=== PATIENT | female | born 2000 | race Caucasian/White ===

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

== ENCOUNTER 2020-08-22 07:42 | Emergency (ER) | payer SELFPAY ==
--- OUTSIDE RECORDS SUMMARY | 2020-08-22 07:44 | XMS REPORT | Continuity of Care Document ---
:2000 Author Organization [facility] t Address [address] [place] [place] [address] Care Team Providers Name Role Phone Gamez Urbano OWEN Attending Clinician Doctor Unassigned, Name Attending Clinician Unavailable Problems This patient has no known problems. Allergies, Adverse Reactions, Alerts This patient has no known allergies or adverse reactions. Medications This patient has no known medications. Procedures This patient has no known procedures. Encounters Start End Encounter Admission Attending Care Care Encounter Source Date/Time Date/Time Type Type Clinicians Facility Department ID 2019-12-22 2019-12-22 Telephone GamezCELSO [id number] 00:00:00 00:00:00 Vickie Clement [facility] [id number] [facility] [id number] MATERNAL [id number] & CHILD 107 [facility] 2019-11-30 2019-11-30 Telephone Franco [facility] [id number] 00:00:00 00:00:00 Vickie Clement [facility] [id number] [facility] [id number] MATERNAL [id number] & CHILD 107 [facility] 2019-11-05 2019-11-05 Orders Doctor RODRIGUES [id number] 00:00:00 00:00:00 Only Unassigned, RUY [id number] [place] [id number] [id number] 2019-10-21 2019-10-21 Office Franco JOHNHEMAL [id number] 14:50:09 15:05:09 Visit Vickie Clement [facility] [id number] [facility] [id number] MATERNAL [id number] & CHILD [address] [place] [address] 2019-10-21 2019-10-21 Orders Doctor LILIA [id number] 00:00:00 00:00:00 Only Unassigned, RUY [id number] [place] [facility] [id number] Results This patient has no known results.
[2020-08-22 08:26] LABS: Absolute Lymphocytes (CBC) 1.8 K/uL (0.7-4.9); Basophils % 0.4 % (0-1.3); Hematocrit 36.1 % (36.0-45.0); Lymphocytes % 34.4 % (15.3-44.8); MPV 9.7 fL (7.6-11.3); RBC Red Blood Cell Count 4.17 M/uL (3.86-4.86)
[2020-08-22 08:54] LABS: BUN Blood Urea Nitrogen 12 mg/dL (7-18); Bicarbonate 27 mmol/L (21-32); Glucose Level 112 mg/dL (74-106); Potassium 3.9 mmol/L (3.5-5.1); Sodium Level 142 mmol/L (136-145); Troponin (Emerg Dept Use Only) < 0.02 ng/mL (0.0-0.045)
--- NOTE | 2020-08-22 09:25 | ER ---
Nurse's Notes [facility] Name: Akanksha Barragan Age: 20 yrs Sex: Female : 2000 Arrival Date: 08/22/2020 Time: 07:44 Bed 20 Private MD: Diagnosis: Chest pain, unspecified;Bradycardia, unspecified Presentation: 08/22 07:53 Chief complaint: Patient states: midsternal chest pain started yesterday, worse this iw morning , also feels like its fluttering , has had previous episode when she was 17 and was supposed to follow up with reference librarian. Coronavirus screen: At this time, the client does not indicate any symptoms associated with coronavirus-19. Ebola Screen: Patient negative for fever greater than or equal to 101.5 degrees Fahrenheit, and additional compatible Ebola Virus Disease symptoms Patient denies exposure to infectious person. Patient denies travel to an Ebola-affected area in the 21 days before illness onset. No symptoms or risks identified at this time. Initial Sepsis Screen: Does the patient meet any 2 criteria? No. Patient's initial sepsis screen is negative. Does the patient have a suspected source of infection? No. Patient's initial sepsis screen is negative. Risk Assessment: Do you want to hurt yourself or someone else? Patient reports no desire to harm self or others. Onset of symptoms was August 21, 2020. 07:53 Method Of Arrival: Ambulatory iw 07:53 Acuity: NATHAN 3 iw Triage Assessment: 09:36 General: Appears in no apparent distress. uncomfortable, Behavior is calm, cooperative, bw appropriate for age. Historical: - Allergies: 08:02 Iodine; iw 08:02 Latex, Natural Rubber; iw 08:02 SHELL FISH; iw 09:37 Bactrim; bw - PMHx: 07:56 Hypothyroidism; inverted T waves; Migraines; seasonal allergies; iw - Immunization history:: Adult Immunizations. - Family history:: not pertinent. - Social history:: Smoking status: Patient denies any tobacco usage or history of. - Hospitalizations: : No recent hospitalization is reported. Screenin:27 Abuse screen: Denies threats or abuse. Nutritional screening: No deficits noted. bw Tuberculosis screening: No symptoms or risk factors identified. Fall Risk None identified. Assessment: 08:27 General: Appears in no apparent distress. uncomfortable. Pain: Complains of pain in bw anterior aspect of left upper chest and mid-sternal area Pain does not radiate. Pain began 1 day ago. Neuro: No deficits noted. Cardiovascular: Rhythm is sinus bradycardia with arrythmia Chest pain is described as Pain is 5 out of 10 on a pain scale. Respiratory: Reports shortness of breath at rest. GI: No signs and/or symptoms were reported involving the gastrointestinal system. : No signs and/or symptoms were reported regarding the genitourinary system. EENT: No signs and/or symptoms were reported regarding the EENT system. Derm: No deficits noted. Musculoskeletal: No deficits noted. 08:53 Reassessment: Patient appears in no apparent distress at this time. Patient and/or bw family updated on plan of care and expected duration. Pain level reassessed. Patient is alert, oriented x 3, equal unlabored respirations, skin warm/dry/pink. 09:35 Reassessment: Patient appears in no apparent distress at this time. Patient and/or bw family updated on plan of care and expected duration. Pain level reassessed. Patient is alert, oriented x 3, equal unlabored respirations, skin warm/dry/pink. Vital Signs: 07:53 BP 132 / 82; Pulse 82; Resp 16; Temp 97.3; Pulse Ox 95% on R/A; Weight 77.11 kg; Height iw 5 ft. 3 in. (160.02 cm); 08:27 BP 115 / 72; Pulse 51; Resp 18; Pulse Ox 100% on R/A; Pain 5/10; bw 09:35 BP 115 / 72; Pulse 50; Resp 18; Pulse Ox 99% on R/A; bw 07:53 Body Mass Index 30.11 (77.11 kg, 160.02 cm) iw ED Course: 07:44 Patient arrived in ED. ds1 07:50 Per Hernandez MD is Attending Physician. rn 07:56 Triage completed. iw 07:56 Esau Ragland, LUIS ALBERTO is Primary Nurse. fu 08:02 Arm band placed on. iw 08:27 Patient has correct armband on for positive identification. Call light in reach. Side bw rails up X 1. neuroscience director na on. Pulse ox on. NIBP on. Warm blanket given. 08:27 No provider procedures requiring assistance completed. Inserted saline lock: 20 gauge bw in right antecubital area, using aseptic technique. Patient maintains SpO2 saturation greater than 95% on room air. 09:03 XRAY Chest (1 view) In Process Unspecified. EDMS 09:24 Jose Rob MD is Referral Physician. rn 09:35 IV discontinued. bw Administered Medications: No medications were administered Outcome: :25 Discharge ordered by . rn 09:35 Discharged to home ambulatory. bw 09:35 Condition: stable 09:35 Discharge instructions given to patient. 09:50 Patient left the ED. bw Signatures: Dispatcher [employer] EDSD Heaven Nino ds1 Leonila Reyes RN RN Per Rhodes MD MD rn Umadhay, Felix, RN RN fu Webb, Bethany, RN RN bw Corrections: (The following items were deleted from the chart) 09:37 08:02 Allergies: Bactrim; iw bw
--- NOTE | 2020-08-22 09:26 | EDPHYS ---
Physician Documentation [facility] Name: Akanksha Barragan Age: 20 yrs Sex: Female : 2000 Arrival Date: 08/22/2020 Time: 07:44 Bed 20 Private MD: ED Physician Per Hernandez HPI: 08/22 08:11 This 20 yrs old Female presents to ER via Ambulatory with complaints of Chest rn Pain. 08:11 The patient or guardian reports chest pain that is located primarily in the substernal rn area. The pain does not radiate. Associated signs and symptoms: Pertinent positives: palpitations, Pertinent negatives: abdominal pain, cough, diaphoresis, near syncope, shortness of breath, syncope, vomiting. The chest pain is described as sharp. Duration: The patient or guardian reports multiple episodes, that are intermittent. Modifying factors: The symptoms are alleviated by nothing. the symptoms are aggravated by nothing. Severity of pain: At its worst the pain was mild in the emergency department the pain is unchanged. The patient has experienced a previous episode. The patient has not recently seen a physician. Reports chest pain since last night, no fever/cough/trauma. Reports similar episode 3 years ago, told to f/u with cardiology but never did. + vapes. No sob. Reports years of dyspnea when climbing stairs and lightheadedness. No syncope. No famhx of cardiac disease at her age. Reports pain comes for seconds, goes away, then returns, not better after anti-inflammatories so came in.. Historical: - Allergies: 08:02 Iodine; iw 08:02 Latex, Natural Rubber; iw 08:02 SHELL FISH; iw 09:37 Bactrim; bw - PMHx: 07:56 Hypothyroidism; inverted T waves; Migraines; seasonal allergies; iw - Immunization history:: Adult Immunizations. - Family history:: not pertinent. - Social history:: Smoking status: Patient denies any tobacco usage or history of. - Hospitalizations: : No recent hospitalization is reported. ROS: 08:11 Constitutional: Negative for fever, chills, and weight loss, Eyes: Negative for injury, rn pain, redness, and discharge, Neck: Negative for injury, pain, and swelling, Cardiovascular: Negative for edema Respiratory: Negative for shortness of breath, cough, wheezing, and pleuritic chest pain, Abdomen/GI: Negative for abdominal pain, nausea, vomiting, diarrhea, and constipation, Back: Negative for injury and pain, MS/Extremity: Negative for injury and deformity, Skin: Negative for injury, rash, and discoloration, Neuro: Negative for headache, weakness, numbness, tingling, and seizure. Exam: 08:11 Constitutional: This is a well developed, well nourished patient who is awake, alert, rn and in no acute distress. Head/Face: Normocephalic, atraumatic. Eyes: Periorbital areas with no swelling, redness, or edema. ENT: MMM, no stridor Cardiovascular: Regular rate and rhythm. No gallops, murmurs, or rubs. No pulse deficits. Respiratory: No increased work of breathing, no retractions or nasal flaring. Abdomen/GI: Soft, non-tender Skin: Warm, dry MS/ Extremity: Pulses equal, no cyanosis. Neuro: Awake and alert, GCS 15 Vital Signs: 07:53 BP 132 / 82; Pulse 82; Resp 16; Temp 97.3; Pulse Ox 95% on R/A; Weight 77.11 kg; Height iw 5 ft. 3 in. (160.02 cm); 08:27 BP 115 / 72; Pulse 51; Resp 18; Pulse Ox 100% on R/A; Pain 5/10; bw 09:35 BP 115 / 72; Pulse 50; Resp 18; Pulse Ox 99% on R/A; bw 07:53 Body Mass Index 30.11 (77.11 kg, 160.02 cm) iw MDM: 07:50 Patient medically screened. rn 09:23 Differential diagnosis: acute pericarditis, anxiety, chest wall pain, costochondritis, rn pleurisy, pneumothorax, pulmonary embolus, palpitations, arrhythmia, smoking related pain, pleurisy. Data reviewed: vital signs, nurses notes, lab test result(s), EKG, radiologic studies, plain films, and as a result, I will discharge patient. Counseling: I had a detailed discussion with the patient and/or guardian regarding: the historical points, exam findings, and any diagnostic results supporting the discharge/admit diagnosis, lab results, radiology results, the need for outpatient follow up, to return to the emergency department if symptoms worsen or persist or if there are any questions or concerns that arise at home. Special discussion: Based on the patient's history, exam, and Dx evaluation, there is no indication for emergent intervention or inpatient Tx. It is understood by the patient/guardian that if the Sx's persist or worsen they need to return immediately for re-evaluation. I discussed with the patient/guardian in detail that at this point there is no indication for admission to the hospital. It is understood, however, that if the symptoms persist or worsen the patient needs to return immediately for re-evaluation. Based on the history and exam findings, there is no indication for further emergent testing or inpatient evaluation. I discussed with the patient/guardian the need to see the lcsw for further evaluation of the symptoms. ED course: NO acute findings here, will dc home with cardiology f/u for ECHo and holter given sinus bradycardia and no other etiology fo chest pain found, recommend cessation of smoking as well. . 08/22 08:01 Order name: CBC with Diff; Complete Time: 09:03 rn 08/22 08:01 Order name: Basic Metabolic Panel; Complete Time: 09:03 rn 08/22 08:01 Order name: D-Dimer; Complete Time: 09:03 rn 08/22 08:01 Order name: XRAY Chest (1 view); Complete Time: 09:36 rn 08/22 08:01 Order name: EKG; Complete Time: 08:02 rn 08/22 08:01 Order name: Troponin (emerg Dept Use Only); Complete Time: 09:03 rn 08/22 08:01 Order name: IV Start; Complete Time: 08:27 rn 08/22 08:01 Order name: EKG - Nurse/Tech; Complete Time: 08:27 rn Administered Medications: No medications were administered Disposition: 08/22/20 09:25 Discharged to Home. Impression: Chest pain, unspecified, Bradycardia, unspecified. - Condition is Stable. - Discharge Instructions: Bradycardia, Adult, Nonspecific Chest Pain, Steps to Quit Smoking. - Medication Reconciliation Form, Thank You Letter, Antibiotic Education, Prescription Opioid Use form. - Follow up: Jose Rob MD; When: As needed; Reason: Recheck today's complaints, Re-evaluation by your physician. - Problem is new. - Symptoms have improved. Signatures: Dispatcher [employer] EDMS Leonila Reyes RN Per Ariza MD MD rn Webb, LUIS ALBERTO Mckeon RN bw Corrections: (The following items were deleted from the chart) 09:37 08:02 Allergies: Bactrim; bw 09:50 09:25 08/22/2020 09:25 Discharged to Home. Impression: Chest pain, unspecified; bw Bradycardia, unspecified. Condition is Stable. Forms are Medication Reconciliation Form, Thank You Letter, Antibiotic Education, Prescription Opioid Use. Follow up: Jose Rob; When: As needed; Reason: Recheck today's complaints, Re-evaluation by your physician. Problem is new. Symptoms have improved. rn
--- NOTE | 2020-08-22 09:28 | RAD REPORT ---
EXAM DESCRIPTION: RAD - Chest Single View - 08/22/2020 9:03 am CLINICAL HISTORY: CHEST PAIN COMPARISON: None TECHNIQUE: AP portable chest image was obtained 08/22/2020 9:03 am . FINDINGS: Lungs are clear. Heart and vasculature are normal. No measurable pleural effusion and no p neumothorax. No acute bony abnormality seen. No acute aortic findings suspected. IMPRESSION: No acute cardiopulmonary process.
== END 2020-08-22 09:50 | disposition home or self-care (01) ==
LOC: ER 07:42
DX: R07.9 Chest pain, unspecified (principal); R00.1 Bradycardia, unspecified; E03.9 Hypothyroidism, unspecified
CPT/HCPCS: 36415; 71045; 80048; 84484; 85025; 85379; 93005; 99284

== ENCOUNTER 2020-08-23 13:30 | Emergency (ER) | payer SELFPAY ==
--- OUTSIDE RECORDS SUMMARY | 2020-08-23 13:32 | XMS REPORT | Continuity of Care Document ---
:2000 Author Organization [facility] t Address [address] [place] [address] Care Team Providers Name Role Phone Urbano [...] Facility Department ID 2019-12-22 2019-12-22 Telephone [facility] [id number] 00:00:00 00:00:00 Vickie Clement SYSTEM DESIGNER [id number] [facility] [id number] MATERNAL [phone] & CHILD 107 [facility] 2019-11-30 2019-11-30 Telephone Gamez [facility] [id number] 00:00:00 00:00:00 Vickie Clement SYSTEM DESIGNER [id number] [facility] [id number] MATERNAL [phone] & CHILD 107 [facility] 2019-11-05 2019-11-05 Orders Doctor RODRIGUES [id number] 00:00:00 00:00:00 Only Unassigned, RUY [id number] [place] [id number] [id number] 2019-10-21 2019-10-21 Office CELSO [facility] [id number] 14:50:09 15:05:09 Visit Vickie Clement SYSTEM DESIGNER [id number] [facility] [id number] MATERNAL [phone] & CHILD [address] [place] [address] 2019-10-21 2019-10-21 Orders Doctor LILIA [id number] 00:00:00 00:00:00 Only Unassigned, RUY [id number] [place] [facility] [id number] [id number] Results This patient has no known results.
--- NOTE | 2020-08-23 17:46 | ER ---
Nurse's Notes [facility] Name: Akanksha Barragan Age: 20 yrs Sex: Female : 2000 Arrival Date: 08/23/2020 Time: 13:31 Bed Waiting Private MD: Diagnosis: Presentation: 08/23 13:45 Chief complaint: Patient states: CP continues since her visit here yesterday. 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 Pain is more severe today, so she came back. CP started Saturday night with SOB. Coronavirus screen: Client denies travel out of the [place] in the last 14 days. Ebola Screen: Patient denies travel to an Ebola-affected area in the 21 days before illness onset. Initial Sepsis Screen: Does the patient meet any 2 criteria? No. Patient's initial sepsis screen is negative. Does the patient have a suspected source of infection? No. Patient's initial sepsis screen is negative. Risk Assessment: Do you want to hurt yourself or someone else? Patient reports no desire to harm self or others. Onset of symptoms was August 20, 2020. 13:45 Method Of Arrival: Ambulatory ll1 13:45 Acuity: NATHAN 3 ll1 Historical: - Allergies: 13:47 SHELL FISH; ll1 13:47 Latex, Natural Rubber; ll1 13:47 Iodine; ll1 13:47 Bactrim; ll1 - PMHx: 13:47 seasonal allergies; Migraines; inverted T waves; Hypothyroidism; ll1 - PSHx: 13:47 None; ll1 - Immunization history:: Flu vaccine is up to date. - Social history:: Smoking status: Patient denies any tobacco usage or history of. Assessment: 13:55 Reassessment: Received VO from Dr Hernandez for EKG. sv Vital Signs: 13:45 BP 137 / 66; Pulse 61; Resp 18; Temp 97.5; Pulse Ox 100% ; Weight 77.11 kg; Height 5 ll1 ft. 3 in. (160.02 cm); Pain 10/10; 13:45 Body Mass Index 30.11 (77.11 kg, 160.02 cm) ll1 ED Course: 13:31 Patient arrived in ED. as 13:47 Triage completed. ll1 13:48 Arm band placed on Patient notified of wait time. ll1 Administered Medications: No medications were administered Outcome: 17:46 Patient left the ED. ll1 Signatures: Quin Mario, RN Tierra Hein Lynsay, RN RN ll1
--- NOTE | 2020-08-24 12:50 | EKG ---
Test Date: 2020-08-23 Test Time: 13:51:56 Auto Dismantler: LML MEASUREMENT RESULTS: Intervals: Rate: 57 TN: 178 QRSD: 88 QT: 402 QTc: 391 [place]: P: 37 TN: 178 QRS: 88 T: 21 INTERPRETIVE STATEMENTS: Sinus bradycardia with marked sinus arrhythmia Otherwise normal ECG Compared to ECG 08/22/2020 08:23:19 No significant changes Electronically Signed On 08-24-20 12:45:43 CDT by Jose Rob
== END 2020-08-23 17:46 | disposition left against medical advice (07) ==
LOC: ER 13:30
DX: Z02.9 Encounter for administrative examinations, unspecified (principal)
CPT/HCPCS: 93005; 99281

== ENCOUNTER 2022-04-06 21:54 | Emergency (ER) | payer SELFPAY ==
--- OUTSIDE RECORDS SUMMARY | 2022-04-06 21:59 | XMS REPORT | Continuity of Care Document ---
:2000 Author Organization [facility] t Address [address] [place] [address] Care Team Providers Name Role Phone ARIELLA MCCLOUD Primary Care Physician Unavailable EMILY HURST Attending Clinician Unavailable UMM WELLER Attending Clinician Unavailable UMM WELLER Attending Clinician Unavailable Umm Weller DO Attending Clinician DANE URENA Attending Clinician Unavailable Dane Urena NP Attending Clinician Emily Hurst MD Attending Clinician KAL JOY Attending Clinician Unavailable Kal Joy MD Attending Clinician Doctor Unassigned, [place] Attending Clinician Unavailable MICHELLE ARMSTRONG Attending Clinician Unavailable Michelle Armstrong DO Attending Clinician BENITA BERNAL Attending Clinician Unavailable Benita Bernal DO Attending Clinician Kristian Simeon MD Attending Clinician Marquez Yeager MD Attending Clinician Vickie Palumbo Attending Clinician VICKIE HARRELL Attending Clinician Unavailable DANE URENA Admitting Clinician Unavailable EMILY HURST Admitting Clinician Unavailable KAL JOY Admitting Clinician Unavailable Payers Payer Name Policy Type Policy Number Effective Date Expiration Date Mark daigle [employer] [place] [id number] 2022 00:00:00 WOMEN Problems Condition Condition Condition Status Onset Resolution Last Treating Co mments Source Name Details Category Date Date Treatment Clinician Date Nexplanon Nexplanon Disease Active Uni vers in place in place 2- ity of 00:00: [place] [facility] Encounter Encounter Disease Active Uni vers for for 1-30 [place] of [place] is[place] isabella 00 Medical management management Br anch , , unspecifie unspecifie d type d type Nexplanon Nexplanon Disease Active Uni vers removal removal 1-30 ity of 00:00: [place] [id number] Medical Branch Obesity, Obesity, Disease Active Unive rs unspecifie unspecifie 1-30 it y of d d 00:00: [place] classifica classifica 00 Wy dical tion, tion, Branch unspecifie unspecifie d obesity d obesity type, type, unspecifie unspecifie d whether d whether serious serious comorbidit comorbidit y present y present BMI BMI Disease Active Univers 30.0-30.9, 30.0-30.9, 1-30 it y of adult adult 00:00: [place] [address] Medical Branch 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, dism, 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, acquired, [place]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 00 [place] dical Branch Family Family Disease Active Univers history of history of 7-19 it y of thyroid thyroid 00:00: [place] disease in disease in 00 Wy dical father father Branch Allergies, Adverse Reactions, Alerts Allergy Allergy Status Severity Reaction(s) Onset Inactive Treating Comm ents Source Name Type Date Date Clinician IODINE DRUG Active High Anaphylaxis Unive rs INGREDI 9-10 ity of 00:00: [place] 00 Medical Branch LATEX DRUG Active Rash Univers INGREDI 9-10 ity of 00:00: [place] [facility] Iodine Propensi Active Anaphylaxis Uni vers ty to 9-10 ity of adverse 00:00: [place] reaction 00 Medical s Branch Latex Propensi Active Rash 2018-0 Univers ty to 9-10 ity of adverse 00:00: [place] reaction 00 Medical s Branch PROMETHA DRUG Active Hives 2018-0 Univers ZINE HCL INGREDI 5-17 ity of 00:00: [place] 00 Medical Branch SULFA Drug Active Hives 2018-0 Univers (SULFONA Class 5-17 ity of MIDE 00:00: [place] ANTIBIOT 00 Medical ICS) Branch Sulfa Propensi Active Hives 2018-0 Univers (Sulfona ty to 5-17 ity of mide adverse 00:00: [place] Antibiot reaction 00 Medica l ics) s Branch Prometha Propensi Active Hives 2018-0 Univer s zine Hcl ty to 5-17 ity of adverse 00:00: [place] reaction 00 Medical s Branch Sulfa Propensi Active Hives 2018-0 Univers (Sulfona ty to 5-17 ity of mide adverse 00:00: [place] Antibiot reaction 00 Medica l ics) s Branch SHELLFIS DRUG Active Hives 2018-0 Univers H INGREDI 4-03 ity of DERIVED 00:00: [place] 00 Medical Branch SHRIMP DRUG Active Hives 2018-0 Univers INGREDI 4-03 ity of 00:00: [place] 00 Medical Branch Shellfis Propensi Active Hives 2018-0 Univer s h ty to 4-03 ity of Derived adverse 00:00: [place] reaction 00 Medical s Branch Shrimp Propensi Active Hives 2018-0 Univers ty to 4-03 ity of adverse 00:00: [place] reaction 00 Medical s Branch Social History Social Habit Start Date Stop Date Quantity Comments Source Exposure to 2022-03-23 2022-04-02 Not sure [facility] SARS-CoV-2 00:00:00 14:46:00 [place] [facility] (event) Branch Alcohol intake 2022-03-15 2022-03-15 Current University of 00:00:00 00:00:00 non-drinker of [facility] [facility] alcohol (finding) Branch Tobacco use and 2022-02-22 2022-02-22 Smokeless tobacco Un iversity of exposure 00:00:00 00:00:00 non-user [facility] [place] Sex Assigned At 2000 2000 Universit y of 00:00:00 00:00:00 [facility] [place] Smoking Status Start Date Stop Date Source Never smoked tobacco [facility] Medications Ordered Filled Start Stop Current Ordering Indication Dosage Frequency Signature Comments Components Source Medication Medication Date Date Medication? Clinician (SIG) Name Name dexamethaso 2021-05- No 10mg 10 mg, Uni vers ne 03-15 Slow IV ity of (DECADRON 20:15: 19:42 Push, [place] PHOSPHATE) 00 :00 ONCE, 1 Medica l injection dose, On [place] 10 mg [facility] 03/15/22 at 1515, Routine ketorolac 2021-05 No 30mg 30 mg, Unive rs (TORADOL) 03-15 Slow IV ity of injection 20:15: 19:40 Push, [place] 30 mg 00 :00 ONCE, 1 Medical dose, On [facility] 03/15/22 at 1515, Routine NaCl 0.9% 2021-05 No 1000mL at 1,000 U nivers (NS) IV 03-15 mL/hr, ity of infusion 19:30: 21:46 [place] 1,000 mL 00 :00 s, ONCE, 1 Medic al dose, On [facility] 03/15/22 at 1430, ARNALDO acetaminoph 2021-05- No 650mg 650 mg, U nivers en 03-15 Oral, ity of (TYLENOL) 19:15: 19:41 ONCE, 1 [place] tablet 650 00 :00 dose, On Medic al mg [facility] 03/15/22 at 1415, ARNALDO metoprolol 2021-05 Yes [id number] 25mg Take 1 U nivers tartrate 25 0-08 tablet by ity of mg tablet 00:00: [place] 00 the Medical morning Branch and 1 tablet in the evening. metoprolol 2021-05 Yes [id number] 25mg Take 1 U nivers tartrate 25 0-08 tablet by ity of mg tablet 00:00: [place] 00 the Medical morning Branch and 1 tablet in the evening. metoprolol 2021-05 Yes [id number] 25mg Take 1 U nivers tartrate 25 0-08 tablet by ity of mg tablet 00:00: [place] 00 the Medical morning Branch and 1 tablet in the evening. metoprolol 2021-05 Yes [id number] 25mg Take 1 U nivers tartrate 25 0-08 tablet by ity of mg tablet 00:00: [place] 00 the Medical morning Branch and 1 tablet in the evening. Nitrofurant 2021- No [id number] 100mg Take 1 Univers oin&Nit. 5-14 05-25 capsule by ity of Macrocryst 00:00: 04:59 mouth 2 [place] as 100 mg 00 :00 (two) Medical capsule times Branch daily for 10 days. traMADoL Yes [id number] 50mg Take 1 Univers (ULTRAM) 50 8-22 tablet by ity of mg tablet 00:00: mouth [place] 00 every 6 Medical (six) Branch hours as needed for Pain (scale 7-10). Indication s: acute pain traMADoL Yes [id number] 50mg Take 1 Univers (ULTRAM) 50 8-22 tablet by ity of mg tablet 00:00: mouth [place] 00 every 6 Medical (six) Branch hours as needed for Pain (scale 7-10). Indication s: acute pain traMADoL Yes 4647 50mg Take 1 Univers (ULTRAM) 50 8-22 tablet by ity of mg tablet 00:00: mouth [place] 00 every 6 Medical (six) Branch hours as needed for Pain (scale 7-10). Indication s: acute pain traMADoL Yes 4647 50mg Take 1 Univers (ULTRAM) 50 8-22 tablet by ity of mg tablet 00:00: mouth [place] 00 every 6 Medical (six) Branch hours as needed for Pain (scale 7-10). Indication s: acute pain traMADoL Yes 4647 50mg Take 1 Univers (ULTRAM) 50 8-22 tablet by ity of mg tablet 00:00: mouth [place] 00 every 6 Medical (six) Branch hours as needed for Pain (scale 7-10). Indication s: acute pain traMADoL Yes 4647 50mg Take 1 Univers (ULTRAM) 50 8-22 tablet by ity of mg tablet 00:00: mouth [place] 00 every 6 Medical (six) Branch hours as needed for Pain (scale 7-10). Indication s: acute pain traMADoL Yes 4647 50mg Take 1 Univers (ULTRAM) 50 8-22 tablet by ity of mg tablet 00:00: mouth [place] 00 every 6 Medical (six) Branch hours as needed for Pain (scale 7-10). Indication s: acute pain traMADoL 0 Yes 4647 50mg Take 1 Univers (ULTRAM) 50 8-22 tablet by ity of mg tablet 00:00: mouth [place] 00 every 6 Medical (six) Branch hours as needed for Pain (scale 7-10). Indication s: acute pain traMADoL 0 Yes 4647 50mg Take 1 Univers (ULTRAM) 50 8-22 tablet by ity of mg tablet 00:00: mouth [place] 00 every 6 Medical (six) Branch hours as needed for Pain (scale 7-10). Indication s: acute pain traMADoL Yes 4647 50mg Take 1 Univers (ULTRAM) 50 8-22 tablet by ity of mg tablet 00:00: mouth [place] 00 every 6 Medical (six) Branch hours as needed for Pain (scale 7-10). Indication s: acute pain traMADoL Yes 4647 50mg Take 1 Univers (ULTRAM) 50 8-22 tablet by ity of mg tablet 00:00: mouth [place] 00 every 6 Medical (six) Branch hours as needed for Pain (scale 7-10). Indication s: acute pain maalox:diph 2020- No 15mL 15 mL, Uni vers enhydrAMINE 08-24- Oral, ity of :lidocaine 21:30: 20:47 ONCE, 1 [place] 2 % viscous 00 :00 dose, Wed Med ical 1:1:1 08/24/20 at [place] (FIRST-MOUT 1630, ARNALDOMCLAREN [place] REG[facility]) oral suspension 15 mL levothyroxi 2017-0 Yes 100ug Take 1 Uni vers ne 100 mcg 7-20 tablet by ity of tablet 00:00: mouth [place] 00 every Medical morning. Branch Fasting, with water if needed. Wait 15 min before eating or drinking. levothyroxi 2017-0 Yes 100ug Take 1 Uni vers ne 100 mcg 7-20 tablet by ity of tablet 00:00: mouth [place] 00 every Medical morning. Branch Fasting, with water if needed. Wait 15 min before eating or drinking. levothyroxi 2017-0 Yes 100ug Take 1 Uni vers ne 100 mcg 7-20 tablet by ity of tablet 00:00: mouth [place] 00 every Medical morning. Branch Fasting, with water if needed. Wait 15 min before eating or drinking. levothyroxi 2018-0 Yes 100ug Take 1 Uni vers ne 100 mcg 7-20 tablet by ity of tablet 00:00: mouth [place] 00 every Medical morning. Branch Fasting, with water if needed. Wait 15 min before eating or drinking. levothyroxi 2018-0 Yes 100ug Take 1 Uni vers ne 100 mcg 7-20 tablet by ity of tablet 00:00: mouth [place] 00 every Medical morning. Branch Fasting, with water if needed. Wait 15 min before eating or drinking. levothyroxi 2018-0 Yes 100ug Take 1 Uni vers ne 100 mcg 7-20 tablet by ity of tablet 00:00: mouth [place] 00 every Medical morning. Branch Fasting, with water if needed. Wait 15 min before eating or drinking. levothyroxi 2018-0 Yes 100ug Take 1 Uni vers ne 100 mcg 7-20 tablet by ity of tablet 00:00: mouth [place] 00 every Medical morning. Branch Fasting, with water if needed. Wait 15 min before eating or drinking. levothyroxi 2018-0 Yes 100ug Take 1 Uni vers ne 100 mcg 7-20 tablet by ity of tablet 00:00: mouth [place] 00 every Medical morning. Branch Fasting, with water if needed. Wait 15 min before eating or drinking. levothyroxi 2018-0 Yes 100ug Take 1 Uni vers ne 100 mcg 7-20 tablet by ity of tablet 00:00: mouth [place] 00 every Medical morning. Branch Fasting, with water if needed. Wait 15 min before eating or drinking. levothyroxi 2018-0 Yes 100ug Take 1 Uni vers ne 100 mcg 7-20 tablet by ity of tablet 00:00: mouth [place] 00 every Medical morning. Branch Fasting, with water if needed. Wait 15 min before eating or drinking. levothyroxi 2018-0 Yes 100ug Take 1 Uni vers ne 100 mcg 7-20 tablet by ity of tablet 00:00: mouth [place] 00 every Medical morning. Branch Fasting, with water if needed. Wait 15 min before eating or drinking. levothyroxi 2018-0 Yes 100ug Take 1 Uni vers ne 100 mcg 7-20 tablet by ity of tablet 00:00: mouth [place] 00 every Medical morning. Branch Fasting, with water if needed. Wait 15 min before eating or drinking. levothyroxi 2018-0 Yes 100ug Take 1 Uni vers ne 100 mcg 7-20 tablet by ity of tablet 00:00: mouth [place] 00 every Medical morning. Branch Fasting, with water if needed. Wait 15 min before eating or drinking. levothyroxi 2018-0 Yes 100ug Take 1 Uni vers ne 100 mcg 7-20 tablet by ity of tablet 00:00: mouth [place] 00 every Medical morning. Branch Fasting, with water if needed. Wait 15 min before eating or drinking. levothyroxi 2018-0 Yes 100ug Take 1 Uni vers ne 100 mcg 7-20 tablet by ity of tablet 00:00: mouth [place] 00 every Medical morning. Branch Fasting, with water if needed. Wait 15 min before eating or drinking. levothyroxi 2018-0 Yes 100ug Take 1 Uni vers ne 100 mcg 7-20 tablet by ity of tablet 00:00: mouth [place] 00 every Medical morning. Branch Fasting, with water if needed. Wait 15 min before eating or drinking. levothyroxi 2018-0 Yes 100ug Take 1 Uni vers ne 100 mcg 7-20 tablet by ity of tablet 00:00: mouth [place] 00 every Medical morning. Branch Fasting, with water if needed. Wait 15 min before eating or drinking. levothyroxi 2018-0 Yes 100ug Take 1 Uni vers ne 100 mcg 7-20 tablet by ity of tablet 00:00: mouth [place] 00 every Medical morning. Branch Fasting, with water if needed. Wait 15 min before eating or drinking. levothyroxi 2018-0 Yes 100ug Take 1 Uni vers ne 100 mcg 7-20 tablet by ity of tablet 00:00: mouth [place] 00 every Medical morning. Branch Fasting, with water if needed. Wait 15 min before eating or drinking. Vital Signs Vital Name Observation Time Observation Value Comments Source Systolic blood 2022-04-02 23:00:00 116 [facility]Hg[facility] [place] [facility] Diastolic blood 2022-04-02 23:00:00 77 mm[Hg] [facility] Heart rate 2022-04-02 23:00:00 89 /min [facility] Respiratory rate 2022-04-02 23:00:00 16 /min [facility] Oxygen saturation in 2022-04-02 23:00:00 98 /min [facility] blood by [facility] Pulse oximetry Branch Body temperature 2022-04-02 21:10:00 37.56 Madelin Univ ersity [facility] [place] [facility] Body weight 2022-04-02 20:43:00 72.576 kg Universi ty of [place] [facility] BMI 2022-04-02 20:43:00 30.23 kg/m2 Universi ty of [place] [facility] Systolic blood 2022-03-15 21:01:00 122 mm[Hg] Univer sity of pressure [place] [facility] Diastolic blood 2022-03-15 21:01:00 64 mm[Hg] Unive rsity of pressure [place] [facility] Heart rate 2022-03-15 21:01:00 96 /min Universi ty of [place] [facility] Body temperature 2022-03-15 21:01:00 38.06 Madelin Univ ers[facility] [place] [facility] Respiratory rate 2022-03-15 21:01:00 17 /min Univ ersity of [place] [facility] Oxygen saturation in 2022-03-15 21:01:00 98 /min University of Arterial blood by [facility] [facility] Pulse oximetry Branch Body height 2022-03-15 16:36:00 154.9 cm Universi ty of [place] [facility] Body weight 2022-03-15 16:36:00 73.483 kg Universi ty of [place] [facility] BMI 2022-03-15 16:36:00 30.61 kg/m2 Universi ty [facility] [place] [facility] Systolic blood 2022-02-24 22:05:46 140 mm[Hg] Univer sity of pressure [place] [facility] Diastolic blood 2022-02-24 22:05:46 78 mm[Hg] Unive rsity of pressure [place] [facility] Heart rate 2022-02-24 22:05:46 72 /min Universi ty of [place] [facility] Body temperature 2022-02-24 22:05:46 37.06 Madelin Univ ers[facility] [place] [facility] Respiratory rate 2022-02-24 22:05:46 18 /min Univ ersity of [place] [facility] Oxygen saturation in 2022-02-24 22:05:46 99 /min University of Arterial blood by [facility] [facility] Pulse oximetry Branch Body weight 2022-02-24 19:41:00 73.483 kg Universi ty of [place] [facility] BMI 2022-02-24 19:41:00 29.63 kg/m2 Universi ty of [place] [facility] Systolic blood 2022-02-22 19:40:00 137 mm[Hg] Univer sity of pressure [place] [facility] Diastolic blood 2022-02-22 19:40:00 88 mm[Hg] Unive rsity of pressure [place] [facility] Heart rate 2022-02-22 19:40:00 92 /min Universi ty of [place] [facility] Oxygen saturation in 2022-02-22 19:40:00 97 /min University of Arterial blood by [place] [facility] Pulse oximetry Branch Respiratory rate 2022-02-22 19:36:00 20 /min Univ ersity of [place] [facility] Body height 2022-02-22 19:36:00 157.5 cm Universi ty [facility] [place] [facility] Body weight 2022-02-22 19:36:00 74.934 kg Universi ty [facility] [place] [facility] BMI 2022-02-22 19:36:00 30.22 kg/m2 Universi ty [facility] [place] [facility] Systolic blood 2022-02-05 20:32:58 112 mm[Hg] Univer sity of pressure [place] [facility] Diastolic blood 2022-02-05 20:32:58 66 mm[Hg] Unive rsity of pressure [place] [facility] Heart rate 2022-02-05 20:32:58 54 /min Universi ty of [place] [facility] Respiratory rate 2022-02-05 20:32:58 18 /min Univ ersity of [place] [facility] Oxygen saturation in 2022-02-05 20:32:58 99 /min University of Arterial blood by [place] [facility] Pulse oximetry Branch Body temperature 2022-02-05 18:50:00 36.94 Madelin Univ [facility] [place] [facility] Body height 2022-02-05 18:50:00 157.5 cm [facility]i [facility] [place] [facility] Body weight 2022-02-05 18:50:00 78.019 kg [facility] [place] [facility] BMI 2022-02-05 18:50:00 31.46 kg/m2 [facility] [place] [facility] Systolic blood 2021-09-30 17:59:00 135 mm[Hg] Univer sity of pressure [place] [facility] Diastolic blood 2021-09-30 17:59:00 83 mm[Hg] Unive rsity of pressure [place] [facility] Heart rate 2021-09-30 17:59:00 89 /min Universi ty [facility] [place] [facility] Body temperature 2021-09-30 17:59:00 36.78 Madelin Univ [facility] [place] [facility] Respiratory rate 2021-09-30 17:59:00 18 /min Univ [facility] [place] [facility] Body height 2021-09-30 17:59:00 160 cm [facility] [place] [facility] Body weight 2021-09-30 17:59:00 78.019 kg [facility] [place] [facility] BMI 2021-09-30 17:59:00 30.47 kg/m2 [facility] [place] [facility] Oxygen saturation in 2021-09-30 17:59:00 99 /min University of Arterial blood by [facility] [facility] Pulse oximetry Branch Systolic blood 2021-01-08 08:08:00 116 mm[Hg] Univer sity of pressure [place] [facility] Diastolic blood 2021-01-08 08:08:00 79 mm[Hg] Unive rsity of pressure [place] [facility] Heart rate 2021-01-08 08:08:00 67 /min [facility] [place] [facility] Respiratory rate 2021-01-08 08:08:00 18 /min Univ [facility] [place] [facility] Oxygen saturation in 2021-01-08 08:08:00 100 /min University of Arterial blood by [facility] [facility] Pulse oximetry Branch Body temperature 2021-01-08 03:45:00 37.28 Madelin [facility] [place] [facility] Body height 2021-01-08 03:45:00 157.5 cm [facility] [place] [facility] Body weight 2021-01-08 03:45:00 79.379 kg [facility] [place] [facility] BMI 2021-01-08 03:45:00 32.01 kg/m2 [facility] [place] [facility] Systolic blood 2020-08-24 21:00:00 129 mm[Hg] Univer sity of pressure [place] [facility] Diastolic blood 2020-08-24 21:00:00 86 mm[Hg] Unive rsity of pressure [place] [facility] Heart rate 2020-08-24 21:00:00 64 /min [facility] [place] [facility] Body temperature 2020-08-24 21:00:00 36.56 Madelin Univ [facility] [place] [facility] Respiratory rate 2020-08-24 21:00:00 17 /min Univ ersity of [facility] [place] Oxygen saturation in 2020-08-24 21:00:00 99 /min University Arterial blood by [facility] [facility] Pulse oximetry Branch Body weight 2020-08-24 16:56:00 77.111 kg Universi ty of [facility] [place] Systolic blood 2019-10-21 19:52:00 139 mm[Hg] Univer sity of pressure [facility] [place] Diastolic blood 2019-10-21 19:52:00 86 mm[Hg] Unive rsity of pressure [facility] [place] Heart rate 2019-10-21 19:52:00 89 /min Universi ty of [facility] [place] Body temperature 2019-10-21 19:52:00 36.17 Madelin Univ ersity of [facility] [place] Respiratory rate 2019-10-21 19:52:00 16 /min Univ ersity of [facility] [place] Body height 2019-10-21 19:52:00 157.5 cm Universi ty of [facility] [place] Body weight 2019-10-21 19:52:00 80.4 kg Universi ty of [facility] [place] BMI 2019-10-21 19:52:00 32.42 kg/m2 Universi ty of [facility] [place] Systolic blood 2019-10-21 19:52:00 139 mm[Hg] Univer sity of pressure [facility] [place] Diastolic blood 2019-10-21 19:52:00 86 mm[Hg] Unive rsity of pressure [facility] [place] Heart rate 2019-10-21 19:52:00 89 /min Universi ty of [facility] [place] Body temperature 2019-10-21 19:52:00 36.17 Madelin Univ ersity of [facility] [place] Respiratory rate 2019-10-21 19:52:00 16 /min Univ ersity of [facility] [place] Body height 2019-10-21 19:52:00 157.5 cm Universi ty of [facility] [place] Body weight 2019-10-21 19:52:00 80.4 kg Universi ty of [facility] [place] BMI 2019-10-21 19:52:00 32.42 kg/m2 Universi ty of [facility] [place] Procedures Procedure Date / Time Performing Clinician Source Performed XR CHEST 2 VW 2022-04-02 23:43:46 GueroUmm hinson [place] [facility] [place] POCT TEST 2022-04-02 23:08:00 Umm Weller [facility] URINALYSIS 2022-04-02 21:54:00 Guero [facility] EXTRA TUBE URINE CULTURE 2022-04-02 21:54:00 [facility] 2022-04-02 21:50:00 Guero [facility] TROPONIN I 2022-04-02 21:50:00 Guero [facility] THYROID STIMULATING 2022-04-02 21:50:00 Guero [facility] HEPATIC FUNCTION PANEL 2022-04-02 21:50:00 Guero [facility] ([id number]) (ALB,T.PRO,BILI [facility] T,BU/BC,ALT,AST,ALK PHOS) BASIC METABOLIC PANEL 2022-04-02 21:50:00 Guero [facility] (NA, K, CL, CO2, Medical Branch GLUCOSE, BUN, CREATININE, CA) CBC WITH DIFF 2022-04-02 21:50:00 Guero [facility] GALV ONLY - INFLUENZA A 2022-04-02 21:50:00 Guero [facility] B RSV PCR [facility] N-TERMINAL PRO-BNP 2022-04-02 21:50:00 Guero [facility] FREE T3 2022-04-02 21:50:00 Guero [facility] CONSENT/REFUSAL FOR 2022-04-02 20:43:46 Doctor Unassigned, No Un [facility] DIAGNOSIS AND TREATMENT Name Medical Branch XR SPINE THORACIC 2 VW 2022-03-15 19:21:00 Dane Urena [facility] XR CHEST 1 VW 2022-03-15 19:20:00 Dane Urena [facility] THYROID STIMULATING 2022-03-15 18:54:00 Dane Urena [facility] COMP. METABOLIC PANEL 2022-03-15 18:54:00 Dane Urena [facility] ([id number]) Medical Branch CBC WITH DIFF 2022-03-15 18:54:00 Dane Urena [facility] D-DIMER 2022-03-15 18:54:00 Dane Urena [facility] RAPID INFLUENZA A/B 2022-03-15 18:54:00 Dane Urena [facility] COVID-19 (ID NOW RAPID 2022-03-15 18:54:00 Dane Urena [facility] TESTING) Medical [place] POCT TEST 2022-03-15 17:51:00 Dane Urena [facility] CONSENT/REFUSAL FOR 2022-03-15 16:30:58 [facility] Name [facility] EKG-12 LEAD 2022-02-24 22:07:44 Kal Joy [facility] TROPONIN I 2022-02-24 20:09:00 Kal Joy [facility] BASIC METABOLIC PANEL 2022-02-24 20:09:00 Kal Joy [facility] (NA, K, CL, CO2, Medical Branch GLUCOSE, BUN, CREATININE, CA) CBC WITH DIFF 2022-02-24 20:09:00 Kal Joy [facility] XR CHEST 1 VW 2022-02-24 19:46:46 Kal Joy [facility] CONSENT/REFUSAL FOR 2022-02-24 19:19:46 Doctor Unassigned, No Un [facility] [place] DIAGNOSIS AND TREATMENT Name Medical Branch CONSENT/REFUSAL FOR 2022-02-22 19:23:18 [facility]igned, [facility] Name Medical Branch THYROID STIMULATING 2022-02-05 19:30:00 [facility] H[facility] Medical Branch COMP. METABOLIC PANEL 2022-02-05 19:30:00 Michelle Armstrong [facility] ([id number]) Medical Branch SEDIMENTATION RATE 2022-02-05 19:30:00 [facility]FF 2022-02-05 19:30:00 Singer [facility] CONSENT/REFUSAL FOR 2022-02-05 18:47:08 Doctor Unassigned, No [facility] [place] [facility] Name Medical Branch POCT TEST 2021-09-30 18:06:00 Benita Bernal [facility] URINALYSIS 2021-09-30 18:05:00 Benita Bernal [facility] NOTICE OF PRIVACY 2021-09-30 17:52:40 Doctor Unassigned, No [facility] PRACTICES Name Medical Branch CONSENT/REFUSAL FOR 2021-09-30 17:52:26 [facility], No [facility] Medical Branch COVID-19 (ID NOW RAPID 2021-01-08 06:36:00 [facility] TESTING) Medical Branch RAPID STREP SCREEN FOR 2021-01-08 03:48:00 [facility] GROUP A Medical Branch CONSENT/REFUSAL FOR 2021-01-08 03:32:01 Doctor Unassigned, No [facility] [place] [facility] Name Medical Branch TROPONIN I 2020-08-24 21:36:00 Marquez Yeager [facility] XR CHEST 1 VW 2020-08-24 18:52:03 Marquez Yeager [facility] COVID-19 (ID NOW RAPID 2020-08-24 18:36:00 Marquez Yeager [facility] TESTING) Medical Branch THYROID STIMULATING 2020-08-24 18:34:00 Marquez Yeager [facility] HORMONE Medical Branch CBC WITH DIFF 2020-08-24 18:34:00 Toy Marquez [facility] ADC / LCC - DRUG SCREEN 2020-08-24 18:34:00 Marquez Yeager [facility] TRIAGE Medical Branch LIPASE 2020-08-24 18:33:00 Marquez Yeager [facility] TROPONIN I 2020-08-24 18:33:00 Toy Marquez [facility] HEPATIC FUNCTION PANEL 2020-08-24 18:33:00 Marquez Yeager [facility] ([id number]) (ALB,T.PRO,BILI [facility] Branch T,BU/BC,ALT,AST,ALK PHOS) BASIC METABOLIC PANEL 2020-08-24 18:33:00 Marquez Yeager [facility] (NA, K, CL, CO2, Medical Branch GLUCOSE, BUN, CREATININE, CA) PROTHROMBIN TIME / INR 2020-08-24 18:33:00 Marquez Yeager [facility] ACTIVATED PARTIAL 2020-08-24 18:33:00 Marquez Yeager [facility] THRMPLAS [facility] POCT TEST 2020-08-24 18:26:00 Marquez Yeager [facility] NOTICE OF PRIVACY 2020-08-24 16:41:43 Doctor Unassigned, No [facility] PRACTICES [facility] CONSENT/REFUSAL FOR 2020-08-24 16:41:28 Doctor Unassigned, No [facility] EXTERNAL PROVIDER 2019-11-05 05:01:00 Doctor Unassigned, No [facility] RECORDS [facility] POCT TEST 2019-10-21 20:20:00 Vickie Harrell [facility] DISCLOSURE AND CONSENT, 2019-10-21 05:01:00 [facility] Un[facility] SURGICAL Name [facility] PROCEDURES Encounters Start End Encounter Admission Attending Care Care Encounter Source Date/Time Date/Time Type Type Clinicians Facility Department ID 2021-03-20 Emergency [facility] [id number] Univers [facility] 2021-03-19 Emergency [facility] [id number] Univers 11:18:26 [facility] 2022-04-04 2022-04-04 Outpatient R ARIS, [facility] [id number] Univers 15:37:29 23:59:00 EMILY garcia o f [facility] 2022-04-02 2022-04-02 Emergency X [email or web address] ERT 1 [id number] Univers 14:52:00 18:13:00 [facility] 2022-04-02 2022-04-02 Emergency Guero, TRAUMA [id number] Univers 14:52:00 18:13:00 [facility] [id number] [place] [id number] [facility] 014 Branch 2022-03-19 2022-03-19 Outpatient R ARIS, [facility] [id number] Univers 16:00:00 16:00:00 EMILY garcia o f [facility] 2022-03-15 2022-03-15 Emergency X [facility] ERT [id number] Univers 11:37:00 16:49:00 DANE ity of [facility] 2022-03-15 2022-03-15 Emergency [facility] [id number] Univers 11:37:00 16:49:00 Dane RAY 350.1.13.10 ity of [facility] [place] [id number] [place] [address] [place] 2022-03-05 2022-03-05 Telephone [facility] [id number] Univers 00:00:00 00:00:00 Emily RAY 350.1.13.10 ity of [facility] [place] [id number] [place] [id number] [facility] 2022-03-01 2022-03-01 Outpatient R ARIS, [facility] [id number] Univers 16:00:00 23:59:00 EMILY garcia o f [facility] 2022-02-24 2022-02-24 Emergency [facility] [id number] Univers 14:29:00 17:24:00 KAL garcia of [facility] 2022-02-24 2022-02-24 [facility] [id number] Univers 14:29:00 17:24:00 Kal RAY 350.1.13.10 i ty of [facility] [place] [id number] [place] [address] [place] 2022-02-22 2022-02-22 Outpatient R ARIS [facility] [id number] Univers 14:40:00 15:04:54 EMILY gerdaroscoe o f [facility] 2022-02-22 2022-02-22 [facility] [id number] Univers 14:40:00 15:04:54 Visit Emily RAY 350.1.13.10 ity [facility] 4.2.7.2.686 [facility] [id number] Wy dical [facility]9 [facility] 2022-02-22 2022-02-22 Orders Doctor LILIA 1.2.840.114 [id number] Univers 00:00:00 00:00:00 Only Unassigned, RUY 350.1.13.10 [facility] 4.2.7.2.686 [place] [id number] [address] 2022-02-05 2022-02-05 Emergency X [facility] ERT [id number] Univers 13:52:00 16:06:00 MICHELLE jose [facility] 2022-02-05 2022-02-05 Emergency [facility] [id number] Univers 13:52:00 16:06:00 Michelle RAY 350.1.13.10 i ty [facility] 4.2.7.2.686 [facility] [id number] [address] 2021-09-30 2021-09-30 Emergency [facility] [id number] Univers 13:09:00 14:18:00 BENITA garcia [facility] 2021-09-30 2021-09-30 Emergency [facility] 1.2.840.114 [id number] Univers 13:09:00 14:18:00 Benita RAY 350.1.13.10 ity of [place] 4.2.7.2.686 [id number] [address] 2021-09-30 2021-09-30 Orders Doctor RODRIGUES 1.2.840.114 [id number] Univers 00:00:00 00:00:00 Only Unassigned, RUY 350.1.13.10 ity of [place] [facility] 4.2.7.2.686 [place] as [id number] [facility] 009 [place] 2021-01-07 2021-01-08 Emergency [facility] [id number] [facility] 22:50:00 03:10:00 Kristian Ray 350.1.13.10 ity of [place] 4.2.7.2.686 [facility] [id number] [address] 2020-08-24 2020-08-24 Emergency [facility] [id number] [facility] 12:18:00 17:41:00 Marquez Ray 350.1.13.10 i ty of [place] 4.2.7.2.686 [facility] [id number] [address] 2020-08-24 2020-08-24 Orders Doctor LILIA 1.2.840.114 [id number] Univers 00:00:00 00:00:00 Only Unassigned, RUY 350.1.13.10 ity of [place] [facility] 4.2.7.2.686 [place] as [id number] [address] 2019-12-22 2019-12-22 Telephone [facility] [id number] [facility] 00:00:00 00:00:00 Roshunda R MANAGER HOTEL 350.1.13.10 ity of [facility] 4.2.7.2.686 [place] as MATERNAL [id number] Med ical & CHILD [address] [place] [address] 2019-12-22 2019-12-22 Telephone [facility] [id number] 00:00:00 00:00:00 Roshunda R MANAGER HOTEL 350.1.13.10 REGIONAL 4.2.7.2.686 MATERNAL [id number] & CHILD [address] [place] [address] 2019-11-30 2019-11-30 Telephone [facility] [id number] Univers 00:00:00 00:00:00 Roshunda R MANAGER HOTEL 350.1.13.10 ity of REGIONAL 4.2.7.2.686 [place] as MATERNAL [id number] Med ical & CHILD 107 [facility] 2019-11-30 2019-11-30 Telephone Julio Cesar IAHEMAL [id number] 00:00:00 00:00:00 Roswyattnda R MANAGER HOTEL 350.1.13.10 REGIONAL 4.2.7.2.686 MATERNAL [id number] & CHILD 107 [facility] 2019-11-05 2019-11-05 Orders Doctor LILIA 1.2.840.114 [id number] Univers 00:00:00 00:00:00 Only Unassigned, RUY 350.1.13.10 ity of [place] [facility] 4.2.7.2.686 [place] as [id number] [address] 2019-11-05 2019-11-05 Orders Doctor LILIA 1.2.840.114 [id number] 00:00:00 00:00:00 Only Unassigned, RUY 350.1.13.10 [place] [facility] 4.2.7.2.686 [id number] [facility] 2019-10-21 2019-10-21 Office [facility] 1.2.840.114 [id number] Univers 14:50:09 15:05:09 Visit Sheritaharsh R MANAGER HOTEL 350.1.13.10 ity of REGIONAL 4.2.7.2.686 [place] as MATERNAL [phone] Med ical & CHILD [address] [place] [address] 2019-10-21 2019-10-21 Office Julio Cesar [facility] [[email or web address]] 1.2.840.114 [id number] 14:50:09 15:05:09 Visit Sheritawyattnda R MANAGER HOTEL 350.1.13.10 REGIONAL 4.2.7.2.686 MATERNAL [id number] & CHILD [address] [place] [address] 2019-10-21 2019-10-21 Outpatient R JULIO CESAR IAHEMAL [facility] [[email or web address]] [id number] Univers 14:00:00 14:00:00 MIMANDA ity o f [facility] 2019-10-21 2019-10-21 Orders Doctor LILIA 1.2.840.114 [id number] Univers 00:00:00 00:00:00 Only Unassigned, RUY 350.1.13.10 ity of [place] [facility] 4.2.7.2.686 [place] as [id number] [facility] 009 Branch 2019-10-21 2019-10-21 Orders Doctor LILIA 1.2.840.114 [id number] 00:00:00 00:00:00 Only Unassigned, RUY 350.1.13.10 [place] [facility] 4.2.7.2.686 [id number] 009 Results Test Description Test Time Test Comments Results Result Comments Source POCT TEST 2022-04-02 23:08:00 Test Item Value Reference Range Interpretation Comme nts POCT PREG (test code = 1605) negative On board controls acceptable with C Line (test code = 3574) present POCT PREG LOT # (test code = 3575) [id number] POCT PREG TEST DATE (test code = 3576) 2023-08-18 Lab Interpretation (test code = 97597-0) Normal [facility] [id number] 19:59:48 Test Item Value Reference Range Interpretation Comments TSH (test code = See_Comment [Automated message] [id number]) The system [employer] generated this result transmitted ref erence range: 0.45 - 4 .70 mIU/L. The refe rence range was not u sed to interpret this result as normal/abnor mal. Lab Interpretation (test Normal code = 42531-9) [facility] METABOLIC PANEL ([id number])2022-03-15 19:29:21 Test Item Value Reference Range Interpretation Comments NA (test code = 137 mmol/L 135-145 4946064071) K (test code = 3.5 mmol/L 3.5-5.0 9323099637) CL (test code = 102 mmol/L 98-108 0007503200) CO2 TOTAL (test code = 21 mmol/L 23-31 L 7267871677) AGAP (test code = 2-16 5035899928) BUN (test code = 8 mg/dL 7-23 0168902095) GLUCOSE (test code = 95 mg/dL 70-110 9614336120) CREATININE (test code = 0.73 mg/dL 0.50-1.04 0873601631) TOTAL BILI (test code = 0.4 mg/dL 0.1-1.8 2908221663) CALCIUM (test code = 8.9 mg/dL 8.6-10.6 6913098575) T PROTEIN (test code = 7.4 g/dL 6.3-8.2 9338764239) ALBUMIN (test code = 4.6 g/dL 3.5-5.0 6699546148) ALK PHOS (test code = 62 U/L 34-122 9515415525) ALTv (test code = 13 U/L 5-35 1742-6) AST(SGOT) (test code = 22 U/L 13-40 3852715436) eGFR (test code = mL/min/1.73m2 0770804102) DOUGIE (test code = DOUGIE) Association of Glomerular Filtration Rate (GFR) and Staging of Kidney Disease* + --+ --+ ------+| GFR (mL/min/1.73 m2) ?| With Kidney Damage ?| ?Without Kidney Damage+ --------+ --------+ +| ?>90 ?| ?Stage one ?| ? Normal ?+ ---+ ---+ -------+| ?60-89 ?| ?Stage two ?| ? Decreased GFR ? + --+ --+ ------+| ?30-59 ?| ?Stage three ?| ? Stage three ? + --+ --+ ------+| ?15-29 ?| ?Stage four ? | ? Stage four ?+ ---+ ---+ -------+| ?<15 (or dialysis) ? ?| ?Stage five ? | ? Stage five ?+ ---+ ---+ -------+ *Each stage assumes the associated GFR level has been in effect for at least three months. ?Stages 1 to 5, with or without kidney disease, indicate chronic kidney disease. Notes: Determination of stages one and two (with eGFR >59mL/min/1.73 m2) requires estimation of kidney damage for at least three months as defined by structural or functional abnormalities of the kidney, manifested by either:Pathological abnormalities or Markers of kidney damage (including abnormalities in the composition of the blood or urine or abnormalities in imaging tests). Lab Interpretation Abnormal (test code = 62785-3) [facility]-[id number] 19:24:21 Test Item Value Reference Interpretation Comments Range D-DIMER (test code = See_Comment H [Autom ated 1004380590) message] The system which generated this result transmitted reference range : <0.41 ?g/mL (FEU). The reference range was not used to interpret this result as normal/abnormal . DOUGIE (test code = This test may be DOUGIE) used in conjunction with a clinical pretest probability (PTP) assessment model to exclude venous thromboembolism (VTE) in patients suspected of deep venous thrombosis (DVT) and pulmonary embolism (PE) A D-Dimer value less than 0.50 ?g/ml (FEU) has a negative predicative value of 96 to 100% (95% CI)and 97 to 100% (95% CI) as an aid in the diagnosis of deep vein thrombosis (DVT) and pulmonary embolism when there is low or moderate pretest probability of PE or DVT. D-Dimer values are expressed in initial fibrinogen equivalent units (FEU)" The assay results should be used with other information, including the clinical context, in forming a diagnosis. Lab Interpretation Abnormal (test code = 56770-6) [facility] WITH [id number] 19:10:18 Test Item Value Reference Range Interpretation Comments WBC (test code = See_Comment L [Automated 7990-2) message] The sy stem which generated this result transmitted reference range : 4.30 - 11.10 10*3/?L. The reference range was not used to interpret this result as normal/abnormal . RBC (test code = See_Comment [Automated 269-8) message] The sy stem which generated this result transmitted reference range : 3.93 - 5.25 10*6/?L. The reference range was not used to interpret this result as normal/abnormal . HGB (test code = 13.1 g/dL 11.6-15.0 718-7) HCT (test code = 38.1 % 35.7-45.2 4544-3) MCV (test code = 84.7 fL 80.6-95.5 787-2) MCH (test code = 29.1 pg 25.9-32.8 785-6) MCHC (test code = 34.4 g/dL 31.6-35.1 786-4) RDW-SD (test code = 44.6 fL 39.0-49.9 55102-7) RDW-CV (test code = 14.4 % 12.0-15.5 788-0) PLT (test code = See_Comment [Automated 777-3) message] The sy stem which generated this result transmitted reference range : 166 - 358 10*3/ ?L. The reference r madisyn was not used to interpret this result as normal/abnormal . MPV (test code = 11.3 fL 9.5-12.9 07705-8) NRBC/100 WBC (test See_Comment [Automat ed code = 7106900289) message] The system which generated this result transmitted reference range : 0.0 - 10.0 /100 WBCs. The refer ence range was not u sed to interpret th is result as normal/abnormal . NRBC x10^3 (test code See_Comment [Auto mated = 4755947709) message] The s ystem which generated this result transmitted reference range : 10*3/?L. The reference range was not used to interpret this result as normal/abnormal . GRAN MAT (NEUT) % 61.5 % (test code = 770-8) IMM GRAN % (test code 0.50 % = 0680009299) LYMPH % (test code = 18.4 % 736-9) MONO % (test code = 19.4 % 5905-5) EOS % (test code = 0.0 % 713-8) BASO % (test code = 0.2 % 706-2) GRAN MAT x10^3(ANC) 2.48 10*3/uL 1.88-7.09 (test code = 1006768189) IMM GRAN x10^3 (test 0.00-0.06 code = 5121406740) LYMPH x10^3 (test code 0.74 10*3/uL 1.32-3.29 L = 731-0) MONO x10^3 (test code 0.78 10*3/uL 0.33-0.92 = 742-7) EOS x10^3 (test code = 0.03-0.39 L 711-2) BASO x10^3 (test code 0.01-0.07 = 704-7) Lab Interpretation Abnormal (test code = 62471-8) [facility] [id number] 17:51:00 Test Item Value Reference Range Interpretation Comments POCT PREG (test code = 1605) negative On board controls acceptable with present C Line (test code = 3574) POCT PREG LOT # (test code = 3575) [id number] POCT PREG TEST DATE (test code = 3576) Lab Interpretation (test code = Normal 74171-1) [facility] [id number] 21:24:03 Test Item Value Reference Interpretation Comments Range TROPONIN I (test 0.002 ng/mL See_Comment [Automated code = 9883016780) message] The system which generated this result transmitted reference range : <=0.034. The reference range was not used to interpret this result as normal/abnormal . DOUGIE (test code = Reference (Normal) DOUGIE) Range (defined by the 99th percentile reference limit): <= 0.034 ng/mL Note: Cardiac troponin begins to rise 3-4 hours after the onset of ischemia. Repeat in 4-6 hours if the sample was drawn within 3-4 hours of the onset of the symptom and found normal. Diagnosis of myocardial injury is made with acute changes in cTn concentrations with at least one serial sample above the 99th percentile upper reference limit (URL), taken together with the patient's clinical presentation. Biotin has been reported to cause a negative bias, interpret results relative to patient's use of biotin. Lab Interpretation Normal (test code = 27223-1) [facility] METABOLIC PANEL (NA, K, CL, CO2, GLUCOSE, BUN, CREATININE, CA)2022-02-24 21:14:05 Test Item Value Reference Range Interpretation Comments NA (test code = 142 mmol/L 135-145 5951678186) K (test code = 4.0 mmol/L 3.5-5 1132702339) CL (test code = 102 mmol/L 98-108 7830195692) CO2 TOTAL (test code = 24 mmol/L 23-31 8103377370) AGAP (test code = 2-16 9297240052) BUN (test code = 5 mg/dL 7-23 L 3222039809) GLUCOSE (test code = 89 mg/dL 70-110 9303711136) CREATININE (test code = 0.64 mg/dL 0.5-1.04 3269589304) CALCIUM (test code = 10.0 mg/dL 8.6-10.6 4581239487) eGFR (test code = mL/min/1.73m2 5554309993) DOUGIE (test code = DOUGIE) Association of Glomerular Filtration Rate (GFR) and Staging of Kidney Disease* + --+ --+ ------+| GFR (mL/min/1.73 m2) ?| With Kidney Damage ?| ?Without Kidney Damage+ --------+ --------+ +| ?>90 ?| ?Stage one ?| ? Normal ?+ ---+ ---+ -------+| ?60-89 ?| ?Stage two ?| ? Decreased GFR ? + --+ --+ ------+| ?30-59 ?| ?Stage three ?| ? Stage three ? + --+ --+ ------+| ?15-29 ?| ?Stage four ? | ? Stage four ?+ ---+ ---+ -------+| ?<15 (or dialysis) ? ?| ?Stage five ? | ? Stage five ?+ ---+ ---+ -------+ *Each stage assumes the associated GFR level has been in effect for at least three months. ?Stages 1 to 5, with or without kidney disease, indicate chronic kidney disease. Notes: Determination of stages one and two (with eGFR >59mL/min/1.73 m2) requires estimation of kidney damage for at least three months as defined by structural or functional abnormalities of the kidney, manifested by either:Pathological abnormalities or Markers of kidney damage (including abnormalities in the composition of the blood or urine or abnormalities in imaging tests). Lab Interpretation Abnormal (test code = 03253-5) [facility] WITH [id number] 20:55:45 Test Item Value Reference Range Interpretation Comments WBC (test code = See_Comment [Automated 0523-2) message] The sy stem which generated this result transmitted reference range : 4.30 - 11.10 10*3/?L. The reference range was not used to interpret this result as normal/abnormal . RBC (test code = See_Comment [Automated 261-3) message] The sy stem which generated this result transmitted reference range : 3.93 - 5.25 10*6/?L. The reference range was not used to interpret this result as normal/abnormal . HGB (test code = 12.1 g/dL 11.6-15 718-7) HCT (test code = 36.6 % 35.7-45.2 4544-3) MCV (test code = 86.5 fL 80.6-95.5 787-2) MCH (test code = 28.6 pg 25.9-32.8 785-6) MCHC (test code = 33.1 g/dL 31.6-35.1 786-4) RDW-SD (test code = 44.6 fL 39-49.9 38058-7) RDW-CV (test code = 14.1 % 12-15.5 788-0) PLT (test code = See_Comment [Automated 777-3) message] The sy stem which generated this result transmitted reference range : 166 - 358 10*3/ ?L. The reference r madisyn was not used to interpret this result as normal/abnormal . MPV (test code = 11.2 fL 9.5-12.9 68817-1) NRBC/100 WBC (test See_Comment [Automat ed code = 9279043259) message] The system which generated this result transmitted reference range : 0.0 - 10.0 /100 WBCs. The refer ence range was not u sed to interpret th is result as normal/abnormal . NRBC x10^3 (test code See_Comment [Auto mated = 7068512701) message] The s ystem which generated this result transmitted reference range : 10*3/?L. The reference range was not used to interpret this result as normal/abnormal . GRAN MAT (NEUT) % 66.6 % (test code = 770-8) IMM GRAN % (test code 0.50 % = 8022145400) LYMPH % (test code = 20.8 % 736-9) MONO % (test code = 9.7 % 5905-5) EOS % (test code = 1.9 % 713-8) BASO % (test code = 0.5 % 706-2) GRAN MAT x10^3(ANC) 7.00 10*3/uL 1.88-7.09 (test code = 7164960756) IMM GRAN x10^3 (test 0.05 10*3/uL 0-0.06 code = 7813100032) LYMPH x10^3 (test code 2.18 10*3/uL 1.32-3.29 = 731-0) MONO x10^3 (test code 1.02 10*3/uL 0.33-0.92 H = 742-7) EOS x10^3 (test code = 0.20 10*3/uL 0.03-0.39 711-2) BASO x10^3 (test code 0.05 10*3/uL 0.01-0.07 = 704-7) Lab Interpretation Abnormal (test code = 17428-7) [facility]enton[facility]EDIMENT[facility] [id number] 20:34:21 Test Item Value Reference Range Interpretation Comments ESR (test code = 70489-9) See_Comment [ Automated message] The system [employer] generated this result transmitted ref erence range: 0 - 20 m m/HR. The reference r madisyn was not used to interpret this result as normal/abnor mal. Lab Interpretation (test Normal code = 27860-4) [facility] [id number] 20:26:23 Test Item Value Reference Range Interpretation Comments TSH (test code = See_Comment [Automated message] 0357945888) The system [employer] generated this result transmitted ref erence range: 0.45 - 4 .70 mIU/L. The refe rence range was not u sed to interpret this result as normal/abnor mal. Lab Interpretation (test Normal code = 99411-1) [facility] METABOLIC PANEL ([id number])2022-02-05 19:56:22 Test Item Value Reference Range Interpretation Comments NA (test code = 140 mmol/L 135-145 9696831849) K (test code = 4.4 mmol/L 3.5-5 9371932474) CL (test code = 107 mmol/L 98-108 7291215361) CO2 TOTAL (test code 25 mmol/L 23-31 = 8501470958) AGAP (test code = 2-16 3735902178) BUN (test code = 13 mg/dL 7-23 2528838142) GLUCOSE (test code = 80 mg/dL 70-110 0572912648) CREATININE (test code 0.74 mg/dL 0.5-1.04 = 3079239216) TOTAL BILI (test code 0.2 mg/dL 0.1-1.1 = 5665017559) CALCIUM (test code = 9.9 mg/dL 8.6-10.6 0509406040) T PROTEIN (test code 7.1 g/dL 6.3-8.2 = 4565567858) ALBUMIN (test code = 4.6 g/dL 3.5-5 1857348377) ALK PHOS (test code = 58 U/L 34-122 4864481541) ALTv (test code = 14 U/L 5-35 2-6) AST(SGOT) (test code 17 U/L 13-40 = 9757268981) eGFR (test code = mL/min/1.73m2 3874666464) DOUGIE (test code = DOUGIE) Association of Glomerular Filtration Rate (GFR) and Staging of Kidney Disease* + + +- +| GFR (mL/min/1.73 m2) ?| With Kidney Damage ?| ?Without Kidney Damage+ ------+ ----+ ------+| ?>90 ?| ?Stage one ?| ? Normal ?+ -+ + -+| ?60-89 ?| ?Stage two ?| ? Decreased GFR ? + + +- +| ?30-59 ?| ?Stage three ?| ? Stage three ? + + +- +| ?15-29 ?| ?Stage four ? | ? Stage four ?+ -+ + -+| ?<15 (or dialysis) ? ?| ?Stage five ? | ? Stage five ?+ -+ + -+ *Each stage assumes the associated GFR level has been in effect for at least three months. ?Stages 1 to 5, with or without kidney disease, indicate chronic kidney disease. Notes: Determination of stages one and two (with eGFR >59mL/min/1.73 m2) requires estimation of kidney damage for at least three months as defined by structural or functional abnormalities of the kidney, manifested by either:Pathological abnormalities or Markers of kidney damage (including abnormalities in the composition of the blood or urine or abnormalities in imaging tests). [facility] WITH [id number] 19:48:21 Test Item Value Reference Range Interpretation Comments WBC (test code = See_Comment [Automated 6690-2) message] The sy stem which generated this result transmitted reference range : 4.30 - 11.10 10*3/?L. The reference range was not used to interpret this result as normal/abnormal . RBC (test code = See_Comment [Automated 789-8) message] The sy stem which generated this result transmitted reference range : 3.93 - 5.25 10*6/?L. The reference range was not used to interpret this result as normal/abnormal . HGB (test code = 12.6 g/dL 11.6-15 718-7) HCT (test code = 37.3 % 35.7-45.2 4544-3) MCV (test code = 85.7 fL 80.6-95.5 787-2) MCH (test code = 29.0 pg 25.9-32.8 785-6) MCHC (test code = 33.8 g/dL 31.6-35.1 786-4) RDW-SD (test code = 44.7 fL 39-49.9 99514-4) RDW-CV (test code = 14.3 % 12-15.5 788-0) PLT (test code = See_Comment [Automated 777-3) message] The sy stem which generated this result transmitted reference range : 166 - 358 10*3/ ?L. The reference r madisyn was not used to interpret this result as normal/abnormal . MPV (test code = 10.8 fL 9.5-12.9 30626-8) NRBC/100 WBC (test See_Comment [Automat ed code = 5295894316) message] The system which generated this result transmitted reference range : 0.0 - 10.0 /100 WBCs. The refer ence range was not u sed to interpret th is result as normal/abnormal . NRBC x10^3 (test code See_Comment [Auto mated = 3764198880) message] The s ystem which generated this result transmitted reference range : 10*3/?L. The reference range was not used to interpret this result as normal/abnormal . GRAN MAT (NEUT) % 60.6 % (test code = 770-8) IMM GRAN % (test code 0.60 % = 7614456191) LYMPH % (test code = 27.7 % 736-9) MONO % (test code = 9.3 % 5905-5) EOS % (test code = 1.4 % 713-8) BASO % (test code = 0.4 % 706-2) GRAN MAT x10^3(ANC) 6.71 10*3/uL 1.88-7.09 (test code = 2354870823) IMM GRAN x10^3 (test 0.07 10*3/uL 0-0.06 H code = 5004627935) LYMPH x10^3 (test code 3.07 10*3/uL 1.32-3.29 = 731-0) MONO x10^3 (test code 1.03 10*3/uL 0.33-0.92 H = 742-7) EOS x10^3 (test code = 0.15 10*3/uL 0.03-0.39 711-2) BASO x10^3 (test code 0.04 10*3/uL 0.01-0.07 = 704-7) Lab Interpretation Abnormal (test code = 24129-4) [facility] [id number] 18:06:00 Test Item Value Reference Range Interpretation Comments POCT PREG (test code = 1605) Negative On board controls acceptable with Present C Line (test code = 3574) POCT PREG LOT # (test code = 3575) [id number] POCT PREG TEST DATE (test 02/16/2023 code = 3576) Lab Interpretation (test code = Normal 35726-9) [facility]OVID[facility] (ID NOW RAPID TESTING)2021-01-08 07:00:17 Test Item Value Reference Range Interpretation Comments SARS-CoV-2 Rapid ID NOW Not Detected Not Detected (test code = 52082-6) DOUGIE (test code = DOUGIE) ID NOW COVID-19 Assay is an isothermal nucleic acid amplification test intended for the qualitative detection of nucleic acid from SARS-CoV-2 viral RNA in nasopharyngeal (RESIDENT ASSOCIATE) specimens. It is used under Emergency Use Authorization (EUA) by FDA. The limit of detection (LOD) of the assay is 125 Genome Equivalents/mL. A positive result is indicative of the presence of SARS-CoV-2 RNA. ?Clinical correlation with patient history and other diagnostic information is necessary to determine patient infection status. A negative (Not Detected) result does not preclude SARS-CoV-2 infection. In patients with clinical symptoms and other tests that are consistent with SARS-CoV-2 infection, negative results should be treated as presumptive negative and a new specimen should be tested with alternative PCR molecular test. Invalid: Please collect a new specimen for repeat patient testing if clinically indicated. Lab Interpretation Normal (test code = 43184-5) [facility]enton[facility]API STREP SCREEN FOR GROUP [id number] 04:21:38 Test Item Value Reference Range Interpretation Comments Streptococcus pyogenes (group A) Negative Negative antigen (test code = 81804-9) Lab Interpretation (test code = Normal 17172-3) [facility]entonTROPONIN [id number] 22:15:09 Test Item Value Reference Range Interpretation Comments TROPONIN I (test 0.008 ng/mL See_Comment [Automated code = 8626186065) message] The system which generated this result transmitted reference range : <=0.034. The reference range was not used to interpret this result as normal/abnormal . DUOGIE (test code = Equal or Less than DOUGIE) 0.034 ng/ml---Normal ?Note: Cardiac troponin begins to rise 3-4 hours after the onset of ischemia. Repeat in 4-6 hours if the sample was drawn within 3-4 hours of the onset of the symptom and found normal. Between 0.035 and 0.120 ng/mL--- Borderline. Questionable myocardial injury or necrosis ? ?Note: Serial measurement may be necessary to confirm or exclude the diagnosis of myocardial injury or necrosis; Clinical correlation (symptoms, EKGs, imaging studies, and others) required; Repeat in 4-6 hours if clinically indicated. ? Equal or Higher than 0.121 ng/mL---Abnormal. Myocardial Injury or Necrosis Likely ? Biotin has been reported to cause a negative bias, interpret results relative to patient's use of biotin. ? Lab Interpretation Normal (test code = 84954-8) [facility]enton[facility]YROID STIMULATING [id number] 20:00:11 Test Item Value Reference Range Interpretation Comments TSH (test code = See_Comment H Biotin has been 7141852189) reported to cau se a negative bias, interpret resul ts relative to pat ient's use of biotin. [Automated mess age] The system [employer] generated this result transmitted ref erence range: 0.45 - 4 .70 mIU/L. The refe rence range was not u sed to interpret this result as normal/abnor mal. Lab Interpretation (test Abnormal code = 40982-1) [facility] DentonTroponin [id number] 19:42:06 Test Item Value Reference Range Interpretation Comments TROPONIN I (test 0.001 ng/mL See_Comment [Automated code = 6394413105) message] The system which generated this result transmitted reference range : <=0.034. The reference range was not used to interpret this result as normal/abnormal . DOUGIE (test code = Equal or Less than DOUGIE) 0.034 ng/ml---Normal ?Note: Cardiac troponin begins to rise 3-4 hours after the onset of ischemia. Repeat in 4-6 hours if the sample was drawn within 3-4 hours of the onset of the symptom and found normal. Between 0.035 and 0.120 ng/mL--- Borderline. Questionable myocardial injury or necrosis ? ?Note: Serial measurement may be necessary to confirm or exclude the diagnosis of myocardial injury or necrosis; Clinical correlation (symptoms, EKGs, imaging studies, and others) required; Repeat in 4-6 hours if clinically indicated. ? Equal or Higher than 0.121 ng/mL---Abnormal. Myocardial Injury or Necrosis Likely ? Biotin has been reported to cause a negative bias, interpret results relative to patient's use of biotin. ? Lab Interpretation Normal (test code = 64578-2) [facility]entonBasi Metabolic Panel (NA, K, CL, CO2, GLUCOSE, BUN, CREATININE, CA)2020-08-24 19:31:00 Test Item Value Reference Range Interpretation Comments NA (test code = 140 mmol/L 135-145 6970772541) K (test code = 3.9 mmol/L 3.5-5.0 9807811165) CL (test code = 104 mmol/L 98-108 4727925557) CO2 TOTAL (test code 27 mmol/L 23-31 = 1675419467) AGAP (test code = 2-16 5033433157) BUN (test code = 10 mg/dL 7-23 6239629754) GLUCOSE (test code = 88 mg/dL 70-110 0120827687) CREATININE (test code 0.70 mg/dL 0.50-1.04 = 8793265444) CALCIUM (test code = 9.6 mg/dL 8.6-10.6 9538082278) eGFR (test code = mL/min/1.73m2 3606228736) DOUGIE (test code = DOUGIE) Association of Glomerular Filtration Rate (GFR) and Staging of Kidney Disease* + + +- +| GFR (mL/min/1.73 m2) ?| With Kidney Damage ?| ?Without Kidney Damage+ ------+ ----+ ------+| ?>90 ?| ?Stage one ?| ? Normal ?+ -+ + -+| ?60-89 ?| ?Stage two ?| ? Decreased GFR ? + + +- +| ?30-59 ?| ?Stage three ?| ? Stage three ? + + +- +| ?15-29 ?| ?Stage four ? | ? Stage four ?+ -+ + -+| ?<15 (or dialysis) ? ?| ?Stage five ? | ? Stage five ?+ -+ + -+ *Each stage assumes the associated GFR level has been in effect for at least three months. ?Stages 1 to 5, with or without kidney disease, indicate chronic kidney disease. Notes: Determination of stages one and two (with eGFR >59mL/min/1.73 m2) requires estimation of kidney damage for at least three months as defined by structural or functional abnormalities of the kidney, manifested by either:Pathological abnormalities or Markers of kidney damage (including abnormalities in the composition of the blood or urine or abnormalities in imaging tests). [facility] DentonHepatic Function Panel (ALB, T.PRO, BILI T, BU/BC, ALT, AST, ALK PHOS)2020-08-24 19:30:43 Test Item Value Reference Range Interpretation Comments TOTAL BILI (test code = 2870743599) 0.5 mg/dL 0.1-1.1 BILI UNCON (test code = 6211482104) 0.5 mg/dL 0.1-1.1 BILI CONJ (test code = 1068464187) 0.0 mg/dL 0.0-0.3 T PROTEIN (test code = 6000322882) 7.5 g/dL 6.3-8.2 ALBUMIN (test code = 8093874055) 4.6 g/dL 3.5-5.0 ALK PHOS (test code = 4587919759) 63 U/L 34-122 ALTv (test code = 1742-6) 14 U/L 5-35 AST(SGOT) (test code = 3544458793) 24 U/L 13-40 Lab Interpretation (test code = Normal 12518-2) [facility] DentonLipase [id number] 19:30:38 Test Item Value Reference Range Interpretation Comments LIPASE (test code = 9413914604) 87 U/L 0-220 Lab Interpretation (test code = Normal 89133-4) [facility] DentonADC / [facility] - DRUG SCREEN [id number] 19:26:51 Test Item Value Reference Range Interpretation Comments BENZO U (test code = Negative Negative 0030875864) TIFFANI U (test code = Negative Negative 3045242434) AMPHET (test code = Negative Negative 9411437426) THC (test code = Presumptive Negative A Confirmatio n of 8940622659) Positive Presumptive Positive THC result requires physician order . METHADONE (test code Negative Negative = 2361304631) Meth U (test code = Negative Negative 7308650346) OPIATES (test code = Negative Negative 7409825333) Cocaine Metabolite Negative Negative (test code = 3673237120) PROPOXY (test code = Negative Negative 2817781665) Tric U (test code = Negative Negative 1660613767) PCP (test code = Negative Negative 5177937669) OXYCOD (test code = Negative Negative 9449710528) DOUGIE (test code = Urine Drug Cutoff DOUGIE) Ranges Benzodiazepines: ? ? 150 ng/mLBarbiturates : ?200 ng/mLAmphetamine: ? 500 ng/mLCannabinoids : ?50 ?ng/mLMethadone: ? 200 ng/mLMethamphetam ine: ? ? 500 ng/mL Opiates: ? 100 ng/mL or 2000 ng/mLCocaine: ? 150 ng/mLPropoxyphene : ?300 ng/mLTricyclics: ?300 ng/mLOxycodone: ? 100 ng/mLPCP: ? 25 ?ng/mL The results are to be used only for medical (i.e., treatment) purposes. Unconfirmed screening results must not be used for non-medical purposes (e.g., employment testing, legal testing). Lab Interpretation Abnormal (test code = 82553-8) [facility]entonCOVID-19 (ID NOW RAPID TESTING)2020-08-24 19:16:35 Test Item Value Reference Range Interpretation Comments SARS-CoV-2 Rapid ID NOW Not Detected Not Detected (test code = 85969-6) DOUGIE (test code = DOUGIE) ID NOW COVID-19 Assay is an isothermal nucleic acid amplification test intended for the qualitative detection of nucleic acid from SARS-CoV-2 viral RNA in nasopharyngeal (RESIDENT ASSOCIATE) specimens. It is used under Emergency Use Authorization (EUA) by FDA. The limit of detection (LOD) of the assay is 125 Genome Equivalents/mL. A positive result is indicative of the presence of SARS-CoV-2 RNA. ?Clinical correlation with patient history and other diagnostic information is necessary to determine patient infection status. A negative (Not Detected) result does not preclude SARS-CoV-2 infection. In patients with clinical symptoms and other tests that are consistent with SARS-CoV-2 infection, negative results should be treated as presumptive negative and a new specimen should be tested with alternative PCR molecular test. Invalid: Please collect a new specimen for repeat patient testing if clinically indicated. Lab Interpretation Normal (test code = 30014-4) [facility] DentonaPTT2021-04-07 19:09:56 Test Item Value Reference Range Interpretation Comments APTT Patient (test See_Comment [Automat ed code = 3173-2) message] The system which generated this result transmitted reference range : 23 - 38 Seconds . The reference range was not used to interpr et this result as normal/abnormal . DOUGIE (test code = DOUGIE) The [email or web address]] patient population mean normal value for aPTT is 30 seconds. Lab Interpretation Normal (test code = 94716-7) [facility] DentonProthrombin Time (PT) / [id number] 19:07:55 Test Item Value Reference Range Interpretation Comments PROTIME PATIENT (test See_Comment [Auto mated message] code = 5964-2) The system [employer] generated this result transmitted ref erence range: 12.0 - 1 4.7 Seconds. The re ference range was not u sed to interpret this result as normal/abnor mal. INR (test code = 6301-6) Nor mal INR <1.1; Warfarin Therap eutic range 2.0 to 3. 0 or 2.5 to 3.5, dep ending upon the indica tions. Lab Interpretation (test Normal code = 86523-8) [facility] DentonCB with [id number] 18:58:52 Test Item Value Reference Range Interpretation Comments WBC (test code = See_Comment [Automated message] 6690-2) The system [employer] generated this result transmitted ref erence range: 4.30 - 1 1.10 10*3/?L. The re ference range was not u sed to interpret this result as normal/abnor mal. RBC (test code = See_Comment [Automated message] 789-8) The system [employer] generated this result transmitted ref erence range: 3.93 - 5 .25 10*6/?L. The re ference range was not u sed to interpret this result as normal/abnor mal. HGB (test code = 12.3 g/dL 11.6-15.0 718-7) HCT (test code = 37.4 % 35.7-45.2 4544-3) MCV (test code = 86.8 fL 80.6-95.5 787-2) MCH (test code = 28.5 pg 25.9-32.8 785-6) MCHC (test code = 32.9 g/dL 31.6-35.1 786-4) RDW-SD (test code 44.4 fL 39.0-49.9 = 27027-1) RDW-CV (test code 13.8 % 12.0-15.5 = 788-0) PLT (test code = See_Comment [Automated message] 777-3) The system whic h generated this result transmitted ref erence range: 166 - 35 8 10*3/?L. The re ference range was not u sed to interpret this result as normal/abnor mal. MPV (test code = 11.2 fL 9.5-12.9 17731-3) NRBC/100 WBC (test See_Comment [Automat ed message] code = 4051707176) The syste m which generated this result transmitted ref erence range: 0.0 - 10 .0 /100 WBCs. The refer ence range was not u sed to interpret this result as normal/abnor mal. NRBC x10^3 (test <0.01 See_Comment [Automated message] code = 0529081426) The syste m which generated this result transmitted ref erence range: 10*3/?L. The reference range was not used to interpr et this result as normal/abnormal . GRAN MAT (NEUT) % 59.9 % (test code = 770-8) IMM GRAN % (test 0.40 % code = 4313877857) LYMPH % (test code 28.2 % = 736-9) MONO % (test code 10.0 % = 5905-5) EOS % (test code = 1.1 % 713-8) BASO % (test code 0.4 % = 706-2) GRAN MAT 4.26 10*3/uL 1.88-7.09 x10^3(ANC) (test code = 7940681641) IMM GRAN x10^3 0.03 10*3/uL 0.00-0.06 (test code = 0453406066) LYMPH x10^3 (test 2.01 10*3/uL 1.32-3.29 code = 731-0) MONO x10^3 (test 0.71 10*3/uL 0.33-0.92 code = 742-7) EOS x10^3 (test 0.08 10*3/uL 0.03-0.39 code = 711-2) BASO x10^3 (test 0.03 10*3/uL 0.01-0.07 code = 704-7) [facility] 1 [id number] 18:54:33HISTORY: Chest pain. TECHNIQUE: 2 Portable AP view of the chest are obtained. Comparison madewith 12/04/2017 study. FINDINGS: No acute pneumonia. No pneumothorax or pleural effusion orpulmonary congestion detected. Cardiac size is within normal limits. CONCLUSIONS: No signs of acute cardiopulmonary disease.[facility], Radiant Results Inft User - 08/24/2020 1:55 PM CDTHISTORY: Chest pain.TECHNIQUE: 2 Portable AP view of the chest are obtained. Comparison madewith 12/04/2017 study.FINDINGS: No acute pneumonia. No pneumothorax or pleural effusion orpulmonary congestion detected. Cardiac size is within normal limits. CONCLUSIONS: No signs of acute cardiopulmonary disease.[facility] [id number] 18:26:00 Test Item Value Reference Range Interpretation Comments POCT PREG (test code = 1605) Neg On board controls acceptable with Present C Line (test code = 3574) POCT PREG LOT # (test code = 3575) [id number] POCT PREG TEST DATE (test 2022-01-17 code = 3576) Lab Interpretation (test code = Normal 84330-1) [facility] [id number] 20:20:00 Test Item Value Reference Range Interpretation Comments POCT PREG (test code = 1605) Negative On board controls acceptable with C Yes Line (test code = 3574) POCT PREG LOT # (test code = 3575) POCT PREG TEST DATE (test code = 3576) [facility] [id number] 20:20:00 Test Item Value Reference Range Interpretation Comments POCT PREG (test code = 1605) Negative On board controls acceptable with C Yes Line (test code = 3574) POCT PREG LOT # (test code = 3575) POCT PREG TEST DATE (test code = 3576) [facility]
--- NOTE | 2022-04-06 22:33 | RAD REPORT ---
EXAM DESCRIPTION: RAD - Chest Single View - 04/06/2022 10:24 pm CLINICAL HISTORY: CHEST PAIN COMPARISON: Chest Single View dated 08/22/2020 FINDINGS: Lines: None. Lungs: No evidence of edema or pneumonia. Pleural: No significant pleural effusions or pneumothorax. Cardiac: The heart size is within normal limits. Mediastinum: Within normal limits. Bones: No acute fractures. Other: None IMPRESSION: No acute cardiopulmonary disease.
[2022-04-06 22:36] LABS: Absolute Lymphocytes (CBC) 2.6 K/uL (0.7-4.9); Hematocrit 37.2 % (36.0-45.0); Lymphocytes % 26.4 % (15.3-44.8); MCV 86.2 fL (80-100); MPV 9.1 fL (7.6-11.3); RBC Red Blood Cell Count 4.31 M/uL (3.86-4.86)
[2022-04-06 22:40] LABS: Urine Blood Trace-intact (Negative); Urine Glucose Negative (Negative); Urine Protein Negative (Negative); Urine Specific Gravity >=1.030 (1.005-1.030); Urine pH 5.5 (5.0-7.0)
[2022-04-06 22:57] LABS: Barbiturates NEGATIVE (NEGATIVE); Benzodiazepines NEGATIVE (NEGATIVE); Cocaine NEGATIVE (NEGATIVE); METHAMPHETAM NEGATIVE (NEGATIVE); Methadone NEGATIVE (NEGATIVE); Opiates NEGATIVE (NEGATIVE); Phencyclidine NEGATIVE (NEGATIVE); THC Cannibis POSITIVE (NEGATIVE)
[2022-04-06 23:00] LABS: Troponin High Sensitivity 5.4 pg/mL (<58.9)
--- NOTE | 2022-04-06 23:15 | ER ---
Nurse's Notes [facility] Name: Akanksha Barragan Age: 21 yrs Sex: Female : 2000 Arrival Date: 04/06/2022 Time: 21:57 Bed 8 Private MD: Diagnosis: Chest pain, unspecified Presentation: 04/06 22:00 Chief complaint:. ld1 22:01 Chief complaint: Patient states: Chest pain began 1 hour ago - radiates to the right ld1 arm. Pt reports having previous chest pains before, this time it feels worse. Pt reports it pounding like she just got done running. Coronavirus screen: At this time, the client does not indicate any symptoms associated with coronavirus-19. Ebola Screen: No symptoms or risks identified at this time. Initial Sepsis Screen: Does the patient meet any 2 criteria? No. Patient's initial sepsis screen is negative. Does the patient have a suspected source of infection? No. Patient's initial sepsis screen is negative. Risk Assessment: Do you want to hurt yourself or someone else? Patient reports no desire to harm self or others. Onset of symptoms was April 06, 2022. 22:01 Method Of Arrival: Ambulatory ld1 22:01 Acuity: NATHAN 3 ld1 Triage Assessment: 22:01 General: Appears in no apparent distress. comfortable, Behavior is calm, cooperative, ld1 appropriate for age. Pain: Complains of pain in chest Pain radiates to right arm Pain currently is 10 out of 10 on a pain scale. Quality of pain is described as heavy, pressure, throbbing, Pain began 1 hour ago. Is continuous. EENT: No signs and/or symptoms were reported regarding the EENT system. Neuro: Level of Consciousness is awake, alert, obeys commands, Oriented to person, place, time, situation. Cardiovascular: Reports chest pain, Capillary refill < 3 seconds Patient's skin is warm and dry. Rhythm is sinus rhythm. Respiratory: Airway is patent Respiratory effort is even, unlabored. GI: Abdomen is round non-distended. : No signs and/or symptoms were reported regarding the genitourinary system. Derm: No signs and/or symptoms reported regarding the dermatologic system. Musculoskeletal: No signs and/or symptoms reported regarding the musculoskeletal system. Historical: - Allergies: 22:01 Bactrim; ld1 22:01 Iodine; ld1 22:01 Latex, Natural Rubber; ld1 22:01 SHELL FISH; ld1 22:01 Phenergan; ld1 - PMHx: 22:01 Hypothyroidism; inverted T waves; Migraines; seasonal allergies; ld1 - PSHx: 22:01 None; ld1 - Immunization history:: Adult Immunizations up to date, Client reports receiving the 2nd dose of the Covid vaccine. - Social history:: Smoking status: Patient denies any tobacco usage or history of. Patient/guardian denies using alcohol, street drugs. Screenin:32 Abuse screen: Denies threats or abuse. Denies injuries from another. Nutritional aa9 screening: No deficits noted. Tuberculosis screening: No symptoms or risk factors identified. Fall Risk None identified. Assessment: 22:32 General: Appears comfortable, Behavior is calm, cooperative, appropriate for age. Pain: aa9 Complains of pain in chest and right arm Noted to be grimacing. Neuro: Level of Consciousness is awake, alert, obeys commands, Oriented to person, place, time, situation. Cardiovascular: Patient's skin is warm and dry. Respiratory: Airway is patent Respiratory effort is even, unlabored. GI: No signs and/or symptoms were reported involving the gastrointestinal system. : No signs and/or symptoms were reported regarding the genitourinary system. Derm: Skin is intact, is healthy with good turgor. Vital Signs: 22:01 BP 139 / 100; Pulse 94; Resp 18; Temp 98.5(O); Pulse Ox 99% on R/A; Weight 71.67 kg; ld1 Height 5 ft. 1 in. (154.94 cm); Pain 10/10; 22:01 Body Mass Index 29.85 (71.67 kg, 154.94 cm) ld1 ED Course: 21:57 Patient arrived in ED. ja2 22:01 Arm band placed on right wrist. ld1 22:03 Triage completed. ld1 22:09 Dwayne Sepulveda is PHCP. jl9 22:09 Quin Peace MD is Attending Physician. jl9 22:26 XRAY Chest (1 view) In Process Unspecified. EDMS 22:26 Inserted saline lock: 20 gauge in right antecubital area, using aseptic technique. aa9 Blood collected. 22:32 Patient has correct armband on for positive identification. Placed in gown. Bed in low aa9 position. Call light in reach. Side rails up X2. Adult w/ patient. Client placed on continuous cardiac and pulse oximetry monitoring. NIBP monitoring applied. 22:32 Basic Metabolic Panel Sent. aa 22:32 CBC with Diff Sent. aa 22:32 Troponin HS Sent. aa9 23:14 Aakash Mayen MD is Referral Physician. jl9 23:28 No provider procedures requiring assistance completed. IV discontinued, intact, tw5 bleeding controlled, No redness/swelling at site. Pressure dressing applied. Patient maintains SpO2 saturation greater than 95% on room air. Administered Medications: No medications were administered Medication: 23:28 VIS not applicable for this client. Outcome: 23:14 Discharge ordered by . jl 23:28 Discharged to home ambulatory. 23:28 Condition: stable 23:28 Discharge instructions given to patient, Instructed on discharge instructions, follow up and referral plans. Demonstrated understanding of instructions, follow-up care. 23:31 Patient left the ED. 5 Signatures: Dispatcher [employer] EDSveta Medina, RN RN ld1 Tete Biggs Tiffany tw5 Dwayne Sepulveda jl9 Juana Howard, RN RN aa9
--- NOTE | 2022-04-06 23:15 | EDPHYS ---
Physician Documentation [facility] Name: Akanksha Barragan Age: 21 yrs Sex: Female : 2000 Arrival Date: 04/06/2022 Time: 21:57 Bed 8 Private MD: ED Physician Quin Peace HPI: 04/06 23:11 This 21 yrs old Female presents to ER via Ambulatory with complaints of jl9 having an episode of chest pain today. Patient reports she has seen cardiology numerous times in the past for same issue. . 23:11 Onset: The symptoms/episode began/occurred this morning. Associated signs and symptoms: jl9 Pertinent positives: chest pain. Modifying factors: The patient symptoms are alleviated by nothing, the patient symptoms are aggravated by nothing. The patient has experienced similar episodes in the past. Historical: - Allergies: 22:01 Bactrim; ld1 22:01 Iodine; ld1 22:01 Latex, Natural Rubber; ld1 22:01 SHELL FISH; ld1 22:01 Phenergan; ld1 - PMHx: 22:01 Hypothyroidism; inverted T waves; Migraines; seasonal allergies; ld1 - PSHx: 22:01 None; ld1 - Immunization history:: Adult Immunizations up to date, Client reports receiving the 2nd dose of the Covid vaccine. - Social history:: Smoking status: Patient denies any tobacco usage or history of. Patient/guardian denies using alcohol, street drugs. ROS: 23:13 Constitutional: Negative for fever, chills, and weight loss, Eyes: Negative for injury, jl9 pain, redness, and discharge, ENT: Negative for injury, pain, and discharge, Neck: Negative for injury, pain, and swelling, Respiratory: Negative for shortness of breath, cough, wheezing, and pleuritic chest pain. 23:13 Abdomen/GI: Negative for abdominal pain, nausea, vomiting, diarrhea, and constipation, Back: Negative for injury and pain, : Negative for injury, bleeding, discharge, and swelling, MS/Extremity: Negative for injury and deformity, Skin: Negative for injury, rash, and discoloration, Neuro: Negative for headache, weakness, numbness, tingling, and seizure, Psych: Negative for depression, anxiety, suicide ideation, homicidal ideation, and hallucinations, Allergy/Immunology: Negative for hives, rash, and allergies, Endocrine: Negative for neck swelling, polydipsia, polyuria, polyphagia, and marked weight changes, Hematologic/Lymphatic: Negative for swollen nodes, abnormal bleeding, and unusual bruising. 23:13 Cardiovascular: Positive for chest pain. Exam: 23:13 Constitutional: This is a well developed, well nourished patient who is awake, alert, jl9 and in no acute distress. Head/Face: Normocephalic, atraumatic. Eyes: Pupils equal round and reactive to light, extra-ocular motions intact. Lids and lashes normal. Conjunctiva and sclera are non-icteric and not injected. Cornea within normal limits. Periorbital areas with no swelling, redness, or edema. ENT: Mucous membranes moist. Neck: Trachea midline, no thyromegaly or masses palpated, and no cervical lymphadenopathy. Supple, full range of motion without nuchal rigidity, or vertebral point tenderness. No Meningismus. 23:13 Cardiovascular: Regular rate and rhythm with a normal S1 and S2. No gallops, murmurs, or rubs. Normal PMI, no JVD. No pulse deficits. Respiratory: Lungs have equal breath sounds bilaterally, clear to auscultation and percussion. No rales, rhonchi or wheezes noted. No increased work of breathing, no retractions or nasal flaring. Abdomen/GI: Soft, non-tender, with normal bowel sounds. No distension or tympany. No guarding or rebound. No evidence of tenderness throughout. Back: No spinal tenderness. No costovertebral tenderness. Full range of motion. Pelvic Exam: Normal external genitalia. Speculum exam with closed cervical os, no discharge or bleeding noted. Bimanual exam with normal adnexa, no adnexal or cervical motion tenderness. Normal uterus. Skin: Warm, dry with normal turgor. Normal color with no rashes, no lesions, and no evidence of cellulitis. MS/ Extremity: Pulses equal, no cyanosis. Neurovascular intact. Full, normal range of motion. Neuro: Awake and alert, GCS 15, oriented to person, place, time, and situation. Cranial nerves II-XII grossly intact. Motor strength 5/5 in all extremities. Sensory grossly intact. Cerebellar exam normal. Normal gait. Psych: Awake, alert, with orientation to person, place and time. Behavior, mood, and affect are within normal limits. 23:13 Chest/axilla: Inspection: normal, Palpation: is normal, Axilla: Vital Signs: 22:01 BP 139 / 100; Pulse 94; Resp 18; Temp 98.5(O); Pulse Ox 99% on R/A; Weight 71.67 kg; ld1 Height 5 ft. 1 in. (154.94 cm); Pain 10/10; 22:01 Body Mass Index 29.85 (71.67 kg, 154.94 cm) ld1 MDM: 22:09 Patient medically screened. jl9 23:13 Differential diagnosis: chest pain. Data reviewed: vital signs, nurses notes. Test jl9 interpretation: by ED physician or midlevel provider: ECG. Counseling: I had a detailed discussion with the patient and/or guardian regarding: the historical points, exam findings, and any diagnostic results supporting the discharge/admit diagnosis, lab results, radiology results, the need for outpatient follow up, a collection specialist, to return to the emergency department if symptoms worsen or persist or if there are any questions or concerns that arise at home. 04/06 22:10 Order name: Basic Metabolic Panel; Complete [facility]: [facility]:07 [facility] 04/[facility] 22:10 Order name: CBC with Diff; Complete [facility]: 23:07 [facility] 04/06 22:10 Order name: Troponin HS; Complete Time: 23:07 [facility] 04/06 22:10 Order name: UDS; Complete Time: 23:07 [facility] 04/06 22:40 Order name: Urine Dipstick-Ancillary; Complete Time: 23:07 [facility] 04/06 23:31 Order name: Urine --Ancillary (enter results); Complete Time: 06:12 04/06 22:10 Order name: XRAY Chest (1 view); Complete Time: 22:36 [facility] 04/06 22:10 Order name: EKG; Complete Time: 22:10 [facility] 04/06 22:10 Order name: Cardiac monitoring; Complete Time: 22:11 [facility] 04/06 22:10 Order name: EKG - Nurse/Tech; Complete Time: 22:11 [facility] 04/06 22:10 Order name: IV Saline Lock; Complete Time: 22:32 [facility] 04/06 22:10 Order name: Labs collected and sent; Complete Time: 22:32 jl9 Administered Medications: No medications were administered Disposition: 04/07 06:12 STAFF ATTESTATION STATEMENT: I was immediately available onsite in the emergency sd2 department for consultation in the care of this patient. I did not see or examine this patient. Quin Peace MD. Disposition Summary: 04/06/22 23:14 Discharge Ordered Location: Home jl9 Condition: Stable jl9 Diagnosis - Chest pain, unspecified jl9 Followup: jl9 - With: Aakash Mayen MD - When: 1 - 2 days - Reason: Further diagnostic work-up, Recheck today's complaints, Continuance of care, Re-evaluation by your physician Discharge Instructions: - Discharge Summary Sheet jl9 - Nonspecific Chest Pain, Adult, [id number] jl9 Forms: - Medication Reconciliation Form jl9 - Thank You Letter jl9 - Antibiotic Education jl9 - Prescription Opioid Use jl9 Signatures: Dispatcher [employer] Sveta Gramajo RN RN ld1 Dwayne Sepulveda jl9 Quin Peace MD MD sd2
[2022-04-06 23:44] LABS: Urine Specific Gravity/Preg >1.030 (1.005-1.030)
[2022-04-06 23:49] VITALS: BP 139/100; TEMP 98.5; O2SAT 99
--- NOTE | 2022-04-07 19:11 | EKG ---
Test Date: 2022-04-06 Test Time: 22:07:29 Aba Therapist: NANCY MEASUREMENT RESULTS: Intervals: Rate: 84 DC: 178 QRSD: 82 QT: 358 QTc: 423 [place]: P: 32 DC: 178 QRS: 63 T: 37 INTERPRETIVE STATEMENTS: Normal sinus rhythm Normal ECG Compared to ECG 08/23/2020 13:51:56 Sinus bradycardia no longer present Sinus arrhythmia no longer present Electronically Signed On 04-07-22 19:10:15 [employer] PAINTER by Jose Rob
== END 2022-04-06 23:31 | disposition home or self-care (01) ==
LOC: ER 21:54
DX: R07.9 Chest pain, unspecified (principal)
CPT/HCPCS: 36415; 71045; 80048; 80307; 81003; 81025; 84484; 85025; 93005; 99284

== ENCOUNTER 2022-10-10 19:25 | Emergency (ER) | payer OTHER, SELFPAY ==
--- OUTSIDE RECORDS SUMMARY | 2022-10-10 19:37 | XMS REPORT | Continuity of Care Document ---
:[address] [facility] t Address [address] [facility] [address] [place] [address] Care Team Providers Name Role Phone Quin West Primary Care Physician ADAM WALTERS Attending Clinician Unavailable ELIO CASTILLO Attending Clinician Unavailable Lora Anthony Attending Clinician Unavailable MYRNA MACIEL Attending Clinician Unavailable Risk, Ilt-Cysup-Bz/High Attending Clinician Unavailable Myrna Estrada Attending Clinician Doctor Unassigned, [place] Attending Clinician Unavailable DAVID DO Attending Clinician Unavailable David Do MD Attending Clinician Elio Farnsworth Attending Clinician [phone] Ultrasound, Ang-Mfm Attending Clinician Unavailable Jayshree Conner MD, Mariela Attending Clinician [phone] MARIELA AYON Attending Clinician Unavailable Lab, SamanthaRmchkorey Attending Clinician Unavailable Sabino Cobos Attending Clinician Vickie Dent RN Attending Clinician Unavailable RONAL GOODMAN Attending Clinician Unavailable Ronal Terrell Attending Clinician EMILY HURST Attending Clinician Unavailable MIKAEL WELLER Attending Clinician Unavailable MIKAEL WELLER Attending Clinician Unavailable Mikael Weller DO Attending Clinician DEANN URENA Attending Clinician Unavailable Deann Urena NP Attending Clinician Georges ARGUETA, Emily Attending Clinician KARL JOY Attending Clinician Unavailable Karl Joy MD Attending Clinician KRZYSZTOF ARMSTRONG Attending Clinician Unavailable Krzysztof Armstrong DO Attending Clinician BENITA BERNAL Attending Clinician Unavailable Benita Bernal DO Attending Clinician Kristian Simeon MD Attending Clinician Marquez Yeager MD Attending Clinician Vickie Palumbo Attending Clinician VICKIE HARRELL Attending Clinician Unavailable RONAL GOODMAN Admitting Clinician Unavailable EMILY HURST Admitting Clinician Unavailable MIKAEL WELLER Admitting Clinician Unavailable DEANN URENA Admitting Clinician Unavailable KARL JOY Admitting Clinician Unavailable Payers Payer Name Policy Type Policy Number Effective Date Expiration Date Makr ROSE [id number] 2022 00:00:00 [place] [id number] 2022 00:00:00 Problems Condition Condition Condition Status Onset Resolution Last Treating Co mments Source Name Details Category Date Date Treatment Clinician Date History of History of Disease Active U nivers miscarriag miscarriag 08-08 it y of e e 00:00: [address] Supervisio Supervisio Disease Active U nivers n of n of 3- [place] of high[place]risk [place] [facility] Nexplanon Nexplanon Disease Active Uni vers in place in place 2- ity of 00:00: [address] Encounter Encounter Disease Active Uni vers for for 1-30 [place] isabella 00 Medical management management Br anch , , unspecifie unspecifie d type d type Nexplanon Nexplanon Disease Active Uni vers removal removal 1-30 ity of 00:00: [place] [facility] Obesity in Obesity in Disease Active U nivers 1-30 ity of 00:00: [place] [facility] BMI BMI Disease Active Univers 30.0-30.9, 30.0-30.9, 1-30 it y of adult adult 00:00: [place] [facility] 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 in dism in 7-20 ity of 00:00: [place] [facility] 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, dism, 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, acquired, 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 00 Me dical Branch Family Family Disease Active Univers history of history of 7-19 it y of thyroid thyroid 00:00: [place] disease in disease in 00 Oh dical father father Branch Allergies, Adverse Reactions, Alerts Allergy Allergy Status Severity Reaction(s) Onset Inactive Treating Comm ents Source Name Type Date Date Clinician IODINE DRUG Active High Anaphylaxis Unive rs INGREDI 9-10 ity of 00:00: [place] [facility] LATEX DRUG Active Rash 2017-0 Univers INGREDI 9-10 ity of 00:00: [place] [facility] Iodine Propensi Active Anaphylaxis Uni vers ty to 9-10 ity of adverse 00:00: [place] reaction 00 Medical s Branch Latex Propensi Active Rash 2018-0 Univers ty to 9-10 ity of adverse 00:00: [place] reaction 00 Medical s Branch PROMETHA DRUG Active Hives Univers ZINE HCL INGREDI 5-17 ity of 00:00: [place] 00 Medical Branch SULFA Drug Active Hives Univers (SULFONA Class 5-17 ity of MIDE 00:00: [place] ANTIBIOT 00 Medical ICS) Branch Sulfa Propensi Active Hives 2017-0 Univers (Sulfona ty to 5-17 ity of mide adverse 00:00: [place] Antibiot reaction 00 Medica l ics) s Branch Prometha Propensi Active Hives Univer s zine Hcl ty to 5-17 ity of adverse 00:00: [place] reaction 00 Medical s Branch Sulfa Propensi Active Hives 2017- Univers (Sulfona ty to 517 ity of mide adverse 00:00: [place] Antibiot reaction 00 Medica l ics) s Branch SHELLFIS DRUG Active Hives 2017- Univers H INGREDI 4-03 ity of DERIVED 00:00: [place] 00 Medical Branch SHRIMP DRUG Active Hives 2017- Univers INGREDI 4-03 ity of 00:00: [place] 00 Medical Branch Shellfis Propensi Active Hives 2017- Univer s h ty to 4-03 ity of Derived adverse 00:00: [place] reaction 00 Medical s Branch Shrimp Propensi Active Hives 2017- Univers ty to 4-03 ity of adverse 00:00: [place] reaction 00 Medical s Branch Social History Social Habit Start Date Stop Date Quantity Comments Source ASSERTION 2022-07-07 [facility] 00:00:00 [facility] Alcohol intake 2022-10-05 2022-10-05 Current [facility] 00:00:00 00:00:00 non-drinker of [facility] alcohol (finding) Branch Exposure to 2022-09-24 2022-10-04 Not sure [facility] SARS-CoV-2 00:00:00 08:30:00 [facility] (event) [place] Tobacco use and 2022-02-22 2022-02-22 Smokeless tobacco Un iversity of exposure 00:00:00 00:00:00 non-user [facility] Sex Assigned At 2000 2000 Universit y of 00:00:00 00:00:00 [facility] Smoking Status Start Date Stop Date Source Never smoked tobacco [facility] Medications Ordered Filled Start Stop Current Ordering Indication Dosage Frequency Signature Comments Components Source Medication Medication Date Date Medication? Clinician (SIG) Name Name loratadine 2022- Yes [id number] 10mg Take 1 Univers (CLARITIN) 10-04- tablet by ity of 10 mg 00:00: 04:59 mouth in [place] tablet 00 :00 the Medical morning Branch for 90 days. loratadine 2022- Yes [id number] 10mg Take 1 Univers (CLARITIN) -18 - tablet by ity of 10 mg 00:00: 04:59 mouth in [place] tablet 00 :00 the Medical morning Branch for 90 days. loratadine 0 2022- Yes [id number] 10mg Take 1 Univers (CLARITIN) 5-18 08-17 tablet by ity of 10 mg 00:00: 04:59 mouth in [place] tablet 00 :00 the Medical morning Branch for 90 days. ondansetron 2022-0 Yes [id number] 4mg Take 1 Univers (ZOFRAN) 4 4-27 tablet by ity of mg tablet 00:00: mouth [place] 00 every 8 Medical (eight) Branch hours as needed for Nausea and Vomiting (N/V) for up to 20 doses. ondansetron 2022-0 Yes [id number] 4mg Take 1 Univers (ZOFRAN) 4 4-27 tablet by ity of mg tablet 00:00: mouth [place] 00 every 8 Medical (eight) Branch hours as needed for Nausea and Vomiting (N/V) for up to 20 doses. ondansetron 2022-0 Yes [id number] 4mg Take 1 Univers (ZOFRAN) 4 4-27 tablet by ity of mg tablet 00:00: mouth [place] 00 every 8 Medical (eight) Branch hours as needed for Nausea and Vomiting (N/V) for up to 20 doses. ondansetron 2022-0 Yes [id number] 4mg Take 1 Univers (ZOFRAN) 4 4-27 tablet by ity of mg tablet 00:00: mouth [place] 00 every 8 Medical (eight) Branch hours as needed for Nausea and Vomiting (N/V) for up to 20 doses. ondansetron 2022-0 Yes [id number] 4mg Take 1 Univers (ZOFRAN) 4 4-27 tablet by ity of mg tablet 00:00: mouth [place] 00 every 8 Medical (eight) Branch hours as needed for Nausea and Vomiting (N/V) for up to 20 doses. ondansetron 2022-0 Yes [id number] 4mg Take 1 Univers (ZOFRAN) 4 4-27 tablet by ity of mg tablet 00:00: mouth [place] 00 every 8 Medical (eight) Branch hours as needed for Nausea and Vomiting (N/V) for up to 20 doses. levothyroxi 2022-0 2022- Yes [id number] 125ug Take 1 Univers ne 4-27 06-27 tablet by ity of (SYNTHROID) 00:00: 04:59 [place] 125 [place] 00 :00 every Medical tablet morning Branch for 60 days. levothyroxi 2022- Yes [id number] 125ug Take 1 [facility] 09-13 tablet by ity of (SYNTHROID) 00:00: 04:59 [place] 125 [place] 00 :00 every Medical tablet morning Branch for 60 days. levothyroxi 2022- Yes [id number] 125ug Take 1 [facility] 09-13 tablet by ity of (SYNTHROID) 00:00: 04:59 [place] 125 mcg 00 :00 every Medical tablet morning Branch for 60 days. levothyroxi 2022- Yes [id number] 125ug Take 1 [facility] 09-13 tablet by ity of (SYNTHROID) 00:00: 04:59 [place] 125 mcg 00 :00 every Medical tablet morning Branch for 60 days. levothyroxi 2022- Yes [id number] 125ug Take 1 [facility] 09-13 tablet by ity of (SYNTHROID) 00:00: 04:59 [place] 125 mcg 00 :00 every Medical tablet morning Branch for 60 days. levothyroxi 2022- Yes [id number] 125ug Take 1 [facility] 09-13 tablet by ity of (SYNTHROID) 00:00: 04:59 [place] 125 [place]cg 00 :00 every Medical tablet morning Branch for 60 days. levothyroxi 2022- No 100ug 100 mcg, [facility] ne 07-27 03-10 Intravenou ity of (SYNTHROID) 09:47: 10:07 s, ONCE, 1 [place] injection 00 :00 dose, On Medica l 100 mcg Fri Branch 07/27/22 at 0400, ARNALDO NaCl 0.9% 2022- No 1000mL at 999 Uni vers (NS) bolus 310 03-10 mL/hr, ity of infusion 09:15: 09:48 1,000 mL, [place] 1,000 mL 00 :00 IV Medical Infusion, Branch ONCE, 1 dose, On 07/27/22 at 0315, ARNALDO ondansetron 2023-0 Yes [id number] 4mg Take 1 Univers 4 mg 3-10 tablet by ity of disintegrat 00:00: mouth [place] ing tablet 00 every 8 Medica l (eight) Branch hours as needed for Nausea and Vomiting (N/V) for up to 10 doses. ondansetron 2023-0 Yes [id number] 4mg Take 1 Univers 4 mg 3-10 tablet by ity of disintegrat 00:00: mouth [place] ing tablet 00 every 8 Medica l (eight) Branch hours as needed for Nausea and Vomiting (N/V) for up to 10 doses. ondansetron 2023-0 Yes [id number] 4mg Take 1 Univers 4 mg 3-10 tablet by ity of disintegrat 00:00: mouth [place] ing tablet 00 every 8 Medica l (eight) Branch hours as needed for Nausea and Vomiting (N/V) for up to 10 doses. ondansetron 2023-0 Yes [id number] 4mg Take 1 Univers 4 mg 3-10 tablet by ity of disintegrat 00:00: mouth [place] ing tablet 00 every 8 Medica l (eight) Branch hours as needed for Nausea and Vomiting (N/V) for up to 10 doses. ondansetron 3-0 Yes [id number] 4mg Take 1 Univers 4 mg 3-10 tablet by ity of disintegrat 00:00: mouth [place] ing tablet 00 every 8 Medica l (eight) Branch hours as needed for Nausea and Vomiting (N/V) for up to 10 doses. ondansetron 3-0 Yes [id number] 4mg Take 1 Univers 4 mg 3-10 tablet by ity of disintegrat 00:00: mouth [place] ing tablet 00 every 8 Medica l (eight) Branch hours as needed for Nausea and Vomiting (N/V) for up to 10 doses. ondansetron 2023-0 Yes [id number] 4mg Take 1 Univers 4 mg 3-10 tablet by ity of disintegrat 00:00: mouth [place] ing tablet 00 every 8 Medica l (eight) Branch hours as needed for Nausea and Vomiting (N/V) for up to 10 doses. ondansetron 3-0 Yes [id number] 4mg Take 1 Univers 4 mg 3-10 tablet by ity of disintegrat 00:00: mouth [place] ing tablet 00 every 8 Medica l (eight) Branch hours as needed for Nausea and Vomiting (N/V) for up to 10 doses. ondansetron 2023-0 Yes [id number] 4mg Take 1 Univers 4 mg 3-10 tablet by ity of disintegrat 00:00: mouth [place] ing tablet 00 every 8 Medica l (eight) Branch hours as needed for Nausea and Vomiting (N/V) for up to 10 doses. ondansetron 2023-0 Yes [id number] 4mg Take 1 Univers 4 mg 3-10 tablet by ity of disintegrat 00:00: mouth [place] ing tablet 00 every 8 Medica l (eight) Branch hours as needed for Nausea and Vomiting (N/V) for up to 10 doses. ondansetron 2023-0 Yes [id number] 4mg Take 1 Univers 4 mg 3-10 tablet by ity of disintegrat 00:00: mouth [place] ing tablet 00 every 8 Medica l (eight) Branch hours as needed for Nausea and Vomiting (N/V) for up to 10 doses. ondansetron 2023-0 Yes [id number] 4mg Take 1 Univers 4 mg 3-10 tablet by ity of disintegrat 00:00: mouth [place] ing tablet 00 every 8 Medica l (eight) Branch hours as needed for Nausea and Vomiting (N/V) for up to 10 doses. ondansetron 2023-0 Yes [id number] 4mg Take 1 Univers 4 mg 3-10 tablet by ity of disintegrat 00:00: mouth [place] ing tablet 00 every 8 Medica l (eight) Branch hours as needed for Nausea and Vomiting (N/V) for up to 10 doses. ondansetron 2023-0 Yes [id number] 4mg Take 1 Univers 4 mg 3-10 tablet by ity of disintegrat 00:00: mouth [place] ing tablet 00 every 8 Medica l (eight) Branch hours as needed for Nausea and Vomiting (N/V) for up to 10 doses. ondansetron 2023-0 Yes [id number] 4mg Take 1 Univers 4 mg 3-10 tablet by ity of disintegrat 00:00: mouth [place] ing tablet 00 every 8 Medica l (eight) Branch hours as needed for Nausea and Vomiting (N/V) for up to 10 doses. ondansetron 2023-0 Yes [id number] 4mg Take 1 Univers 4 mg 3-10 tablet by ity of disintegrat 00:00: mouth [place] ing tablet 00 every 8 Medica l (eight) Branch hours as needed for Nausea and Vomiting (N/V) for up to 10 doses. ondansetron 2023-0 Yes [id number] 4mg Take 1 Univers 4 mg 3-10 tablet by ity of disintegrat 00:00: mouth [place] ing tablet 00 every 8 Medica l (eight) Branch hours as needed for Nausea and Vomiting (N/V) for up to 10 doses. ondansetron 2023-0 Yes [id number] 4mg Take 1 Univers 4 mg 3-10 tablet by ity of disintegrat 00:00: mouth [place] ing tablet 00 every 8 Medica l (eight) Branch hours as needed for Nausea and Vomiting (N/V) for up to 10 doses. ondansetron 2023-0 Yes [id number] 4mg Take 1 Univers 4 mg 3-10 tablet by ity of disintegrat 00:00: mouth [place] ing tablet 00 every 8 Medica l (eight) Branch hours as needed for Nausea and Vomiting (N/V) for up to 10 doses. ondansetron 2023-0 Yes [id number] 4mg Take 1 Univers 4 mg 3-10 tablet by ity of disintegrat 00:00: mouth [place] ing tablet 00 every 8 Medica l (eight) Branch hours as needed for Nausea and Vomiting (N/V) for up to 10 doses. ondansetron 2023-0 Yes [id number] 4mg Take 1 Univers 4 mg 3-10 tablet by ity of disintegrat 00:00: mouth [place] ing tablet 00 every 8 Medica l (eight) Branch hours as needed for Nausea and Vomiting (N/V) for up to 10 doses. ondansetron 2023-0 Yes [id number] 4mg Take 1 Univers 4 mg 3-10 tablet by ity of disintegrat 00:00: mouth [place] ing tablet 00 every 8 Medica l (eight) Branch hours as needed for Nausea and Vomiting (N/V) for up to 10 doses. ondansetron 2023-0 Yes [id number] 4mg Take 1 Univers 4 mg 3-10 tablet by ity of disintegrat 00:00: mouth [place] ing tablet 00 every 8 Medica l (eight) Branch hours as needed for Nausea and Vomiting (N/V) for up to 10 doses. levothyroxi 2022- Yes [id number] 100ug Take 1 Univers ne 100 mcg 3-10 04-10 tablet by ity of tablet 00:00: 04:59 mouth [place] 00 :00 every Medical morning Branch for 30 days. levothyroxi 2022- Yes [id number] 100ug Take 1 Univers ne 100 mcg 3-10 04-10 tablet by ity of tablet 00:00: 04:59 mouth [place] 00 :00 every Medical morning Branch for 30 days. levothyroxi 2022- Yes [id number] 100ug Take 1 Univers ne 100 mcg 3-10 04-10 tablet by ity of tablet 00:00: 04:59 mouth [place] 00 :00 every Medical morning Branch for 30 days. levothyroxi 2022- Yes [id number] 100ug Take 1 Univers ne 100 mcg 3-10 04-10 tablet by ity of tablet 00:00: 04:59 mouth [place] 00 :00 every Medical morning Branch for 30 days. levothyroxi 2022- Yes [id number] 100ug Take 1 Univers ne 100 mcg 3-10 04-10 tablet by ity of tablet 00:00: 04:59 mouth [place] 00 :00 every Medical morning Branch for 30 days. levothyroxi 2022- Yes [id number] 100ug Take 1 Univers ne 100 mcg 3-10 04-10 tablet by ity of tablet 00:00: 04:59 mouth [place] 00 :00 every Medical morning Branch for 30 days. dexamethaso 2021-05 No 10mg 10 mg, Uni vers ne 03-15 Slow IV ity of (DECADRON 20:15: 19:42 Push, [place] PHOSPHATE) 00 :00 ONCE, 1 Medica l injection dose, On Branch 10 mg [facility] 03/15/22 at 1515, Routine ketorolac 2021-05 No 30mg 30 mg, Unive rs (TORADOL) 003-15 Slow IV ity of injection 20:15: 19:40 [place], [place] 30 mg 00 :00 ONCE, 1 Medical dose, On Branch Fern[place] 03/15/22 at 1515, Routine NaCl 0.9% 2021-05 No 1000mL at 1,000 U nivers (NS) IV 0-27 10-27 mL/hr, ity of infusion 19:30: 21:46 Intravenou [place] 1,000 mL 00 :00 s, ONCE, 1 Medic al dose, On Branch [place] 03/15/22 at 1430, ARNALDO acetaminoph 2021-05- No 650mg 650 mg, U nivers en 0-27 10-27 Oral, ity of (TYLENOL) 19:15: 19:41 ONCE, 1 [place] tablet 650 00 :00 dose, On Medic al mg [place] Branch 03/15/22 at 1415, ARNALDO metoprolol 2021-05 Yes [id number] 25mg Take 1 U nivers tartrate 25 0-08 tablet by ity of mg tablet 00:00: mouth [place] 00 the Medical morning Branch and 1 tablet in the evening. metoprolol 2021-05 Yes [id number] 25mg Take 1 U nivers tartrate 25 0-08 tablet by ity of mg tablet 00:00: mouth [place] 00 the Medical morning Branch and 1 tablet in the evening. metoprolol 2021-05 Yes [id number] 25mg Take 1 U nivers tartrate 25 0-08 tablet by ity of mg tablet 00:00: mouth [place] 00 the Medical morning Branch and 1 tablet in the evening. metoprolol 2021-05 Yes [id number] 25mg Take 1 U nivers tartrate 25 0-08 tablet by ity of mg tablet 00:00: mouth [place] 00 the Medical morning Branch and 1 tablet in the evening. metoprolol 2021-05 Yes [id number] 25mg Take 1 U nivers tartrate 25 0-08 tablet by ity of mg tablet 00:00: mouth [place] 00 the Medical morning Branch and 1 tablet in the evening. metoprolol 2021-05 Yes [id number] 25mg Take 1 U nivers tartrate 25 0-08 tablet by ity of mg tablet 00:00: mouth [place] 00 the Medical morning Branch and 1 tablet in the evening. metoprolol 2021-05 Yes [id number] 25mg Take 1 U nivers tartrate 25 0-08 tablet by ity of mg tablet 00:00: mouth [place] 00 the Medical morning Branch and 1 tablet in the evening. metoprolol 2021-05 Yes [id number] 25mg Take 1 U nivers tartrate 25 0-08 tablet by ity of mg tablet 00:00: mouth [place] 00 the Medical morning Branch and 1 tablet in the evening. metoprolol 2021-05 Yes [id number] 25mg Take 1 U nivers tartrate 25 0-08 tablet by ity of mg tablet 00:00: mouth [place] 00 the Medical morning Branch and 1 tablet in the evening. metoprolol 2021-05 Yes [id number] 25mg Take 1 U nivers tartrate 25 0-08 tablet by ity of mg tablet 00:00: mouth [place] 00 the Medical morning Branch and 1 tablet in the evening. metoprolol 2021-05 Yes [id number] 25mg Take 1 U nivers tartrate 25 0-08 tablet by ity of mg tablet 00:00: mouth [place] 00 the Medical morning Branch and 1 tablet in the evening. metoprolol 2021-05 Yes [id number] 25mg Take 1 U nivers tartrate 25 0-08 tablet by ity of mg tablet 00:00: mouth [place] 00 the Medical morning Branch and 1 tablet in the evening. metoprolol 2021-05 Yes [id number] 25mg Take 1 U nivers tartrate 25 0-08 tablet by ity of mg tablet 00:00: mouth [place] 00 the Medical morning Branch and 1 tablet in the evening. metoprolol 2021-05 Yes [id number] 25mg Take 1 U nivers tartrate 25 0-08 tablet by ity of mg tablet 00:00: mouth [place] 00 the Medical morning Branch and 1 tablet in the evening. metoprolol 2021-05 Yes [id number] 25mg Take 1 U nivers tartrate 25 0-08 tablet by ity of mg tablet 00:00: mouth [place] 00 the [place] morning Branch and 1 tablet in the evening. metoprolol 2021-05 Yes [id number] 25mg Take 1 U nivers tartrate 25 0-08 tablet by ity of mg tablet 00:00: mouth [place] 00 the [place] morning Branch and 1 tablet in the evening. metoprolol 2021-05 Yes [id number] 25mg Take 1 U nivers tartrate 25 0-08 tablet by ity of mg tablet 00:00: mouth [place] 00 the [place] morning Branch and 1 tablet in the evening. metoprolol 2021-05 Yes [id number] 25mg Take 1 U nivers tartrate 25 0-08 tablet by ity of mg tablet 00:00: mouth [place] 00 the [place] morning Branch and 1 tablet in the evening. metoprolol 2021-05 Yes [id number] 25mg Take 1 U nivers tartrate 25 0-08 tablet by ity of mg tablet 00:00: mouth [place] 00 the [place] morning Branch and 1 tablet in the evening. metoprolol 2021-05 Yes [id number] 25mg Take 1 U nivers tartrate 25 0-08 tablet by ity of mg tablet 00:00: mouth [place] 00 the [place] morning Branch and 1 tablet in the evening. metoprolol 2021-05 Yes [id number] 25mg Take 1 U nivers tartrate 25 0-08 tablet by ity of mg tablet 00:00: mouth [place] 00 the Medical morning Branch and 1 tablet in the evening. metoprolol 2021-05 Yes [id number] 25mg Take 1 U nivers tartrate 25 0-08 tablet by ity of mg tablet 00:00: mouth [place] 00 the Medical morning Branch and 1 tablet in the evening. metoprolol 2021-05 Yes [id number] 25mg Take 1 U nivers tartrate 25 0-08 tablet by ity of mg tablet 00:00: mouth [place] 00 the Medical morning Branch and 1 tablet in the evening. metoprolol 2021-05 Yes [id number] 25mg Take 1 U nivers tartrate 25 0-08 tablet by ity of mg tablet 00:00: mouth [place] 00 the Medical morning Branch and 1 tablet in the evening. metoprolol 2021-05 Yes [id number] 25mg Take 1 U nivers tartrate 25 0-08 tablet by ity of mg tablet 00:00: mouth [place] 00 the Medical morning Branch and 1 tablet in the evening. metoprolol 2021-05 Yes [id number] 25mg Take 1 U nivers tartrate 25 0-08 tablet by ity of mg tablet 00:00: mouth [place] 00 the Medical morning Branch and 1 tablet in the evening. metoprolol 2021-05 Yes [id number] 25mg Take 1 U nivers tartrate 25 0-08 tablet by ity of mg tablet 00:00: mouth [place] 00 the Medical morning Branch and 1 tablet in the evening. metoprolol 2021-05 Yes [id number] 25mg Take 1 U nivers tartrate 25 0-08 tablet by ity of mg tablet 00:00: mouth [place] 00 the Medical morning Branch and 1 tablet in the evening. metoprolol 2021-05 Yes [id number] 25mg Take 1 U nivers tartrate 25 0-08 tablet by ity of mg tablet 00:00: mouth [place] 00 the Medical morning Branch and 1 tablet in the evening. metoprolol 2021-05 Yes [id number] 25mg Take 1 U nivers tartrate 25 0-08 tablet by ity of mg tablet 00:00: mouth [place] 00 the Medical morning Branch and 1 tablet in the evening. metoprolol 2021-05 Yes [id number] 25mg Take 1 U nivers tartrate 25 0-08 tablet by ity of mg tablet 00:00: mouth [place] 00 the Medical morning Branch and 1 tablet in the evening. Nitrofurant 2021- No [id number] 100mg Take 1 Univers oin&Nit. 5-14 05-25 [...] (scale 7-10). Indication s: acute pain traMADoL 2020-0 Yes [id number] 50mg Take 1 Univers (ULTRAM) [...] (scale 7-10). Indication s: acute pain traMADoL 2020-0 Yes [id number] 50mg Take 1 Univers (ULTRAM) 50 8-22 tablet by ity of mg tablet 00:00: mouth [place] 00 every 6 Medical (six) Branch hours as needed for Pain (scale 7-10). Indication s: acute pain traMADoL 2020-0 Yes [id number] 50mg Take 1 Univers (ULTRAM) 50 8-22 tablet by ity of mg tablet 00:00: mouth [place] 00 every 6 Medical (six) Branch hours as needed for Pain (scale 7-10). Indication s: acute pain traMADoL 2020-0 Yes [id number] 50mg Take 1 Univers (ULTRAM) 50 8-22 tablet by ity of mg tablet 00:00: mouth [place] 00 every 6 Medical (six) Branch hours as needed for Pain (scale 7-10). Indication s: acute pain traMADoL 2020-0 Yes [id number] 50mg Take 1 Univers (ULTRAM) 50 8-22 tablet by ity of mg tablet 00:00: mouth [place] 00 every 6 Medical (six) Branch hours as needed for Pain (scale 7-10). Indication s: acute pain traMADoL 2020-0 Yes [id number] 50mg Take 1 Univers (ULTRAM) 50 8-22 tablet by ity of mg tablet 00:00: mouth [place] 00 every 6 Medical (six) Branch hours as needed for Pain (scale 7-10). Indication s: acute pain traMADoL 2020-0 Yes [id number] 50mg Take 1 Univers (ULTRAM) [...] (scale 7-10). Indication s: acute pain traMADoL 2020-0 Yes [id number] 50mg Take 1 Univers (ULTRAM) 50 8-22 tablet by ity of mg tablet 00:00: mouth [place] 00 every 6 Medical (six) Branch hours as needed for Pain (scale 7-10). Indication s: acute pain traMADoL 2020-0 Yes [id number] 50mg Take 1 Univers (ULTRAM) 50 8-22 tablet by ity of mg tablet 00:00: mouth [place] 00 every 6 Medical (six) Branch hours as needed for Pain (scale 7-10). Indication s: acute pain traMADoL 2020-0 Yes [id number] 50mg Take 1 Univers (ULTRAM) [...] (scale 7-10). Indication s: acute pain traMADoL 2022- No 4647 50mg Take 1 Univer s (ULTRAM) 50 8-22 04-13 tablet by it y of mg tablet 00:00: 00:00 mouth [place] 00 :00 every 6 Medical (six) Branch hours as needed for Pain (scale 7-10). Indication s: acute pain traMADoL 2022- No 4647 50mg Take 1 Univer s (ULTRAM) 50 8-22 04-13 tablet by it y of mg tablet 00:00: 00:00 mouth [place] 00 :00 every 6 Medical (six) Branch hours as needed for Pain (scale 7-10). Indication s: acute pain traMADoL 2022- No 4647 50mg Take 1 Univer s (ULTRAM) 50 8-22 04-13 tablet by it y of mg tablet 00:00: 00:00 mouth [place] 00 :00 every 6 Medical (six) Branch hours as needed for Pain (scale 7-10). Indication s: acute pain maalox:diph 2020- No 15mL 15 mL, Uni vers enhydrAMINE 08-24 Oral, ity of :lidocaine 21:30: 20:47 ONCE, 1 [place] as 2 % viscous 00 :00 dose, Wed Med ical 1:1:1 08/24/20 at [place] ([facility] 1630, [facility]) oral suspension 15 mL levothyroxi Yes 100ug Take 1 Uni vers ne 100 mcg 7-20 tablet by ity of tablet 00:00: mouth [place] 00 every Medical morning. [place] Fasting, with water if needed. Wait 15 min before eating or drinking. levothyroxi Yes 100ug Take 1 Uni vers ne [...] 15 min before eating or drinking. levothyroxi 2017-2022- No 100ug Take 1 Un floyd ne 100 mcg 7-20 04-27 tablet by ity of tablet 00:00: 00:00 mouth [place] 00 :00 every Medical morning. Branch Fasting, with water if needed. Wait 15 min before eating or drinking. levothyroxi 2022- No 100ug Take 1 Un floyd ne 100 mcg 7-20 04-27 tablet by ity of tablet 00:00: 00:00 mouth [place] 00 :00 every Medical morning. Branch Fasting, with water if needed. Wait 15 min before eating or drinking. Immunizations Ordered Filled Immunization Date Status Comments [facility] e Immunization Name Name HEPATITIS A 2018-08-11 Completed University of 00:00:00 [facility] HEPATITIS A 2018-08-11 Completed University of 00:00:00 [facility] HEPATITIS A 2018-08-11 Completed University of 00:00:00 [facility] HEPATITIS A 2018-08-11 Completed University of 00:00:00 [facility] HEPATITIS A 2018-08-11 Completed University of 00:00:00 [facility] HEPATITIS A 2018-08-11 Completed University of 00:00:00 [facility] HEPATITIS A 2018-08-11 Completed University of 00:00:00 [facility] HEPATITIS A 2018-08-11 Completed University of 00:00:00 [facility] HEPATITIS A 2018-08-11 Completed University of 00:00:00 [facility] HEPATITIS A 2018-08-11 Completed University of 00:00:00 [facility] HEPATITIS A 2018-08-11 Completed University of 00:00:00 [facility] HEPATITIS A 2018-08-11 Completed University of 00:00:00 [facility] HEPATITIS A 2018-08-11 Completed University of 00:00:00 [facility] HEPATITIS A 2018-08-11 Completed University of 00:00:00 [facility] HEPATITIS A 2018-08-11 Completed University of 00:00:00 [facility] HEPATITIS A 2018-08-11 Completed University of 00:00:00 [facility] HEPATITIS A 2018-08-11 Completed University of 00:00:00 [facility] HEPATITIS A 2018-08-11 Completed University of 00:00:00 [facility] HEPATITIS A 2018-08-11 Completed University of 00:00:00 [facility] HEPATITIS A 2018-08-11 Completed University of 00:00:00 [facility] HEPATITIS A 2018-08-11 Completed University of 00:00:00 [facility] HEPATITIS A 2018-08-11 Completed University of 00:00:00 [facility] 2016-06-01 Completed University of 00:00:00 [facility] Polio (IPV/OPV) 2016-06-01 Completed Universit y of 00:00:00 [facility] 2016-06-01 Completed University of 00:00:00 [facility] Polio (IPV/OPV) 2016-06-01 Completed Universit y of 00:00:00 [facility] 2016-06-01 Completed University of 00:00:00 [facility] Polio (IPV/OPV) 2016-06-01 Completed Universit y of 00:00:00 [facility] 2016-06-01 Completed University of 00:00:00 [facility] Polio (IPV/OPV) 2016-06-01 Completed Universit y of 00:00:00 [facility] 2016-06-01 Completed University of 00:00:00 [facility] Polio (IPV/OPV) 2016-06-01 Completed Universit y of 00:00:00 [facility] 2016-06-01 Completed University of 00:00:00 [facility] Polio (IPV/OPV) 2016-06-01 Completed Universit y of 00:00:00 [facility] 2016-06-01 Completed University of 00:00:00 [facility] Polio (IPV/OPV) 2016-06-01 Completed Universit y of 00:00:00 [facility] 2016-06-01 Completed University of 00:00:00 [facility] Polio (IPV/OPV) 2016-06-01 Completed Universit y of 00:00:00 [facility] 2016-06-01 Completed University of 00:00:00 [facility] Polio (IPV/OPV) 2016-06-01 Completed Universit y of 00:00:00 [facility] 2016-06-01 Completed University of 00:00:00 [place] [facility] Polio (IPV/OPV) 2016-06-01 Completed Universit y of 00:00:00 [facility] 2016-06-01 Completed University of 00:00:00 [facility] Polio (IPV/OPV) 2016-06-01 Completed Universit y of 00:00:00 [facility] 2016-06-01 Completed University of 00:00:00 [facility] Polio (IPV/OPV) 2016-06-01 Completed Universit y of 00:00:00 [facility] 2016-06-01 Completed University of 00:00:00 [facility] Polio (IPV/OPV) 2016-06-01 Completed Universit y of 00:00:00 [facility] 2016-06-01 Completed University of 00:00:00 [facility] Polio (IPV/OPV) 2016-06-01 Completed Universit y of 00:00:00 [facility] 2016-06-01 Completed University of 00:00:00 [facility] Polio (IPV/OPV) 2016-06-01 Completed Universit y of 00:00:00 [facility] 2016-06-01 Completed University of 00:00:00 [facility] Polio (IPV/OPV) 2016-06-01 Completed Universit y of 00:00:00 [facility] 2016-06-01 Completed University of 00:00:00 [facility] Polio (IPV/OPV) 2016-06-01 Completed Universit y of 00:00:00 [facility] 2016-06-01 Completed University of 00:00:00 [facility] Polio (IPV/OPV) 2016-06-01 Completed Universit y of 00:00:00 [facility] 2016-06-01 Completed University of 00:00:00 [facility] Polio (IPV/OPV) 2016-06-01 Completed Universit y of 00:00:00 [facility] 2016-06-01 Completed University of 00:00:00 [facility] Polio (IPV/OPV) 2016-06-01 Completed Universit y of 00:00:00 [facility] 2016-06-01 Completed University of 00:00:00 [facility] Polio (IPV/OPV) 2016-06-01 Completed Universit y of 00:00:00 [facility] 2016-06-01 Completed University of 00:00:00 [facility] Polio (IPV/OPV) 2016-06-01 Completed Universit y of 00:00:00 [place] [facility] MCV4,NOS 2015-04-21 Completed University of 00:00:00 [place] [facility] MCV4,NOS 2015-04-21 Completed University of 00:00:00 [place] [facility] MCV4,NOS 2015-04-21 Completed University of 00:00:00 [place] [facility] MCV4,NOS 2015-04-21 Completed University of 00:00:00 [place] [facility] MCV4,NOS 2015-04-21 Completed University of 00:00:00 [place] [facility] MCV4,NOS 2015-04-21 Completed University of 00:00:00 [place] [facility] MCV4,NOS 2015-04-21 Completed University of 00:00:00 [place] [facility] MCV4,NOS 2015-04-21 Completed University of 00:00:00 [place] [facility] MCV4,NOS 2015-04-21 Completed University of 00:00:00 [place] [facility] MCV4,NOS 2015-04-21 Completed University of 00:00:00 [facility] MCV4,NOS 2015-04-21 Completed University of 00:00:00 [facility] MCV4,NOS 2015-04-21 Completed University of 00:00:00 [facility] MCV4,NOS 2015-04-21 Completed University of 00:00:00 [facility] MCV4,NOS 2015-04-21 Completed University of 00:00:00 [facility] MCV4,NOS 2015-04-21 Completed University of 00:00:00 [place] [facility] MCV4,NOS 2015-04-21 Completed University of 00:00:00 [place] [facility] MCV4,NOS 2015-04-21 Completed University of 00:00:00 [place] [facility] MCV4,NOS 2015-04-21 Completed University of 00:00:00 [facility] MCV4,NOS 2015-04-21 Completed University of 00:00:00 [place] [facility] MCV4,NOS 2015-04-21 Completed University of 00:00:00 [place] [facility] MCV4,NOS 2015-04-21 Completed University of 00:00:00 [facility] MCV4,NOS 2015-04-21 Completed University of 00:00:00 [facility] TD, NOS 2013-01-30 Completed University of 00:00:00 [facility] TD, NOS 2013-01-30 Completed University of 00:00:00 [place] [facility] TD, NOS 2013-01-30 Completed University of 00:00:00 [place] [facility] TD, NOS 2013-01-30 Completed University of 00:00:00 [place] [facility] TD, NOS 2013-01-30 Completed University of 00:00:00 [place] [facility] TD, NOS 2013-01-30 Completed University of 00:00:00 [place] [facility] TD, NOS 2013-01-30 Completed University of 00:00:00 [place] [facility] TD, NOS 2013-01-30 Completed University of 00:00:00 [place] [facility] TD, NOS 2013-01-30 Completed University of 00:00:00 [place] [facility] TD, NOS 2013-01-30 Completed University of 00:00:00 [place] [facility] TD, NOS 2013-01-30 Completed University of 00:00:00 [place] [facility] TD, NOS 2013-01-30 Completed University of 00:00:00 [facility] TD, NOS 2013-01-30 Completed University of 00:00:00 [facility] TD, NOS 2013-01-30 Completed University of 00:00:00 [facility] TD, NOS 2013-01-30 Completed University of 00:00:00 [facility] TD, NOS 2013-01-30 Completed University of 00:00:00 [facility] TD, NOS 2013-01-30 Completed University of 00:00:00 [facility] TD, NOS 2013-01-30 Completed University of 00:00:00 [facility] TD, NOS 2013-01-30 Completed University of 00:00:00 [facility] TD, NOS 2013-01-30 Completed University of 00:00:00 [facility] TD, NOS 2013-01-30 Completed University of 00:00:00 [facility] TD, NOS 2013-01-30 Completed University of 00:00:00 [facility] Varicella 2008-11-25 Completed University of (varivax)(chicken 00:00:00 [place] [facility] pox) Branch HEPA,NOS 2008-11-25 Completed University of 00:00:00 [facility] Varicella 2008-11-25 Completed University of (varivax)(chicken 00:00:00 [place] [facility] pox) Branch HEPA,NOS 2008-11-25 Completed University of 00:00:00 [facility] Varicella 2008-11-25 Completed University of (varivax)(chicken 00:00:00 [place] [facility] pox) Branch HEPA,NOS 2008-11-25 Completed University of 00:00:00 [facility] Varicella 2008-11-25 Completed University of (varivax)(chicken 00:00:00 [place] [facility] pox) Branch HEPA,NOS 2008-11-25 Completed University of 00:00:00 [facility] Varicella 2008-11-25 Completed University of (varivax)(chicken 00:00:00 [place] [facility] pox) Branch HEPA,NOS 2008-11-25 Completed University of 00:00:00 [facility] Varicella 2008-11-25 Completed University of (varivax)(chicken 00:00:00 [place] [facility] pox) Branch HEPA,NOS 2008-11-25 Completed University of 00:00:00 [facility] Varicella 2008-11-25 Completed University of (varivax)(chicken 00:00:00 [place] [facility] pox) Branch HEPA,NOS 2008-11-25 Completed University of 00:00:00 [facility] Varicella 2008-11-25 Completed University of (varivax)(chicken 00:00:00 [place] [facility] pox) Branch HEPA,NOS 2008-11-25 Completed University of 00:00:00 [facility] Varicella 2008-11-25 Completed University of (varivax)(chicken 00:00:00 [place] [facility] pox) Branch HEPA,NOS 2008-11-25 Completed University of 00:00:00 [facility] Varicella 2008-11-25 Completed University of (varivax)(chicken 00:00:00 [place] [facility] pox) Branch HEPA,NOS 2008-11-25 Completed University of 00:00:00 [facility] Varicella 2008-11-25 Completed University of (varivax)(chicken 00:00:00 [place] [facility] pox) Branch HEPA,NOS 2008-11-25 Completed University of 00:00:00 [facility] Varicella 2008-11-25 Completed University of (varivax)(chicken 00:00:00 [place] [facility] pox) Branch HEPA,NOS 2008-11-25 Completed University of 00:00:00 [facility] Varicella 2008-11-25 Completed University of (varivax)(chicken 00:00:00 [place] [facility] pox) Branch HEPA,NOS 2008-11-25 Completed University of 00:00:00 [facility] Varicella 2008-11-25 Completed University of (varivax)(chicken 00:00:00 [place] [facility] pox) Branch HEPA,NOS 2008-11-25 Completed University of 00:00:00 [facility] Varicella 2008-11-25 Completed University of (varivax)(chicken 00:00:00 [place] [facility] pox) Branch HEPA,NOS 2008-11-25 Completed University of 00:00:00 [facility] Varicella 2008-11-25 Completed University of (varivax)(chicken 00:00:00 [place] [facility] pox) Branch HEPA,NOS 2008-11-25 Completed University of 00:00:00 [facility] Varicella 2008-11-25 Completed University of (varivax)(chicken 00:00:00 [place] [facility] pox) Branch HEPA,NOS 2008-11-25 Completed University of 00:00:00 [facility] Varicella 2008-11-25 Completed University of (varivax)(chicken 00:00:00 [place] [facility] pox) Branch HEPA,NOS 2008-11-25 Completed University of 00:00:00 [facility] Varicella 2008-11-25 Completed University of (varivax)(chicken 00:00:00 [place] [facility] pox) Branch HEPA,NOS 2008-11-25 Completed University of 00:00:00 [facility] Varicella 2008-11-25 Completed University of (varivax)(chicken 00:00:00 [place] [facility] pox) Branch HEPA,NOS 2008-11-25 Completed University of 00:00:00 [facility] Varicella 2008-11-25 Completed University of (varivax)(chicken 00:00:00 [place] [facility] ed[facility] pox) Branch HEPA,NOS 2008-11-25 Completed University of 00:00:00 [facility] Varicella 2008-11-25 Completed University of (varivax)(chicken 00:00:00 [place] [facility] pox) Branch HEPA,NOS 2008-11-25 Completed University of 00:00:00 [facility] DTaP, Unspecified 2004-08-29 Completed Univers ity of Formulation 00:00:00 [facility] MMR 2004-08-29 Completed University of 00:00:00 [facility] Polio (IPV/OPV) 2004-08-29 Completed Universit y of 00:00:00 [facility] DTaP, Unspecified 2004-08-29 Completed Univers ity of Formulation 00:00:00 [facility] MMR 2004-08-29 Completed University of 00:00:00 [facility] Polio (IPV/OPV) 2004-08-29 Completed Universit y of 00:00:00 [facility] DTaP, Unspecified 2004-08-29 Completed Univers ity of Formulation 00:00:00 [facility] MMR 2004-08-29 Completed University of 00:00:00 [facility] Polio (IPV/OPV) 2004-08-29 Completed Universit y of 00:00:00 [facility] DTaP, Unspecified 2004-08-29 Completed Univers ity of Formulation 00:00:00 [facility] MMR 2004-08-29 Completed University of 00:00:00 [facility] Polio (IPV/OPV) 2004-08-29 Completed Universit y of 00:00:00 [facility] DTaP, Unspecified 2004-08-29 Completed Univers ity of Formulation 00:00:00 [facility] 2004-08-29 Completed University of 00:00:00 [facility] Polio (IPV/OPV) 2004-08-29 Completed Universit y of 00:00:00 [facility] DTaP, Unspecified 2004-08-29 Completed Univers ity of Formulation 00:00:00 [facility] 2004-08-29 Completed University of 00:00:00 [facility] Polio (IPV/OPV) 2004-08-29 Completed Universit y of 00:00:00 [facility] DTaP, Unspecified 2004-08-29 Completed Univers ity of Formulation 00:00:00 [facility] MMR 2004-08-29 Completed University of 00:00:00 [facility] Polio (IPV/OPV) 2004-08-29 Completed Universit y of 00:00:00 [facility] DTaP, Unspecified 2004-08-29 Completed Univers ity of Formulation 00:00:00 [facility] 2004-08-29 Completed University of 00:00:00 [facility] Polio (IPV/OPV) 2004-08-29 Completed Universit y of 00:00:00 [facility] DTaP, Unspecified 2004-08-29 Completed Univers ity of Formulation 00:00:00 [facility] MMR 2004-08-29 Completed University of 00:00:00 [facility] Polio (IPV/OPV) 2004-08-29 Completed Universit y of 00:00:00 [facility] DTaP, Unspecified 2004-08-29 Completed Univers ity of Formulation 00:00:00 [facility] MMR 2004-08-29 Completed University of 00:00:00 [facility] Polio (IPV/OPV) 2004-08-29 Completed Universit y of 00:00:00 [facility] DTaP, Unspecified 2004-08-29 Completed Univers ity of Formulation 00:00:00 [facility] MMR 2004-08-29 Completed University of 00:00:00 [facility] Polio (IPV/OPV) 2004-08-29 Completed Universit y of 00:00:00 [facility] DTaP, Unspecified 2004-08-29 Completed Univers ity of Formulation 00:00:00 [facility] MMR 2004-08-29 Completed University of 00:00:00 [facility] Polio (IPV/OPV) 2004-08-29 Completed Universit y of 00:00:00 [facility] DTaP, Unspecified 2004-08-29 Completed Univers ity of Formulation 00:00:00 [facility] MMR 2004-08-29 Completed University of 00:00:00 [facility] Polio (IPV/OPV) 2004-08-29 Completed Universit y of 00:00:00 [facility] DTaP, Unspecified 2004-08-29 Completed Univers ity of Formulation 00:00:00 [facility] MMR 2004-08-29 Completed University of 00:00:00 [facility] Polio (IPV/OPV) 2004-08-29 Completed Universit y of 00:00:00 [facility] DTaP, Unspecified 2004-08-29 Completed Univers ity of Formulation 00:00:00 [facility] MMR 2004-08-29 Completed University of 00:00:00 [facility] Polio (IPV/OPV) 2004-08-29 Completed Universit y of 00:00:00 [facility] DTaP, Unspecified 2004-08-29 Completed Univers ity of Formulation 00:00:00 [facility] MMR 2004-08-29 Completed University of 00:00:00 [facility] Polio (IPV/OPV) 2004-08-29 Completed Universit y of 00:00:00 [facility] DTaP, Unspecified 2004-08-29 Completed Univers ity of Formulation 00:00:00 [facility] MMR 2004-08-29 Completed University of 00:00:00 [facility] Polio (IPV/OPV) 2004-08-29 Completed Universit y of 00:00:00 [facility] DTaP, Unspecified 2004-08-29 Completed Univers ity of Formulation 00:00:00 [facility] MMR 2004-08-29 Completed University of 00:00:00 [facility] Polio (IPV/OPV) 2004-08-29 Completed Universit y of 00:00:00 [facility] DTaP, Unspecified 2004-08-29 Completed Univers ity of Formulation 00:00:00 [facility] MMR 2004-08-29 Completed University of 00:00:00 [facility] Polio (IPV/OPV) 2004-08-29 Completed Universit y of 00:00:00 [facility] DTaP, Unspecified 2004-08-29 Completed Univers ity of Formulation 00:00:00 [facility] MMR 2004-08-29 Completed University of 00:00:00 [facility] Polio (IPV/OPV) 2004-08-29 Completed Universit y of 00:00:00 [facility] DTaP, Unspecified 2004-08-29 Completed Univers ity of Formulation 00:00:00 [facility] MMR 2004-08-29 Completed University of 00:00:00 [facility] Polio (IPV/OPV) 2004-08-29 Completed Universit y of 00:00:00 [facility] DTaP, Unspecified 2004-08-29 Completed Univers ity of Formulation 00:00:00 [facility] MMR 2004-08-29 Completed University of 00:00:00 [facility] Polio (IPV/OPV) 2004-08-29 Completed Universit y of 00:00:00 [facility] DTaP, Unspecified 2003-11-30 Completed Univers ity of Formulation 00:00:00 [facility] Haemophilus 2003-11-30 Completed University of influenzae type b 00:00:00 [facility] edical vaccine, conjugate Branch unspecified formulation DTaP, Unspecified 2003-11-30 Completed Univers ity of Formulation 00:00:00 [facility] Haemophilus 2003-11-30 Completed University of influenzae type b 00:00:00 [place] [facility] vaccine, conjugate Branch unspecified formulation DTaP, Unspecified 2003-11-30 Completed Univers ity of Formulation 00:00:00 [facility] Haemophilus 2003-11-30 Completed University of influenzae type b 00:00:00 [facility] edical vaccine, conjugate Branch unspecified formulation DTaP, Unspecified 2003-11-30 Completed Univers ity of Formulation 00:00:00 [facility] Haemophilus 2003-11-30 Completed University of influenzae type b 00:00:00 [facility] edical vaccine, conjugate Branch unspecified formulation DTaP, Unspecified 2003-11-30 Completed Univers ity of Formulation 00:00:00 [facility] Haemophilus 2003-11-30 Completed University of influenzae type b 00:00:00 [facility] edical vaccine, conjugate Branch unspecified formulation DTaP, Unspecified 2003-11-30 Completed Univers ity of Formulation 00:00:00 [facility] Haemophilus 2003-11-30 Completed University of influenzae type b 00:00:00 [facility] edical vaccine, conjugate Branch unspecified formulation DTaP, Unspecified 2003-11-30 Completed Univers ity of Formulation 00:00:00 [facility] Haemophilus 2003-11-30 Completed University of influenzae type b 00:00:00 [facility] edical vaccine, conjugate Branch unspecified formulation DTaP, Unspecified 2003-11-30 Completed Univers ity of Formulation 00:00:00 [facility] Haemophilus 2003-11-30 Completed University of influenzae type b 00:00:00 [facility] edical vaccine, conjugate Branch unspecified formulation DTaP, Unspecified 2003-11-30 Completed Univers ity of Formulation 00:00:00 [facility] Haemophilus 2003-11-30 Completed University of influenzae type b 00:00:00 [facility] edical vaccine, conjugate Branch unspecified formulation DTaP, Unspecified 2003-11-30 Completed Univers ity of Formulation 00:00:00 [facility] Haemophilus 2003-11-30 Completed University of influenzae type b 00:00:00 [facility] edical vaccine, conjugate Branch unspecified formulation DTaP, Unspecified 2003-11-30 Completed Univers ity of Formulation 00:00:00 [facility] Haemophilus 2003-11-30 Completed University of influenzae type b 00:00:00 [place] [facility] vaccine, conjugate Branch unspecified formulation DTaP, Unspecified 2003-11-30 Completed Univers ity of Formulation 00:00:00 [facility] Haemophilus 2003-11-30 Completed University of influenzae type b 00:00:00 [place] [facility] vaccine, conjugate Branch unspecified formulation DTaP, Unspecified 2003-11-30 Completed Univers ity of Formulation 00:00:00 [facility] Haemophilus 2003-11-30 Completed University of influenzae type b 00:00:00 [place] [facility] vaccine, conjugate Branch unspecified formulation DTaP, Unspecified 2003-11-30 Completed Univers ity of Formulation 00:00:00 [facility] Haemophilus 2003-11-30 Completed University of influenzae type b 00:00:00 [facility] edical vaccine, conjugate Branch unspecified formulation DTaP, Unspecified 2003-11-30 Completed Univers ity of Formulation 00:00:00 [facility] Haemophilus 2003-11-30 Completed University of influenzae type b 00:00:00 [facility] edical vaccine, conjugate Branch unspecified formulation DTaP, Unspecified 2003-11-30 Completed Univers ity of Formulation 00:00:00 [facility] Haemophilus 2003-11-30 Completed University of influenzae type b 00:00:00 [facility] edical vaccine, conjugate Branch unspecified formulation DTaP, Unspecified 2003-11-30 Completed Univers ity of Formulation 00:00:00 [facility] Haemophilus 2003-11-30 Completed University of influenzae type b 00:00:00 [facility] edical vaccine, conjugate Branch unspecified formulation DTaP, Unspecified 2003-11-30 Completed Univers ity of Formulation 00:00:00 [facility] Haemophilus 2003-11-30 Completed University of influenzae type b 00:00:00 [place] [facility] vaccine, conjugate Branch unspecified formulation DTaP, Unspecified 2003-11-30 Completed [facility] Formulation 00:00:00 [facility] Haemophilus 2003-11-30 Completed [facility] of influenzae type b 00:00:00 [place] [facility] vaccine, conjugate Branch unspecified formulation DTaP, Unspecified 2003-11-30 Completed [facility] Formulation 00:00:00 [facility] Haemophilus 2003-11-30 Completed [facility] influenzae type b 00:00:00 [place] [facility] vaccine, conjugate Branch unspecified formulation DTaP, Unspecified 2003-11-30 Completed [facility] Formulation 00:00:00 [facility] Haemophilus 2003-11-30 Completed [facility] of influenzae type b 00:00:00 [facility] edical vaccine, conjugate Branch unspecified formulation DTaP, Unspecified 2003-11-30 Completed [facility] Formulation 00:00:00 [facility] Haemophilus 2003-11-30 Completed [facility] of influenzae type b 00:00:00 [facility] edical vaccine, conjugate Branch unspecified formulation DTaP, Unspecified 2002-08-18 Completed [facility] Formulation 00:00:00 [facility] Polio (IPV/OPV) 2002-08-18 Completed [facility]it [facility] 00:00:00 [facility] Varicella 2002-08-18 Completed University of (varivax)(chicken 00:00:00 [place] [facility] pox) Branch DTaP, Unspecified 2002-08-18 Completed [facility] Formulation 00:00:00 [facility] Polio (IPV/OPV) 2002-08-18 Completed [facility] 00:00:00 [facility] Varicella 2002-08-18 Completed [facility] of (varivax)(chicken 00:00:00 [place] [facility] pox) [facility] DTaP, Unspecified 2002-08-18 Completed [facility] Formulation 00:00:00 [facility] Polio (IPV/OPV) 2002-08-18 Completed [facility] 00:00:00 [facility] Varicella 2002-08-18 Completed [facility] (varivax)(chicken 00:00:00 [place] [facility] pox) [facility] DTaP, Unspecified 2002-08-18 Completed [facility] Formulation 00:00:00 [facility] Polio (IPV/OPV) 2002-08-18 Completed [facility] 00:00:00 [facility] Varicella 2002-08-18 Completed [facility] (varivax)(chicken 00:00:00 [place] [facility] pox) [facility] DTaP, Unspecified 2002-08-18 Completed [facility] Formulation 00:00:00 [facility] Polio (IPV/OPV) 2002-08-18 Completed [facility] 00:00:00 [facility] Varicella 2002-08-18 Completed [facility] (varivax)(chicken 00:00:00 [place] [facility] pox) Branch DTaP, Unspecified 2002-08-18 Completed [facility] Formulation 00:00:00 [facility] Polio (IPV/OPV) 2002-08-18 Completed [facility] 00:00:00 [facility] Varicella 2002-08-18 Completed [facility] (varivax)(chicken 00:00:00 [place] [facility] pox) Branch DTaP, Unspecified 2002-08-18 Completed [facility] Formulation 00:00:00 [facility] Polio (IPV/OPV) 2002-08-18 Completed [facility] 00:00:00 [facility] Varicella 2002-08-18 Completed [facility] (varivax)(chicken 00:00:00 [place] [facility] pox) Branch DTaP, Unspecified 2002-08-18 Completed [facility] Formulation 00:00:00 [facility] Polio (IPV/OPV) 2002-08-18 Completed [facility] 00:00:00 [facility] Varicella 2002-08-18 Completed [facility] (varivax)(chicken 00:00:00 [place] [facility] pox) Branch DTaP, Unspecified 2002-08-18 Completed [facility] Formulation 00:00:00 [facility] Polio (IPV/OPV) 2002-08-18 Completed [facility] 00:00:00 [facility] Varicella 2002-08-18 Completed [facility] (varivax)(chicken 00:00:00 [place] [facility] pox) Branch DTaP, Unspecified 2002-08-18 Completed [facility] Formulation 00:00:00 [facility] Polio (IPV/OPV) 2002-08-18 Completed [facility] 00:00:00 [facility] Varicella 2002-08-18 Completed [facility] (varivax)(chicken 00:00:00 [place] [facility] pox) Branch DTaP, Unspecified 2002-08-18 Completed [facility] Formulation 00:00:00 [facility] Polio (IPV/OPV) 2002-08-18 Completed [facility] 00:00:00 [facility] Varicella 2002-08-18 Completed [facility] (varivax)(chicken 00:00:00 [place] [facility] pox) Branch DTaP, Unspecified 2002-08-18 Completed [facility] Formulation 00:00:00 [facility] Polio (IPV/OPV) 2002-08-18 Completed [facility] 00:00:00 [facility] Varicella 2002-08-18 Completed [facility] of (varivax)(chicken 00:00:00 [place] [facility] pox) Branch DTaP, Unspecified 2002-08-18 Completed [facility] Formulation 00:00:00 [facility] Polio (IPV/OPV) 2002-08-18 Completed [facility] 00:00:00 [facility] Varicella 2002-08-18 Completed [facility] (varivax)(chicken 00:00:00 [place] [facility] pox) Branch DTaP, Unspecified 2002-08-18 Completed [facility] Formulation 00:00:00 [facility] Polio (IPV/OPV) 2002-08-18 Completed [facility] of 00:00:00 [facility] Varicella 2002-08-18 Completed [facility] of (varivax)(chicken 00:00:00 [place] [facility] pox) Branch DTaP, Unspecified 2002-08-18 Completed [facility] Formulation 00:00:00 [facility] Polio (IPV/OPV) 2002-08-18 Completed [facility] 00:00:00 [facility] Varicella 2002-08-18 Completed [facility] (varivax)(chicken 00:00:00 [place] [facility] pox) Branch DTaP, Unspecified 2002-08-18 Completed [facility] Formulation 00:00:00 [facility] Polio (IPV/OPV) 2002-08-18 Completed [facility] 00:00:00 [facility] Varicella 2002-08-18 Completed [facility] (varivax)(chicken 00:00:00 [place] [facility] pox) Branch DTaP, Unspecified 2002-08-18 Completed [facility] Formulation 00:00:00 [facility] Polio (IPV/OPV) 2002-08-18 Completed [facility] 00:00:00 [facility] Varicella 2002-08-18 Completed [facility] (varivax)(chicken 00:00:00 [place] [facility] pox) Branch DTaP, Unspecified 2002-08-18 Completed [facility] Formulation 00:00:00 [facility] Polio (IPV/OPV) 2002-08-18 Completed [facility] 00:00:00 [facility] Varicella 2002-08-18 Completed [facility] (varivax)(chicken 00:00:00 [place] [facility] pox) Branch DTaP, Unspecified 2002-08-18 Completed [facility] Formulation 00:00:00 [facility] Polio (IPV/OPV) 2002-08-18 Completed [facility] 00:00:00 [facility] Varicella 2002-08-18 Completed [facility] (varivax)(chicken 00:00:00 [place] [facility] pox) Branch DTaP, Unspecified 2002-08-18 Completed [facility] Formulation 00:00:00 [facility] Polio (IPV/OPV) 2002-08-18 Completed [facility] 00:00:00 [facility] Varicella 2002-08-18 Completed [facility] (varivax)(chicken 00:00:00 [place] [facility] pox) Branch DTaP, Unspecified 2002-08-18 Completed [facility] Formulation 00:00:00 [facility] Polio (IPV/OPV) 2002-08-18 Completed [facility] of 00:00:00 [facility] Varicella 2002-08-18 Completed [facility] of (varivax)(chicken 00:00:00 [place] [facility] pox) Branch DTaP, Unspecified 2002-08-18 Completed [facility] Formulation 00:00:00 [facility] Polio (IPV/OPV) 2002-08-18 Completed [facility] 00:00:00 [facility] Varicella 2002-08-18 Completed [facility] (varivax)(chicken 00:00:00 [place] [facility] pox) Branch DTaP, Unspecified 2002-07-06 Completed [facility] Formulation 00:00:00 [facility] Hep B, Unspecified 2002-07-06 Completed Univer [facility]ity of Formulation 00:00:00 [facility] Haemophilus 2002-07-06 Completed [facility] of influenzae type b 00:00:00 [facility] edical vaccine, conjugate Branch unspecified formulation MMR 2002-07-06 Completed [facility] of 00:00:00 [facility] Polio (IPV/OPV) 2002-07-06 Completed [facility] of 00:00:00 [facility] DTaP, Unspecified 2002-07-06 Completed [facility] of Formulation 00:00:00 [facility] Hep B, Unspecified 2002-07-06 Completed [facility]iver [facility] of Formulation 00:00:00 [facility] Haemophilus 2002-07-06 Completed [facility] influenzae type b 00:00:00 [place] [facility] vaccine, conjugate Branch unspecified formulation MMR 2002-07-06 Completed [facility] of 00:00:00 [facility] Polio (IPV/OPV) 2002-07-06 Completed [facility] of 00:00:00 [facility] DTaP, Unspecified 2002-07-06 Completed [facility] of Formulation 00:00:00 [facility] Hep B, Unspecified 2002-07-06 Completed [facility] of Formulation 00:00:00 [facility] Haemophilus 2002-07-06 Completed [facility] of influenzae type b 00:00:00 [place] [facility] vaccine, conjugate Branch unspecified formulation MMR 2002-07-06 Completed [facility] of 00:00:00 [facility] Polio (IPV/OPV) 2002-07-06 Completed [facility] of 00:00:00 [facility] DTaP, Unspecified 2002-07-06 Completed [facility] of Formulation 00:00:00 [facility] Hep B, Unspecified 2002-07-06 Completed Univer [facility]ity of Formulation 00:00:00 [facility] Haemophilus 2002-07-06 Completed [facility] of influenzae type b 00:00:00 [place] [facility] vaccine, conjugate Branch unspecified formulation MMR 2002-07-06 Completed [facility] of 00:00:00 [facility] Polio (IPV/OPV) 2002-07-06 Completed [facility] of 00:00:00 [facility] DTaP, Unspecified 2002-07-06 Completed [facility] of Formulation 00:00:00 [facility] Hep B, Unspecified 2002-07-06 Completed [facility] of Formulation 00:00:00 [facility] Haemophilus 2002-07-06 Completed [facility] of influenzae type b 00:00:00 [place] [facility] vaccine, conjugate Branch unspecified formulation MMR 2002-07-06 Completed [facility] of 00:00:00 [facility] Polio (IPV/OPV) 2002-07-06 Completed [facility] of 00:00:00 [facility] DTaP, Unspecified 2002-07-06 Completed [facility] of Formulation 00:00:00 [facility] Hep B, Unspecified 2002-07-06 Completed Univer [facility] of Formulation 00:00:00 [facility] Haemophilus 2002-07-06 Completed [facility] of influenzae type b 00:00:00 [place] [facility] vaccine, conjugate Branch unspecified formulation MMR 2002-07-06 Completed [facility] of 00:00:00 [facility] Polio (IPV/OPV) 2002-07-06 Completed [facility] of 00:00:00 [facility] DTaP, Unspecified 2002-07-06 Completed [facility] of Formulation 00:00:00 [facility] Hep B, Unspecified 2002-07-06 Completed [facility]iver [facility] of Formulation 00:00:00 [facility] Haemophilus 2002-07-06 Completed [facility] of influenzae type b 00:00:00 [place] [facility] vaccine, conjugate Branch unspecified formulation MMR 2002-07-06 Completed [facility] of 00:00:00 [facility] Polio (IPV/OPV) 2002-07-06 Completed [facility] of 00:00:00 [facility] DTaP, Unspecified 2002-07-06 Completed [facility] of Formulation 00:00:00 [facility] Hep B, Unspecified 2002-07-06 Completed Univer [facility] of Formulation 00:00:00 [facility] Haemophilus 2002-07-06 Completed [facility] influenzae type b 00:00:00 [place] [facility] vaccine, conjugate Branch unspecified formulation MMR 2002-07-06 Completed [facility] of 00:00:00 [facility] Polio (IPV/OPV) 2002-07-06 Completed [facility] of 00:00:00 [facility] DTaP, Unspecified 2002-07-06 Completed [facility] of Formulation 00:00:00 [facility] Hep B, Unspecified 2002-07-06 Completed [facility] of Formulation 00:00:00 [facility] Haemophilus 2002-07-06 Completed [facility] of influenzae type b 00:00:00 [place] [facility] vaccine, conjugate Branch unspecified formulation MMR 2002-07-06 Completed [facility] of 00:00:00 [facility] Polio (IPV/OPV) 2002-07-06 Completed [facility] of 00:00:00 [facility] DTaP, Unspecified 2002-07-06 Completed [facility] of Formulation 00:00:00 [facility] Hep B, Unspecified 2002-07-06 Completed [facility] of Formulation 00:00:00 [facility] Haemophilus 2002-07-06 Completed [facility] of influenzae type b 00:00:00 [place] [facility] vaccine, conjugate Branch unspecified formulation MMR 2002-07-06 Completed [facility] of 00:00:00 [facility] Polio (IPV/OPV) 2002-07-06 Completed [facility] of 00:00:00 [facility] DTaP, Unspecified 2002-07-06 Completed [facility] of Formulation 00:00:00 [facility] Hep B, Unspecified 2002-07-06 Completed Univer [facility] of Formulation 00:00:00 [facility] Haemophilus 2002-07-06 Completed [facility] of influenzae type b 00:00:00 [place] [facility] vaccine, conjugate Branch unspecified formulation MMR 2002-07-06 Completed [facility] of 00:00:00 [facility] Polio (IPV/OPV) 2002-07-06 Completed [facility] of 00:00:00 [facility] DTaP, Unspecified 2002-07-06 Completed [facility] of Formulation 00:00:00 [facility] Hep B, Unspecified 2002-07-06 Completed Univer [facility] of Formulation 00:00:00 [facility] Haemophilus 2002-07-06 Completed [facility] of influenzae type b 00:00:00 [place] [facility] vaccine, conjugate Branch unspecified formulation MMR 2002-07-06 Completed [facility] of 00:00:00 [facility] Polio (IPV/OPV) 2002-07-06 Completed [facility] of 00:00:00 [facility] DTaP, Unspecified 2002-07-06 Completed [facility] of Formulation 00:00:00 [facility] Hep B, Unspecified 2002-07-06 Completed [facility]iver [facility] of Formulation 00:00:00 [facility] Haemophilus 2002-07-06 Completed University of influenzae type b 00:00:00 [facility] edical vaccine, conjugate Branch unspecified formulation MMR 2002-07-06 Completed [facility] of 00:00:00 [facility] Polio (IPV/OPV) 2002-07-06 Completed [facility]it [facility] of 00:00:00 [facility] DTaP, Unspecified 2002-07-06 Completed [facility] of Formulation 00:00:00 [facility] Hep B, Unspecified 2002-07-06 Completed [facility] of Formulation 00:00:00 [facility] Haemophilus 2002-07-06 Completed [facility] of influenzae type b 00:00:00 [place] [facility] vaccine, conjugate Branch unspecified formulation MMR 2002-07-06 Completed [facility] of 00:00:00 [facility] Polio (IPV/OPV) 2002-07-06 Completed [facility] of 00:00:00 [facility] DTaP, Unspecified 2002-07-06 Completed [facility] of Formulation 00:00:00 [facility] Branch Hep B, Unspecified 2002-07-06 Completed Univer sity of Formulation 00:00:00 [facility] Haemophilus 2002-07-06 Completed [facility] of influenzae type b 00:00:00 [place] [facility] vaccine, conjugate Branch unspecified formulation MMR 2002-07-06 Completed [facility] of 00:00:00 [facility] Polio (IPV/OPV) 2002-07-06 Completed [facility] of 00:00:00 [facility] DTaP, Unspecified 2002-07-06 Completed [facility] of Formulation 00:00:00 [facility] Branch Hep B, Unspecified 2002-07-06 Completed Un[facility]ity of Formulation 00:00:00 [facility] Haemophilus 2002-07-06 Completed [facility] of influenzae type b 00:00:00 [place] [facility] vaccine, conjugate Branch unspecified formulation MMR 2002-07-06 Completed [facility] of 00:00:00 [facility] Polio (IPV/OPV) 2002-07-06 Completed [facility] of 00:00:00 [facility] DTaP, Unspecified 2002-07-06 Completed [facility] of Formulation 00:00:00 [facility] Hep B, Unspecified 2002-07-06 Completed [facility] of Formulation 00:00:00 [facility] Haemophilus 2002-07-06 Completed [facility] of influenzae type b 00:00:00 [place] [facility] vaccine, conjugate Branch unspecified formulation MMR 2002-07-06 Completed [facility] of 00:00:00 [facility] Polio (IPV/OPV) 2002-07-06 Completed [facility]it [facility] of 00:00:00 [facility] DTaP, Unspecified 2002-07-06 Completed [facility] of Formulation 00:00:00 [facility] Hep B, Unspecified 2002-07-06 Completed [facility] of Formulation 00:00:00 [facility] Haemophilus 2002-07-06 Completed [facility] of influenzae type b 00:00:00 [place] [facility] vaccine, conjugate Branch unspecified formulation MMR 2002-07-06 Completed [facility] of 00:00:00 [facility] Polio (IPV/OPV) 2002-07-06 Completed [facility] of 00:00:00 [facility] DTaP, Unspecified 2002-07-06 Completed [facility] of Formulation 00:00:00 [facility] Hep B, Unspecified 2002-07-06 Completed [facility] of Formulation 00:00:00 [facility] Haemophilus 2002-07-06 Completed [facility] of influenzae type b 00:00:00 [place] [facility] vaccine, conjugate Branch unspecified formulation MMR 2002-07-06 Completed [facility] of 00:00:00 [facility] Polio (IPV/OPV) 2002-07-06 Completed [facility] of 00:00:00 [facility] DTaP, Unspecified 2002-07-06 Completed [facility] of Formulation 00:00:00 [facility] Hep B, Unspecified 2002-07-06 Completed [facility] of Formulation 00:00:00 [facility] Haemophilus 2002-07-06 Completed [facility] of influenzae type b 00:00:00 [place] [facility] vaccine, conjugate Branch unspecified formulation MMR 2002-07-06 Completed [facility] of 00:00:00 [facility] Polio (IPV/OPV) 2002-07-06 Completed [facility] of 00:00:00 [facility] DTaP, Unspecified 2002-07-06 Completed [facility] of Formulation 00:00:00 [facility] Hep B, Unspecified 2002-07-06 Completed [facility] of Formulation 00:00:00 [facility] Haemophilus 2002-07-06 Completed [facility] of influenzae type b 00:00:00 [place] [facility] vaccine, conjugate Branch unspecified formulation MMR 2002-07-06 Completed [facility] of 00:00:00 [facility] Polio (IPV/OPV) 2002-07-06 Completed [facility]it [facility] of 00:00:00 [facility] DTaP, Unspecified 2002-07-06 Completed [facility] of Formulation 00:00:00 [facility] Hep B, Unspecified 2002-07-06 Completed [facility] of Formulation 00:00:00 [facility] Haemophilus 2002-07-06 Completed [facility] of influenzae type b 00:00:00 [place] [facility] vaccine, conjugate Branch unspecified formulation MMR 2002-07-06 Completed [facility] of 00:00:00 [facility] Polio (IPV/OPV) 2002-07-06 Completed [facility]it [facility] of 00:00:00 [facility] DTaP, Unspecified 2001-02-20 Completed [facility] of Formulation 00:00:00 [facility] Hep B, Unspecified 2001-02-20 Completed [facility] of Formulation 00:00:00 [facility] Haemophilus 2001-02-20 Completed [facility] of influenzae type b 00:00:00 [place] [facility] vaccine, conjugate Branch unspecified formulation DTaP, Unspecified 2001-02-20 Completed [facility] of Formulation 00:00:00 [facility] Branch Hep B, Unspecified 2001-02-20 Completed Un[facility] of Formulation 00:00:00 [facility] Haemophilus 2001-02-20 Completed [facility] of influenzae type b 00:00:00 [place] [facility] vaccine, conjugate Branch unspecified formulation DTaP, Unspecified 2001-02-20 Completed [facility] of Formulation 00:00:00 [facility] Branch Hep B, Unspecified 2001-02-20 Completed [facility] of Formulation 00:00:00 [facility] Haemophilus 2001-02-20 Completed University of influenzae type b 00:00:00 [facility] edical vaccine, conjugate Branch unspecified formulation DTaP, Unspecified 2001-02-20 Completed [facility] of Formulation 00:00:00 [facility] Hep B, Unspecified 2001-02-20 Completed [facility] of Formulation 00:00:00 [facility] Haemophilus 2001-02-20 Completed [facility] of influenzae type b 00:00:00 [facility] edical vaccine, conjugate Branch unspecified formulation DTaP, Unspecified 2001-02-20 Completed [facility] of Formulation 00:00:00 [facility] Hep B, Unspecified 2001-02-20 Completed [facility] of Formulation 00:00:00 [facility] Haemophilus 2001-02-20 Completed [facility] of influenzae type b 00:00:00 [facility] edical vaccine, conjugate Branch unspecified formulation DTaP, Unspecified 2001-02-20 Completed [facility] of Formulation 00:00:00 [facility] Hep B, Unspecified 2001-02-20 Completed [facility] of Formulation 00:00:00 [facility] Haemophilus 2001-02-20 Completed [facility] of influenzae type b 00:00:00 [facility] edical vaccine, conjugate Branch unspecified formulation DTaP, Unspecified 2001-02-20 Completed [facility] of Formulation 00:00:00 [facility] Hep B, Unspecified 2001-02-20 Completed [facility] of Formulation 00:00:00 [facility] Haemophilus 2001-02-20 Completed [facility] of influenzae type b 00:00:00 [facility] edical vaccine, conjugate Branch unspecified formulation DTaP, Unspecified 2001-02-20 Completed [facility] of Formulation 00:00:00 [facility] Branch Hep B, Unspecified 2001-02-20 Completed [facility] of Formulation 00:00:00 [facility] Haemophilus 2001-02-20 Completed University of influenzae type b 00:00:00 [facility] edical vaccine, conjugate Branch unspecified formulation DTaP, Unspecified 2001-02-20 Completed [facility] of Formulation 00:00:00 [facility] Branch Hep B, Unspecified 2001-02-20 Completed Un[facility] of Formulation 00:00:00 [facility] Haemophilus 2001-02-20 Completed [facility] of influenzae type b 00:00:00 [facility] edical vaccine, conjugate Branch unspecified formulation DTaP, Unspecified 2001-02-20 Completed [facility] of Formulation 00:00:00 [facility] Hep B, Unspecified 2001-02-20 Completed [facility] of Formulation 00:00:00 [facility] Haemophilus 2001-02-20 Completed University of influenzae type b 00:00:00 [facility] edical vaccine, conjugate Branch unspecified formulation DTaP, Unspecified 2001-02-20 Completed [facility] of Formulation 00:00:00 [facility] Hep B, Unspecified 2001-02-20 Completed [facility] of Formulation 00:00:00 [facility] Haemophilus 2001-02-20 Completed [facility] of influenzae type b 00:00:00 [facility] edical vaccine, conjugate Branch unspecified formulation DTaP, Unspecified 2001-02-20 Completed [facility] of Formulation 00:00:00 [facility] Hep B, Unspecified 2001-02-20 Completed [facility] of Formulation 00:00:00 [facility] Haemophilus 2001-02-20 Completed [facility] of influenzae type b 00:00:00 [facility] edical vaccine, conjugate Branch unspecified formulation DTaP, Unspecified 2001-02-20 Completed [facility] of Formulation 00:00:00 [facility] Hep B, Unspecified 2001-02-20 Completed [facility] of Formulation 00:00:00 [facility] Haemophilus 2001-02-20 Completed [facility] of influenzae type b 00:00:00 [facility] edical vaccine, conjugate Branch unspecified formulation DTaP, Unspecified 2001-02-20 Completed [facility] of Formulation 00:00:00 [facility] Hep B, Unspecified 2001-02-20 Completed [facility] of Formulation 00:00:00 [facility] Haemophilus 2001-02-20 Completed [facility] of influenzae type b 00:00:00 [place] [facility] vaccine, conjugate Branch unspecified formulation DTaP, Unspecified 2001-02-20 Completed [facility] of Formulation 00:00:00 [facility] Hep B, Unspecified 2001-02-20 Completed [facility] of Formulation 00:00:00 [facility] Haemophilus 2001-02-20 Completed [facility] of influenzae type b 00:00:00 [facility] edical vaccine, conjugate Branch unspecified formulation DTaP, Unspecified 2001-02-20 Completed [facility] of Formulation 00:00:00 [facility] Hep B, Unspecified 2001-02-20 Completed [facility] of Formulation 00:00:00 [facility] Haemophilus 2001-02-20 Completed [facility] of influenzae type b 00:00:00 [place] [facility] vaccine, conjugate Branch unspecified formulation DTaP, Unspecified 2001-02-20 Completed [facility] of Formulation 00:00:00 [facility] Branch Hep B, Unspecified 2001-02-20 Completed Un[facility] of Formulation 00:00:00 [facility] Haemophilus 2001-02-20 Completed [facility] of influenzae type b 00:00:00 [facility] edical vaccine, conjugate Branch unspecified formulation DTaP, Unspecified 2001-02-20 Completed [facility] of Formulation 00:00:00 [facility] Hep B, Unspecified 2001-02-20 Completed [facility] of Formulation 00:00:00 [facility] Haemophilus 2001-02-20 Completed [facility] of influenzae type b 00:00:00 [facility] edical vaccine, conjugate Branch unspecified formulation DTaP, Unspecified 2001-02-20 Completed Univers ity of Formulation 00:00:00 [facility] Hep B, Unspecified 2001-02-20 Completed Univer sity of Formulation 00:00:00 [facility] Haemophilus 2001-02-20 Completed University of influenzae type b 00:00:00 [facility] edical vaccine, conjugate Branch unspecified formulation DTaP, Unspecified 2001-02-20 Completed Univers ity of Formulation 00:00:00 [facility] Hep B, Unspecified 2001-02-20 Completed Univer sity of Formulation 00:00:00 [facility] Haemophilus 2001-02-20 Completed University of influenzae type b 00:00:00 [facility] vaccine, conjugate [facility] unspecified formulation DTaP, Unspecified 2001-02-20 Completed Univers ity of Formulation 00:00:00 [facility] Hep B, Unspecified 2001-02-20 Completed Univer sity of Formulation 00:00:00 [facility] Haemophilus 2001-02-20 Completed University of influenzae type b 00:00:00 [facility] vaccine, conjugate Branch unspecified formulation DTaP, Unspecified 2001-02-20 Completed Univers ity of Formulation 00:00:00 [facility] Hep B, Unspecified 2001-02-20 Completed Univer sity of Formulation 00:00:00 [facility] Haemophilus 2001-02-20 Completed University of influenzae type b 00:00:00 [facility] edical vaccine, conjugate Branch unspecified formulation Hep B, Unspecified 2000 Completed Univer sity of Formulation 00:00:00 [facility] Hep B, Unspecified 2000 Completed Univer sity of Formulation 00:00:00 [facility] Hep B, Unspecified 2000 Completed Univer sity of Formulation 00:00:00 [facility] Hep B, Unspecified 2000 Completed Univer sity of Formulation 00:00:00 [facility] Hep B, Unspecified 2000 Completed Univer sity of Formulation 00:00:00 [facility] Hep B, Unspecified 2000 Completed Univer sity of Formulation 00:00:00 [facility] Hep B, Unspecified 2000 Completed Univer sity of Formulation 00:00:00 [facility] Hep B, Unspecified 2000 Completed Univer sity of Formulation 00:00:00 [facility] Hep B, Unspecified 2000 Completed Univer sity of Formulation 00:00:00 [facility] Hep B, Unspecified 2000 Completed Univer sity of Formulation 00:00:00 [facility] Hep B, Unspecified 2000 Completed Univer sity of Formulation 00:00:00 [facility] Hep B, Unspecified 2000 Completed Univer sity of Formulation 00:00:00 [facility] Hep B, Unspecified 2000 Completed Univer sity of Formulation 00:00:00 [facility] Hep B, Unspecified 2000 Completed Univer sity of Formulation 00:00:00 [facility] Hep B, Unspecified 2000 Completed Univer sity of Formulation 00:00:00 [facility] Hep B, Unspecified 2000 Completed Univer sity of Formulation 00:00:00 [facility] Hep B, Unspecified 2000 Completed Univer sity of Formulation 00:00:00 [facility] Hep B, Unspecified 2000 Completed Univer sity of Formulation 00:00:00 [facility] Hep B, Unspecified 2000 Completed Univer sity of Formulation 00:00:00 [facility] Hep B, Unspecified 2000 Completed Univer sity of Formulation 00:00:00 [facility] Hep B, Unspecified 2000 Completed Univer sity of Formulation 00:00:00 [facility] Hep B, Unspecified 2000 Completed Univer sity of Formulation 00:00:00 [facility] Vital Signs Vital Name Observation Time Observation Value Comments Source Systolic blood 2022-10-04 13:42:00 105 mm[Hg] Univer sity of pressure [facility] Diastolic blood 2022-10-04 13:42:00 66 mm[Hg] Unive rsity of [facility] Heart rate 2022-10-04 13:42:00 79 /min [facility] Body temperature 2022-10-04 13:42:00 36.33 Madelin [facility] Respiratory rate 2022-10-04 13:42:00 18 /min [facility] Body height 2022-10-04 13:42:00 157.5 cm [facility] Body weight 2022-10-04 13:42:00 78.614 kg [facility] BMI 2022-10-04 13:42:00 31.70 kg/m2 [facility] Systolic blood 2022-09-13 15:37:00 111 mm[Hg] Univer sity of pressure [facility] Diastolic blood 2022-09-13 15:37:00 70 mm[Hg] Unive rsity of pressure [facility] Heart rate 2022-09-13 15:37:00 74 /min [facility] ty [facility] Body temperature 2022-09-13 15:37:00 36.5 Madelin [facility] ers[facility] Respiratory rate 2022-09-13 15:37:00 17 /min Univ ers[facility] Body height 2022-09-13 15:37:00 157.5 cm [facility] Body weight 2022-09-13 15:37:00 74.254 kg [facility] BMI 2022-09-13 15:37:00 29.94 kg/m2 [facility] Systolic blood 2022-09-05 20:16:00 120 mm[Hg] Univer sity of pressure [facility] Diastolic blood 2022-09-05 20:16:00 74 mm[Hg] Unive rsity of pressure [facility] Heart rate 2022-09-05 20:16:00 78 /min [facility] Body temperature 2022-09-05 20:16:00 35.94 Madelin [facility] Respiratory rate 2022-09-05 20:16:00 18 /min Univ ersity [facility] Body height 2022-09-05 20:16:00 157.5 cm [facility] Body weight 2022-09-05 20:16:00 76.023 kg [facility] BMI 2022-09-05 20:16:00 30.65 kg/m2 [facility] ty [facility] Systolic blood 2022-08-30 15:58:00 122 mm[Hg] Univer sity of pressure [facility] Diastolic blood 2022-08-30 15:58:00 61 mm[Hg] Unive rsity of pressure [facility] Heart rate 2022-08-30 15:58:00 70 /min [facility] Body temperature 2022-08-30 15:58:00 36.78 Madelin [facility] Respiratory rate 2022-08-30 15:58:00 18 /min Univ ers[facility] Body height 2022-08-30 15:58:00 154.9 cm [facility] Body weight 2022-08-30 15:58:00 73.619 kg [facility] BMI 2022-08-30 15:58:00 30.67 kg/m2 [facility] Systolic blood 2022-08-08 20:09:00 127 mm[Hg] Univer sity of pressure [facility] Diastolic blood 2022-08-08 20:09:00 75 mm[Hg] Unive rsity of pressure [facility] Heart rate 2022-08-08 20:09:00 89 /min Universi ty of [facility] Body temperature 2022-08-08 20:09:00 36.83 Madelin Univ ersity of [facility] Respiratory rate 2022-08-08 20:09:00 18 /min Univ ersity of [facility] Body height 2022-08-08 20:09:00 154.9 cm Universi ty of [facility] Body weight 2022-08-08 20:09:00 72.031 kg [facility] BMI 2022-08-08 20:09:00 30.00 kg/m2 Universi ty of [facility] Systolic blood 2022-07-27 08:40:45 121 mm[Hg] Univer sity of pressure [facility] Diastolic blood 2022-07-27 08:40:45 71 mm[Hg] Unive rsity of pressure [facility] Heart rate 2022-07-27 08:40:45 70 /min [facility]i ty [facility] Respiratory rate 2022-07-27 08:40:45 18 /min Univ ersity of [facility] Oxygen saturation in 2022-07-27 08:40:45 100 /min University of Arterial blood by [facility] Pulse oximetry Branch Body temperature 2022-07-27 06:15:00 36.61 Madelin Univ ersity [facility] Body weight 2022-07-27 06:15:00 72.576 kg [facility]i [facility] BMI 2022-07-27 06:15:00 30.23 kg/m2 Universi ty of [facility] Systolic blood 2022-04-02 23:00:00 116 mm[Hg] Univer sity of pressure [facility] Diastolic blood 2022-04-02 23:00:00 77 mm[Hg] Unive rsity of pressure [facility] Heart rate 2022-04-02 23:00:00 89 /min [facility] Respiratory rate 2022-04-02 23:00:00 16 /min Univ ersity of [facility] Oxygen saturation in 2022-04-02 23:00:00 98 /min University of Arterial blood by [facility] Pulse oximetry Branch Body temperature 2022-04-02 21:10:00 37.56 Madelin [facility] Body weight 2022-04-02 20:43:00 72.576 kg [facility] BMI 2022-04-02 20:43:00 30.23 kg/m2 [facility] Systolic blood 2022-03-15 21:01:00 122 mm[Hg] Univer sity of pressure [facility] Diastolic blood 2022-03-15 21:01:00 64 mm[Hg] Unive rsity of pressure [facility] Heart rate 2022-03-15 21:01:00 96 /min [facility] Body temperature 2022-03-15 21:01:00 38.06 Madelin [facility] Respiratory rate 2022-03-15 21:01:00 17 /min Univ ersity of [facility] Oxygen saturation in 2022-03-15 21:01:00 98 /min University of Arterial blood by [facility] Pulse oximetry Branch Body height 2022-03-15 16:36:00 154.9 cm [facility] Body weight 2022-03-15 16:36:00 73.483 kg [facility] BMI 2022-03-15 16:36:00 30.61 kg/m2 [facility] Systolic blood 2022-02-24 22:05:46 140 mm[Hg] Univer sity of pressure [facility] Diastolic blood 2022-02-24 22:05:46 78 mm[Hg] Unive rsity of pressure [facility] Heart rate 2022-02-24 22:05:46 72 /min [facility] Body temperature 2022-02-24 22:05:46 37.06 Madelin [facility] Respiratory rate 2022-02-24 22:05:46 18 /min Univ ersity of [facility] Oxygen saturation in 2022-02-24 22:05:46 99 /min University of Arterial blood by [facility] P[facility] Body weight 2022-02-24 19:41:00 73.483 kg [facility] BMI 2022-02-24 19:41:00 29.63 kg/m2 [facility] Systolic blood 2022-02-22 19:40:00 137 mm[Hg] Univer sity of pressure [facility] Diastolic blood 2022-02-22 19:40:00 88 mm[Hg] Unive rsity of pressure [facility] Heart rate 2022-02-22 19:40:00 92 /min [facility]i ty [facility] Oxygen saturation in 2022-02-22 19:40:00 97 /min University of Arterial blood by [facility] Pulse oximetry Branch Respiratory rate 2022-02-22 19:36:00 20 /min Univ ersity of [facility] Body height 2022-02-22 19:36:00 157.5 cm [facility] Body weight 2022-02-22 19:36:00 74.934 kg [facility] BMI 2022-02-22 19:36:00 30.22 kg/m2 [facility] Systolic blood 2022-02-05 20:32:58 112 mm[Hg] Univer sity of pressure [facility] Diastolic blood 2022-02-05 20:32:58 66 mm[Hg] Unive rsity of pressure [facility] Heart rate 2022-02-05 20:32:58 54 /min [facility] Respiratory rate 2022-02-05 20:32:58 18 /min Univ ersity of [facility] Oxygen saturation in 2022-02-05 20:32:58 99 /min University of Arterial blood by [facility] negrita Pulse oximetry Branch Body temperature 2022-02-05 18:50:00 36.94 Madelin Univ ersity of [facility] Body height 2022-02-05 18:50:00 157.5 cm [facility] Body weight 2022-02-05 18:50:00 78.019 kg [facility] BMI 2022-02-05 18:50:00 31.46 kg/m2 [facility] Systolic blood 2021-09-30 17:59:00 135 mm[Hg] Univer sity of pressure [facility] Diastolic blood 2021-09-30 17:59:00 83 mm[Hg] Unive rsity of pressure [facility] Heart rate 2021-09-30 17:59:00 89 /min [facility] ty [facility] Body temperature 2021-09-30 17:59:00 36.78 Madelin Univ ersity [facility] Respiratory rate 2021-09-30 17:59:00 18 /min Univ ersity of [facility] Body height 2021-09-30 17:59:00 160 cm [facility] Body weight 2021-09-30 17:59:00 78.019 kg [facility] BMI 2021-09-30 17:59:00 30.47 kg/m2 [facility] Oxygen saturation in 2021-09-30 17:59:00 99 /min University of Arterial blood by [place] [employer] Pulse oximetry Branch Systolic blood 2021-01-08 08:08:00 116 mm[Hg] Univer sity of pressure [facility] Diastolic blood 2021-01-08 08:08:00 79 mm[Hg] Unive rsity of pressure [facility] Heart rate 2021-01-08 08:08:00 67 /min [facility] ty [facility] Respiratory rate 2021-01-08 08:08:00 18 /min Univ ersity of [facility] Oxygen saturation in 2021-01-08 08:08:00 100 /min University of Arterial blood by [place] [employer] Pulse oximetry Branch Body temperature 2021-01-08 03:45:00 37.28 Madelin Univ ersity of [facility] Body height 2021-01-08 03:45:00 157.5 cm [facility] Body weight 2021-01-08 03:45:00 79.379 kg [facility] BMI 2021-01-08 03:45:00 32.01 kg/m2 [facility] Systolic blood 2020-08-24 21:00:00 129 mm[Hg] Univer sity of pressure [facility] Diastolic blood 2020-08-24 21:00:00 86 mm[Hg] Unive rsity of pressure [facility] Heart rate 2020-08-24 21:00:00 64 /min [facility]i ty [facility] Body temperature 2020-08-24 21:00:00 36.56 Madelin Univ ersity of [facility] Respiratory rate 2020-08-24 21:00:00 17 /min Univ ersity of [facility] Oxygen saturation in 2020-08-24 21:00:00 99 /min University of Arterial blood by [facility] Pulse oximetry Branch Body weight 2020-08-24 16:56:00 77.111 kg Universi ty of [facility] Systolic blood 2019-10-21 19:52:00 139 mm[Hg] Univer sity of pressure [facility] Diastolic blood 2019-10-21 19:52:00 86 mm[Hg] Unive rsity of pressure [facility] Heart rate 2019-10-21 19:52:00 89 /min Universi ty of [facility] Body temperature 2019-10-21 19:52:00 36.17 Madelin Univ ersity of [facility] Respiratory rate 2019-10-21 19:52:00 16 /min Univ ersity of [facility] Body height 2019-10-21 19:52:00 157.5 cm [facility] Body weight 2019-10-21 19:52:00 80.4 kg [facility] BMI 2019-10-21 19:52:00 32.42 kg/m2 Universi ty of [facility] Systolic blood 2019-10-21 19:52:00 139 mm[Hg] Univer sity of pressure [facility] Diastolic blood 2019-10-21 19:52:00 86 mm[Hg] Unive rsity of pressure [facility] Heart rate 2019-10-21 19:52:00 89 /min Universi ty of [facility] Body temperature 2019-10-21 19:52:00 36.17 Madelin Univ ersity of [facility] Respiratory rate 2019-10-21 19:52:00 16 /min Univ ersity of [facility] Body height 2019-10-21 19:52:00 157.5 cm [facility] ty [facility] Body weight 2019-10-21 19:52:00 80.4 kg Universi ty of [facility] BMI 2019-10-21 19:52:00 32.42 kg/m2 Universi ty of [facility] Procedures Procedure Date / Time Performing Clinician Source Performed POCT URINALYSIS 2022-10-04 15:31:00 Elio Castillo [facility] FREE T4 2022-10-04 14:29:00 Myrna Maciel [facility] THYROID STIMULATING 2022-10-04 14:29:00 Myrna Maciel [facility] FREE T3 2022-10-04 14:29:00 Myrna Maciel [facility] POCT URINALYSIS 2022-10-04 13:43:00 Elio Castillo [facility] MISCELLANEOUS SENDOUT 2022-10-04 05:01:00 Doctor Unassigned, Uni versity [facility] TEST [place] [facility] POCT URINALYSIS 2022-09-13 00:00:00 Elio Castillo [facility] POCT URINALYSIS 2022-09-05 20:18:00 Elio Castillo [facility] POCT URINALYSIS 2022-08-30 00:00:00 Elio Castillo [facility] URINE CULTURE 2022-08-08 21:03:00 Elio Castillo [facility] GC & CHLAMYDIA AMPLIFIED 2022-08-08 21:03:00 Elio Castillo [facility] PAP SMEAR-LIQUID BASED-CP 2022-08-08 21:03:00 Elio Castillo [facility] LAB ONLY PAP SMEAR-LIQUID 2022-08-08 21:03:00 Elio Castillo [facility] FREE T4 2022-08-08 21:00:00 Elio Castillo [facility] THYROID STIMULATING 2022-08-08 21:00:00 Elio Castillo Uni [facility] CBC WITH DIFF 2022-08-08 21:00:00 Elio Castillo [facility] RUBELLA SCREEN IGG 2022-08-08 21:00:00 Elio Castillo [facility] VZV ANTIBODY SCREEN 2022-08-08 21:00:00 Elio Castillo Uni [facility] HEPATITIS B SURFACE 2022-08-08 21:00:00 Elio Castillo [facility] ANTIGEN [facility] HB ABO GROUPING 2022-08-08 21:00:00 Elio Castillo [facility] FREE T3 2022-08-08 21:00:00 Elio Castillo [facility] HIV 1/2 AG-AB WITH REFLEX 2022-08-08 21:00:00 Elio Castillo [facility] SYPHILIS IGG/IGM 2022-08-08 21:00:00 Elio Castillo [facility] POCT TEST 2022-08-08 20:03:00 Elio Castillo [facility] POCT URINALYSIS W/O 2022-08-08 20:03:00 Elio Castillo [facility] SPECIFIC GRAVITY [facility] REPORT OF 2022-08-08 05:01:00 Doctor Unassigned, [facility] [place] [facility] HB ABO GROUPING 2022-07-27 09:45:00 Ronal Goodman [facility] LIPASE 2022-07-27 07:35:00 Ronal Goodman [facility] MAGNESIUM 2022-07-27 07:35:00 Ronal Goodman [facility] TEST, SERUM 2022-07-27 07:35:00 [facility] 2022-07-27 07:35:00 Ronal Goodman [facility] THYROID STIMULATING 2022-07-27 07:35:00 Ronal Goodman [facility] HORMONE [facility] COMP. METABOLIC PANEL 2022-07-27 07:35:00 Ronal Goodman Un [facility] ([id number] CBC WITH DIFF 2022-07-27 07:35:00 Ronal Goodman [facility] PROTHROMBIN TIME / INR 2022-07-27 07:35:00 Ronal Goodman [facility] ACTIVATED PARTIAL 2022-07-27 07:35:00 Ronal Goodman [facility] sity [facility] THRMPLAS STU [facility] FIBRINOGEN 2022-07-27 07:35:00 Ronal Goodman [facility] POCT TEST 2022-07-27 07:34:00 Ronal Goodman [facility] URINALYSIS 2022-07-27 07:30:00 Ronal Goodman [facility] URINE DRUG (IMMUNOASSAY) 2022-07-27 07:30:00 Ronal Goodman [facility] DRUG [facility] SCREEN W/O REFLEX CONSENT/REFUSAL FOR 2022-07-27 05:37:04 Doctor Kaleigh, [facility] DIAGNOSIS AND TREATMENT [place] [facility] MEDICATION CORRESPONDENCE 2022-04-26 06:01:00 Doctor Kaleigh, [facility] Name [facility] AUTHORIZATION FOR RELEASE 2022-04-17 06:01:00 Doctor Kaleigh, [facility] MEDICATION CORRESPONDENCE 2022-04-08 06:01:00 Doctor Kaleigh, [facility] Name [facility] XR CHEST 2 VW 2022-04-02 23:43:46 Mikael Weller [facility] POCT TEST 2022-04-02 23:08:00 Mikael Weller [facility] URINALYSIS 2022-04-02 21:54:00 Mikael Weller [facility] EXTRA TUBE URINE CULTURE 2022-04-02 21:54:00 Mikael Weller [facility] LIPASE 2022-04-02 21:50:00 Mikael Weller [facility] TROPONIN I 2022-04-02 21:50:00 [facility] 2022-04-02 21:50:00 Mikael Weller [facility] HORMONE [facility] HEPATIC FUNCTION PANEL 2022-04-02 21:50:00 Janee [facility] ([id number]) (ALB,T.PRO,BILI Medical Branch T,BU/BC,ALT,AST,ALK PHOS) BASIC METABOLIC PANEL 2022-04-02 21:50:00 Janee JuddTrevon [facility] (NA, K, CL, CO2, GLUCOSE, Medica l Branch BUN, CREATININE, CA) CBC WITH DIFF 2022-04-02 21:50:00 Janee [facility] GALV ONLY - INFLUENZA A B 2022-04-02 21:50:00 Mikael Weller [facility] RSV PCR [facility] [place] N-TERMINAL PRO-BNP 2022-04-02 21:50:00 [facility] FREE T3 2022-04-02 21:50:00 Janee [facility] CONSENT/REFUSAL FOR 2022-04-02 20:43:46 Doctor Unassigned, [facility] DIAGNOSIS AND TREATMENT [place] [facility] MEDICATION CORRESPONDENCE 2022-03-26 06:01:00 Doctor Unassigned, [facility] [place] [facility] XR SPINE THORACIC 2 VW 2022-03-15 19:21:00 Deann rUena [facility] XR CHEST 1 VW 2022-03-15 19:20:00 Deann Urena [facility] THYROID STIMULATING 2022-03-15 18:54:00 Deann Urena [facility] HORMONE [facility] COMP. METABOLIC PANEL 2022-03-15 18:54:00 Deann Urena [facility] ([id number]) [facility] CBC WITH DIFF 2022-03-15 18:54:00 Deann Urena [facility] D-DIMER 2022-03-15 18:54:00 Deann Urena [facility] RAPID INFLUENZA A/B 2022-03-15 18:54:00 Deann Urena [facility] COVID-19 (ID NOW RAPID 2022-03-15 18:54:00 Deann Urena [facility] TESTING) Medical Branch POCT TEST 2022-03-15 17:51:00 Deann Urena [facility] CONSENT/REFUSAL FOR 2022-03-15 16:30:58 Doctor Kaleigh [facility] DIAGNOSIS AND TREATMENT [place] [facility] [place] EKG-12 LEAD 2022-02-24 22:07:44 Karl Joy [facility] TROPONIN I 2022-02-24 20:09:00 Bora Joyio C [facility] BASIC METABOLIC PANEL 2022-02-24 20:09:00 Karl Joy [facility] (NA, K, CL, CO2, GLUCOSE, Medica l Branch BUN, CREATININE, CA) CBC WITH DIFF 2022-02-24 20:09:00 Karl Joy [facility] XR CHEST 1 VW 2022-02-24 19:46:46 Karl Joy [facility] CONSENT/REFUSAL FOR 2022-02-24 19:19:46 Doctor Kaleigh [facility]SENT[facility]REFUSAL FOR 2022-02-22 19:23:[address] [facility]YROID STIMULATING 2022-02-05 19:30:00 Krzysztof Armstrong [facility] HORMONE Medical Branch COMP. METABOLIC PANEL 2022-02-05 19:30:00 Krzysztof Armstrong [facility] ([id number]) Medical Branch SEDIMENTATION RATE 2022-02-05 19:30:00 Krzysztof Armstrong [facility] [place] CBC WITH DIFF 2022-02-05 19:30:00 Krzysztof Armstrong [facility] CONSENT/REFUSAL FOR 2022-02-05 18:47:[address] [facility] DIAGNOSIS AND TREATMENT [place] [facility] [place] POCT TEST 2021-09-30 18:06:00 Benita Bernal [facility] URINALYSIS 2021-09-30 18:05:00 Benita Bernal [facility] NOTICE OF PRIVACY 2021-09-30 17:52:40 Doctor Unassigned, [facility] PRACTICES [place] [facility] CONSENT/REFUSAL FOR 2021-09-30 17:52:26 Doctor Unassvladislav, [facility] DIAGNOSIS AND TREATMENT [place] [facility] COVID-19 (ID NOW RAPID 2021-01-08 06:36:[facility] Medical Branch RAPID STREP SCREEN FOR 2021-01-08 03:48:00 Cailin [facility] GROUP A Medical Branch CONSENT/REFUSAL FOR 2021-01-08 03:32:01 Doctor Unarajeev, [facility] DIAGNOSIS AND TREATMENT [place] [facility] TROPONIN I 2020-08-24 21:36:00 Toy [facility] XR CHEST 1 VW 2020-08-24 18:52:03 Toy [facility] COVID-19 (ID NOW RAPID 2020-08-24 18:36:00 Toy Marquez [facility] TESTING) Medical Branch THYROID STIMULATING 2020-08-24 18:34:00 Marquez Yeager [facility] HORMONE Medical Branch CBC WITH DIFF 2020-08-24 18:34:00 Toy [facility] ADC / LCC - DRUG SCREEN 2020-08-24 18:34:00 Marquez Yeager [facility] TRIAGE Medical Branch LIPASE 2020-08-24 18:33:00 Toy Marquez [facility] TROPONIN I 2020-08-24 18:33:00 Toy [facility] HEPATIC FUNCTION PANEL 2020-08-24 18:33:00 Marquez Yeager [facility] ([id number]) (ALB,T.PRO,BILI Medical Branch T,BU/BC,ALT,AST,ALK PHOS) BASIC METABOLIC PANEL 2020-08-24 18:33:00 Marquez Yeager [facility] (NA, K, CL, CO2, GLUCOSE, Medica l Branch BUN, CREATININE, CA) PROTHROMBIN TIME / INR 2020-08-24 18:33:00 Marquez Yeager [facility] ACTIVATED PARTIAL 2020-08-24 18:33:00 Marquez Yeager [facility] 2020-08-24 18:26:00 Marquez Yeager [facility] NOTICE OF PRIVACY 2020-08-24 16:41:43 Doctor Kaleigh, Kyler [facility] PRACTICES [place] [facility] [place] CONSENT/REFUSAL FOR 2020-08-24 16:41:28 Doctor Shwetha Farris [facility] DIAGNOSIS AND TREATMENT [place] [facility] EXTERNAL PROVIDER RECORDS 2019-11-05 05:01:00 Doctor Kaleigh [facility] [place] [facility] [place] POCT TEST 2019-10-21 20:20:00 Vickie Harrell [facility] DISCLOSURE AND CONSENT, 2019-10-21 05:01:00 [facility]ev[facility] [place] [facility] PROCEDURES Encounters Start End Encounter Admission Attending Care Care Encounter Source Date/Time Date/Time Type Type Clinicians Facility Department ID 2021-03-20 Emergency [facility] [id number] Univers 17:10:54 [facility] 2021-03-19 Emergency [facility] [id number] Univers 11:18:26 [facility] 2022-10-30 2022-10-30 Outpatient P [facility] [id number] Univers 14:15:00 14:15:00 [facility] 2022-10-29 2022-10-29 Outpatient MHIE MHIE [id number] Memoria 10:30:00 10:30:00 01 marivel Mays 2022-10-29 2022-10-29 Outpatient MHIE MHIE [id number] Memoria 10:30:00 10:30:00 01 marivel Mays 2022-10-25 2022-10-25 Outpatient R ANNA, [facility] [id number] Univers 09:45:00 09:45:00 ELIO garcia o f [facility] 2022-10-18 2022-10-18 Outpatient R ANNA [facility] [id number] Univers 07:45:00 07:45:00 ELIO lorenzy o f [facility] 2022-10-10 2022-10-10 Telephone Raj [facility] 1.2.840.114 [id number] Univers 00:00:00 00:00:00 Lora NIELSEN 350.1.13.10 ity of [place] [id number] [facility] 161 Branch 2022-10-04 2022-10-04 Outpatient R ROOSEVELT [facility] [id number] Univers 09:00:00 09:27:37 MYRNA itroscoe of [facility] 2022-10-04 2022-10-04 Routine Risk, Czh-Fzepa-Ih/High [facility] 1. 2.840.114 [id number] Univers 09:00:00 09:27:37 Myrna Maciel [employer]IP[employer] SPECIALIST 350.1.13.10 ity of Visit [facility] 4.2.7.2.686 [place] MATERNAL [id number] Med ical & CHILD [address] [place] [address] 2022-10-04 2022-10-04 Orders Doctor LILIA 1.2.840.114 [id number] Univers 00:00:00 00:00:00 Only Unassigned, RUY 350.1.13.10 ity of [place] [facility] 4.2.7.2.686 [place] as [id number] [facility] 009 Branch 2022-10-03 2022-10-03 Outpatient R ANNA [facility] [id number] Univers 10:00:00 10:00:00 ELIO garcia o sherie [facility] 2022-09-14 2022-09-14 Outpatient R DAVID DO [facility] [id number] Univers 09:45:00 10:26:03 ity of [facility] 2022-09-14 2022-09-14 Telemedici Lora Anthony [facility] 1.2.8 40.114 [id number] Univers 09:45:00 10:26:03 ne Visit David Do [employer] EQUIPMENT SPECIALIST 350.1.13.10 ity of [facility] 4.2.7.2.686 [place] as MATERNAL [id number] Med ical & CHILD [address] [place] [address] 2022-09-13 2022-09-13 Routine Risk, Wsk-Tzhjs-Uz/High [facility] 1. 2.840.114 [id number] Univers 10:30:00 11:21:26 Myrna Maciel [employer] FIGHTING EQUIPMENT SPECIALIST 350.1.13.10 ity of Visit [facility] 4.2.7.2.686 [place] as MATERNAL [id number] [facility] [address] [place] [address] 2022-09-13 2022-09-13 Outpatient R ROOSEVELT [facility] [id number] Univers 10:30:00 11:21:26 MYRNA garcia [facility] 2022-09-07 2022-09-[address] [facility] 1.2.840.114 [id number] Univers 00:00:00 00:00:00 Elio Ulloa [employer] EQUIPMENT SPECIALIST 350.1.13.10 ity of REGIONAL 4.2.7.2.686 [place] MATERNAL [id number] [facility] & [address] 2022-09-06 2022-09-06 Ambulatory MHIE MNA [id number] Memoria 14:30:00 14:30:00 Pre-Reg Neurology 00 l Rajinder [place] 2022-09-06 2022-09-06 Ambulatory MHIE MNA [id number] Memoria 14:30:00 14:30:00 Pre-Reg Neurology 00 l Rajinder Pichardoann 2022-09-06 2022-09-06 [employer] [facility] [facility] 1.2 .840.114 [id number] Univers 13:00:00 13:45:00 Visit Elio Castillo [employer] EQUIPMENT SPECIALIST 350.1.13. 10 ity of [place] Mariela Conner [facility] 4.2.7.2 .686 [place] MATERNAL [id number] [facility] CHILD [address] [place] [address] 2022-09-06 2022-09-06 Outpatient P JAYSHREE [facility] [id number] Univers 13:00:00 13:44:46 EVA lorenz y of MARIELA Cisse [facility] 2022-09-06 2022-09-06 [employer] Lab, Ang-Rmchp [facility] 1.2.840. 114 [id number] Univers 12:45:00 13:08:00 Visit Elio Castillo [employer] FIGHT[employer] EQUIPMENT SPECIALIST 350.1.13. 10 ity of [facility] 4.2.7.2.686 [place] MATERNAL [id number] [facility] & [address] 2022-09-06 2022-09-06 Outpatient MHIE [facility] [id number] [facility] 09:30:00 09:30:00 00 marivel Davon 2022-09-06 2022-09-06 Outpatient [facility] [id number] 09:30:00 09:30:00 Sabino Taylor 2022-09-06 2022-09-06 Telephone Anna [facility] 1.2.840.114 [id number] [facility] [place] 00:00:00 00:00:00 Elio Ulloa FI[employer] FIGHTING EQUIPMENT SPECIALIST 350.1.13.10 ity of REGIONAL 4.2.7.2.686 [place] MATERNAL [id number] [address] 2022-09-05 2022-09-05 Outpatient R ANNA [facility] [id number] Univers 15:15:00 15:55:59 ELIO garcia o f [facility] 2022-09-05 2022-09-05 [facility] 1.2.902.657 [id number] Univers 15:15:00 15:55:59 Elio Ulloa [employer] FIGHTING EQUIPMENT SPECIALIST 350.1.13.10 ity of Visit REGIONAL 4.2.7.2.686 [place] MATERNAL [id number] [address] 2022-08-30 2022-08-30 Outpatient Urbano MACIEL [facility] [id number] Univers 11:00:00 11:23:29 MYRNA garcia of [facility] 2022-08-30 2022-08-30 Routine Risk, Uzh-Uqggo-Ns/High [facility] 1. 2.840.114 [id number] Univers 11:00:00 11:23:29 Maciel, Myrna K [employer] EQUIPMENT SPECIALIST 350.1.13.10 ity of Visit REGIONAL 4.2.7.2.686 [place] MATERNAL [id number] [facility] CHILD [address] [place] [address] 2022-08-09 2022-08-09 Patient Filipe [facility] 1.2.840.114 [id number] Univers 00:00:00 00:00:00 Secure Vickie Nichole [employer] EQUIPMENT SPECIALIST 350.1.13.10 ity of [place] 4.2.7.2.686 [place] MATERNAL [phone] [facility] CHILD [address] [place] [address] 2022-08-08 2022-08-08 Initial [facility] 1.2.843.594 [id number] Univers 14:45:00 16:19:42 Elio Ulloa FIRE FIGHTING EQUIPMENT SPECIALIST 350.1.13.10 ity of Visit REGIONAL 4.2.7.2.686 [place] as MATERNAL [id number] [facility] & CHILD [address] [place] [address] 2022-08-08 2022-08-08 Outpatient R ANNA [facility] [id number] Univers 14:15:00 15:09:22 ELIO garcia o f [facility] 2022-08-08 2022-08-08 Orders Doctor LILIA 1.2.840.114 [id number] Univers 00:00:00 00:00:00 Only Unassigned, RUY 350.1.13.10 ity of [place] [facility] 4.2.7.2.686 [place] as [id number] [facility] 009 Branch 2022-07-27 2022-07-27 Emergency X IBELIASUNJOSHUA, [facility] ERT [id number] Univers 00:16:00 04:25:00 FOLUSHO ity of [facility] 2022-07-27 2022-07-27 Emergency Ibikunle, TRAUMA 1.2.840.114 [id number] Univers 00:16:00 04:25:00 Ronal [facility] 350.1.13.10 [place] [id number] [facility] 014 Branch 2022-07-18 2022-07-[address] [facility] [id number] Quan 09:56:20 09:56:20 0301 F Ronald 2022-04-26 2022-04-26 Orders Doctor LILIA 1.2.840.114 [id number] Univers 00:00:00 00:00:00 Only Unassigned, RUY 350.1.13.10 ity of [place] [facility] 4.2.7.2.686 [place] as [id number] [facility] 009 Branch 2022-04-17 2022-04-17 Orders Doctor LILIA 1.2.840.114 [id number] Univers 00:00:00 00:00:00 Only Unassigned, RUY 350.1.13.10 ity of [place] [facility] 4.2.7.2.686 [place] as [id number] [facility] 009 [place] 2022-04-08 2022-04-08 Orders Doctor LILIA 1.2.840.114 [id number] Univers 00:00:00 00:00:00 Only Unassigned, RUY 350.1.13.10 ity of [place] [facility] 4.2.7.2.686 [place] as [id number] [facility] 009 [place] 2022-04-04 2022-04-04 Outpatient R GEORGES, [facility] [id number] Univers 15:37:29 23:59:00 EMILY garcia o f [facility] 2022-04-02 2022-04-02 Emergency X JANEE, JUDDARTEMIO [facility] ERT 1 [id number] Univers 14:52:00 18:13:00 JANEEMIKAEL ity of [facility] 2022-04-02 2022-04-02 Emergency Janee, TRAU[place] 1.2.494.877 [id number] Univers 14:52:00 18:13:00 [facility] 350.1.13.10 [place] [id number] [facility] 014 Branch 2022-03-26 2022-03-26 Orders Doctor RODRIGUES 1.2.840.114 [id number] Univers 00:00:00 00:00:00 Only Unassigned, RUY 350.1.13.10 ity of [place] [facility] 4.2.7.2.686 [place] [id number] [place] [address] [place] 2022-03-19 2022-03-19 Outpatient R GEORGES, [facility] [id number] Univers 16:00:00 16:00:00 EMILY hinson [facility] 2022-03-15 2022-03-15 [facility] [id number] Univers 11:37:00 16:49:00 DEANN itroscoe [facility] 2022-03-15 2022-03-15 Emergency [facility] 1.2.386.666 [id number] Univers 11:37:00 16:49:00 Deann RAY 350.1.13.10 ity of [place] [id number] [place] 642324 [place] 2022-03-05 2022-03-05 Telephone [facility] 1.2.772.611 [id number] Univers 00:00:00 00:00:00 Emily RAY 350.1.13.10 ity of [place] [facility] [id number] Oh dical NAL 059 [facility] 2022-03-01 2022-03-01 Outpatient R GEORGES, [facility] [id number] Univers 16:00:00 23:59:00 EMILY hinson [facility] 2022-02-24 2022-02-24 Emergency [facility] ERT [id number] Univers 14:29:00 17:24:00 KARL garcia [facility] 2022-02-24 2022-02-24 [facility] 1.2.672.889 [id number] Univers 14:29:00 17:24:00 Karl RAY 350.1.13.10 i ty of [place].7.2.[place] [id number] [place] 642324 [place] 2022-02-22 2022-02-22 Outpatient R GEORGES, [facility] [id number] Univers 14:40:00 15:04:54 BYRONMARCO A jose o [facility] 2022-02-22 2022-02-22 Office [facility] 1.2.840.114 [id number] Univers 14:40:00 15:04:54 Visit Emily RAY 350.1.13.10 ity of [place] [facility] [phone] [place] 071309 [facility] 2022-02-22 2022-02-22 Orders Doctor LILIA 1.2.840.114 [id number] Univers 00:00:00 00:00:00 Only Unassigned, RUY 350.1.13.10 ity of [place] [facility] 4.2.7.2.686 [place] [id number] [address] 2022-02-05 2022-02-05 Emergency X [facility] ERT [id number] Univers 13:52:00 16:06:00 KRZYSZTOF garcia [facility] 2022-02-05 2022-02-05 Emergency [facility] 1.2.699.089 [id number] Univers 13:52:00 16:06:00 Krzysztof RAY 350.1.13.10 i ty of [place] [id number] [address] 2021-09-30 2021-09-30 Emergency [facility] ERT [id number] Univers 13:09:00 14:18:00 BENITA itroscoe [facility] 2021-09-30 2021-09-30 Emergency [facility] 1.2.840.114 [id number] Univers 13:09:00 14:18:00 Benita RAY 350.1.13.10 ity of [place].2.[place] [id number] [address] 2021-09-30 2021-09-30 Orders Doctor LILIA 1.2.840.114 [id number] Univers 00:00:00 00:00:00 Only Unassigned, RUY 350.1.13.10 ity of [place] [facility] 4.2.7.2.686 [place] as [id number] [address] 2021-01-07 2021-01-08 [facility] 1.2.757.824 [id number] [facility] 22:50:00 03:10:00 Kristian Romeroton 350.1.13.10 ity of [place] 4.2.7.2.686 [facility] [id number] [facility] 084 [place] 2020-08-24 2020-08-24 Emergency Yeager [facility] 1.2.717.626 [id number] Univers 12:18:00 17:41:00 Marquez Ray 350.1.13.10 i ty of [place] 4.2.7.2.686 [facility] [id number] [place] 642324 [place] 2020-08-24 2020-08-24 Orders Doctor LILIA 1.2.840.114 [id number] Univers 00:00:00 00:00:00 Only Unassigned, RUY 350.1.13.10 ity of [place] [facility] 4.2.7.2.686 [place] as [id number] [address] 2019-12-22 2019-12-22 Telephone [facility] 1.2.066.093 [id number] Univers 00:00:00 00:00:00 Roshunda R FIRE FIGHTING EQUIPMENT SPECIALIST 350.1.13.10 ity of [facility] 4.2.7.2.686 [place] as MATERNAL [id number] Med ical & CHILD [address] [place] [address] 2019-12-22 2019-12-22 Telephone [facility] 1.2.155.470 [id number] 00:00:00 00:00:00 Roshunda R FIRE FIGHTING EQUIPMENT SPECIALIST 350.1.13.10 REGIONAL 4.2.7.2.686 MATERNAL [id number] & CHILD [address] [place] [address] 2019-11-30 2019-11-30 Telephone [facility] 1.2.210.468 [id number] Univers 00:00:00 00:00:00 Roshunda R FIRE FIGHTING EQUIPMENT SPECIALIST 350.1.13.10 ity of [facility] 4.2.7.2.686 [place] MATERNAL [id number] Med ical & CHILD [address] [place] [address] 2019-11-30 2019-11-30 Telephone Harrell, [facility] 1.2.931.316 [id number] 00:00:00 00:00:00 Rosmichaellenda R FIRE FIGHTING EQUIPMENT SPECIALIST 350.1.13.10 REGIONAL 4.2.7.2.686 MATERNAL [id number] & CHILD [address] [facility] 2019-11-05 2019-11-05 Orders Doctor RODRIGUES 1.2.840.114 [id number] Univers 00:00:00 00:00:00 Only Unassigned, RUY 350.1.13.10 ity of [place] [facility] 4.2.7.2.686 [place] [id number] [address] 2019-11-05 2019-11-05 Orders Doctor LILIA 1.2.840.114 [id number] 00:00:00 00:00:00 Only Unassigned, RUY 350.1.13.10 [facility] 4.2.7.2.[id number] [facility] 2019-10-21 2019-10-21 Office [facility] 1.2.840.114 [id number] 14:50:09 15:05:09 Visit Sheritanda R FIRE FIGHTING EQUIPMENT SPECIALIST 350.1.13.10 REGIONAL 4.2.7.2.686 MATERNAL [id number] & CHILD [address] [place] [address] 2019-10-21 2019-10-21 Office [facility] 1.2.840.114 [id number] [facility] 14:50:09 15:05:09 Visit Sheritanda R FIRE FIGHTING EQUIPMENT SPECIALIST 350.1.13.10 ity of [facility] 4.2.7.2.686 [place] MATERNAL [id number] Med ical & CHILD [address] [place] [address] 2019-10-21 2019-10-21 Outpatient R JULIO CESAR [facility] [id number] Univers 14:00:00 14:00:00 ROSMICHAELLENDA ity o f [facility] 2019-10-21 2019-10-21 Orders Doctor RODRIGUES 1.2.840.114 [id number] 00:00:00 00:00:00 Only Unassigned, RUY 350.1.13.10 [facility] 4.2.7.2.686 [id number] 009 2019-10-21 2019-10-21 Orders Doctor RODRIGUES 1.2.840.114 [id number] Univers 00:00:00 00:00:00 Only Unassigned, RUY 350.1.13.10 ity of [facility] 4.2.7.2.686 [place] [id number] [address] Results Test Description Test Time Test Comments Results Result Comments Source THYROID STIMULATING HORMONE 2022-10-05 06:21:20 Test Item Value Reference Range Interpretation Comme nts TSH (test code = 7351634327) 5.83 See_Comment H [Automated message] The system which generated this result transmitted ref erence range: 0.45 - 4.70 mIU /L. The reference range was not u sed to interpret this result as normal/abnormal. Lab Interpretation (test code Abnormal = 45525-3) [facility] [id number] 06:15:41 Test Item Value Reference Range Interpretation Comments FREE T3 (test code = 2761245515) 3.20 pg/mL 2.77-5.27 Lab Interpretation (test code = Normal 33753-5) [facility] [id number] 06:07:41 Test Item Value Reference Range Interpretation Comments FREE T4 (test code = 0.86 See_Comment [Autom ated message] [id number]) The system [employer] h generated this result transmitted ref erence range: 0.78 - 2 .20 ng/dL:. The ref erence range was not u sed to interpret this result as normal/abnor mal. Lab Interpretation (test Normal code = 76011-1) [facility] URINALYSIS W SPECIFIC [id number] 15:31:00 Test Item Value Reference Range Interpretation Comments POCT U SP GRAV (test code = 3255) . 1.005-1.025 POCT PH U (test code = 3254) . 5-8 POCT U LEUK EST (test code = 3263) . Negative - Negative POCT U NIT (test code = 3262) . Negative - Negative POCT U PROT (test code = 3259) . Negative - Negative POCT U GLU (test code = 3256) . Negative - Negative POCT U KETONE (test code = 3258) . Negative - Negative POCT U UROBILI (test code = 3260) . 0.2-1 POCT U BILI (test code = 3261) . Negative - Negative POCT U BLD (test code = 3257) . Negative - Negative POCT U COLOR (test code = 3266) POCT U APPEAR (test code = 3267) [facility] URINALYSIS W SPECIFIC [id number] 13:43:00 Test Item Value Reference Range Interpretation Comments POCT U SP GRAV (test code = 3255) .. 1.005-1.025 POCT PH U (test code = 3254) 7 mg/dl 5-8 POCT U LEUK EST (test code = Trace Negative - Negative 3263) POCT U NIT (test code = 3262) Neg Negative - Negative POCT U PROT (test code = 3259) Trace Negative - Negative POCT U GLU (test code = 3256) Neg Negative - Negative POCT U KETONE (test code = 3258) None Negative - Negative POCT U UROBILI (test code = 3260) . 0.2-1 POCT U BILI (test code = 3261) . Negative - Negative POCT U BLD (test code = 3257) Trace Negative - Negative POCT U COLOR (test code = 3266) POCT U APPEAR (test code = 3267) [facility] URINALYSIS W SPECIFIC [id number] 15:39:00 Test Item Value Reference Range Interpretation Comments POCT U SP GRAV (test code = . 1.005-1.025 3255) POCT PH U (test code = 3254) 6 mg/dl 5-8 POCT U LEUK EST (test code = negative Negative - Negative 3263) POCT U NIT (test code = 3262) negative Negative - Negative POCT U PROT (test code = 3259) trace Negative - Negative POCT U GLU (test code = 3256) negative Negative - Negative POCT U KETONE (test code = 3258) negative Negative - Negative POCT U UROBILI (test code = . 0.2-1 3260) POCT U BILI (test code = 3261) . Negative - Negative POCT U BLD (test code = 3257) trace Negative - Negative POCT U COLOR (test code = 3266) . POCT U APPEAR (test code = 3267) . [facility] URINALYSIS W SPECIFIC [id number] 15:39:00 Test Item Value Reference Range Interpretation Comments POCT U SP GRAV (test code = . 1.005-1.025 3255) POCT PH U (test code = 3254) 6 mg/dl 5-8 POCT U LEUK EST (test code = negative Negative - Negative 3263) POCT U NIT (test code = 3262) negative Negative - Negative POCT U PROT (test code = 3259) trace Negative - Negative POCT U GLU (test code = 3256) negative Negative - Negative POCT U KETONE (test code = 3258) negative Negative - Negative POCT U UROBILI (test code = . 0.2-1 3260) POCT U BILI (test code = 3261) . Negative - Negative POCT U BLD (test code = 3257) trace Negative - Negative POCT U COLOR (test code = 3266) . POCT U APPEAR (test code = 3267) . [facility] URINALYSIS W SPECIFIC [id number] 20:18:00 Test Item Value Reference Range Interpretation Comments POCT U SP GRAV (test code = 3255) . 1.005-1.025 POCT PH U (test code = 3254) . 5-8 POCT U LEUK EST (test code = 3263) . Negative - Negative POCT U NIT (test code = 3262) . Negative - Negative POCT U PROT (test code = 3259) trace Negative - Negative POCT U GLU (test code = 3256) neg Negative - Negative POCT U KETONE (test code = 3258) . Negative - Negative POCT U UROBILI (test code = 3260) . 0.2-1 POCT U BILI (test code = 3261) . Negative - Negative POCT U BLD (test code = 3257) . Negative - Negative POCT U COLOR (test code = 3266) . POCT U APPEAR (test code = 3267) . [facility] URINALYSIS W SPECIFIC [id number] 20:18:00 Test Item Value Reference Range Interpretation Comments POCT U SP GRAV (test code = 3255) . 1.005-1.025 POCT PH U (test code = 3254) . 5-8 POCT U LEUK EST (test code = 3263) . Negative - Negative POCT U NIT (test code = 3262) . Negative - Negative POCT U PROT (test code = 3259) trace Negative - Negative POCT U GLU (test code = 3256) neg Negative - Negative POCT U KETONE (test code = 3258) . Negative - Negative POCT U UROBILI (test code = 3260) . 0.2-1 POCT U BILI (test code = 3261) . Negative - Negative POCT U BLD (test code = 3257) . Negative - Negative POCT U COLOR (test code = 3266) . POCT U APPEAR (test code = 3267) . [facility] URINALYSIS W SPECIFIC [id number] 20:18:00 Test Item Value Reference Range Interpretation Comments POCT U SP GRAV (test code = 3255) . 1.005-1.025 POCT PH U (test code = 3254) . 5-8 POCT U LEUK EST (test code = 3263) . Negative - Negative POCT U NIT (test code = 3262) . Negative - Negative POCT U PROT (test code = 3259) trace Negative - Negative POCT U GLU (test code = 3256) neg Negative - Negative POCT U KETONE (test code = 3258) . Negative - Negative POCT U UROBILI (test code = 3260) . 0.2-1 POCT U BILI (test code = 3261) . Negative - Negative POCT U BLD (test code = 3257) . Negative - Negative POCT U COLOR (test code = 3266) . POCT U APPEAR (test code = 3267) . [facility] URINALYSIS W SPECIFIC [id number] 16:01:00 Test Item Value Reference Range Interpretation Comments POCT U SP GRAV (test code = . 1.005-1.025 3255) POCT PH U (test code = 3254) 6 mg/dl 5-8 POCT U LEUK EST (test code = negative Negative - Negative 3263) POCT U NIT (test code = 3262) negative Negative - Negative POCT U PROT (test code = 3259) negative Negative - Negative POCT U GLU (test code = 3256) negative Negative - Negative POCT U KETONE (test code = 3258) negative Negative - Negative POCT U UROBILI (test code = . 0.2-1 3260) POCT U BILI (test code = 3261) . Negative - Negative POCT U BLD (test code = 3257) negative Negative - Negative POCT U COLOR (test code = 3266) . POCT U APPEAR (test code = 3267) . [facility] URINALYSIS W SPECIFIC [id number] 16:01:00 Test Item Value Reference Range Interpretation Comments POCT U SP GRAV (test code = . 1.005-1.025 3255) POCT PH U (test code = 3254) 6 mg/dl 5-8 POCT U LEUK EST (test code = negative Negative - Negative 3) POCT U NIT (test code = 3262) negative Negative - Negative POCT U PROT (test code = 3259) negative Negative - Negative POCT U GLU (test code = 3256) negative Negative - Negative POCT U KETONE (test code = 3258) negative Negative - Negative POCT U UROBILI (test code = . 0.2-1 3260) POCT U BILI (test code = 3261) . Negative - Negative POCT U BLD (test code = 3257) negative Negative - Negative POCT U COLOR (test code = 3266) . POCT U APPEAR (test code = 3267) . [facility] URINALYSIS W SPECIFIC [id number] 16:01:00 Test Item Value Reference Range Interpretation Comments POCT U SP GRAV (test code = . 1.005-1.025 3255) POCT PH U (test code = 3254) 6 mg/dl 5-8 POCT U LEUK EST (test code = negative Negative - Negative 3) POCT U NIT (test code = 3262) negative Negative - Negative POCT U PROT (test code = 3259) negative Negative - Negative POCT U GLU (test code = 3256) negative Negative - Negative POCT U KETONE (test code = 3258) negative Negative - Negative POCT U UROBILI (test code = . 0.2-1 3260) POCT U BILI (test code = 3261) . Negative - Negative POCT U BLD (test code = 3257) negative Negative - Negative POCT U COLOR (test code = 3266) . POCT U APPEAR (test code = 3267) . [facility] SCREEN (FATUMA) [id number] 18:38:27 Test Item Value Reference Range Interpretation Comments Rubella screen IgG Positive Negative (test code = 3115375354) DOUGIE (test code = DOUGIE) Positive - Indicates the patient was exposed to Rubella through infection or vaccination.Negative - Indicates the patient could be susceptible to Rubella infection.Equivocal - A second specimen should be sent. [facility] [id number] 18:38:27 Test Item Value Reference Range Interpretation Comments VZV IgG antibody Positive Negative (test code = 83867-0) DOUGIE (test code = DOUGIE) Positive - Indicates the patient was exposed to VZV through infection or vaccination.Negative - Indicates the patient could be susceptible to VZV infection.Equivocal - A second specimen should be sent for testing. [facility] SCREEN (FATUMA) [id number] 18:38:27 Test Item Value Reference Range Interpretation Comments Rubella screen IgG Positive Negative (test code = 1322138277) DOUGIE (test code = DOUGIE) Positive - Indicates the patient was exposed to Rubella through infection or vaccination.Negative - Indicates the patient could be susceptible to Rubella infection.Equivocal - A second specimen should be sent. [facility] ANTIBODY [id number] 18:38:27 Test Item Value Reference Range Interpretation Comments VZV IgG antibody Positive Negative (test code = 73974-6) DOUGIE (test code = DOUGIE) Positive - Indicates the patient was exposed to VZV through infection or vaccination.Negative - Indicates the patient could be susceptible to VZV infection.Equivocal - A second specimen should be sent for testing. [facility] ONLY - SYPHILIS [id number] 17:21:15 Test Item Value Reference Range Interpretation Comments Syphilis IgG/IgM (test Non-reactive Non-reactive code = 83475-0) DOUGIE (test code = DOUGIE) Non-reactive - No serologic evidence of T. pallidum infection. Cannot exclude incubating or early syphilis. Submit a second specimen in 2-4 weeks if syphilis is clinically suspected. Equivocal - Further testing to follow. Reactive - Further testing to follow. Lab Interpretation (test Normal code = 57127-2) [facility] ONLY - SYPHILIS [id number] 17:21:15 Test Item Value Reference Range Interpretation Comments Syphilis IgG/IgM (test Non-reactive Non-reactive code = 14284-4) DOUGIE (test code = DOUGIE) Non-reactive - No serologic evidence of T. pallidum infection. Cannot exclude incubating or early syphilis. Submit a second specimen in 2-4 weeks if syphilis is clinically suspected. Equivocal - Further testing to follow. Reactive - Further testing to follow. Lab Interpretation (test Normal code = 29197-6) [facility] 1/2 AG-AB WITH [id number] 12:06:53 Test Item Value Reference Range Interpretation Comments HIV 0.09 Negative Semi-quantitative (test code = 06810-9) DOUGIE (test code = Non-reactive for HIV-1 DOUGIE) antigen and HIV-1/HIV-2 antibodies. ?No laboratory evidence of HIV infection. ?Repeat in 2-4 weeks if acute HIV infection is suspected. [facility] 1/2 AG-AB WITH [id number] 12:06:53 Test Item Value Reference Range Interpretation Comments HIV 0.09 Negative Semi-quantitative (test code = 98643-6) DOUGIE (test code = Non-reactive for HIV-1 DOUGIE) antigen and HIV-1/HIV-2 antibodies. ?No laboratory evidence of HIV infection. ?Repeat in 2-4 weeks if acute HIV infection is suspected. [facility] 10:55:39 Test Item Value Reference Range Interpretation Comments FREE T3 (test code = 8065540494) 2.98 pg/mL 2.77-5.27 Lab Interpretation (test code = Normal 57819-1) [place] [id number] 10:55:39 Test Item Value Reference Range Interpretation Comments FREE T3 (test code = 7320039534) 2.98 pg/mL 2.77-5.27 Lab Interpretation (test code = Normal 14124-9) [facility]AT[facility] SURFACE [id number] 08:46:56 Test Item Value Reference Range Interpretation Comments HBsAg Semi-Quantitative (test code = 0.05 Negative 5195-3) [facility] SouthTHYROID STIMULATING [id number] 08:46:56 Test Item Value Reference Range Interpretation Comments TSH (test code = 7.18 See_Comment H [Automated message] 8239574303) The system [employer] generated this result transmitted ref erence range: 0.45 - 4 .70 mIU/L. The refe rence range was not u sed to interpret this result as normal/abnor mal. Lab Interpretation (test Abnormal code = 78096-3) [facility]AT[facility] SURFACE [id number] 08:46:56 Test Item Value Reference Range Interpretation Comments HBsAg Semi-Quantitative (test code = 0.05 Negative 5195-3) [facility]ID STIMULATING [id number] 08:46:56 Test Item Value Reference Range Interpretation Comments TSH (test code = 7.18 See_Comment H [Automated message] 8532678734) The system [employer] generated this result transmitted ref erence range: 0.45 - 4 .70 mIU/L. The refe rence range was not u sed to interpret this result as normal/abnor mal. Lab Interpretation (test Abnormal code = 60056-1) [facility] [id number] 08:32:49 Test Item Value Reference Range Interpretation Comments FREE T4 (test code = 0.87 See_Comment [Autom ated message] 0472191240) The system [employer] generated this result transmitted ref erence range: 0.78 - 2 .20 ng/dL:. The ref erence range was not u sed to interpret this result as normal/abnor mal. Lab Interpretation (test Normal code = 88077-6) [facility] [id number] 08:32:49 Test Item Value Reference Range Interpretation Comments FREE T4 (test code = 0.87 See_Comment [Autom ated message] [id number]) The system [employer] generated this result transmitted ref erence range: 0.78 - 2 .20 ng/dL:. The ref erence range was not u sed to interpret this result as normal/abnor mal. Lab Interpretation (test Normal code = 00340-5) [facility] WITH [id number] 06:18:09 Test Item Value Reference Range Interpretation Comments WBC (test code = 9.61 See_Comment [Automated 6690-2) message] The sy stem which generated this result transmitted reference range : 4.30 - 11.10 10*3/?L. The reference range was not used to interpret this result as normal/abnormal . RBC (test code = 3.90 See_Comment L [Automated 789-8) message] The sy stem which generated this result transmitted reference range : 3.93 - 5.25 10*6/?L. The reference range was not used to interpret this result as normal/abnormal . HGB (test code = 11.8 g/dL 11.6-15.0 718-7) HCT (test code = 34.1 % 35.7-45.2 L 4544-3) MCV (test code = 87.4 fL 80.6-95.5 787-2) MCH (test code = 30.3 pg 25.9-32.8 785-6) MCHC (test code = 34.6 g/dL 31.6-35.1 786-4) RDW-SD (test code = 47.8 fL 39.0-49.9 71143-4) RDW-CV (test code = 14.8 % 12.0-15.5 788-0) PLT (test code = 266 See_Comment [Automated 777-3) message] The sy stem which generated this result transmitted reference range : 166 - 358 10*3/ ?L. The reference r madisyn was not used to interpret this result as normal/abnormal . MPV (test code = 11.8 fL 9.5-12.9 35047-0) NRBC/100 WBC (test 0.0 See_Comment [Automat ed code = 9260361105) message] The system which generated this result transmitted reference range : 0.0 - 10.0 /100 WBCs. The refer ence range was not u sed to interpret th is result as normal/abnormal . NRBC x10^3 (test code See_Comment [Auto mated = 7065306875) message] The s ystem which generated this result transmitted reference range : 10*3/?L. The reference range was not used to interpret this result as normal/abnormal . GRAN MAT (NEUT) % 67.0 % (test code = 770-8) IMM GRAN % (test code 0.30 % = 0807307432) LYMPH % (test code = 23.9 % 736-9) MONO % (test code = 7.5 % 5905-5) EOS % (test code = 0.8 % 713-8) BASO % (test code = 0.5 % 706-2) GRAN MAT x10^3(ANC) 6.43 10*3/uL 1.88-7.09 (test code = 0056558934) IMM GRAN x10^3 (test 0.03 10*3/uL 0.00-0.06 code = 6213993526) LYMPH x10^3 (test code 2.30 10*3/uL 1.32-3.29 = 731-0) MONO x10^3 (test code 0.72 10*3/uL 0.33-0.92 = 742-7) EOS x10^3 (test code = 0.08 10*3/uL 0.03-0.39 711-2) BASO x10^3 (test code 0.05 10*3/uL 0.01-0.07 = 704-7) Lab Interpretation Abnormal (test code = 22144-1) [facility] WITH [id number] 06:18:09 Test Item Value Reference Range Interpretation Comments WBC (test code = 9.61 See_Comment [Automated 6690-2) message] The sy stem which generated this result transmitted reference range : 4.30 - 11.10 10*3/?L. The reference range was not used to interpret this result as normal/abnormal . RBC (test code = 3.90 See_Comment L [Automated 709-8) message] The sy stem which generated this result transmitted reference range : 3.93 - 5.25 10*6/?L. The reference range was not used to interpret this result as normal/abnormal . HGB (test code = 11.8 g/dL 11.6-15.0 718-7) HCT (test code = 34.1 % 35.7-45.2 L 4544-3) MCV (test code = 87.4 fL 80.6-95.5 787-2) MCH (test code = 30.3 pg 25.9-32.8 785-6) MCHC (test code = 34.6 g/dL 31.6-35.1 786-4) RDW-SD (test code = 47.8 fL 39.0-49.9 87381-2) RDW-CV (test code = 14.8 % 12.0-15.5 788-0) PLT (test code = 266 See_Comment [Automated 777-3) message] The sy stem which generated this result transmitted reference range : 166 - 358 10*3/ ?L. The reference r madisyn was not used to interpret this result as normal/abnormal . MPV (test code = 11.8 fL 9.5-12.9 15534-6) NRBC/100 WBC (test 0.0 See_Comment [Automat ed code = 1780869437) message] The system which generated this result transmitted reference range : 0.0 - 10.0 /100 WBCs. The refer ence range was not u sed to interpret th is result as normal/abnormal . NRBC x10^3 (test code See_Comment [Auto mated = 8234250136) message] The s ystem which generated this result transmitted reference range : 10*3/?L. The reference range was not used to interpret this result as normal/abnormal . GRAN MAT (NEUT) % 67.0 % (test code = 770-8) IMM GRAN % (test code 0.30 % = 8101548698) LYMPH % (test code = 23.9 % 736-9) MONO % (test code = 7.5 % 5905-5) EOS % (test code = 0.8 % 713-8) BASO % (test code = 0.5 % 706-2) GRAN MAT x10^3(ANC) 6.43 10*3/uL 1.88-7.09 (test code = 0720239219) IMM GRAN x10^3 (test 0.03 10*3/uL 0.00-0.06 code = 6650772617) LYMPH x10^3 (test code 2.30 10*3/uL 1.32-3.29 = 731-0) MONO x10^3 (test code 0.72 10*3/uL 0.33-0.92 = 742-7) EOS x10^3 (test code = 0.08 10*3/uL 0.03-0.39 711-2) BASO x10^3 (test code 0.05 10*3/uL 0.01-0.07 = 704-7) Lab Interpretation Abnormal (test code = 61600-3) [facility] WORKUP, BLOOD [id number] 21:03:00 Test Item Value Reference Range Interpretation Comments ABO & RH (test code = 20) A POSITIVE IAT (test code = 1185) Negative [facility] WORKUP, BLOOD [id number] 21:03:00 Test Item Value Reference Range Interpretation Comments ABO & RH (test code = 20) A POSITIVE [facility]AT (test code = 1185) [id number] Test Item Value Reference Range Interpretation Comments POCT PREG (test code = 1605) Positive On board controls acceptable with C Yes Line (test code = 3574) POCT PREG LOT # (test code = 3575) POCT PREG TEST DATE (test code = 357) [facility] URINALYSIS W/O SPECIFIC [id number] 20:03:00 Test Item Value Reference Range Interpretation Comments POCT PH U (test code = 3254) 6 mg/dl 5-8 POCT U LEUK EST (test code = 1+ Negative - Negative 3263) POCT U NIT (test code = 3262) Neg Negative - Negative POCT U PROT (test code = 3259) Trace Negative - Negative POCT U GLU (test code = 3256) Neg Negative - Negative POCT U KETONE (test code = 3258) None Negative - Negative POCT U BLD (test code = 3257) Trace Negative - Negative [facility] [id number] 20:03:00 Test Item Value Reference Range Interpretation Comments POCT PREG (test code = 1605) Positive On board controls acceptable with C Yes Line (test code = 3574) POCT PREG LOT # (test code = 3575) POCT PREG TEST DATE (test code = 3576) [facility] URINALYSIS W/O SPECIFIC [id number] 20:03:00 Test Item Value Reference Range Interpretation Comments POCT PH U (test code = 3254) 6 mg/dl 5-8 POCT U LEUK EST (test code = 1+ Negative - Negative 3263) POCT U NIT (test code = 3262) Neg Negative - Negative POCT U PROT (test code = 3259) Trace Negative - Negative POCT U GLU (test code = 3256) Neg Negative - Negative POCT U KETONE (test code = 3258) None Negative - Negative POCT U BLD (test code = 3257) Trace Negative - Negative [facility] [id number] 20:03:00 Test Item Value Reference Range Interpretation Comments POCT PREG (test code = 1605) Positive On board controls acceptable with C Yes Line (test code = 3574) POCT PREG LOT # (test code = 3575) POCT PREG TEST DATE (test code = 3576) [facility] URINALYSIS W/O SPECIFIC [id number] 20:03:00 Test Item Value Reference Range Interpretation Comments POCT PH U (test code = 3254) 6 mg/dl 5-8 POCT U LEUK EST (test code = 1+ Negative - Negative 3) POCT U NIT (test code = 3262) Neg Negative - Negative POCT U PROT (test code = 3259) Trace Negative - Negative POCT U GLU (test code = 3256) Neg Negative - Negative POCT U KETONE (test code = 3258) None Negative - Negative POCT U BLD (test code = 3257) Trace Negative - Negative [facility] South[facility] and Screen - ONCE [id number] 09:49:00 Test Item Value Reference Range Interpretation Comments ABO & RH (test code = 20) A POSITIVE IAT (test code = 1185) Negative [facility]NC[facility] TEST, [id number] 08:41:48 Test Item Value Reference Range Interpretation Comments PREG SERUM (test code Positive = 6131249141) DOUGIE (test code = DOUGIE) Positive greater than or equal to 10 IU/L hCG. [facility] SouthTHYROID STIMULATING [id number] 08:32:59 Test Item Value Reference Range Interpretation Comments TSH (test code = 23.30 See_Comment H [Automated message] 4774529392) The system [employer] generated this result transmitted ref erence range: 0.45 - 4 .70 mIU/L. The refe rence range was not u sed to interpret this result as normal/abnor mal. Lab Interpretation (test Abnormal code = 79913-2) [facility] [id number] 08:19:00 Test Item Value Reference Range Interpretation Comments FREE T4 (test code = 0.62 See_Comment L [Autom ated message] 4935111469) The system [employer] generated this result transmitted ref erence range: 0.78 - 2 .20 ng/dL:. The ref erence range was not u sed to interpret this result as normal/abnor mal. Lab Interpretation (test Abnormal code = 14310-1) [facility]. METABOLIC PANEL (12480)2022-07-27 08:02:20 Test Item Value Reference Range Interpretation Comments NA (test code = 137 mmol/L 135-145 6077614578) K (test code = 4.3 mmol/L 3.5-5.0 9141345401) CL (test code = 105 mmol/L 98-108 2803264789) CO2 TOTAL (test code 24 mmol/L 23-31 = 7244004316) AGAP (test code = 8 2-16 0622146726) BUN (test code = 8 mg/dL 7-23 3850157591) GLUCOSE (test code = 92 mg/dL 70-110 2480428802) CREATININE (test code 0.65 mg/dL 0.50-1.04 = 5336275788) TOTAL BILI (test code 0.6 mg/dL 0.1-1.1 = 1197762882) CALCIUM (test code = 9.6 mg/dL 8.6-10.6 8163848797) T PROTEIN (test code 7.3 g/dL 6.3-8.2 = 7133517433) ALBUMIN (test code = 4.5 g/dL 3.5-5.0 7472938121) ALK PHOS (test code = 45 U/L 34-122 7380722405) ALTv (test code = 13 U/L 5-35 1742-6) AST(SGOT) (test code 21 U/L 13-40 = 0173335371) eGFR (test code = 115.1 mL/min/1.73m2 0881350674) DOUGIE (test code = DOUGIE) Association of [...] or urine or abnormalities in imaging tests). [facility] SouthLIPASE2023-03-10 08:02:20 Test Item Value Reference Range Interpretation Comments LIPASE (test code = 5806900756) 83 U/L 0-220 Lab Interpretation (test code = Normal 72385-3) [facility] SouthMAGNESIUM2023-03-10 08:02:20 Test Item Value Reference Range Interpretation Comments MAGNESIUM (test code = 0903305122) 2.0 mg/dL 1.7-2.4 Lab Interpretation (test code = Normal 97521-2) [facility] SouthACTIVATED PARTIAL THRMPLAS [id number] 07:54:36 Test Item Value Reference Range Interpretation Comments APTT Patient (test code = 31 See_Comment [ Automated message] 6303-2) The system [employer] generated this result transmitted ref erence range: 26 - 36 Seconds. The re ference range was not u sed to interpret this result as normal/abnor mal. Lab Interpretation (test Normal code = 44175-7) [facility] SouthPROTHROMBIN TIME / [id number] 07:54:36 Test Item Value Reference Range Interpretation Comments PROTIME PATIENT (test 11.8 See_Comment [Auto mated message] code = 5964-2) The system [facility] generated this result transmitted ref erence range: 10.1 - 1 2.6 Seconds. The re ference range was not u sed to interpret this result as normal/abnor mal. INR (test code = 6301-6) 1.1 Nor mal INR <1.1; Warfarin Therap eutic range 2.0 to 3. 0 or 2.5 to 3.5, dep ending upon the indica tions. Lab Interpretation (test Normal code = 18431-9) [facility] SouthFIBRINOGEN2023-03-10 07:54:36 Test Item Value Reference Range Interpretation Comments Fibrinogen (test code = 0913213317) 285 mg/dL 167-453 Lab Interpretation (test code = Normal 60106-9) [facility] WITH [id number] 07:50:39 Test Item Value Reference Range Interpretation Comments WBC (test code = 10.66 See_Comment [Automated message] 6690-2) The system [employer] generated this result transmitted ref erence range: 4.30 - 1 1.10 10*3/?L. The re ference range was not u sed to interpret this result as normal/abnor mal. RBC (test code = 4.18 See_Comment [Automated message] 789-8) The system [employer] generated this result transmitted ref erence range: 3.93 - 5 .25 10*6/?L. The re ference range was not u sed to interpret this result as normal/abnor mal. HGB (test code = 12.0 g/dL 11.6-15.0 718-7) HCT (test code = 36.5 % 35.7-45.2 4544-3) MCV (test code = 87.3 fL 80.6-95.5 787-2) MCH (test code = 28.7 pg 25.9-32.8 785-6) MCHC (test code = 32.9 g/dL 31.6-35.1 786-4) RDW-SD (test code 46.8 fL 39.0-49.9 = 14571-1) RDW-CV (test code 14.6 % 12.0-15.5 = 788-0) PLT (test code = 286 See_Comment [Automated message] 777-3) The system whic h generated this result transmitted ref erence range: 166 - 35 8 10*3/?L. The re ference range was not u sed to interpret this result as normal/abnor mal. MPV (test code = 10.5 fL 9.5-12.9 41792-7) NRBC/100 WBC (test 0.0 See_Comment [Automat ed message] code = 6315725080) The syste m which generated this result transmitted ref erence range: 0.0 - 10 .0 /100 WBCs. The refer ence range was not u sed to interpret this result as normal/abnor mal. NRBC x10^3 (test See_Comment [Automated message] code = 7035695137) The syste m which generated this result transmitted ref erence range: 10*3/?L. The reference range was not used to interpr et this result as normal/abnormal . GRAN MAT (NEUT) % 60.2 % (test code = 770-8) IMM GRAN % (test 0.40 % code = 0484975938) LYMPH % (test code 29.2 % = 736-9) MONO % (test code 8.4 % = 5905-5) EOS % (test code = 1.5 % 713-8) BASO % (test code 0.3 % = 706-2) GRAN MAT 6.42 10*3/uL 1.88-7.09 x10^3(ANC) (test code = 1788334204) IMM GRAN x10^3 0.04 10*3/uL 0.00-0.06 (test code = 3042637375) LYMPH x10^3 (test 3.11 10*3/uL 1.32-3.29 code = 731-0) MONO x10^3 (test 0.90 10*3/uL 0.33-0.92 code = 742-7) EOS x10^3 (test 0.16 10*3/uL 0.03-0.39 code = 711-2) BASO x10^3 (test 0.03 10*3/uL 0.01-0.07 code = 704-7) [facility] SouthPOCT [id number] 07:34:00 Test Item Value Reference Range Interpretation Comments POCT PREG (test code = 1605) POSITIVE On board controls acceptable with PRESENT C Line (test code = 3574) POCT PREG LOT # (test code = 3575) [id number] POCT PREG TEST DATE (test 10/18/2023 code = 3576) Lab Interpretation (test code = Normal 73528-4) [facility], THIRD [id number] 09:14:27 Test Item Value Reference Range Interpretation Comments TSH, THIRD 8.960 UIU/ML 0.400-4.100 H [facility] has im portant GENERATION (test pathology s taff code = 2821) changes effecti ve 07/18/2022. New pathology staff will provide uninter rupted, excellent patie nt care and clinical consultation. S ee URL: [email or web address]. UNLES S OTHERWISE INDIC ATED, ALL TESTING PER FORMED AT [facility] [employer] FORMERLY [facility], [facility]. [address] [place] [address] [address] BERNARD DIRECTOR: ROHITH MCCAIN M.D. CLIA NUMBER [id number] CAP ACCREDITATION N O. [id number] POCT [id number] 23:08:00 Test Item Value Reference Range Interpretation Comments POCT PREG (test code = 1605) negative On board controls acceptable with present C Line (test code = 3574) POCT PREG LOT # (test code = 3575) [id number] POCT PREG TEST DATE (test 2023-08-18 code = 3576) Lab Interpretation (test code = Normal 28135-6) [facility] SouthTHYROID STIMULATING [id number] 19:59:48 Test Item Value Reference Range Interpretation Comments TSH (test code = See_Comment [Automated message] 4374131937) The system [employer] generated this result transmitted ref erence range: 0.45 - 4 .70 mIU/L. The refe rence range was not u sed to interpret this result as normal/abnor mal. Lab Interpretation (test Normal code = 98004-7) [facility]. METABOLIC PANEL (27255)2022-03-15 19:29:21 Test Item Value Reference Range Interpretation Comments NA (test code = 137 mmol/L 135-145 8663079156) K (test code = 3.5 mmol/L 3.5-5.0 9392434230) CL (test code = 102 mmol/L 98-108 0597849615) CO2 TOTAL (test code = 21 mmol/L 23-31 L 1219988385) AGAP (test code = 2-16 8366595131) BUN (test code = 8 mg/dL 7-23 8351686738) GLUCOSE (test code = 95 mg/dL 70-110 9846245134) CREATININE (test code = 0.73 mg/dL 0.50-1.04 0384785440) TOTAL BILI (test code = 0.4 mg/dL 0.1-1.3 5937706175) CALCIUM (test code = 8.9 mg/dL 8.6-10.6 9379919505) T PROTEIN (test code = 7.4 g/dL 6.3-8.2 4141516516) ALBUMIN (test code = 4.6 g/dL 3.5-5.0 5239225088) ALK PHOS (test code = 62 U/L 34-122 7331482658) ALTv (test code = 13 U/L 5-35 1742-6) AST(SGOT) (test code = 22 U/L 13-40 3485769353) eGFR (test code = mL/min/1.73m2 8421622797) DOUGIE (test code = DOUGIE) Association of [...] tests). Lab Interpretation Abnormal (test code = 45379-9) [facility]-[id number] 19:24:21 Test Item Value Reference Interpretation Comments Range D-DIMER (test code = See_Comment H [Autom ated 1338242900) message] The system which generated this result [...] diagnosis. Lab Interpretation Abnormal (test code = 49940-2) [facility] WITH [id number] 19:10:18 Test Item Value Reference Range Interpretation Comments WBC (test code = See_Comment L [Automated 6690-2) message] The [employer] stem which generated this result transmitted reference [...] RDW-SD (test code = 44.6 fL 39.0-49.9 53299-0) RDW-CV (test code = 14.4 % 12.0-15.5 788-0) PLT (test code = See_Comment [Automated 777-3) message] The sy stem which generated this result transmitted reference range : 166 - 358 10*3/ ?L. The reference r madisyn was not used to interpret this result as normal/abnormal . MPV (test code = 11.3 fL 9.5-12.9 49800-5) NRBC/100 WBC (test See_Comment [Automat ed code = 4520513893) message] The system which generated this result transmitted reference range : 0.0 - 10.0 /100 WBCs. The refer ence range was not u sed to interpret th is result as normal/abnormal . NRBC x10^3 (test code See_Comment [Auto mated = 0472088572) message] The s ystem which generated this result transmitted reference range : 10*3/?L. The reference range was not used to interpret this result as normal/abnormal . GRAN MAT (NEUT) % 61.5 % (test code = 770-8) IMM GRAN % (test code 0.50 % = 6132646064) LYMPH % (test code = 18.4 % 736-9) MONO % (test code = 19.4 % 5905-5) EOS % (test code = 0.0 % 713-8) BASO % (test code = 0.2 % 706-2) GRAN MAT x10^3(ANC) 2.48 10*3/uL 1.88-7.09 (test code = 7711530115) IMM GRAN x10^3 (test 0.00-0.06 code = 8283405631) LYMPH x10^3 (test code 0.74 10*3/uL 1.32-3.29 L = 731-0) MONO x10^3 (test code 0.78 10*3/uL 0.33-0.92 = 742-7) EOS x10^3 (test code = 0.03-0.39 L 711-2) BASO x10^3 (test code 0.01-0.07 = 704-7) Lab Interpretation Abnormal (test code = 30641-4) [facility] [id number] 17:51:00 Test Item Value Reference Range Interpretation Comments POCT PREG (test code = 1605) negative On board controls acceptable with present C Line (test code = 3574) POCT PREG LOT # (test code = 3575) [id number] POCT PREG TEST DATE (test code = 3576) Lab Interpretation (test code = Normal 84781-8) [facility] [id number] 21:24:03 Test Item Value Reference Interpretation Comments Range TROPONIN I (test 0.002 ng/mL See_Comment [Automated code = 6130271123) message] The system which generated this result [...] biotin. Lab Interpretation Normal (test code = 58419-0) [facility] METABOLIC PANEL (NA, K, CL, CO2, GLUCOSE, BUN, CREATININE, CA)2022-02-24 21:14:05 Test Item Value Reference Range Interpretation Comments NA (test code = 142 mmol/L 135-145 9665405635) K (test code = 4.0 mmol/L 3.5-5 2171091955) CL (test code = 102 mmol/L 98-108 6839723306) CO2 TOTAL (test code = 24 mmol/L 23-31 0697937096) AGAP (test code = 2-16 9826511198) BUN (test code = 5 mg/dL 7-23 L 1430811489) GLUCOSE (test code = 89 mg/dL 70-110 1784552436) CREATININE (test code = 0.64 mg/dL 0.5-1.04 3862645528) CALCIUM (test code = 10.0 mg/dL 8.6-10.6 7143254252) eGFR (test code = mL/min/1.73m2 4308292458) DOUGIE (test code = DOUGIE) Association of [...] tests). Lab Interpretation Abnormal (test code = 48011-2) [facility] WITH [id number] 20:55:45 Test Item Value Reference Range Interpretation [...] RDW-SD (test code = 44.6 fL 39-49.9 01361-6) RDW-CV (test code = 14.1 % 12-15.5 788-0) PLT (test code = See_Comment [Automated 777-3) message] The sy stem which generated this result transmitted reference range : 166 - 358 10*3/ ?L. The reference r madisyn was not used to interpret this result as normal/abnormal . MPV (test code = 11.2 fL 9.5-12.9 25897-9) NRBC/100 WBC (test See_Comment [Automat ed code = 9421792229) message] The system which generated this result transmitted reference range : 0.0 - 10.0 /100 WBCs. The refer ence range was not u sed to interpret th is result as normal/abnormal . NRBC x10^3 (test code See_Comment [Auto mated = 8954180544) message] The s ystem which generated this result transmitted reference range : 10*3/?L. The reference range was not used to interpret this result as normal/abnormal . GRAN MAT (NEUT) % 66.6 % (test code = 770-8) IMM GRAN % (test code 0.50 % = 1679001874) LYMPH % (test code = 20.8 % 736-9) MONO % (test code = 9.7 % 5905-5) EOS % (test code = 1.9 % 713-8) BASO % (test code = 0.5 % 706-2) GRAN MAT x10^3(ANC) 7.00 10*3/uL 1.88-7.09 (test code = 8988240628) IMM GRAN x10^3 (test 0.05 10*3/uL 0-0.06 code = 9787784807) LYMPH x10^3 (test code 2.18 10*3/uL 1.32-3.29 = 731-0) MONO x10^3 (test code 1.02 10*3/uL 0.33-0.92 H = 742-7) EOS x10^3 (test code = 0.20 10*3/uL 0.03-0.39 711-2) BASO x10^3 (test code 0.05 10*3/uL 0.01-0.07 = 704-7) Lab Interpretation Abnormal (test code = 64174-8) [facility] SouthSEDIMENTATION [id number] 20:34:21 Test Item Value Reference Range Interpretation Comments ESR (test code = 96851-9) See_Comment [ Automated message] The system [employer] h generated this result transmitted ref erence range: 0 - 20 m m/HR. The reference r madisyn was not used to interpret this result as normal/abnor mal. Lab Interpretation (test Normal code = 29673-2) [facility] SouthTHYROID STIMULATING [id number] 20:26:23 Test Item Value Reference Range Interpretation Comments TSH (test code = See_Comment [Automated message] 9875735697) The system [employer] generated this result transmitted ref erence range: 0.45 - 4 .70 mIU/L. The refe rence range was not u sed to interpret this result as normal/abnor mal. Lab Interpretation (test Normal code = 98748-5) [facility]. METABOLIC PANEL (48053)2022-02-05 19:56:22 Test Item Value Reference Range Interpretation Comments NA (test code = 140 mmol/L 135-145 0901723817) K (test code = 4.4 mmol/L 3.5-5 3520204626) CL (test code = 107 mmol/L 98-108 3032786780) CO2 TOTAL (test code 25 mmol/L 23-31 = 8301826003) AGAP (test code = 2-16 0759369484) BUN (test code = 13 mg/dL 7-23 5593829261) GLUCOSE (test code = 80 mg/dL 70-110 8950205911) CREATININE (test code 0.74 mg/dL 0.5-1.04 = 2133351160) TOTAL BILI (test code 0.2 mg/dL 0.1-1.1 = 7557569471) CALCIUM (test code = 9.9 mg/dL 8.6-10.6 6309767742) T PROTEIN (test code 7.1 g/dL 6.3-8.2 = 0319368161) ALBUMIN (test code = 4.6 g/dL 3.5-5 4464765738) ALK PHOS (test code = 58 U/L 34-122 0014543411) ALTv (test code = 14 U/L 5-35 1742-6) AST(SGOT) (test code 17 U/L 13-40 = 3518687399) eGFR (test code = mL/min/1.73m2 1690273258) DOUGIE (test code = DOUGIE) Association of [...] or urine or abnormalities in imaging tests). [facility] WITH [id number] 19:48:21 Test Item Value Reference Range Interpretation Comments WBC (test code = See_Comment [Automated 9690-2) message] The sy stem which generated this result transmitted reference range : 4.30 - 11.10 10*3/?L. The reference range was not used to interpret this result as normal/abnormal . RBC (test code = See_Comment [Automated 460-8) message] The sy stem which generated this [...] RDW-SD (test code = 44.7 fL 39-49.9 92082-5) RDW-CV (test code = 14.3 % 12-15.5 788-0) PLT (test code = See_Comment [Automated 777-3) message] The sy stem which generated this result transmitted reference range : 166 - 358 10*3/ ?L. The reference r madisyn was not used to interpret this result as normal/abnormal . MPV (test code = 10.8 fL 9.5-12.9 00222-8) NRBC/100 WBC (test See_Comment [Automat ed code = 6587480392) message] The system which generated this result transmitted reference range : 0.0 - 10.0 /100 WBCs. The refer ence range was not u sed to interpret th is result as normal/abnormal . NRBC x10^3 (test code See_Comment [Auto mated = 5514878345) message] The s ystem which generated this result transmitted reference range : 10*3/?L. The reference range was not used to interpret this result as normal/abnormal . GRAN MAT (NEUT) % 60.6 % (test code = 770-8) IMM GRAN % (test code 0.60 % = 5045070705) LYMPH % (test code = 27.7 % 736-9) MONO % (test code = 9.3 % 5905-5) EOS % (test code = 1.4 % 713-8) BASO % (test code = 0.4 % 706-2) GRAN MAT x10^3(ANC) 6.71 10*3/uL 1.88-7.09 (test code = 0965657342) IMM GRAN x10^3 (test 0.07 10*3/uL 0-0.06 H code = 9696135006) LYMPH x10^3 (test code 3.07 10*3/uL 1.32-3.29 = 731-0) MONO x10^3 (test code 1.03 10*3/uL 0.33-0.92 H = 742-7) EOS x10^3 (test code = 0.15 10*3/uL 0.03-0.39 711-2) BASO x10^3 (test code 0.04 10*3/uL 0.01-0.07 = 704-7) Lab Interpretation Abnormal (test code = 51412-0) [facility] [id number] 18:06:00 Test Item Value Reference Range Interpretation Comments POCT PREG (test code = 1605) Negative On board controls acceptable with Present C Line (test code = 3574) POCT PREG LOT # (test code = 3575) [id number] POCT PREG TEST DATE (test 02/16/2023 code = 3576) Lab Interpretation (test code = Normal 89195-5) [facility]OVID[facility] (ID NOW RAPID TESTING)2021-01-08 07:00:17 Test Item Value Reference Range Interpretation Comments SARS-CoV-2 Rapid ID NOW Not Detected Not Detected (test code = 48672-0) DOUGIE (test code = DOUGIE) ID NOW COVID-19 Assay is an isothermal nucleic acid amplification test intended for the qualitative detection of nucleic acid from SARS-CoV-2 viral RNA in nasopharyngeal (HOSE TENDER) specimens. It is used under Emergency Use [...] indicated. Lab Interpretation Normal (test code = 43422-7) [facility] STREP SCREEN FOR GROUP [id number] 04:21:38 Test Item Value Reference Range Interpretation Comments Streptococcus pyogenes (group A) Negative Negative antigen (test code = 55055-4) Lab Interpretation (test code = Normal 44375-1) [facility] SouthTROPONIN [id number] 22:15:09 Test Item Value Reference Range Interpretation Comments TROPONIN I (test 0.008 ng/mL See_Comment [Automated code = 4663846342) message] The system which generated this result [...] ? Lab Interpretation Normal (test code = 72263-7) [facility] SouthTHYROID STIMULATING [id number] 20:00:11 Test Item Value Reference Range Interpretation Comments TSH (test code = See_Comment H Biotin has been 6996482426) reported to cau se a negative bias, interpret resul ts relative to pat almaz's use of biotin. [Automated mess age] The system [employer] generated this result transmitted ref erence range: 0.45 - 4 .70 mIU/L. The refe rence range was not u sed to interpret this result as normal/abnor mal. Lab Interpretation (test Abnormal code = 85774-3) [facility] SouthTroponin [id number] 19:42:06 Test Item Value Reference Range Interpretation Comments TROPONIN I (test 0.001 ng/mL See_Comment [Automated code = 8350895615) message] The system which generated this result [...] ? Lab Interpretation Normal (test code = 25933-7) [facility] (NA, K, CL, CO2, GLUCOSE, BUN, CREATININE, CA)2020-08-24 19:31:00 Test Item Value Reference Range Interpretation Comments NA (test code = 140 mmol/L 135-145 0932393295) K (test code = 3.9 mmol/L 3.5-5.0 0134157013) CL (test code = 104 mmol/L 98-108 0849484675) CO2 TOTAL (test code 27 mmol/L 23-31 = 7634238713) AGAP (test code = 2-16 0665255507) BUN (test code = 10 mg/dL 7-23 4179171348) GLUCOSE (test code = 88 mg/dL 70-110 0379689130) CREATININE (test code 0.70 mg/dL 0.50-1.04 = 3278176575) CALCIUM (test code = 9.6 mg/dL 8.6-10.6 5456638815) eGFR (test code = mL/min/1.73m2 3553090642) DOUGIE (test code = DOUGIE) Association of [...] or urine or abnormalities in imaging tests). [facility] SouthHep[facility] Function Panel (ALB, T.PRO, BILI T, BU/BC, ALT, AST, ALK PHOS)2020-08-24 19:30:43 Test Item Value Reference Range Interpretation Comments TOTAL BILI (test code = 3939375255) 0.5 mg/dL 0.1-1.1 BILI UNCON (test code = 8683596907) 0.5 mg/dL 0.1-1.1 BILI CONJ (test code = 5211588300) 0.0 mg/dL 0.0-0.3 T PROTEIN (test code = 3464117512) 7.5 g/dL 6.3-8.2 ALBUMIN (test code = 6184513894) 4.6 g/dL 3.5-5.0 ALK PHOS (test code = 0280017778) 63 U/L 34-122 ALTv (test code = 1742-6) 14 U/L 5-35 AST(SGOT) (test code = 2114688212) 24 U/L 13-40 Lab Interpretation (test code = Normal 70037-5) [facility] SouthLipase [id number] 19:30:38 Test Item Value Reference Range Interpretation Comments LIPASE (test code = 0248007224) 87 U/L 0-220 Lab Interpretation (test code = Normal 42200-2) [facility] SouthAD / [facility] - DRUG SCREEN [id number] 19:26:51 Test Item Value Reference Range Interpretation Comments BENZO U (test code = Negative Negative 5945626886) TIFFANI U (test code = Negative Negative 9684801322) AMPHET (test code = Negative Negative 4975712652) THC (test code = Presumptive Negative A Confirmatio n of 6588400251) Positive Presumptive Positive THC result requires physician order . METHADONE (test code Negative Negative = 1733239902) Meth U (test code = Negative Negative 5986463154) OPIATES (test code = Negative Negative 9172664688) Cocaine Metabolite Negative Negative (test code = 4483076315) PROPOXY (test code = Negative Negative 3427305500) Tric U (test code = Negative Negative 4303426328) PCP (test code = Negative Negative 7178716047) OXYCOD (test code = Negative Negative 1838344080) DOUGIE (test code = Urine Drug Cutoff [...] testing). Lab Interpretation Abnormal (test code = 44623-1) [facility]COVID[facility] (ID NOW RAPID TESTING)2020-08-24 19:16:35 Test Item Value Reference Range Interpretation Comments SARS-CoV-2 Rapid ID NOW Not Detected Not Detected (test code = 53024-6) DOUGIE (test code = DOUGIE) ID NOW COVID-19 Assay is an isothermal nucleic acid amplification test intended for the qualitative detection of nucleic acid from SARS-CoV-2 viral RNA in nasopharyngeal (HOSE TENDER) specimens. It is used under Emergency Use [...] indicated. Lab Interpretation Normal (test code = 77254-2) [facility] SouthaPTT2021-04-07 19:09:56 Test Item Value Reference Range Interpretation Comments APTT Patient (test See_Comment [Automat ed code = 3173-2) message] The system which generated this result transmitted reference range : 23 - 38 Seconds . The reference range was not used to interpr et this result as normal/abnormal . DOUGIE (test code = DOUGIE) The [facility] patient population mean normal value for aPTT is 30 seconds. Lab Interpretation Normal (test code = 79341-5) [facility] SouthProthrombin Time (PT) / [id number] 19:07:55 Test Item Value Reference Range Interpretation Comments PROTIME PATIENT (test See_Comment [Auto mated message] code = 5964-2) The system wh ich generated this result transmitted ref erence range: 12.0 - 1 4.7 Seconds. The re ference range was not u sed to interpret this result as normal/abnor mal. INR (test code = 6301-6) Nor mal INR <1.1; Warfarin Therap eutic range 2.0 to 3. 0 or 2.5 to 3.5, dep ending upon the indica tions. Lab Interpretation (test Normal code = 97630-1) [facility] SouthCBC with [id number] 18:58:52 Test Item Value Reference Range Interpretation Comments WBC (test code = See_Comment [Automated message] 6690-2) The system [employer] generated this result transmitted ref erence range: 4.30 - 1 1.10 10*3/?L. The re ference range was not u sed to interpret this result as normal/abnor mal. RBC (test code = See_Comment [Automated message] 789-8) The system [employer] generated this result transmitted ref erence range: [...] RDW-SD (test code 44.4 fL 39.0-49.9 = 67012-4) RDW-CV (test code 13.8 % 12.0-15.5 = 788-0) PLT (test code = See_Comment [Automated message] 777-3) The system [employer] generated this result transmitted ref erence range: 166 - 35 8 10*3/?L. The re ference range was not u sed to interpret this result as normal/abnor mal. MPV (test code = 11.2 fL 9.5-12.9 29040-1) NRBC/100 WBC (test See_Comment [Automat ed message] code = 1886294171) The syste [employer] which generated this result transmitted ref erence range: 0.0 - 10 .0 /100 WBCs. The refer ence range was not u sed to interpret this result as normal/abnor mal. NRBC x10^3 (test <0.01 See_Comment [Automated message] code = 4597605504) The syste m which generated this result transmitted ref erence range: 10*3/?L. The reference range was not used to interpr et this result as normal/abnormal . GRAN MAT (NEUT) % 59.9 % (test code = 770-8) IMM GRAN % (test 0.40 % code = 7304538519) LYMPH % (test code 28.2 % = 736-9) MONO % (test code 10.0 % = 5905-5) EOS % (test code = 1.1 % 713-8) BASO % (test code 0.4 % = 706-2) GRAN MAT 4.26 10*3/uL 1.88-7.09 x10^3(ANC) (test code = 1762708692) IMM GRAN x10^3 0.03 10*3/uL 0.00-0.06 (test code = 1883672963) LYMPH x10^3 (test 2.01 10*3/uL 1.32-3.29 code = 731-0) MONO x10^3 (test 0.71 10*3/uL 0.33-0.92 code = 742-7) EOS x10^3 (test 0.08 10*3/uL 0.03-0.39 code = 711-2) BASO x10^3 (test 0.03 10*3/uL 0.01-0.07 code = 704-7) [facility] 1 [id number] 18:54:33HISTORY: Chest pain. TECHNIQUE: 2 Portable AP [...] limits. CONCLUSIONS: No signs of acute cardiopulmonary disease.[facility] [id number] 18:26:00 Test Item Value Reference Range Interpretation Comments POCT PREG (test code = 1605) Neg On board controls acceptable with Present C Line (test code = 3574) POCT PREG LOT # (test code = 3575) [id number] POCT PREG TEST DATE (test 2022-01-17 code = 3576) Lab Interpretation (test code = Normal 68671-7) [facility] SouthPOTN [id number] 20:20:00 Test Item Value Reference Range Interpretation Comments POCT PREG (test code = 1605) Negative On board controls acceptable with C Yes Line (test code = 3574) POCT PREG LOT # (test code = 3575) POCT PREG TEST DATE (test code = 3576) [facility] SouthPOTN [id number] 20:20:00 Test Item Value Reference Range Interpretation Comments POCT PREG (test code = 1605) Negative On board controls acceptable with C Yes Line (test code = 3574) POCT PREG LOT # (test code = 3575) POCT PREG TEST DATE (test code = 3576) [facility]
--- NOTE | 2022-10-10 20:48 | RAD REPORT ---
EXAM DESCRIPTION: RAD - Tib Fib Right - 10/10/2022 8:26 pm CLINICAL HISTORY: Right leg pain FINDINGS: No fracture is seen
--- NOTE | 2022-10-10 21:29 | RAD REPORT ---
EXAM DESCRIPTION: USExtconstantine Venous Uni Ltd10/10/2022 8:52 pm CLINICAL HISTORY: Right leg pain and swelling. COMPARISON: None. FINDINGS: Right common femoral, superficial femoral, greater saphenous, popliteal and right posterio r tibial veins are compressible and demonstrate augmentation. Doppler demonstrates good flow. 2 centimeter hematoma lower right leg Grayscale, color and spectral analysis performed on all vessels IMPRESSION: No evidence of deep venous thrombosis involving the right lower extremity.
--- NOTE | 2022-10-10 21:41 | ER ---
Nurse's Notes [facility] Name: Akanksha Barragan Age: 22 yrs Sex: Female : 2000 Arrival Date: 10/10/2022 Time: 19:25 Bed 12 Private MD: Diagnosis: Contusion of right lower leg Presentation: 10/10 19:37 Chief complaint: Patient states: 14 ft trailer fell onto Right ankle x 1 week. Pt vg1 states numbness to Right wilkerson. Coronavirus screen: Vaccine status: Patient reports being unvaccinated. Client denies travel out of the [place] in the last 14 days. Ebola Screen: Patient negative for fever greater than or equal to 101.5 degrees Fahrenheit, and additional compatible Ebola Virus Disease symptoms Patient denies exposure to infectious person. Patient denies travel to an Ebola-affected area in the 21 days before illness onset. Initial Sepsis Screen: Does the patient meet any 2 criteria? No. Patient's initial sepsis screen is negative. Does the patient have a suspected source of infection? No. Patient's initial sepsis screen is negative. Risk Assessment: Do you want to hurt yourself or someone else? Patient reports no desire to harm self or others. Onset of symptoms was October 03, 2022. 19:37 Method Of Arrival: Ambulatory vg1 19:37 Acuity: NATHAN 4 vg1 Triage Assessment: 19:41 General: Appears in no apparent distress. uncomfortable, Behavior is calm, cooperative. vg1 Pain: Complains of pain in right leg Pain currently is 9 out of 10 on a pain scale. Musculoskeletal: Swelling present in right leg Reports numbness in right leg. 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 - Social history:: Smoking status: Patient denies any tobacco usage or history of. Screenin:46 [facility] ED Fall Risk Assessment (Adult) History of falling in the last 3 months, mb9 including since admission Yes- single mechanical fall (1 pt) Confusion or Disorientation No (0 pts) Intoxicated or Sedated No (0 pts) Impaired Gait No (0 pts) Mobility Assist Device Used No (0 pt) Altered Elimination No (0 pt) Score/Fall Risk Level 0 - 2 = Low Risk Oriented to surroundings, Maintained a safe environment, Educated pt \T\ family on fall prevention, incl call for assistance when getting out of bed. Abuse screen: Denies threats or abuse. Nutritional screening: No deficits noted. Tuberculosis screening: No symptoms or risk factors identified. Assessment: 19:45 Reassessment: see triage assessment. mb9 21:01 Reassessment: No changes from previously documented assessment. Patient and/or family mb9 updated on plan of care and expected duration. Pain level reassessed. Patient is alert, oriented x 3, equal unlabored respirations, skin warm/dry/pink. Vital Signs: 19:37 BP 129 / 83; Pulse 90; Resp 14; Temp 98.6; Pulse Ox 99% ; Weight 77.11 kg; Height 5 ft. vg1 2 in. ; Pain 9/10; 19:37 Body Mass Index 31.09 (77.11 kg, 157.48 cm) vg1 19:37 Pain Scale: Adult vg1 ED Course: 19:28 Patient arrived in ED. ag3 19:33 Samantha Zepeda FNP-C is [facility] kb 19:33 Jelani Springer MD is Attending Physician. kb 19:41 Triage completed. vg1 19:41 Arm band placed on. mb9 19:45 Jil Headley, LUIS ALBERTO is Primary Nurse. mb9 19:47 Placed in gown. Bed in low position. Call light in reach. Side rails up X 1. Client mb9 placed on continuous cardiac and pulse oximetry monitoring. NIBP monitoring applied. 19:47 No provider procedures requiring assistance completed. Patient did not have IV access mb9 during this emergency room visit. 20:28 Tib Fib Right XRAY In Process Unspecified. EDMS 20:53 US Extremity Venous Unilateral Ltd In Process Unspecified. EDMS Administered Medications: No medications were administered Medication: 19:45 VIS not applicable for this client. mb9 Outcome: 21:40 Discharge ordered by . kb 21:58 Discharged to home ambulatory. mb9 21:58 Condition: stable 21:58 Discharge instructions given to patient, Instructed on discharge instructions, follow up and referral plans. Demonstrated understanding of instructions, follow-up care. 21:58 Patient left the ED. mb9 Signatures: Dispatcher [employer] EDSamantha Hardin, OFFICE BOOKKEEPER-C OFFICE BOOKKEEPER-Carolee Patrick3 Mariela Zapata, RN RN vg1 Jil Headley RN RN mb9
--- NOTE | 2022-10-10 21:41 | EDPHYS ---
Physician Documentation [facility] Name: Akanksha Barragan Age: 22 yrs Sex: Female : 2000 Arrival Date: 10/10/2022 Time: 19:25 Bed 12 Private MD: ED Physician Jelani Springer HPI: 10/10 23:23 This 22 yrs old Female presents to ER via Ambulatory with complaints of Leg Pain, Ankle kb Swelling. 23:23 The patient presents with a contusion, pain, swelling, tenderness. The complaints kb affect the anterior aspect of right ankle and dorsum of right foot and right wilkerson. Context: The problem was sustained outdoors, resulted from a direct blow, the patient can fully bear weight, the patient is able to ambulate. Onset: The symptoms/episode began/occurred 1 week(s) ago. Modifying factors: The symptoms are alleviated by nothing. the symptoms are aggravated by nothing. Associated signs and symptoms: Pertinent positives: swelling. Treatment prior to arrival includes: no previous treatment. Severity of symptoms: At their worst the symptoms were moderate, in the emergency department the symptoms are unchanged. The patient has not experienced similar symptoms in the past. The patient has not recently seen a physician. Pt reports a trailer fell onto her right lower leg a week ago and she still has bruising and swelling so she wanted to make sure everything was ok. . 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 - Social history:: Smoking status: Patient denies any tobacco usage or history of. ROS: 23:22 Constitutional: Negative for fever, chills, and weight loss. kb 23:22 MS/extremity: Positive for contusion, pain, swelling, tenderness, of the right wilkerson, anterior aspect of right ankle and dorsum of right foot. 23:22 All other systems are negative. Exam: 23:22 Constitutional: This is a well developed, well nourished patient who is awake, alert, kb and in no acute distress. Head/Face: Normocephalic, atraumatic. ENT: Moist Mucous membranes Cardiovascular: Regular rate and rhythm with a normal S1 and S2. No gallops, murmurs, or rubs. No pulse deficits. Respiratory: Respirations even and unlabored. No increased work of breathing. Talking in full sentences MS/ Extremity: Pulses equal, no cyanosis. Neurovascular intact. Full, normal range of motion. Neuro: Awake and alert, GCS 15, oriented to person, place, time, and situation. Moves all extremities. Normal gait. 23:22 Skin: injury, contusion(s), that are superficial, of the anterior aspect of right ankle and dorsum of right foot and right wilkerson. Vital Signs: 19:37 BP 129 / 83; Pulse 90; Resp 14; Temp 98.6; Pulse Ox 99% ; Weight 77.11 kg; Height 5 ft. vg1 2 in. ; Pain 9/10; 19:37 Body Mass Index 31.09 (77.11 kg, 157.48 cm) vg1 19:37 Pain Scale: Adult vg1 MDM: 19:34 Patient medically screened. kb 23:23 Differential diagnosis: closed fracture, contusion. Data reviewed: vital signs, nurses kb notes. Counseling: I had a detailed discussion with the patient and/or guardian regarding: the historical points, exam findings, and any diagnostic results supporting the discharge/admit diagnosis, radiology results, the need for outpatient follow up, a family practitioner, to return to the emergency department if symptoms worsen or persist or if there are any questions or concerns that arise at home. 10/10 19:38 Order name: Tib Fib Right XRAY; Complete Time: 20:50 kb 10/10 19:38 Order name: US Extremity Venous Unilateral Ltd; Complete Time: 21:37 kb Administered Medications: No medications were administered Disposition Summary: 10/10/22 21:40 Discharge Ordered Location: Home Condition: Stable kb Diagnosis - Contusion of right lower leg kb Followup: kb - With: Private Physician - When: 2 - 3 days - Reason: Recheck today's complaints, Continuance of care, Re-evaluation by your physician Followup: kb - With: Emergency Department - When: As needed - Reason: Worsening of condition Discharge Instructions: - Discharge Summary Sheet kb - Contusion, [id number] kb Forms: - Medication Reconciliation Form kb - Thank You Letter kb - Antibiotic Education kb - Prescription Opioid Use kb Signatures: Dispatcher [employer] EDSamantha Hardin FNP-Mariela Lemus, RN RN vg1 Corrections: (The following items were deleted from the chart) 20:52 19:38 Ankle Right 3 View+RAD.RAD.BRZ ordered. EDMS EDMS
[2022-10-10 22:41] VITALS: BP 129/83; TEMP 98.6; O2SAT 99
== END 2022-10-10 21:58 | disposition home or self-care (01) ==
LOC: ER 19:25
DX: S80.11XA Contusion of right lower leg, initial encounter (principal); E03.9 Hypothyroidism, unspecified; Z88.1 Allergy status to other antibiotic agents; Z88.8 Allergy status to other drugs, medicaments and biological substances; Z91.013 Allergy to seafood; Z91.040 Latex allergy status; Z91.048 Other nonmedicinal substance allergy status
CPT/HCPCS: 93971

== ENCOUNTER 2022-11-08 16:26 | Emergency (ER) | payer OTHER ==
--- OUTSIDE RECORDS SUMMARY | 2022-11-08 16:37 | XMS REPORT | Continuity of Care Document ---
:2000 Author Organization [facility] t Address [address] [address] [place] [address] Care Team Providers Name Role Phone Quin West Primary Care Physician ADAM WALTERS Attending Clinician Unavailable Elio Farnsworth Attending Clinician [phone], [facility] Room Attending Clinician Unavailable Mariela Ayon MD Attending Clinician [phone] MARIELA AOYN Attending Clinician Unavailable Sabino Cobos Attending Clinician ELIO CASTILLO Attending Clinician Unavailable Lora Anthony Attending Clinician Unavailable MYRNA MACIEL Attending Clinician Unavailable Risk, Ont-Wiwpb-Ds/High Attending Clinician Unavailable Myrna Estrada Attending Clinician Doctor Unassigned, [place] Attending Clinician Unavailable DAVID DO Attending Clinician Unavailable David Do MD Attending Clinician Ultrasound, Ang-Mfm Attending Clinician Unavailable Lab, Ang-Rmchp Attending Clinician Unavailable Filipe SAHU, Vickie Attending Clinician Unavailable RONAL GOODMAN Attending Clinician [...] Number Effective Date Expiration Date Mark daigle [place] [facility] [id number] 2022 00:00:00 MEDICAID OF [place] [id number] 2022 00:00:00 Problems Condition Condition Condition Status Onset Resolution Last Treating Co mments Source Name Details Category Date Date Treatment Clinician Date Low-lying Low-lying Disease Active Overview: Univers placenta placenta 6-21 Formatt[place] ity of 00:00: g of this [place] [address] note Medical might be Branch different from the original. FU for low lying placenta is recommend ed History of History of Disease Active U nivers miscarriag miscarriag 3-22 it y of e e 00:00: [place] [address] Medical Branch Supervisio Supervisio Disease Active U nathalie n of n of 3-22 ity of high-risk high-risk 00:00: [place] c[place] 00 [facility] Nexplanon Nexplanon Disease Active Uni vers in place in place 2-01 ity of 00:00: [place] [address] Medical Branch Encounter Encounter Disease Active Uni vers for for 1-30 it[place] of contracept [place]pt [place] isabella isabella 00 Medical management management Br anch , , unspecifie unspecifie d type d type Nexplanon Nexplanon Disease Active Uni vers removal removal 1-30 ity of 00:00: [place] [facility] Obesity in Obesity in Disease Active U nivers 1-30 ity of 00:00: [place] [address] Medical Branch BMI BMI Disease Active Univers 30.0-30.9, 30.0-30.9, 1-30 it y of adult adult 00:00: [place] [facility] 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 in dism in 7-20 ity of 00:00: [place] c[place] [facility] 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, dism, 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, acquired, 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 00 Ma dical Branch Family Family Disease Active Univers history of history of 7-19 it y of thyroid thyroid 00:00: [place] disease in disease in 00 Ma dical father father Branch Allergies, Adverse Reactions, Alerts Allergy Allergy Status Severity Reaction(s) Onset Inactive Treating Comm ents Source Name Type Date Date Clinician IODINE DRUG Active High Anaphylaxis Unive rs INGREDI 9-10 ity of 00:00: [place] [facility] LATEX DRUG Active Rash 2017- Univers INGREDI 9-10 ity of 00:00: [place] [facility] Iodine Propensi Active Anaphylaxis Uni vers ty to 9-10 ity of adverse 00:00: [place] reaction 00 [facility] s Branch Latex Propensi Active Rash 2018-0 Univers ty to 9-10 ity of adverse 00:00: [place] reaction 00 [facility] s Branch PROMETHA DRUG Active Hives Univers ZINE HCL INGREDI 5-17 ity of 00:00: [place] 00 Medical Branch SULFA Drug Active Hives Univers (SULFONA Class 5-17 ity of MIDE 00:00: [place] ANTIBIOT 00 Medical ICS) Branch Sulfa Propensi Active Hives 2017- Univers (Sulfona ty to 5-17 ity of mide adverse 00:00: [place] Antibiot reaction 00 Medica l ics) s Branch Prometha Propensi Active Hives 2017-0 Univer s zine Hcl ty to 5-17 ity of adverse 00:00: [place] reaction 00 Medical s Branch Sulfa Propensi Active Hives Univers (Sulfona ty to 5-17 ity of mide adverse 00:00: [place] Antibiot reaction 00 Medica l ics) s Branch SHELLFIS DRUG Active Hives 2017-0 Univers H INGREDI 4-03 ity of DERIVED 00:00: [place] 00 Medical Branch SHRIMP DRUG Active Hives 2017-0 Univers INGREDI 4-03 ity of 00:00: [place] [...] Stop Date Quantity Comments Source ASSERTION 2022-07-07 University 00:00:00 [facility] Alcohol intake 2022-10-05 2022-10-05 Current [facility] 00:00:00 00:00:00 non-drinker of [facility] alcohol (finding) [place] Exposure to 2022-09-24 2022-10-04 Not sure [facility] SARS-CoV-2 00:00:00 08:30:00 [facility] (event) [place] Tobacco use and 2022-02-22 2022-02-22 Smokeless tobacco Un iversity of exposure 00:00:00 00:00:00 non-user [facility] Sex Assigned At 2000 2000 Universit y of 00:00:00 00:00:00 [facility] Smoking Status Start Date Stop Date Source Never smoked tobacco [facility] Medications Ordered Filled Start Stop Current Ordering Indication Dosage Frequency Signature Comments Components Source Medication Medication Date Date Medication? Clinician (SIG) Name Name loratadine 2022- Yes [id number] 10mg Take 1 Univers (CLARITIN) 5-18 08-17 tablet by ity of 10 mg 00:00: 04:59 mouth in [place] tablet 00 :00 the Medical morning Branch for 90 days. loratadine 2022- Yes [id number] 10mg Take 1 Univers (CLARITIN) 5-18 08-17 tablet by ity of 10 mg 00:00: 04:59 mouth in [place] tablet 00 :00 the Medical morning Branch for 90 days. loratadine 2022- Yes [id number] 10mg Take 1 Univers (CLARITIN) 5-18 08-17 tablet by ity of 10 mg 00:00: 04:59 mouth in [place] tablet 00 :00 the Medical morning Branch for 90 days. loratadine 2022- Yes [id number] 10mg Take 1 Univers (CLARITIN) 5-18 08-17 tablet by ity of 10 mg 00:00: 04:59 mouth in [place] tablet 00 :00 the Medical morning Branch for 90 days. loratadine 2022- Yes [id number] 10mg Take 1 Univers (CLARITIN) 5-18 08-17 tablet by ity of 10 mg 00:00: 04:59 mouth in [place] tablet 00 :00 the Medical morning Branch for 90 days. loratadine 2022- Yes [id number] 10mg Take 1 Univers (CLARITIN) 5-18 08-17 tablet by ity of 10 mg 00:00: 04:59 mouth in [place] tablet 00 :00 the Medical morning Branch for 90 days. loratadine 2022- Yes [id number] 10mg Take 1 Univers (CLARITIN) 5-18 08-17 tablet by ity of 10 mg 00:00: 04:59 mouth in [place] tablet 00 :00 the Medical morning Branch for 90 days. loratadine 2022- Yes [id number] 10mg Take 1 Univers (CLARITIN) 5-18 08-17 tablet by ity of 10 mg 00:00: 04:59 mouth in [place] tablet 00 :00 the Medical morning Branch for 90 days. loratadine 2022- Yes [id number] 10mg Take 1 Univers (CLARITIN) 5-18 08-17 tablet by ity of 10 mg 00:00: 04:59 mouth in [place] tablet 00 :00 the Medical morning Branch for 90 days. loratadine 2022-0 3- Yes [id number] 10mg Take 1 Univers (CLARITIN) 5-18 08-17 tablet by ity of 10 mg 00:00: 04:59 mouth in [place] tablet 00 :00 the Medical morning Branch for 90 days. loratadine 2022-0 3- Yes [id number] 10mg Take 1 Univers (CLARITIN) 5-18 08-17 tablet by ity of 10 mg 00:00: 04:59 mouth in [place] tablet 00 :00 the Medical morning Branch for 90 days. ondansetron 3-0 Yes [id number] 4mg Take 1 Univers (ZOFRAN) 4 4-27 tablet by ity of mg tablet 00:00: mouth [place] 00 every 8 Medical (eight) Branch hours as needed for Nausea and Vomiting (N/V) for up to 20 doses. ondansetron 2022-0 Yes [id number] 4mg Take 1 Univers (ZOFRAN) 4 4-27 tablet by ity of mg tablet 00:00: mouth [place] 00 every 8 Medical (eight) Branch hours as needed for Nausea and Vomiting (N/V) for up to 20 doses. ondansetron 3-0 Yes [id number] 4mg Take 1 Univers (ZOFRAN) 4 4-27 tablet by ity of mg tablet 00:00: mouth [place] 00 every 8 Medical (eight) Branch hours as needed for Nausea and Vomiting (N/V) for up to 20 doses. ondansetron 3-0 Yes [id number] 4mg Take 1 Univers (ZOFRAN) 4 4-27 tablet by ity of mg tablet 00:00: mouth [place] 00 every 8 Medical (eight) Branch hours as needed for Nausea and Vomiting (N/V) for up to 20 doses. ondansetron 3-0 Yes [id number] 4mg Take 1 Univers (ZOFRAN) 4 4-27 tablet by ity of mg tablet 00:00: mouth [place] 00 every 8 Medical (eight) Branch hours as needed for Nausea and Vomiting (N/V) for up to 20 doses. ondansetron 3-0 Yes [id number] 4mg Take 1 Univers (ZOFRAN) 4 4-27 tablet by ity of mg tablet 00:00: mouth [place] 00 every 8 Medical (eight) Branch hours as needed for Nausea and Vomiting (N/V) for up to 20 doses. ondansetron 2023-0 Yes [id number] 4mg Take 1 Univers (ZOFRAN) 4 4-27 tablet by ity of mg tablet 00:00: mouth [place] 00 every 8 Medical (eight) Branch hours as needed for Nausea and Vomiting (N/V) for up to 20 doses. ondansetron 2023-0 Yes [id number] 4mg Take 1 Univers (ZOFRAN) 4 4-27 tablet by ity of mg tablet 00:00: mouth [place] 00 every 8 Medical (eight) Branch hours as needed for Nausea and Vomiting (N/V) for up to 20 doses. ondansetron 2023-0 Yes [id number] 4mg Take 1 Univers (ZOFRAN) 4 4-27 tablet by ity of mg tablet 00:00: mouth [place] 00 every 8 Medical (eight) Branch hours as needed for Nausea and Vomiting (N/V) for up to 20 doses. ondansetron 2023-0 Yes [id number] 4mg Take 1 Univers (ZOFRAN) 4 4-27 tablet by ity of mg tablet 00:00: mouth [place] 00 every 8 Medical (eight) Branch hours as needed for Nausea and Vomiting (N/V) for up to 20 doses. ondansetron 2023-0 Yes [id number] 4mg Take 1 Univers (ZOFRAN) 4 4-27 tablet by ity of mg tablet 00:00: mouth [place] 00 every 8 Medical (eight) Branch hours as needed for Nausea and Vomiting (N/V) for up to 20 doses. ondansetron 2023-0 Yes [id number] 4mg Take 1 Univers (ZOFRAN) 4 4-27 tablet by ity of mg tablet 00:00: mouth [place] 00 every 8 Medical (eight) Branch hours as needed for Nausea and Vomiting (N/V) for up to 20 doses. ondansetron 2023-0 Yes [id number] 4mg Take 1 Univers (ZOFRAN) 4 4-27 tablet by ity of mg tablet 00:00: mouth [place] 00 every 8 Medical (eight) Branch hours as needed for Nausea and Vomiting (N/V) for up to 20 doses. ondansetron 2023-0 Yes [id number] 4mg Take 1 Univers (ZOFRAN) 4 4-27 tablet by ity of mg tablet 00:00: mouth [place] 00 every 8 Medical (eight) Branch hours as needed for Nausea and Vomiting (N/V) for up to 20 doses. levothyroxi 2022- Yes [id number] 125ug Take 1 Univers ne 4-27 tablet by ity of (SYNTHROID) 00:00: 04:59 [place] 125 mcg 00 :00 every Medical tablet morning Branch for 60 days. levothyroxi 2022- Yes [id number] 125ug Take 1 Univers ne 09-13- tablet by ity of (SYNTHROID) 00:00: 04:59 [place] 125 mcg 00 :00 every Medical tablet morning Branch for 60 days. levothyroxi 2022- Yes [id number] 125ug Take 1 Univers ne 09-13 tablet by ity of (SYNTHROID) 00:00: 04:59 [place] 125 mcg 00 :00 every Medical tablet morning Branch for 60 days. levothyroxi 2022- Yes [id number] 125ug Take 1 Univers ne 09-13- tablet by ity of (SYNTHROID) 00:00: 04:59 [place] 125 mcg 00 :00 every Medical tablet morning Branch for 60 days. levothyroxi 2022- Yes [id number] 125ug Take 1 Univers ne 09-13- tablet by ity of (SYNTHROID) 00:00: 04:59 [place] 125 mcg 00 :00 every Medical tablet morning Branch for 60 days. levothyroxi 2022- Yes [id number] 125ug Take 1 Univers ne 09-13-27 tablet by ity of (SYNTHROID) 00:00: 04:59 [place] 125 mcg 00 :00 every Medical tablet morning Branch for 60 days. levothyroxi 2022- Yes [id number] 125ug Take 1 Univers ne 09-13-27 tablet by ity of (SYNTHROID) 00:00: 04:59 [place] 125 mcg 00 :00 every Medical tablet morning Branch for 60 days. levothyroxi 2022- Yes [id number] 125ug Take 1 Univers ne 09-13- tablet by ity of (SYNTHROID) 00:00: 04:59 [place] 125 mcg 00 :00 every Medical tablet morning Branch for 60 days. levothyroxi 2022- Yes [id number] 125ug Take 1 Univers ne 09-13 tablet by ity of (SYNTHROID) 00:00: 04:59 [place] 125 mcg 00 :00 every Medical tablet morning Branch for 60 days. levothyroxi 2022- Yes [id number] 125ug Take 1 Univers ne 09-13 tablet by ity of (SYNTHROID) 00:00: 04:59 [place] 125 mcg 00 :00 every Medical tablet morning Branch for 60 days. levothyroxi 2022- Yes [id number] 125ug Take 1 Univers ne 09-13 tablet by ity of (SYNTHROID) 00:00: 04:59 [place] 125 mcg 00 :00 every Medical tablet morning Branch for 60 days. levothyroxi 2022- Yes [id number] 125ug Take 1 Univers ne 09-13 tablet by ity of (SYNTHROID) 00:00: 04:59 [place] 125 mcg 00 :00 every Medical tablet morning Branch for 60 days. levothyroxi 2022- Yes [id number] 125ug Take 1 Univers ne 09-13 tablet by ity of (SYNTHROID) 00:00: 04:59 [place] 125 mcg 00 :00 every Medical tablet morning Branch for 60 days. levothyroxi 2022- Yes [id number] 125ug Take 1 Univers ne 09-13 tablet by ity of (SYNTHROID) 00:00: 04:59 [place] 125 mcg 00 :00 every Medical tablet morning Branch for 60 days. levothyroxi 2022- No 100ug 100 mcg, Univers ne 3- 03-10 Intravenou ity of (SYNTHROID) 09:47: 10:07 s, ONCE, 1 [place] injection 00 :00 dose, On Medica l 100 mcg Fri Branch 07/27/22 at 0400, ARNALDO NaCl 0.9% 2022- No 1000mL at 999 Uni vers (NS) bolus 3-10 03-10 mL/hr, ity of infusion 09:15: 09:48 1,000 mL, [place] as 1,000 mL 00 :00 IV Medical Infusion, Branch ONCE, 1 dose, On Sat07/27/22 at 0315, ARNALDO ondansetron 2023-0 Yes [id number] 4mg Take 1 Univers 4 mg 3-10 tablet by ity of disintegrat 00:00: mouth [place] ing tablet 00 every 8 Medica l (eight) Branch hours as needed for Nausea and Vomiting (N/V) for up to 10 doses. ondansetron 2023-0 Yes [id number] 4mg Take 1 Univers 4 mg 3-10 tablet by ity of disintegrat 00:00: mouth [place] ing tablet 00 every 8 Medica l (eight) Branch hours as needed for Nausea and Vomiting (N/V) for up to 10 doses. ondansetron 2023-0 Yes [id number] 4mg Take 1 Univers 4 mg 3-10 tablet by ity of disintegrat 00:00: mouth [place] ing tablet 00 every 8 Medica l (eight) Branch hours as needed for Nausea and Vomiting (N/V) for up to 10 doses. ondansetron 2023-0 Yes [id number] 4mg Take 1 Univers 4 mg 3-10 tablet by ity of disintegrat 00:00: mouth [place] ing tablet 00 every 8 Medica l (eight) Branch hours as needed for Nausea and Vomiting (N/V) for up to 10 doses. ondansetron 2023-0 Yes [id number] 4mg Take 1 Univers 4 mg 3-10 tablet by ity of disintegrat 00:00: mouth [place] ing tablet 00 every 8 Medica l (eight) Branch hours as needed for Nausea and Vomiting (N/V) for up to 10 doses. ondansetron 2023-0 Yes [id number] 4mg Take 1 Univers 4 mg 3-10 tablet by ity of disintegrat 00:00: mouth [place] ing tablet 00 every 8 Medica l (eight) Branch hours as needed for Nausea and Vomiting (N/V) for up to 10 doses. ondansetron 2023-0 Yes [id number] 4mg Take 1 Univers 4 mg 3-10 tablet by ity of disintegrat 00:00: mouth [place] ing tablet 00 every 8 Medica l (eight) Branch hours as needed for Nausea and Vomiting (N/V) for up to 10 doses. ondansetron 2023-0 Yes [id number] 4mg Take 1 Univers 4 mg 3-10 tablet by ity of disintegrat 00:00: mouth [place] ing tablet 00 every 8 Medica l (eight) Branch hours as needed for Nausea and Vomiting (N/V) for up to 10 doses. ondansetron 2023-0 Yes [id number] 4mg Take 1 Univers 4 mg 3-10 tablet by ity of disintegrat 00:00: mouth [place] ing tablet 00 every 8 Medica l (eight) Branch hours as needed for Nausea and Vomiting (N/V) for up to 10 doses. ondansetron 2023-0 Yes [id number] 4mg Take 1 Univers 4 mg 3-10 tablet by ity of disintegrat 00:00: mouth [place] ing tablet 00 every 8 Medica l (eight) Branch hours as needed for Nausea and Vomiting (N/V) for up to 10 doses. ondansetron 2023-0 Yes [id number] 4mg Take 1 Univers 4 mg 3-10 tablet by ity of disintegrat 00:00: mouth [place] ing tablet 00 every 8 Medica l (eight) Branch hours as needed for Nausea and Vomiting (N/V) for up to 10 doses. ondansetron 2023-0 Yes [id number] 4mg Take 1 Univers 4 mg 3-10 tablet by ity of disintegrat 00:00: mouth [place] ing tablet 00 every 8 Medica l (eight) Branch hours as needed for Nausea and Vomiting (N/V) for up to 10 doses. ondansetron 2023-0 Yes [id number] 4mg Take 1 Univers 4 mg 3-10 tablet by ity of disintegrat 00:00: mouth [place] ing tablet 00 every 8 Medica l (eight) Branch hours as needed for Nausea and Vomiting (N/V) for up to 10 doses. ondansetron 2023-0 Yes [id number] 4mg Take 1 Univers 4 mg 3-10 tablet by ity of disintegrat 00:00: mouth [place] ing tablet 00 every 8 Medica l (eight) Branch hours as needed for Nausea and Vomiting (N/V) for up to 10 doses. ondansetron 2023-0 Yes [id number] 4mg Take 1 Univers 4 mg 3-10 tablet by ity of disintegrat 00:00: mouth [place] ing tablet 00 every 8 Medica l (eight) Branch hours as needed for Nausea and Vomiting (N/V) for up to 10 doses. ondansetron 2023-0 Yes [id number] 4mg Take 1 Univers 4 mg 3-10 tablet by ity of disintegrat 00:00: mouth [place] ing tablet 00 every 8 Medica l (eight) Branch hours as needed for Nausea and Vomiting (N/V) for up to 10 doses. ondansetron 2023-0 Yes [id number] 4mg Take 1 Univers 4 mg 3-10 tablet by ity of disintegrat 00:00: mouth [place] ing tablet 00 every 8 Medica l (eight) Branch hours as needed for Nausea and Vomiting (N/V) for up to 10 doses. ondansetron 2023-0 Yes [id number] 4mg Take 1 Univers 4 mg 3-10 tablet by ity of disintegrat 00:00: mouth [place] ing tablet 00 every 8 Medica l (eight) Branch hours as needed for Nausea and Vomiting (N/V) for up to 10 doses. ondansetron 2023-0 Yes [id number] 4mg Take 1 Univers 4 mg 3-10 tablet by ity of disintegrat 00:00: mouth [place] ing tablet 00 every 8 Medica l (eight) Branch hours as needed for Nausea and Vomiting (N/V) for up to 10 doses. ondansetron 2023-0 Yes [id number] 4mg Take 1 Univers 4 mg 3-10 tablet by ity of disintegrat 00:00: mouth [place] ing tablet 00 every 8 Medica l (eight) Branch hours as needed for Nausea and Vomiting (N/V) for up to 10 doses. ondansetron 2023-0 Yes [id number] 4mg Take 1 Univers 4 mg 3-10 tablet by ity of disintegrat 00:00: mouth [place] ing tablet 00 every 8 Medica l (eight) Branch hours as needed for Nausea and Vomiting (N/V) for up to 10 doses. ondansetron 2023-0 Yes [id number] 4mg Take 1 Univers 4 mg 3-10 tablet by ity of disintegrat 00:00: mouth [place] ing tablet 00 every 8 Medica l (eight) Branch hours as needed for Nausea and Vomiting (N/V) for up to 10 doses. ondansetron 2023-0 Yes [id number] 4mg Take 1 Univers 4 mg 3-10 tablet by ity of disintegrat 00:00: mouth [place] ing tablet 00 every 8 Medica l (eight) Branch hours as needed for Nausea and Vomiting (N/V) for up to 10 doses. ondansetron 2023-0 Yes [id number] 4mg Take 1 Univers 4 mg 3-10 tablet by ity of disintegrat 00:00: mouth [place] ing tablet 00 every 8 Medica l (eight) Branch hours as needed for Nausea and Vomiting (N/V) for up to 10 doses. ondansetron 2023-0 Yes [id number] 4mg Take 1 Univers 4 mg 3-10 tablet by ity of disintegrat 00:00: mouth [place] ing tablet 00 every 8 Medica l (eight) Branch hours as needed for Nausea and Vomiting (N/V) for up to 10 doses. ondansetron 2023-0 Yes [id number] 4mg Take 1 Univers 4 mg 3-10 tablet by ity of disintegrat 00:00: mouth [place] ing tablet 00 every 8 Medica l (eight) Branch hours as needed for Nausea and Vomiting (N/V) for up to 10 doses. ondansetron 3-0 Yes [id number] 4mg Take 1 Univers 4 mg 3-10 tablet by ity of disintegrat 00:00: mouth [place] ing tablet 00 every 8 Medica l (eight) Branch hours as needed for Nausea and Vomiting (N/V) for up to 10 doses. ondansetron 3-0 Yes [id number] 4mg Take 1 Univers 4 mg 3-10 tablet by ity of disintegrat 00:00: mouth [place] ing tablet 00 every 8 Medica l (eight) Branch hours as needed for Nausea and Vomiting (N/V) for up to 10 doses. ondansetron 2023-0 Yes [id number] 4mg Take 1 Univers 4 mg 3-10 tablet by ity of disintegrat 00:00: mouth [place] ing tablet 00 every 8 Medica l (eight) Branch hours as needed for Nausea and Vomiting (N/V) for up to 10 doses. ondansetron 2023-0 Yes [id number] 4mg Take 1 Univers 4 mg 3-10 tablet by ity of disintegrat 00:00: mouth [place] ing tablet 00 every 8 Medica l (eight) Branch hours as needed for Nausea and Vomiting (N/V) for up to 10 doses. ondansetron Yes [id number] 4mg Take 1 Univers 4 mg 3-10 tablet by ity of disintegrat 00:00: mouth [place] ing tablet 00 every 8 Medica l (eight) Branch hours as needed for Nausea and Vomiting (N/V) for up to 10 doses. levothyroxi 2022- No [id number] 100ug Take 1 Univers ne 100 mcg 3-10 04-10 tablet by ity of tablet 00:00: 04:59 mouth [place] 00 :00 every Medical morning Branch for 30 days. levothyroxi 2022- No [id number] 100ug Take 1 Univers ne 100 mcg 3-10 04-10 tablet by ity of tablet 00:00: 04:59 mouth [place] 00 :00 every Medical morning Branch for 30 days. levothyroxi 2022- No [id number] 100ug Take 1 Univers ne 100 mcg 3-10 04-10 tablet by ity of tablet 00:00: 04:59 mouth [place] 00 :00 every Medical morning Branch for 30 days. levothyroxi 2022- No [id number] 100ug Take 1 Univers ne 100 mcg 3-10 04-10 tablet by ity of tablet 00:00: 04:59 mouth [place] 00 :00 every Medical morning Branch for 30 days. levothyroxi 2022- No [id number] 100ug Take 1 Univers ne 100 mcg 3-10 04-10 tablet by ity of tablet 00:00: 04:59 mouth [place] 00 :00 every Medical morning Branch for 30 days. levothyroxi 2022- No [id number] 100ug Take 1 Univers ne 100 mcg 3-10 04-10 tablet by ity of tablet 00:00: 04:59 mouth [place] 00 :00 every Medical morning Branch for 30 days. dexamethaso 2021-05- No 10mg 10 mg, Uni vers ne 0-03-15 Slow IV ity of (DECADRON 20:15: 19:42 [place], [place] PHOSPHATE) 00 :00 ONCE, 1 Medica l injection dose, On Branch 10 mg Fernanda 03/15/22 at 1515, Routine ketorolac 2021-05 No 30mg 30 mg, Unive rs (TORADOL) 03-15 Slow IV ity of injection 20:15: 19:40 [place], [place] 30 mg 00 :00 ONCE, 1 Medical dose, On [facility] 03/15/22 at 1515, Routine NaCl 0.9% 2021-05 No 1000mL at 1,000 U nivers (NS) IV 03-15 mL/hr, ity of infusion 19:30: 21:46 [place]venou [place] 1,000 mL 00 :00 s, ONCE, 1 Medic al dose, On [facility] 03/15/22 at 1430, ARNALDO acetaminoph 2021-05- No 650mg 650 mg, U nivers en 03-15 Oral, ity of (TYLENOL) 19:15: 19:41 ONCE, 1 [place] tablet 650 00 :00 dose, On Medic al mg [facility] 03/15/22 at 1415, [facility] metoprolol 2021-05 Yes [id number] 25mg Take 1 U nivers tartrate 25 0-08 tablet by ity of mg tablet 00:00: [place] 00 the Medical morning Branch and 1 tablet in the evening. metoprolol 2021-05 Yes [id number] 25mg Take 1 U nivers tartrate 25 0-08 tablet by [place]y of mg tablet 00:00: mouth [place] 00 the Medical morning Branch and 1 tablet in the evening. metoprolol 2021-05 Yes [id number] 25mg Take 1 U nivers tartrate 25 0-08 tablet by [place]y of mg tablet 00:00: mouth [place] 00 the Medical morning Branch and 1 tablet in the evening. metoprolol 2021-05 Yes [id number] 25mg Take 1 U nivers tartrate 25 0-08 tablet by [place]y of mg tablet 00:00: mouth [place] 00 the Medical morning Branch and 1 tablet in the evening. metoprolol 2021-05 Yes [id number] 25mg Take 1 U nivers tartrate 25 0-08 tablet by [place]y of mg tablet 00:00: mouth [place] 00 the Medical morning Branch and 1 tablet in the evening. metoprolol 2021-05 Yes [id number] 25mg Take 1 U nivers tartrate 25 0-08 tablet by [place]y of mg tablet 00:00: mouth [place] 00 the Medical morning Branch and 1 tablet in the evening. metoprolol 2021-05 Yes [id number] 25mg Take 1 U nivers tartrate 25 0-08 tablet by [place]y of mg tablet 00:00: mouth [place] 00 the Medical morning Branch and 1 tablet in the evening. metoprolol 2021-05 Yes [id number] 25mg Take 1 U nivers tartrate 25 0-08 tablet by [place]y of mg tablet 00:00: mouth [place] 00 the Medical morning Branch and 1 tablet in the evening. metoprolol 2021-05 Yes [id number] 25mg Take 1 U nivers tartrate 25 0-08 tablet by [place]y of mg tablet 00:00: mouth [place] 00 the Medical morning Branch and 1 tablet in the evening. metoprolol 2021-05 Yes [id number] 25mg Take 1 U nivers tartrate 25 0-08 tablet by ity of mg tablet 00:00: mouth [place] 00 the Medical morning Branch and 1 tablet in the evening. metoprolol 2021-05 Yes [id number] 25mg Take 1 U nivers tartrate 25 0-08 tablet by [place]y of mg tablet 00:00: [place] 00 the Medical morning Branch and 1 tablet in the evening. metoprolol 2021-05 Yes [id number] 25mg Take 1 [facility] n[facility] tartrate 25 0-08 tablet by [facility] [place] [facility] [place] [facility] and 1 tablet in the evening. metoprolol 2021-05 Yes [id number] 25mg Take 1 [facility] tartrate 25 0-08 tablet by [facility] [place] [facility] and 1 tablet in the evening. metoprolol 2021-05 Yes [id number] 25mg Take 1 [facility] tartrate 25 0-08 tablet by [facility] [place] [facility] and 1 tablet in the evening. metoprolol 2021-05 Yes [id number] 25mg Take 1 [facility] tartrate 25 0-08 tablet by [facility] mg tablet [place] [facility] and 1 tablet in the evening. metoprolol 2021-05 Yes [id number] 25mg Take 1 [facility] tartrate 25 0-08 tablet by [facility] mg tablet [place]: [place] the [facility] and 1 tablet in the evening. metoprolol 2021-05 Yes [id number] 25mg Take 1 [facility] tartrate 25 0-08 tablet by [facility] mg tablet [place]: [place] the [facility] and 1 tablet in the evening. metoprolol 2021-05 Yes [id number] 25mg Take 1 [facility] tartrate 25 0-08 tablet by [facility] mg tablet [place]: [place] the [facility] and 1 tablet in the evening. metoprolol 2021-05 Yes [id number] 25mg Take 1 [facility] tartrate 25 0-08 tablet by [facility] mg tablet 00:00: [place] the [facility] and 1 tablet in the evening. metoprolol 2021-05 Yes [id number] 25mg Take 1 [facility] tartrate 25 0-08 tablet by [facility] mg tablet 00:00: [place] the [facility] and 1 tablet in the evening. metoprolol 2021-05 Yes [id number] 25mg Take 1 [facility] tartrate 25 0-08 tablet by [facility] mg tablet 00:00: [place] the [facility] and 1 tablet in the evening. metoprolol 2021-05 Yes [id number] 25mg Take 1 [facility] tartrate 25 0-08 tablet by [facility] mg tablet 00:00: [place] the [facility] and 1 tablet in the evening. metoprolol 2021-05 Yes [id number] 25mg Take 1 [facility] tartrate 25 0-08 tablet by [facility] mg tablet 00:[place]: [place] the [facility] and 1 tablet in the evening. metoprolol 2021-05 Yes [id number] 25mg Take 1 [facility]ivers tartrate 25 0-08 tablet by [facility] mg tablet 00:00: [place] the [facility] morning [facility] and 1 tablet in the evening. metoprolol 2021-05 Yes [id number] 25mg Take 1 [facility] nivers tartrate 25 0-08 tablet by [facility] mg tablet 00:00: [place] the [facility] and 1 tablet in the evening. metoprolol 2021-05 Yes [id number] 25mg Take 1 [facility]ivers tartrate 25 0-08 tablet by [facility] mg tablet 00:00: [place] the [facility] morning [facility] and 1 tablet in the evening. metoprolol 2021-05 Yes [id number] 25mg Take 1 [facility] nivers tartrate 25 0-08 tablet by [facility] mg tablet 00:00: [place] the [facility] morning [facility] and 1 tablet in the evening. metoprolol 2021-05 Yes [id number] 25mg Take 1 [facility] nivers tartrate 25 0-08 tablet by [facility] mg tablet 00:00: [place] the [facility] morning [facility] and 1 tablet in the evening. metoprolol 2021-05 Yes [id number] 25mg Take 1 [facility] nivers tartrate 25 0-08 tablet by [facility] mg tablet 00:00: [place] the [facility] morning [facility] and 1 tablet in the evening. metoprolol 2021-05 Yes [id number] 25mg Take 1 [facility] nivers tartrate 25 0-08 tablet by [facility] mg tablet 00:00: [place] the [facility] morning [facility] and 1 tablet in the evening. metoprolol 2021-05 Yes [id number] 25mg Take 1 [facility] nivers tartrate 25 0-08 tablet by [facility] mg tablet 00:00: [place] the [facility] morning [facility] and 1 tablet in the evening. metoprolol 2021-05 Yes [id number] 25mg Take 1 [facility]ivers tartrate 25 0-08 tablet by [facility] mg tablet 00:00: [place] the [facility] morning [facility] and 1 tablet in the evening. metoprolol 2021-05 Yes [id number] 25mg Take 1 [facility] nivers tartrate 25 0-08 tablet by [facility] mg tablet 00:00: [place] the [facility] morning [facility] and 1 tablet in the evening. metoprolol 2021-05 Yes [id number] 25mg Take 1 [facility] nivers tartrate 25 0-08 tablet by [facility] mg tablet 00:00: [place] the [facility] morning [facility] and 1 tablet in the evening. metoprolol 2021-05 Yes [id number] 25mg Take 1 [facility] nivers tartrate 25 0-08 tablet by [facility] mg tablet 00:00: [place] the [facility] morning [facility] and 1 tablet in the evening. metoprolol 2021-05 Yes [id number] 25mg Take 1 [facility] nivers tartrate 25 0-08 tablet by [facility] mg tablet 00:00: [place] the [facility] morning [facility] and 1 tablet in the evening. metoprolol 2021-05 Yes [id number] 25mg Take 1 [facility] nivers tartrate 25 0-08 tablet by [facility] mg tablet 00:00: [place] the [facility] morning [facility] and 1 tablet in the evening. metoprolol 2021-05 Yes [id number] 25mg Take 1 [facility] nivers tartrate 25 0-08 tablet by [facility] mg tablet 00:00: [place] the [facility] morning [facility] and 1 tablet in the evening. metoprolol 2021-05 Yes [id number] 25mg Take 1 [facility] nivers tartrate 25 0-08 tablet by [facility] mg tablet 00:00: [place] the [facility] and 1 tablet in the evening. Nitrofurant 2021- No [id number] 100mg Take 1 [facility] oin&Nit. 5-14 05-25 [...] dose, Wed Med ical 1:1:1 08/24/20 at [place] ([facility], [facility]) oral suspension 15 mL levothyroxi Yes 100ug Take 1 Uni vers ne 100 mcg 7-20 tablet by ity of tablet 00:00: mouth [place] 00 every Medical morning. [place] Fasting, with water if needed. Wait 15 [...] Immunizations Ordered Filled Immunization Date Status Comments [facility] e Immunization Name Name HEPATITIS A 2018-08-11 Completed [facility] 00:00:00 [facility] HEPATITIS A 2018-08-11 Completed [facility] 00:00:00 [facility] HEPATITIS A 2018-08-11 Completed [facility] 00:00:00 [facility] HEPATITIS A 2018-08-11 Completed [facility] 00:00:00 [facility] HEPATITIS A 2018-08-11 Completed [facility] of 00:00:00 [facility] HEPATITIS A 2018-08-11 Completed [facility] of 00:00:00 [facility] HEPATITIS A 2018-08-11 Completed [facility] of 00:00:00 [facility] HEPATITIS A 2018-08-11 Completed [facility] of 00:00:00 [facility] HEPATITIS A 2018-08-11 Completed [facility] of 00:00:00 [facility] HEPATITIS A 2018-08-11 Completed [facility] of 00:00:00 [facility] HEPATITIS A 2018-08-11 Completed [facility] of 00:00:00 [facility] HEPATITIS A 2018-08-11 Completed [facility] of 00:00:00 [facility] HEPATITIS A 2018-08-11 Completed [facility] of 00:00:00 [facility] HEPATITIS A 2018-08-11 Completed [facility] of 00:00:00 [facility] HEPATITIS A 2018-08-11 Completed [facility] of 00:00:00 [facility] HEPATITIS A 2018-08-11 Completed [facility] of 00:00:00 [facility] HEPATITIS A 2018-08-11 Completed [facility] 00:00:00 [facility] HEPATITIS A 2018-08-11 Completed University of 00:00:00 [facility] HEPATITIS A 2018-08-11 Completed [facility] of 00:00:00 [facility] HEPATITIS A 2018-08-11 Completed [facility] of 00:00:00 [facility] HEPATITIS A 2018-08-11 Completed [facility] of 00:00:00 [facility] HEPATITIS A 2018-08-11 Completed [facility] of 00:00:00 [facility] HEPATITIS A 2018-08-11 Completed [facility] of 00:00:00 [facility] HEPATITIS A 2018-08-11 Completed [facility] of 00:00:00 [facility] HEPATITIS A 2018-08-11 Completed [facility] of 00:00:00 [facility] HEPATITIS A 2018-08-11 Completed [facility] of 00:00:00 [facility] HEPATITIS A 2018-08-11 Completed [facility] of 00:00:00 [facility] HEPATITIS A 2018-08-11 Completed [facility] of 00:00:00 [facility] HEPATITIS A 2018-08-11 Completed [facility] of 00:00:00 [facility] HEPATITIS A 2018-08-11 Completed [facility] of 00:00:00 [facility] 2016-06-01 Completed [facility] of 00:00:00 [facility] Polio (IPV/OPV) 2016-06-01 Completed [facility]it y of 00:00:00 [facility] 2016-06-01 Completed [facility] of 00:00:00 [facility] Polio (IPV/OPV) 2016-06-01 Completed [facility]it y of 00:00:00 [facility] 2016-06-01 Completed [facility] of 00:00:00 [facility] Polio (IPV/OPV) 2016-06-01 Completed [facility]it y of 00:00:00 [facility] 2016-06-01 Completed [facility] of 00:00:00 [facility] Polio (IPV/OPV) 2016-06-01 Completed [facility]it y of 00:00:00 [facility] 2016-06-01 Completed [facility] of 00:00:00 [facility] Polio (IPV/OPV) 2016-06-01 Completed Universit y of 00:00:00 [facility] 2016-06-01 Completed [facility] of 00:00:00 [facility] Polio (IPV/OPV) 2016-06-01 Completed [facility]it y of 00:00:00 [facility] 2016-06-01 Completed [facility] of 00:00:00 [facility] Polio (IPV/OPV) 2016-06-01 Completed Universit y of 00:00:00 [facility] 2016-06-01 Completed [facility] of 00:00:00 [facility] Polio (IPV/OPV) 2016-06-01 Completed [facility]it y of 00:00:00 [facility] 2016-06-01 Completed [facility] of 00:00:00 [facility] Polio (IPV/OPV) 2016-06-01 Completed Universit y of 00:00:00 [facility] 2016-06-01 Completed [facility] of 00:00:00 [facility] Polio (IPV/OPV) 2016-06-01 Completed Universit y of 00:00:00 [facility] 2016-06-01 Completed [facility] of 00:00:00 [facility] Polio (IPV/OPV) 2016-06-01 Completed [facility]it y of 00:00:00 [facility] 2016-06-01 Completed [facility] of 00:00:00 [facility] Polio (IPV/OPV) 2016-06-01 Completed [facility]it y of 00:00:00 [facility] 2016-06-01 Completed [facility] of 00:00:00 [facility] Polio (IPV/OPV) 2016-06-01 Completed [facility]it y of 00:00:00 [facility] 2016-06-01 Completed [facility] of 00:00:00 [facility] Polio (IPV/OPV) 2016-06-01 Completed Universit y of 00:00:00 [facility] 2016-06-01 Completed [facility] of 00:00:00 [facility] Polio (IPV/OPV) 2016-06-01 Completed [facility]it y of 00:00:00 [facility] 2016-06-01 Completed [facility] of 00:00:00 [facility] Polio (IPV/OPV) 2016-06-01 Completed [facility]it y of 00:00:00 [facility] 2016-06-01 Completed [facility] of 00:00:00 [facility] Polio (IPV/OPV) 2016-06-01 Completed [facility]it y of 00:00:00 [facility] 2016-06-01 Completed [facility] of 00:00:00 [facility] Polio (IPV/OPV) 2016-06-01 Completed [facility]it y of 00:00:00 [facility] 2016-06-01 Completed [facility] of 00:00:00 [facility] Polio (IPV/OPV) 2016-06-01 Completed [facility]it y of 00:00:00 [facility] 2016-06-01 Completed [facility] of 00:00:00 [facility] Polio (IPV/OPV) 2016-06-01 Completed [facility]it y of 00:00:00 [facility] 2016-06-01 Completed [facility] of 00:00:00 [facility] Polio (IPV/OPV) 2016-06-01 Completed [facility]it y of 00:00:00 [facility] 2016-06-01 Completed [facility] of 00:00:00 [facility] Polio (IPV/OPV) 2016-06-01 Completed Universit y of 00:00:00 [facility] 2016-06-01 Completed [facility] of 00:00:00 [facility] Polio (IPV/OPV) 2016-06-01 Completed [facility]it y of 00:00:00 [facility] 2016-06-01 Completed [facility] of 00:00:00 [facility] Polio (IPV/OPV) 2016-06-01 Completed [facility]it y of 00:00:00 [facility] 2016-06-01 Completed University of 00:00:00 [facility] Polio (IPV/OPV) 2016-06-01 Completed Universit y of 00:00:00 [facility] 2016-06-01 Completed [facility] of 00:00:00 [facility] Polio (IPV/OPV) 2016-06-01 Completed Universit y of 00:00:00 [facility] 2016-06-01 Completed [facility] of 00:00:00 [facility] Polio (IPV/OPV) 2016-06-01 Completed Universit y of 00:00:00 [facility] 2016-06-01 Completed [facility] of 00:00:00 [facility] Polio (IPV/OPV) 2016-06-01 Completed Universit y of 00:00:00 [facility] 2016-06-01 Completed [facility] of 00:00:00 [facility] Polio (IPV/OPV) 2016-06-01 Completed Universit y of 00:00:00 [facility] 2016-06-01 Completed [facility] of 00:00:00 [facility] Polio (IPV/OPV) 2016-06-01 Completed Universit y of 00:00:00 [place] [facility] MCV4,NOS 2015-04-21 [...] Completed University of 00:00:00 [place] [facility] TD, NOS 2013-01-30 Completed [facility] of 00:00:00 [place] [facility] TD, NOS 2013-01-30 Completed [facility] of 00:00:00 [place] [facility] TD, NOS 2013-01-30 Completed [facility] of 00:00:00 [place] [facility] TD, NOS 2013-01-30 Completed [facility] of 00:00:00 [facility] TD, NOS 2013-01-30 Completed [facility] of 00:00:00 [place] [facility] TD, NOS 2013-01-30 Completed [facility] of 00:00:00 [place] [facility] TD, NOS 2013-01-30 Completed [facility] of 00:00:00 [place] [facility] TD, NOS 2013-01-30 Completed [facility] of 00:00:00 [place] [facility] TD, NOS 2013-01-30 Completed [facility] of 00:00:00 [place] [facility] TD, NOS 2013-01-30 Completed [facility] of 00:00:00 [place] [facility] TD, NOS 2013-01-30 Completed [facility] of 00:00:00 [place] [facility] TD, NOS 2013-01-30 Completed [facility] of 00:00:00 [place] [facility] TD, NOS 2013-01-30 Completed [facility] of 00:00:00 [place] [facility] TD, NOS 2013-01-30 Completed [facility] of 00:00:00 [place] [facility] TD, NOS 2013-01-30 Completed [facility] of 00:00:00 [place] [facility] TD, NOS 2013-01-30 Completed [facility] of 00:00:00 [place] [facility] TD, NOS 2013-01-30 Completed [facility] of 00:00:00 [place] [facility] TD, NOS 2013-01-30 Completed [facility] of 00:00:00 [place] [facility] TD, NOS 2013-01-30 Completed [facility] of 00:00:00 [place] [facility] TD, NOS 2013-01-30 Completed [facility] of 00:00:00 [facility] TD, NOS 2013-01-30 Completed [facility] of 00:00:00 [facility] TD, NOS 2013-01-30 Completed [facility] of 00:00:00 [facility] TD, NOS 2013-01-30 Completed [facility] of 00:00:00 [facility] TD, NOS 2013-01-30 Completed [facility] of 00:00:00 [facility] TD, NOS 2013-01-30 Completed [facility] of 00:00:00 [facility] TD, NOS 2013-01-30 Completed [facility] of 00:00:00 [facility] TD, NOS 2013-01-30 Completed [facility] of 00:00:00 [facility] TD, NOS 2013-01-30 Completed [facility] of 00:00:00 [facility] TD, NOS 2013-01-30 Completed [facility] of 00:00:00 [facility] TD, NOS 2013-01-30 Completed [facility] of 00:00:00 [facility] HEPA,NOS 2008-11-25 Completed University of 00:00:00 [facility] Varicella 2008-11-25 Completed University of (varivax)(chicken 00:00:00 [place] [facility] pox) [facility] HEPA,NOS 2008-11-25 Completed [facility] of 00:00:00 [facility] Varicella 2008-11-25 Completed University of (varivax)(chicken 00:00:00 [place] [facility] pox) [facility] HEPA,NOS 2008-11-25 Completed [facility] of 00:00:00 [facility] Varicella 2008-11-25 Completed University of (varivax)(chicken 00:00:00 [place] [facility] pox) [facility] HEPA,NOS 2008-11-25 Completed [facility] of 00:00:00 [facility] Varicella 2008-11-25 Completed University of (varivax)(chicken 00:00:00 [place] [facility] pox) [facility] HEPA,NOS 2008-11-25 Completed [facility] of 00:00:00 [facility] Varicella 2008-11-25 Completed University of (varivax)(chicken 00:00:00 [place] [facility] pox) [facility] HEPA,NOS 2008-11-25 Completed [facility] of 00:00:00 [facility] Varicella 2008-11-25 Completed University of (varivax)(chicken 00:00:00 [place] [facility] pox) [facility] HEPA,NOS 2008-11-25 Completed [facility] of 00:00:00 [facility] Varicella 2008-11-25 Completed University of (varivax)(chicken 00:00:00 [place] [facility] pox) [facility] HEPA,NOS 2008-11-25 Completed [facility] of 00:00:00 [facility] Varicella 2008-11-25 Completed University of (varivax)(chicken 00:00:00 [place] [facility] pox) [facility] HEPA,NOS 2008-11-25 Completed [facility] of 00:00:00 [facility] Varicella 2008-11-25 Completed University of (varivax)(chicken 00:00:00 [place] [facility] pox) Branch HEPA,NOS 2008-11-25 Completed [facility] of 00:00:00 [facility] Varicella 2008-11-25 Completed University of (varivax)(chicken 00:00:00 [place] [facility] pox) Branch HEPA,NOS 2008-11-25 Completed [facility] of 00:00:00 [facility] Varicella 2008-11-25 Completed University of (varivax)(chicken 00:00:00 [place] [facility] pox) Branch HEPA,NOS 2008-11-25 Completed [facility] of 00:00:00 [facility] Varicella 2008-11-25 Completed University of (varivax)(chicken 00:00:00 [place] [facility] pox) Branch HEPA,NOS 2008-11-25 Completed University of 00:00:00 [facility] Varicella 2008-11-25 Completed University of (varivax)(chicken 00:00:00 [place] [facility] pox) Branch HEPA,NOS 2008-11-25 Completed [facility] of 00:00:00 [facility] Varicella 2008-11-25 Completed University of (varivax)(chicken 00:00:00 [place] [facility] pox) Branch HEPA,NOS 2008-11-25 Completed [facility] of 00:00:00 [facility] Varicella 2008-11-25 Completed University of (varivax)(chicken 00:00:00 [place] [facility] pox) Branch HEPA,NOS 2008-11-25 Completed [facility] of 00:00:00 [facility] Varicella 2008-11-25 Completed University of (varivax)(chicken 00:00:00 [place] [facility] pox) Branch HEPA,NOS 2008-11-25 Completed [facility] of 00:00:00 [facility] Varicella 2008-11-25 Completed University of (varivax)(chicken 00:00:00 [place] [facility] pox) Branch HEPA,NOS 2008-11-25 Completed [facility] of 00:00:00 [facility] Varicella 2008-11-25 Completed University of (varivax)(chicken 00:00:00 [place] [facility] pox) Branch HEPA,NOS 2008-11-25 Completed [facility] of 00:00:00 [facility] Varicella 2008-11-25 Completed University of (varivax)(chicken 00:00:00 [place] [facility] pox) Branch HEPA,NOS 2008-11-25 Completed [facility] of 00:00:00 [facility] Varicella 2008-11-25 Completed University of (varivax)(chicken 00:00:00 [place] [facility] pox) Branch HEPA,NOS 2008-11-25 Completed [facility] of 00:00:00 [facility] Varicella 2008-11-25 Completed University of (varivax)(chicken 00:00:00 [place] [facility] pox) Branch HEPA,NOS 2008-11-25 Completed [facility] of 00:00:00 [facility] Varicella 2008-11-25 Completed University of (varivax)(chicken 00:00:00 [place] [facility] pox) Branch HEPA,NOS 2008-11-25 Completed [facility] of 00:00:00 [facility] Varicella 2008-11-25 Completed University of (varivax)(chicken 00:00:00 [place] [facility] pox) Branch HEPA,NOS 2008-11-25 Completed [facility] of 00:00:00 [facility] Varicella 2008-11-25 Completed University of (varivax)(chicken 00:00:00 [place] [facility] pox) Branch HEPA,NOS 2008-11-25 Completed [facility] of 00:00:00 [facility] Varicella 2008-11-25 Completed University of (varivax)(chicken 00:00:00 [place] [facility] pox) Branch HEPA,NOS 2008-11-25 Completed [facility] of 00:00:00 [facility] Varicella 2008-11-25 Completed University of (varivax)(chicken 00:00:00 [place] [facility] pox) Branch HEPA,NOS 2008-11-25 Completed [facility] of 00:00:00 [facility] Varicella 2008-11-25 Completed University of (varivax)(chicken 00:00:00 [place] [facility] pox) [facility] HEPA,NOS 2008-11-25 Completed [facility] of 00:00:00 [facility] Varicella 2008-11-25 Completed University of (varivax)(chicken 00:00:00 [place] [facility] pox) [facility] HEPA,NOS 2008-11-25 Completed University of 00:00:00 [facility] Varicella 2008-11-25 Completed University of (varivax)(chicken 00:00:00 [place] [facility] pox) Branch HEPA,NOS 2008-11-25 Completed [facility] of 00:00:00 [facility] Varicella 2008-11-25 Completed University of (varivax)(chicken 00:00:00 [place] [facility] pox) [facility] DTaP, Unspecified 2004-08-29 Completed Univers ity of Formulation 00:00:00 [facility] MMR 2004-08-29 Completed University of 00:00:00 [facility] Polio (IPV/OPV) 2004-08-29 Completed Universit y of 00:00:00 [facility] DTaP, Unspecified 2004-08-29 Completed Univers ity of Formulation 00:00:00 [facility] MMR 2004-08-29 Completed University of 00:00:00 [facility] Polio (IPV/OPV) 2004-08-29 Completed Universit y of 00:00:00 [facility] DTaP, Unspecified 2004-08-29 Completed Univers ity of Formulation 00:00:00 [facility] MMR 2004-08-29 Completed University of 00:00:00 [facility] Polio (IPV/OPV) 2004-08-29 Completed Universit y of 00:00:00 [facility] DTaP, Unspecified 2004-08-29 Completed Univers ity of Formulation 00:00:00 [facility] MMR 2004-08-29 Completed University of 00:00:00 [facility] Polio (IPV/OPV) 2004-08-29 Completed Universit y of 00:00:00 [facility] DTaP, Unspecified 2004-08-29 Completed Univers ity of Formulation 00:00:00 [facility] MMR 2004-08-29 Completed University of 00:00:00 [facility] Polio (IPV/OPV) 2004-08-29 Completed Universit y of 00:00:00 [facility] DTaP, Unspecified 2004-08-29 Completed Univers ity of Formulation 00:00:00 [facility] MMR 2004-08-29 Completed University of 00:00:00 [facility] Polio (IPV/OPV) 2004-08-29 Completed Universit y of 00:00:00 [facility] DTaP, Unspecified 2004-08-29 Completed Univers ity of Formulation 00:00:00 [facility] 2004-08-29 Completed University of 00:00:00 [facility] Polio (IPV/OPV) 2004-08-29 Completed Universit y of 00:00:00 [facility] DTaP, Unspecified 2004-08-29 Completed Univers ity of Formulation 00:00:00 [facility] MMR 2004-08-29 Completed University of 00:00:00 [facility] Polio (IPV/OPV) 2004-08-29 Completed Universit y of 00:00:00 [facility] DTaP, Unspecified 2004-08-29 Completed Univers ity of Formulation 00:00:00 [facility] 2004-08-29 Completed University of 00:00:00 [facility] Polio (IPV/OPV) 2004-08-29 Completed Universit y of 00:00:00 [facility] DTaP, Unspecified 2004-08-29 Completed Univers ity of Formulation 00:00:00 [facility] 2004-08-29 Completed University of 00:00:00 [facility] Polio (IPV/OPV) 2004-08-29 Completed Universit y of 00:00:00 [facility] DTaP, Unspecified 2004-08-29 Completed Univers ity of Formulation 00:00:00 [facility] 2004-08-29 Completed University of 00:00:00 [facility] Polio (IPV/OPV) 2004-08-29 Completed Universit y of 00:00:00 [facility] DTaP, Unspecified 2004-08-29 Completed Univers ity of Formulation 00:00:00 [facility] MMR 2004-08-29 Completed [facility] 00:00:00 [facility] [facility] (IPV/OPV) 2004-08-29 Completed [facility] 00:00:00 [facility] DTaP, Unspecified 2004-08-29 Completed [facility] Formulation 00:00:00 [facility] MMR 2004-08-29 Completed [facility] of 00:00:00 [facility] Polio (IPV/OPV) 2004-08-29 Completed [facility] 00:00:00 [facility] DTaP, Unspecified 2004-08-29 Completed [facility] Formulation 00:00:00 [facility] MMR 2004-08-29 Completed [facility] of 00:00:00 [facility] Polio (IPV/OPV) 2004-08-29 Completed [facility] 00:00:00 [facility] DTaP, Unspecified 2004-08-29 Completed [facility] Formulation 00:00:00 [facility] MMR 2004-08-29 Completed [facility] 00:00:00 [facility] Polio (IPV/OPV) 2004-08-29 Completed [facility] 00:00:00 [facility] DTaP, Unspecified 2004-08-29 Completed [facility] Formulation 00:00:00 [facility] MMR 2004-08-29 Completed [facility] 00:00:00 [facility] Polio (IPV/OPV) 2004-08-29 Completed [facility] 00:00:00 [facility] DTaP, Unspecified 2004-08-29 Completed [facility] Formulation 00:00:00 [facility] MMR 2004-08-29 Completed [facility] of 00:00:00 [facility] Polio (IPV/OPV) 2004-08-29 Completed [facility] 00:00:00 [facility] DTaP, Unspecified 2004-08-29 Completed [facility] Formulation 00:00:00 [facility] MMR 2004-08-29 Completed [facility] 00:00:00 [facility] Polio (IPV/OPV) 2004-08-29 Completed [facility] 00:00:00 [facility] DTaP, Unspecified 2004-08-29 Completed [facility] Formulation 00:00:00 [facility] MMR 2004-08-29 Completed [facility] 00:00:00 [facility] Polio (IPV/OPV) 2004-08-29 Completed [facility] 00:00:00 [facility] DTaP, Unspecified 2004-08-29 Completed [facility] Formulation 00:00:00 [facility] MMR 2004-08-29 Completed [facility] of 00:00:00 [facility] Polio (IPV/OPV) 2004-08-29 Completed [facility] 00:00:00 [facility] DTaP, Unspecified 2004-08-29 Completed [facility] Formulation 00:00:00 [facility] MMR 2004-08-29 Completed [facility] 00:00:00 [facility] Polio (IPV/OPV) 2004-08-29 Completed [facility] 00:00:00 [facility] DTaP, Unspecified 2004-08-29 Completed [facility] Formulation 00:00:00 [facility] MMR 2004-08-29 Completed [facility] 00:00:00 [facility] Polio (IPV/OPV) 2004-08-29 Completed [facility] 00:00:00 [facility] DTaP, Unspecified 2004-08-29 Completed [facility] of Formulation 00:00:00 [facility] MMR 2004-08-29 Completed [facility] of 00:00:00 [facility] Polio (IPV/OPV) 2004-08-29 Completed [facility] 00:00:00 [facility] DTaP, Unspecified 2004-08-29 Completed [facility] of Formulation 00:00:00 [facility] MMR 2004-08-29 Completed [facility] of 00:00:00 [facility] Polio (IPV/OPV) 2004-08-29 Completed [facility] 00:00:00 [facility] DTaP, Unspecified 2004-08-29 Completed [facility] Formulation 00:00:00 [facility] MMR 2004-08-29 Completed [facility] of 00:00:00 [facility] Polio (IPV/OPV) 2004-08-29 Completed [facility] 00:00:00 [facility] DTaP, Unspecified 2004-08-29 Completed [facility] of Formulation 00:00:00 [facility] MMR 2004-08-29 Completed [facility] of 00:00:00 [facility] Polio (IPV/OPV) 2004-08-29 Completed [facility] 00:00:00 [facility] DTaP, Unspecified 2004-08-29 Completed [facility] of Formulation 00:00:00 [facility] MMR 2004-08-29 Completed [facility] of 00:00:00 [facility] Polio (IPV/OPV) 2004-08-29 Completed [facility] 00:00:00 [facility] DTaP, Unspecified 2004-08-29 Completed [facility] Formulation 00:00:00 [facility] MMR 2004-08-29 Completed [facility] of 00:00:00 [facility] Polio (IPV/OPV) 2004-08-29 Completed [facility] 00:00:00 [facility] DTaP, Unspecified 2004-08-29 Completed [facility] Formulation 00:00:00 [facility] MMR 2004-08-29 Completed [facility] of 00:00:00 [facility] Polio (IPV/OPV) 2004-08-29 Completed [facility] 00:00:00 [facility] DTaP, Unspecified 2004-08-29 Completed [facility] of Formulation 00:00:00 [facility] MMR 2004-08-29 Completed [facility] of 00:00:00 [facility] Polio (IPV/OPV) 2004-08-29 Completed [facility] 00:00:00 [facility] DTaP, Unspecified 2003-11-30 Completed [facility] Formulation 00:00:00 [facility] Haemophilus 2003-11-30 Completed University of influenzae type b 00:00:00 [facility] edical vaccine, conjugate Branch unspecified formulation DTaP, Unspecified 2003-11-30 Completed [facility] of Formulation 00:00:00 [facility] Haemophilus 2003-11-30 Completed University of influenzae type b 00:00:00 [facility] edical vaccine, conjugate Branch unspecified formulation DTaP, Unspecified 2003-11-30 Completed [facility] of Formulation 00:00:00 [facility] Haemophilus 2003-11-30 Completed University of influenzae type b 00:00:00 [facility] edical vaccine, conjugate Branch unspecified formulation DTaP, Unspecified 2003-11-30 Completed [facility] of Formulation 00:00:00 [facility] Haemophilus 2003-11-30 Completed University of influenzae type b 00:00:00 [facility] edical vaccine, conjugate Branch unspecified formulation DTaP, Unspecified 2003-11-30 Completed [facility] of Formulation 00:00:00 [facility] Haemophilus 2003-11-30 Completed University of influenzae type b 00:00:00 [facility] edical vaccine, conjugate Branch unspecified formulation DTaP, Unspecified 2003-11-30 Completed [facility] of Formulation 00:00:00 [facility] Haemophilus 2003-11-30 Completed University of influenzae type b 00:00:00 [facility] edical vaccine, conjugate Branch unspecified formulation DTaP, Unspecified 2003-11-30 Completed [facility] of Formulation 00:00:00 [facility] Haemophilus 2003-11-30 Completed [facility] of influenzae type b 00:00:00 [place] [facility] vaccine, conjugate Branch unspecified formulation DTaP, Unspecified 2003-11-30 Completed [facility] of Formulation 00:00:00 [facility] Haemophilus 2003-11-30 Completed University of influenzae type b 00:00:00 [facility] edical vaccine, conjugate Branch unspecified formulation DTaP, Unspecified 2003-11-30 Completed [facility] of Formulation 00:00:00 [facility] Haemophilus 2003-11-30 Completed University of influenzae type b 00:00:00 [facility] edical vaccine, conjugate Branch unspecified formulation DTaP, Unspecified 2003-11-30 Completed [facility] it[facility] of Formulation 00:00:00 [facility] Haemophilus 2003-11-30 Completed University of influenzae type b 00:00:00 [facility] edical vaccine, conjugate Branch unspecified formulation DTaP, Unspecified 2003-11-30 Completed [facility] it[facility] of Formulation 00:00:00 [facility] Haemophilus 2003-11-30 Completed University of influenzae type b 00:00:00 [facility] edical vaccine, conjugate Branch unspecified formulation DTaP, Unspecified 2003-11-30 Completed [facility] of Formulation 00:00:00 [facility] Haemophilus 2003-11-30 Completed [facility] of influenzae type b 00:00:00 [facility] edical vaccine, conjugate Branch unspecified formulation DTaP, Unspecified 2003-11-30 Completed [facility] of Formulation 00:00:00 [facility] Haemophilus 2003-11-30 Completed [facility] of influenzae type b 00:00:00 [place] [facility] vaccine, conjugate Branch unspecified formulation DTaP, Unspecified 2003-11-30 Completed [facility] of Formulation 00:00:00 [facility] Haemophilus 2003-11-30 Completed [facility] of influenzae type b 00:00:00 [place] [facility] vaccine, conjugate Branch unspecified formulation DTaP, Unspecified 2003-11-30 Completed [facility] of Formulation 00:00:00 [facility] Haemophilus 2003-11-30 Completed [facility] of influenzae type b 00:00:00 [place] [facility] vaccine, conjugate Branch unspecified formulation DTaP, Unspecified 2003-11-30 Completed [facility] of Formulation 00:00:00 [facility] Haemophilus 2003-11-30 Completed [facility] of influenzae type b 00:00:00 [place] [facility] vaccine, conjugate Branch unspecified formulation DTaP, Unspecified 2003-11-30 Completed [facility] of Formulation 00:00:00 [facility] Haemophilus 2003-11-30 Completed [facility] of influenzae type b 00:00:00 [place] [facility] vaccine, conjugate Branch unspecified formulation DTaP, Unspecified 2003-11-30 Completed [facility] of Formulation 00:00:00 [facility] Haemophilus 2003-11-30 Completed University of influenzae type b 00:00:00 [facility] edical vaccine, conjugate Branch unspecified formulation DTaP, Unspecified 2003-11-30 Completed [facility] it[facility] of Formulation 00:00:00 [facility] Haemophilus 2003-11-30 Completed University of influenzae type b 00:00:00 [facility] edical vaccine, conjugate Branch unspecified formulation DTaP, Unspecified 2003-11-30 Completed [facility] of Formulation 00:00:00 [facility] Haemophilus 2003-11-30 Completed [facility] of influenzae type b 00:00:00 [place] [facility] vaccine, conjugate Branch unspecified formulation DTaP, Unspecified 2003-11-30 Completed [facility] of Formulation 00:00:00 [facility] Haemophilus 2003-11-30 Completed [facility] of influenzae type b 00:00:00 [facility] edical vaccine, conjugate Branch unspecified formulation DTaP, Unspecified 2003-11-30 Completed [facility] it[facility] of Formulation 00:00:00 [facility] Haemophilus 2003-11-30 Completed University of influenzae type b 00:00:00 [facility] edical vaccine, conjugate Branch unspecified formulation DTaP, Unspecified 2003-11-30 Completed [facility] of Formulation 00:00:00 [facility] Haemophilus 2003-11-30 Completed [facility] of influenzae type b 00:00:00 [place] [facility] vaccine, conjugate Branch unspecified formulation DTaP, Unspecified 2003-11-30 Completed [facility] of Formulation 00:00:00 [facility] Haemophilus 2003-11-30 Completed [facility] of influenzae type b 00:00:00 [place] [facility] vaccine, conjugate Branch unspecified formulation DTaP, Unspecified 2003-11-30 Completed [facility] of Formulation 00:00:00 [facility] Haemophilus 2003-11-30 Completed [facility] of influenzae type b 00:00:00 [place] [facility] vaccine, conjugate Branch unspecified formulation DTaP, Unspecified 2003-11-30 Completed [facility] of Formulation 00:00:00 [facility] Haemophilus 2003-11-30 Completed [facility] of influenzae type b 00:00:00 [place] [facility] vaccine, conjugate Branch unspecified formulation DTaP, Unspecified 2003-11-30 Completed [facility] of Formulation 00:00:00 [facility] Haemophilus 2003-11-30 Completed [facility] of influenzae type b 00:00:00 [facility] edical vaccine, conjugate Branch unspecified formulation DTaP, Unspecified 2003-11-30 Completed [facility] of Formulation 00:00:00 [facility] Haemophilus 2003-11-30 Completed [facility] of influenzae type b 00:00:00 [facility] edical vaccine, conjugate Branch unspecified formulation DTaP, Unspecified 2003-11-30 Completed [facility] of Formulation 00:00:00 [facility] Haemophilus 2003-11-30 Completed [facility] of influenzae type b 00:00:00 [facility] edical vaccine, conjugate Branch unspecified formulation DTaP, Unspecified 2003-11-30 Completed [facility] of Formulation 00:00:00 [facility] Haemophilus 2003-11-30 Completed University of influenzae type b 00:00:00 [facility] edical vaccine, conjugate Branch unspecified formulation DTaP, Unspecified 2002-08-18 Completed [facility] of Formulation 00:00:00 [facility] Polio (IPV/OPV) 2002-08-18 Completed [facility] 00:00:00 [facility] Varicella 2002-08-18 Completed University of (varivax)(chicken 00:00:00 [place] [facility] pox) Branch DTaP, Unspecified 2002-08-18 Completed [facility] of Formulation 00:00:00 [facility] Polio (IPV/OPV) 2002-08-18 Completed [facility] 00:00:00 [facility] Varicella 2002-08-18 Completed [facility] of (varivax)(chicken 00:00:00 [place] [facility] pox) Branch DTaP, Unspecified 2002-08-18 Completed [facility] of Formulation 00:00:00 [facility] Polio (IPV/OPV) 2002-08-18 Completed [facility] 00:00:00 [facility] Varicella 2002-08-18 Completed [facility] of (varivax)(chicken 00:00:00 [place] [facility] pox) Branch DTaP, Unspecified 2002-08-18 Completed [facility] of Formulation 00:00:00 [facility] Polio (IPV/OPV) 2002-08-18 Completed [facility] 00:00:00 [facility] Varicella 2002-08-18 Completed [facility] of (varivax)(chicken 00:00:00 [place] [facility] pox) Branch DTaP, Unspecified 2002-08-18 Completed [facility] of Formulation 00:00:00 [facility] Polio (IPV/OPV) 2002-08-18 Completed [facility] 00:00:00 [facility] Varicella 2002-08-18 Completed [facility] of (varivax)(chicken 00:00:00 [place] [facility] pox) Branch DTaP, Unspecified 2002-08-18 Completed [facility] of Formulation 00:00:00 [facility] Polio (IPV/OPV) 2002-08-18 Completed [facility] 00:00:00 [facility] Varicella 2002-08-18 Completed [facility] of (varivax)(chicken 00:00:00 [place] [facility] pox) Branch DTaP, Unspecified 2002-08-18 Completed [facility] of Formulation 00:00:00 [facility] Polio (IPV/OPV) 2002-08-18 Completed [facility] 00:00:00 [facility] Varicella 2002-08-18 Completed [facility] of (varivax)(chicken 00:00:00 [place] [facility] pox) Branch DTaP, Unspecified 2002-08-18 Completed [facility] of Formulation 00:00:00 [facility] Polio (IPV/OPV) 2002-08-18 Completed [facility] 00:00:00 [facility] Varicella 2002-08-18 Completed [facility] of (varivax)(chicken 00:00:00 [place] [facility] pox) Branch DTaP, Unspecified 2002-08-18 Completed [facility] of Formulation 00:00:00 [facility] Polio (IPV/OPV) 2002-08-18 Completed [facility] 00:00:00 [facility] Varicella 2002-08-18 Completed [facility] of (varivax)(chicken 00:00:00 [place] [facility] pox) Branch DTaP, Unspecified 2002-08-18 Completed [facility] of Formulation 00:00:00 [facility] Polio (IPV/OPV) 2002-08-18 Completed [facility] 00:00:00 [facility] Varicella 2002-08-18 Completed [facility] of (varivax)(chicken 00:00:00 [place] [facility] pox) Branch DTaP, Unspecified 2002-08-18 Completed [facility] of Formulation 00:00:00 [facility] Polio (IPV/OPV) 2002-08-18 Completed [facility] of 00:00:00 [facility] Varicella 2002-08-18 Completed [facility] of (varivax)(chicken 00:00:00 [place] [facility] pox) Branch DTaP, Unspecified 2002-08-18 Completed [facility] of Formulation 00:00:00 [facility] Polio (IPV/OPV) 2002-08-18 Completed [facility] 00:00:00 [facility] Varicella 2002-08-18 Completed [facility] of (varivax)(chicken 00:00:00 [place] [facility] pox) Branch DTaP, Unspecified 2002-08-18 Completed [facility] of Formulation 00:00:00 [facility] Polio (IPV/OPV) 2002-08-18 Completed [facility] 00:00:00 [facility] Varicella 2002-08-18 Completed [facility] (varivax)(chicken 00:00:00 [place] [facility] pox) Branch DTaP, Unspecified 2002-08-18 Completed [facility] of Formulation 00:00:00 [facility] Polio (IPV/OPV) 2002-08-18 Completed [facility] 00:00:00 [facility] Varicella 2002-08-18 Completed [facility] of (varivax)(chicken 00:00:00 [place] [facility] pox) Branch DTaP, Unspecified 2002-08-18 Completed [facility] of Formulation 00:00:00 [facility] Polio (IPV/OPV) 2002-08-18 Completed [facility] of 00:00:00 [facility] Varicella 2002-08-18 Completed [facility] of (varivax)(chicken 00:00:00 [place] [facility] pox) Branch DTaP, Unspecified 2002-08-18 Completed [facility] of Formulation 00:00:00 [facility] Polio (IPV/OPV) 2002-08-18 Completed [facility] 00:00:00 [facility] Varicella 2002-08-18 Completed [facility] (varivax)(chicken 00:00:00 [place] [facility] pox) Branch DTaP, Unspecified 2002-08-18 Completed [facility] of Formulation 00:00:00 [facility] Polio (IPV/OPV) 2002-08-18 Completed [facility] 00:00:00 [facility] Varicella 2002-08-18 Completed [facility] of (varivax)(chicken 00:00:00 [place] [facility] pox) Branch DTaP, Unspecified 2002-08-18 Completed [facility] of Formulation 00:00:00 [facility] Polio (IPV/OPV) 2002-08-18 Completed [facility] of 00:00:00 [facility] Varicella 2002-08-18 Completed [facility] of (varivax)(chicken 00:00:00 [place] [facility] pox) Branch DTaP, Unspecified 2002-08-18 Completed [facility] of Formulation 00:00:00 [facility] Polio (IPV/OPV) 2002-08-18 Completed [facility] of 00:00:00 [facility] Varicella 2002-08-18 Completed [facility] of (varivax)(chicken 00:00:00 [place] [facility] pox) Branch DTaP, Unspecified 2002-08-18 Completed [facility] of Formulation 00:00:00 [facility] Polio (IPV/OPV) 2002-08-18 Completed [facility] 00:00:00 [facility] Varicella 2002-08-18 Completed [facility] of (varivax)(chicken 00:00:00 [place] [facility] pox) Branch DTaP, Unspecified 2002-08-18 Completed [facility] of Formulation 00:00:00 [facility] Polio (IPV/OPV) 2002-08-18 Completed [facility] of 00:00:00 [facility] Varicella 2002-08-18 Completed [facility] of (varivax)(chicken 00:00:00 [place] [facility] pox) Branch DTaP, Unspecified 2002-08-18 Completed [facility] of Formulation 00:00:00 [facility] Polio (IPV/OPV) 2002-08-18 Completed [facility] of 00:00:00 [facility] Varicella 2002-08-18 Completed [facility] of (varivax)(chicken 00:00:00 [place] [facility] pox) Branch DTaP, Unspecified 2002-08-18 Completed [facility] of Formulation 00:00:00 [facility] Polio (IPV/OPV) 2002-08-18 Completed [facility] of 00:00:00 [facility] Varicella 2002-08-18 Completed [facility] of (varivax)(chicken 00:00:00 [place] [facility] pox) Branch DTaP, Unspecified 2002-08-18 Completed [facility] of Formulation 00:00:00 [facility] Polio (IPV/OPV) 2002-08-18 Completed [facility] 00:00:00 [facility] Varicella 2002-08-18 Completed [facility] (varivax)(chicken 00:00:00 [place] [facility] pox) Branch DTaP, Unspecified 2002-08-18 Completed [facility] of Formulation 00:00:00 [facility] Polio (IPV/OPV) 2002-08-18 Completed [facility] of 00:00:00 [facility] Varicella 2002-08-18 Completed [facility] of (varivax)(chicken 00:00:00 [place] [facility] pox) Branch DTaP, Unspecified 2002-08-18 Completed [facility] of Formulation 00:00:00 [facility] Polio (IPV/OPV) 2002-08-18 Completed [facility] of 00:00:00 [facility] Varicella 2002-08-18 Completed [facility] of (varivax)(chicken 00:00:00 [place] [facility] pox) Branch DTaP, Unspecified 2002-08-18 Completed [facility] of Formulation 00:00:00 [facility] Polio (IPV/OPV) 2002-08-18 Completed [facility] of 00:00:00 [facility] Varicella 2002-08-18 Completed [facility] of (varivax)(chicken 00:00:00 [place] [facility] pox) Branch DTaP, Unspecified 2002-08-18 Completed [facility] of Formulation 00:00:00 [facility] Polio (IPV/OPV) 2002-08-18 Completed [facility] of 00:00:00 [facility] Varicella 2002-08-18 Completed [facility] of (varivax)(chicken 00:00:00 [place] [facility] pox) Branch DTaP, Unspecified 2002-08-18 Completed [facility] of Formulation 00:00:00 [facility] Polio (IPV/OPV) 2002-08-18 Completed [facility] of 00:00:00 [facility] Varicella 2002-08-18 Completed [facility] of (varivax)(chicken 00:00:00 [place] [facility] pox) Branch DTaP, Unspecified 2002-08-18 Completed [facility] of Formulation 00:00:00 [facility] Polio (IPV/OPV) 2002-08-18 Completed [facility] of 00:00:00 [facility] Varicella 2002-08-18 Completed [facility] of (varivax)(chicken 00:00:00 [facility] edical pox) Branch DTaP, Unspecified 2002-07-06 Completed [facility] of Formulation 00:00:00 [facility] Hep B, Unspecified 2002-07-06 Completed Univer sity of Formulation 00:00:00 [facility] Haemophilus 2002-07-06 Completed University of influenzae type b 00:00:00 [facility] edical vaccine, conjugate Branch unspecified formulation MMR 2002-07-06 Completed [facility] of 00:00:00 [facility] Polio (IPV/OPV) 2002-07-06 Completed [facility] 00:00:00 [facility] DTaP, Unspecified 2002-07-06 Completed [facility] of Formulation 00:00:00 [facility] Hep B, Unspecified 2002-07-06 Completed Univer sity of Formulation 00:00:00 [facility] Haemophilus 2002-07-06 Completed University of influenzae type b 00:00:00 [facility] edical vaccine, conjugate Branch unspecified formulation MMR 2002-07-06 Completed [facility] of 00:00:00 [facility] Polio (IPV/OPV) 2002-07-06 Completed [facility] of 00:00:00 [facility] DTaP, Unspecified 2002-07-06 Completed [facility]y of Formulation 00:00:00 [facility] Hep B, Unspecified 2002-07-06 Completed Univer sity of Formulation 00:00:00 [facility] Haemophilus 2002-07-06 Completed University of influenzae type b 00:00:00 [facility] edical vaccine, conjugate Branch unspecified formulation MMR 2002-07-06 Completed [facility] of 00:00:00 [facility] Polio (IPV/OPV) 2002-07-06 Completed [facility] 00:00:00 [facility] DTaP, Unspecified 2002-07-06 Completed [facility]y of Formulation 00:00:00 [facility] Hep B, Unspecified 2002-07-06 Completed Univer sity of Formulation 00:00:00 [facility] Haemophilus 2002-07-06 Completed [facility] of influenzae type b 00:00:00 [place] [facility] vaccine, conjugate Branch unspecified formulation MMR 2002-07-06 Completed [facility] 00:00:00 [facility] Polio (IPV/OPV) 2002-07-06 Completed [facility] 00:00:00 [facility] DTaP, Unspecified 2002-07-06 Completed [facility] Formulation 00:00:00 [facility] Hep B, Unspecified 2002-07-06 Completed Univer sity of Formulation 00:00:00 [facility] Haemophilus 2002-07-06 Completed [facility] influ[facility]ae type b 00:00:00 [place] [facility], conjugate Branch unspecified formulation MMR 2002-07-06 Completed [facility] 00:00:00 [facility] Polio (IPV/OPV) 2002-07-06 Completed [facility] 00:00:00 [facility] DTaP, Unspecified 2002-07-06 Completed [facility] Formulation 00:00:00 [facility] Hep B, Unspecified 2002-07-06 Completed [facility] of Formulation 00:00:00 [facility] Haemophilus 2002-07-06 Completed [facility] influenzae type b 00:00:00 [place] [facility], conjugate [facility] unspecified formulation MMR 2002-07-06 Completed [facility] 00:00:00 [facility] Polio (IPV/OPV) 2002-07-06 Completed [facility] 00:00:00 [facility] DTaP, Unspecified 2002-07-06 Completed [facility] Formulation 00:00:00 [facility] Hep B, Unspecified 2002-07-06 Completed [facility] of Formulation 00:00:00 [facility] Haemophilus 2002-07-06 Completed [facility] influenzae type b 00:00:00 [place] [facility], conjugate Branch unspecified formulation MMR 2002-07-06 Completed [facility] 00:00:00 [facility] Polio (IPV/OPV) 2002-07-06 Completed [facility] 00:00:00 [facility] DTaP, Unspecified 2002-07-06 Completed [facility] Formulation 00:00:00 [facility] Hep B, Unspecified 2002-07-06 Completed [facility] of Formulation 00:00:00 [facility] Haemophilus 2002-07-06 Completed [facility] influenzae type b 00:00:00 [place] [facility], conjugate [facility] unspecified formulation MMR 2002-07-06 Completed [facility] 00:00:00 [facility] Polio (IPV/OPV) 2002-07-06 Completed [facility] 00:00:00 [facility] DTaP, Unspecified 2002-07-06 Completed [facility] Formulation 00:00:00 [facility] Hep B, Unspecified 2002-07-06 Completed [facility] of Formulation 00:00:00 [facility] Haemophilus 2002-07-06 Completed [facility] influenzae type b 00:00:00 [place] [facility], conjugate [facility] unspecified formulation MMR 2002-07-06 Completed [facility] 00:00:00 [facility] Polio (IPV/OPV) 2002-07-06 Completed [facility] 00:00:00 [facility] DTaP, Unspecified 2002-07-06 Completed [facility] Formulation 00:00:00 [facility] Hep B, Unspecified 2002-07-06 Completed [facility] of Formulation 00:00:00 [facility] Haemophilus 2002-07-06 Completed [facility] influenzae type b 00:00:00 [facility] edical vaccine, conjugate Branch unspecified formulation MMR 2002-07-06 Completed [facility] of 00:00:00 [facility] Polio (IPV/OPV) 2002-07-06 Completed [facility] 00:00:00 [facility] DTaP, Unspecified 2002-07-06 Completed [facility] of Formulation 00:00:00 [facility] Hep B, Unspecified 2002-07-06 Completed [facility] of Formulation 00:00:00 [facility] Haemophilus 2002-07-06 Completed [facility] influenzae type b 00:00:00 [place] [facility], conjugate [facility] unspecified formulation MMR 2002-07-06 Completed [facility] 00:00:00 [facility] Polio (IPV/OPV) 2002-07-06 Completed [facility] 00:00:00 [facility] DTaP, Unspecified 2002-07-06 Completed [facility] Formulation 00:00:00 [facility] Hep B, Unspecified 2002-07-06 Completed [facility] of Formulation 00:00:00 [facility] Haemophilus 2002-07-06 Completed [facility] influenzae type b 00:00:00 [place] [facility], conjugate [facility] unspecified formulation MMR 2002-07-06 Completed [facility] 00:00:00 [facility] Polio (IPV/OPV) 2002-07-06 Completed [facility] 00:00:00 [facility] DTaP, Unspecified 2002-07-06 Completed [facility] of Formulation 00:00:00 [facility] Hep B, Unspecified 2002-07-06 Completed [facility]iver [facility]ity of Formulation 00:00:00 [facility] Haemophilus 2002-07-06 Completed [facility] influenzae type b 00:00:00 [place] [facility], conjugate [facility] unspecified formulation MMR 2002-07-06 Completed [facility] 00:00:00 [facility] Polio (IPV/OPV) 2002-07-06 Completed [facility] 00:00:00 [facility] DTaP, Unspecified 2002-07-06 Completed [facility] of Formulation 00:00:00 [facility] Hep B, Unspecified 2002-07-06 Completed [facility]iver [facility] of Formulation 00:00:00 [facility] Haemophilus 2002-07-06 Completed [facility] influenzae type b 00:00:00 [place] [facility], conjugate [facility] unspecified formulation MMR 2002-07-06 Completed [facility] 00:00:00 [facility] Polio (IPV/OPV) 2002-07-06 Completed [facility] 00:00:00 [facility] DTaP, Unspecified 2002-07-06 Completed [facility] of Formulation 00:00:00 [facility] Hep B, Unspecified 2002-07-06 Completed [facility]iver [facility] of Formulation 00:00:00 [facility] Haemophilus 2002-07-06 Completed [facility] influenzae type b 00:00:00 [place] [facility], conjugate Branch unspecified formulation MMR 2002-07-06 Completed [facility] 00:00:00 [facility] Polio (IPV/OPV) 2002-07-06 Completed [facility] 00:00:00 [facility] DTaP, Unspecified 2002-07-06 Completed [facility] of Formulation 00:00:00 [facility] Hep B, Unspecified 2002-07-06 Completed [facility]iver [facility] of Formulation 00:00:00 [facility] Haemophilus 2002-07-06 Completed [facility] influenzae type b 00:00:00 [place] [facility] vaccine, conjugate Branch unspecified formulation MMR 2002-07-06 Completed [facility] 00:00:00 [facility] Polio (IPV/OPV) 2002-07-06 Completed [facility] 00:00:00 [facility] DTaP, Unspecified 2002-07-06 Completed [facility] of Formulation 00:00:00 [facility] Hep B, Unspecified 2002-07-06 Completed [facility]iver [facility] of Formulation 00:00:00 [facility] Haemophilus 2002-07-06 Completed [facility] influenzae type b 00:00:00 [place] [facility], conjugate Branch unspecified formulation MMR 2002-07-06 Completed [facility] 00:00:00 [facility] Polio (IPV/OPV) 2002-07-06 Completed [facility] 00:00:00 [facility] DTaP, Unspecified 2002-07-06 Completed [facility] of Formulation 00:00:00 [facility] Hep B, Unspecified 2002-07-06 Completed [facility] of Formulation 00:00:00 [facility] Haemophilus 2002-07-06 Completed [facility] influenzae type b 00:00:00 [place] [facility], conjugate Branch unspecified formulation MMR 2002-07-06 Completed [facility] 00:00:00 [facility] Polio (IPV/OPV) 2002-07-06 Completed [facility] 00:00:00 [facility] DTaP, Unspecified 2002-07-06 Completed [facility] of Formulation 00:00:00 [facility] Hep B, Unspecified 2002-07-06 Completed [facility] of Formulation 00:00:00 [facility] Haemophilus 2002-07-06 Completed [facility] influenzae type b 00:00:00 [place] [facility], conjugate Branch unspecified formulation MMR 2002-07-06 Completed [facility] of 00:00:00 [facility] Polio (IPV/OPV) 2002-07-06 Completed [facility] 00:00:00 [facility] DTaP, Unspecified 2002-07-06 Completed [facility] of Formulation 00:00:00 [facility] Hep B, Unspecified 2002-07-06 Completed [facility] of Formulation 00:00:00 [facility] Haemophilus 2002-07-06 Completed [facility] influenzae type b 00:00:00 [place] [facility], conjugate [facility] unspecified formulation MMR 2002-07-06 Completed [facility] 00:00:00 [facility] Polio (IPV/OPV) 2002-07-06 Completed [facility] 00:00:00 [facility] DTaP, Unspecified 2002-07-06 Completed [facility] Formulation 00:00:00 [facility] Hep B, Unspecified 2002-07-06 Completed Univer sity of Formulation 00:00:00 [facility] Haemophilus 2002-07-06 Completed [facility] influenzae type b 00:00:00 [place] [facility], conjugate [facility] unspecified formulation MMR 2002-07-06 Completed [facility] 00:00:00 [facility] Polio (IPV/OPV) 2002-07-06 Completed [facility] 00:00:00 [facility] DTaP, Unspecified 2002-07-06 Completed [facility] Formulation 00:00:00 [facility] Hep B, Unspecified 2002-07-06 Completed Univer [facility]ity of Formulation 00:00:00 [facility] Haemophilus 2002-07-06 Completed [facility] influenzae type b 00:00:00 [place] [facility] vaccine, conjugate Branch unspecified formulation MMR 2002-07-06 Completed [facility] 00:00:00 [facility] Polio (IPV/OPV) 2002-07-06 Completed [facility] 00:00:00 [facility] DTaP, Unspecified 2002-07-06 Completed [facility] of Formulation 00:00:00 [facility] Hep B, Unspecified 2002-07-06 Completed [facility] of Formulation 00:00:00 [facility] Haemophilus 2002-07-06 Completed [facility] influenzae type b 00:00:00 [place] [facility], conjugate Branch unspecified formulation MMR 2002-07-06 Completed [facility] 00:00:00 [facility] Polio (IPV/OPV) 2002-07-06 Completed [facility] 00:00:00 [facility] DTaP, Unspecified 2002-07-06 Completed [facility] of Formulation 00:00:00 [facility] Hep B, Unspecified 2002-07-06 Completed [facility]iver [facility] of Formulation 00:00:00 [facility] Haemophilus 2002-07-06 Completed [facility] influenzae type b 00:00:00 [place] [facility] vaccine, conjugate Branch unspecified formulation MMR 2002-07-06 Completed [facility] 00:00:00 [facility] Polio (IPV/OPV) 2002-07-06 Completed [facility] 00:00:00 [facility] DTaP, Unspecified 2002-07-06 Completed [facility] of Formulation 00:00:00 [facility] Hep B, Unspecified 2002-07-06 Completed [facility]iver [facility] of Formulation 00:00:00 [facility] Haemophilus 2002-07-06 Completed [facility] influenzae type b 00:00:00 [place] [facility] vaccine, conjugate Branch unspecified formulation MMR 2002-07-06 Completed [facility] 00:00:00 [facility] Polio (IPV/OPV) 2002-07-06 Completed [facility] 00:00:00 [facility] DTaP, Unspecified 2002-07-06 Completed [facility] of Formulation 00:00:00 [facility] Hep B, Unspecified 2002-07-06 Completed [facility] of Formulation 00:00:00 [facility] Haemophilus 2002-07-06 Completed [facility] influenzae type b 00:00:00 [place] [facility], conjugate Branch unspecified formulation MMR 2002-07-06 Completed [facility] 00:00:00 [facility] Polio (IPV/OPV) 2002-07-06 Completed [facility] 00:00:00 [facility] DTaP, Unspecified 2002-07-06 Completed [facility] of Formulation 00:00:00 [facility] Hep B, Unspecified 2002-07-06 Completed [facility] of Formulation 00:00:00 [facility] Haemophilus 2002-07-06 Completed [facility] influenzae type b 00:00:00 [place] [facility], conjugate Branch unspecified formulation MMR 2002-07-06 Completed [facility] 00:00:00 [facility] Polio (IPV/OPV) 2002-07-06 Completed [facility] 00:00:00 [facility] DTaP, Unspecified 2002-07-06 Completed [facility] of Formulation 00:00:00 [facility] Hep B, Unspecified 2002-07-06 Completed [facility] of Formulation 00:00:00 [facility] Haemophilus 2002-07-06 Completed [facility] influenzae type b 00:00:00 [place] [facility] vaccine, conjugate Branch unspecified formulation MMR 2002-07-06 Completed [facility] 00:00:00 [facility] Polio (IPV/OPV) 2002-07-06 Completed [facility] 00:00:00 [facility] DTaP, Unspecified 2002-07-06 Completed [facility] of Formulation 00:00:00 [facility] Hep B, Unspecified 2002-07-06 Completed [facility] of Formulation 00:00:00 [facility] Haemophilus 2002-07-06 Completed [facility] influenzae type b 00:00:00 [place] [facility] vaccine, conjugate Branch unspecified formulation MMR 2002-07-06 Completed [facility] 00:00:00 [facility] Polio (IPV/OPV) 2002-07-06 Completed [facility] 00:00:00 [facility] DTaP, Unspecified 2002-07-06 Completed [facility] of Formulation 00:00:00 [facility] Hep B, Unspecified 2002-07-06 Completed [facility] of Formulation 00:00:00 [facility] Haemophilus 2002-07-06 Completed [facility] influenzae type b 00:00:00 [place] [facility] vaccine, conjugate Branch unspecified formulation MMR 2002-07-06 Completed [facility] 00:00:00 [facility] Polio (IPV/OPV) 2002-07-06 Completed [facility] 00:00:00 [facility] DTaP, Unspecified 2001-02-20 Completed [facility] of Formulation 00:00:00 [facility] Hep B, Unspecified 2001-02-20 Completed [facility] of Formulation 00:00:00 [facility] Haemophilus 2001-02-20 Completed [facility] influenzae type b 00:00:00 [place] [facility], conjugate Branch unspecified formulation DTaP, Unspecified 2001-02-20 Completed [facility] Formulation 00:00:00 [facility] Hep B, Unspecified 2001-02-20 Completed [facility] of Formulation 00:00:00 [facility] Haemophilus 2001-02-20 Completed [facility] influenzae type b 00:00:00 [place] [facility], conjugate Branch unspecified formulation DTaP, Unspecified 2001-02-20 Completed [facility] Formulation 00:00:00 [facility] Hep B, Unspecified 2001-02-20 Completed [facility] of Formulation 00:00:00 [facility] Haemophilus 2001-02-20 Completed [facility] influenzae type b 00:00:00 [place] [facility] vaccine, conjugate Branch unspecified formulation DTaP, Unspecified 2001-02-20 Completed [facility] Formulation 00:00:00 [facility] Hep B, Unspecified 2001-02-20 Completed Un[facility] of Formulation 00:00:00 [facility] Haemophilus 2001-02-20 Completed [facility] influenzae type b 00:00:00 [facility] edical vaccine, conjugate Branch unspecified formulation DTaP, Unspecified 2001-02-20 Completed [facility] of Formulation 00:00:00 [facility] Hep B, Unspecified 2001-02-20 Completed [facility] of Formulation 00:00:00 [facility] Haemophilus 2001-02-20 Completed [facility] influenzae type b 00:00:00 [facility] edical vaccine, conjugate Branch unspecified formulation DTaP, Unspecified 2001-02-20 Completed [facility] of Formulation 00:00:00 [facility] Hep B, Unspecified 2001-02-20 Completed [facility] of Formulation 00:00:00 [facility] Haemophilus 2001-02-20 Completed [facility] influenzae type b 00:00:00 [facility] edical vaccine, conjugate Branch unspecified formulation DTaP, Unspecified 2001-02-20 Completed [facility] of Formulation 00:00:00 [facility] Hep B, Unspecified 2001-02-20 Completed [facility] of Formulation 00:00:00 [facility] Haemophilus 2001-02-20 Completed [facility] influenzae type b 00:00:00 [facility] edical vaccine, conjugate Branch unspecified formulation DTaP, Unspecified 2001-02-20 Completed [facility] Formulation 00:00:00 [facility] Hep B, Unspecified 2001-02-20 Completed [facility] of Formulation 00:00:00 [facility] Haemophilus 2001-02-20 Completed [facility] influenzae type b 00:00:00 [facility] edical vaccine, conjugate Branch unspecified formulation DTaP, Unspecified 2001-02-20 Completed [facility] Formulation 00:00:00 [facility] Hep B, Unspecified 2001-02-20 Completed [facility] of Formulation 00:00:00 [facility] Haemophilus 2001-02-20 Completed [facility] influenzae type b 00:00:00 [facility] edical vaccine, conjugate Branch unspecified formulation DTaP, Unspecified 2001-02-20 Completed [facility] Formulation 00:00:00 [facility] Hep B, Unspecified 2001-02-20 Completed [facility] of Formulation 00:00:00 [facility] Haemophilus 2001-02-20 Completed [facility] influenzae type b 00:00:00 [facility] edical vaccine, conjugate Branch unspecified formulation DTaP, Unspecified 2001-02-20 Completed [facility] Formulation 00:00:00 [facility] Hep B, Unspecified 2001-02-20 Completed Un[facility] of Formulation 00:00:00 [facility] Haemophilus 2001-02-20 Completed [facility] influenzae type b 00:00:00 [place] [facility], conjugate [facility] unspecified formulation DTaP, Unspecified 2001-02-20 Completed [facility] Formulation 00:00:00 [facility] Hep B, Unspecified 2001-02-20 Completed [facility] of Formulation 00:00:00 [facility] Haemophilus 2001-02-20 Completed [facility] influenzae type b 00:00:00 [place] [facility], conjugate Branch unspecified formulation DTaP, Unspecified 2001-02-20 Completed [facility] Formulation 00:00:00 [facility] Hep B, Unspecified 2001-02-20 Completed [facility] of Formulation 00:00:00 [facility] Haemophilus 2001-02-20 Completed [facility] influenzae type b 00:00:00 [place] [facility], conjugate Branch unspecified formulation DTaP, Unspecified 2001-02-20 Completed [facility] Formulation 00:00:00 [facility] Hep B, Unspecified 2001-02-20 Completed [facility] of Formulation 00:00:00 [facility] Haemophilus 2001-02-20 Completed [facility] influenzae type b 00:00:00 [facility] edical vaccine, conjugate Branch unspecified formulation DTaP, Unspecified 2001-02-20 Completed [facility] of Formulation 00:00:00 [facility] Hep B, Unspecified 2001-02-20 Completed [facility] of Formulation 00:00:00 [facility] Haemophilus 2001-02-20 Completed [facility] influenzae type b 00:00:00 [place] [facility], conjugate Branch unspecified formulation DTaP, Unspecified 2001-02-20 Completed [facility] Formulation 00:00:00 [facility] Hep B, Unspecified 2001-02-20 Completed [facility] of Formulation 00:00:00 [facility] Haemophilus 2001-02-20 Completed [facility] influenzae type b 00:00:00 [place] [facility], conjugate Branch unspecified formulation DTaP, Unspecified 2001-02-20 Completed [facility] Formulation 00:00:00 [facility] Hep B, Unspecified 2001-02-20 Completed [facility] of Formulation 00:00:00 [facility] Haemophilus 2001-02-20 Completed [facility] influenzae type b 00:00:00 [place] [facility], conjugate Branch unspecified formulation DTaP, Unspecified 2001-02-20 Completed [facility] Formulation 00:00:00 [facility] Hep B, Unspecified 2001-02-20 Completed [facility] of Formulation 00:00:00 [facility] Haemophilus 2001-02-20 Completed [facility] influenzae type b 00:00:00 [place] [facility], conjugate Branch unspecified formulation DTaP, Unspecified 2001-02-20 Completed [facility] Formulation 00:00:00 [facility] Hep B, Unspecified 2001-02-20 Completed [facility] of Formulation 00:00:00 [facility] Haemophilus 2001-02-20 Completed [facility] influenzae type b 00:00:00 [place] [facility], conjugate Branch unspecified formulation DTaP, Unspecified 2001-02-20 Completed [facility] Formulation 00:00:00 [facility] Hep B, Unspecified 2001-02-20 Completed [facility] of Formulation 00:00:00 [facility] Haemophilus 2001-02-20 Completed [facility] influenzae type b 00:00:00 [facility] edical vaccine, conjugate Branch unspecified formulation DTaP, Unspecified 2001-02-20 Completed [facility] Formulation 00:00:00 [facility] Hep B, Unspecified 2001-02-20 Completed [facility] of Formulation 00:00:00 [facility] Haemophilus 2001-02-20 Completed [facility] influenzae type b 00:00:00 [place] [facility], conjugate Branch unspecified formulation DTaP, Unspecified 2001-02-20 Completed [facility] Formulation 00:00:00 [facility] Hep B, Unspecified 2001-02-20 Completed [facility] of Formulation 00:00:00 [facility] Haemophilus 2001-02-20 Completed [facility] influenzae type b 00:00:00 [place] [facility], conjugate [facility] unspecified formulation DTaP, Unspecified 2001-02-20 Completed [facility] Formulation 00:00:00 [facility] Hep B, Unspecified 2001-02-20 Completed [facility] of Formulation 00:00:00 [facility] Haemophilus 2001-02-20 Completed [facility] influenzae type b 00:00:00 [place] [facility], conjugate Branch unspecified formulation DTaP, Unspecified 2001-02-20 Completed [facility] Formulation 00:00:00 [facility] Hep B, Unspecified 2001-02-20 Completed [facility] of Formulation 00:00:00 [facility] Haemophilus 2001-02-20 Completed [facility] influenzae type b 00:00:00 [facility] edical vaccine, conjugate Branch unspecified formulation DTaP, Unspecified 2001-02-20 Completed [facility] Formulation 00:00:00 [facility] Hep B, Unspecified 2001-02-20 Completed [facility] of Formulation 00:00:00 [facility] Haemophilus 2001-02-20 Completed [facility] influenzae type b 00:00:00 [facility] edical vaccine, conjugate Branch unspecified formulation DTaP, Unspecified 2001-02-20 Completed [facility] Formulation 00:00:00 [facility] Hep B, Unspecified 2001-02-20 Completed [facility] of Formulation 00:00:00 [facility] Haemophilus 2001-02-20 Completed [facility] influenzae type b 00:00:00 [facility] edical vaccine, conjugate Branch unspecified formulation DTaP, Unspecified 2001-02-20 Completed [facility] Formulation 00:00:00 [facility] Hep B, Unspecified 2001-02-20 Completed [facility] of Formulation 00:00:00 [facility] Haemophilus 2001-02-20 Completed [facility] influenzae type b 00:00:00 [facility] edical vaccine, conjugate Branch unspecified formulation DTaP, Unspecified 2001-02-20 Completed [facility] Formulation 00:00:00 [facility] Hep B, Unspecified 2001-02-20 Completed [facility] of Formulation 00:00:00 [facility] Haemophilus 2001-02-20 Completed [facility] influenzae type b 00:00:00 [facility] edical vaccine, conjugate Branch unspecified formulation DTaP, Unspecified 2001-02-20 Completed [facility] Formulation 00:00:00 [facility] Hep B, Unspecified 2001-02-20 Completed [facility] of Formulation 00:00:00 [facility] Haemophilus 2001-02-20 Completed [facility] influenzae type b 00:00:00 [facility] edical vaccine, conjugate Branch unspecified formulation DTaP, Unspecified 2001-02-20 Completed [facility] Formulation 00:00:00 [facility] Hep B, Unspecified 2001-02-20 Completed [facility] Formulation 00:00:00 [facility] Haemophilus 2001-02-20 Completed University of influenzae type b 00:00:00 [facility] edical vaccine, conjugate Branch unspecified formulation Hep B, Unspecified 2000 Completed Univer sity of Formulation 00:00:00 [facility] Hep B, Unspecified 2000 Completed Univer sity of Formulation 00:00:00 [facility] Hep B, Unspecified 2000 Completed Univer sity of Formulation 00:00:00 [facility] Hep B, Unspecified 2000 Completed Univer sity of Formulation 00:00:00 [facility] Hep B, Unspecified 2000 Completed Univer sity of Formulation 00:00:00 [facility] Hep B, Unspecified 2000 Completed Univer sity of Formulation 00:00:00 [facility] Hep B, Unspecified 2000 Completed Univer sity of Formulation 00:00:00 [facility] Hep B, Unspecified 2000 Completed Univer sity of Formulation 00:00:00 [facility] Hep B, Unspecified 2000 Completed Univer sity of Formulation 00:00:00 [facility] Hep B, Unspecified 2000 Completed Univer sity of Formulation 00:00:00 [facility] Hep B, Unspecified 2000 Completed Univer sity of Formulation 00:00:00 [facility] Hep B, Unspecified 2000 Completed Univer sity of Formulation 00:00:00 [facility] Hep B, Unspecified 2000 Completed Univer sity of Formulation 00:00:00 [facility] Hep B, Unspecified 2000 Completed Univer sity of Formulation 00:00:00 [facility] Hep B, Unspecified 2000 Completed Univer sity of Formulation 00:00:00 [facility] Hep B, Unspecified 2000 Completed Univer sity of Formulation 00:00:00 [facility] Hep B, Unspecified 2000 Completed Univer sity of Formulation 00:00:00 [facility] Hep B, Unspecified 2000 Completed [...] 2000 Completed Univer sity of Formulation 00:00:00 [facility] Hep B, Unspecified 2000 Completed Univer sity of Formulation 00:00:00 [facility] Vital Signs Vital Name Observation Time Observation Value Comments Source Systolic blood 2022-10-25 14:24:00 124 mm[Hg] Univer sity of pressure [facility] Diastolic blood 2022-10-25 14:24:00 81 mm[Hg] Unive rsity of pressure [facility] Heart rate 2022-10-25 14:24:00 96 /min [facility] Body temperature 2022-10-25 14:24:00 36.72 Madelin [facility] ersity [facility] Respiratory rate 2022-10-25 14:24:00 18 /min [facility] height 2022-10-25 14:24:00 157.5 cm [facility] Body weight 2022-10-25 14:24:00 79.788 kg [facility] BMI 2022-10-25 14:24:00 32.17 kg/m2 [facility] Systolic blood 2022-10-04 13:42:00 105 mm[Hg] Univer sity of pressure [facility] Diastolic blood 2022-10-04 13:42:00 66 mm[Hg] Unive rsity of pressure [facility] Heart rate 2022-10-04 13:42:00 79 /min [facility] Body temperature 2022-10-04 13:42:00 36.33 Madelin Univ ersity of [facility] Respiratory rate 2022-10-04 13:42:00 18 /min Univ ersity of [facility] Body height 2022-10-04 13:42:00 157.5 cm [facility] Body weight 2022-10-04 13:42:00 78.614 kg [facility] BMI 2022-10-04 13:42:00 31.70 kg/m2 [facility] Systolic blood 2022-09-13 15:37:00 111 mm[Hg] Univer sity of pressure [facility] Diastolic blood 2022-09-13 15:37:00 70 mm[Hg] Unive rsity of pressure [facility] Heart rate 2022-09-13 15:37:00 74 /min [facility] Body temperature 2022-09-13 15:37:00 36.5 Madelin Univ [facility] Respiratory rate 2022-09-13 15:37:00 17 /min Univ ersity of [facility] Body height 2022-09-13 15:37:00 157.5 cm [facility] Body weight 2022-09-13 15:37:00 74.254 kg [facility] BMI 2022-09-13 15:37:00 29.94 kg/m2 [facility] Systolic blood 2022-09-05 20:16:00 120 mm[Hg] Univer sity of pressure [facility] Diastolic blood 2022-09-05 20:16:00 74 mm[Hg] Unive rsity of pressure [facility] Heart rate 2022-09-05 20:16:00 78 /min [facility] Body temperature 2022-09-05 20:16:00 35.94 Madelin Univ ers[facility] Respiratory rate 2022-09-05 20:16:00 18 /min Univ ersity of [facility] Body height 2022-09-05 20:16:00 157.5 cm [facility] Body weight 2022-09-05 20:16:00 76.023 kg [facility] BMI 2022-09-05 20:16:00 30.65 kg/m2 [facility] Systolic blood 2022-08-30 15:58:00 122 mm[Hg] Univer sity of pressure [facility] Diastolic blood 2022-08-30 15:58:00 61 mm[Hg] Unive rsity of pressure [facility] Heart rate 2022-08-30 15:58:00 70 /min [facility] Body temperature 2022-08-30 15:58:00 36.78 Madelin Univ ers[facility] Respiratory rate 2022-08-30 15:58:00 18 /min Univ ersity of [facility] Body height 2022-08-30 15:58:00 154.9 cm [facility] Body weight 2022-08-30 15:58:00 73.619 kg [facility] BMI 2022-08-30 15:58:00 30.67 kg/m2 [facility] Systolic blood 2022-08-08 20:09:00 127 mm[Hg] Univer sity of pressure [facility] Diastolic blood 2022-08-08 20:09:00 75 mm[Hg] Unive rsity of pressure [facility] Heart rate 2022-08-08 20:09:00 89 /min [facility] Body temperature 2022-08-08 20:09:00 36.83 Madelin Univ ers[facility] of [facility] Respiratory rate 2022-08-08 20:09:00 18 /min Univ ersity of [facility] Body height 2022-08-08 20:09:00 154.9 cm [facility] Body weight 2022-08-08 20:09:00 72.031 kg [facility] BMI 2022-08-08 20:09:00 30.00 kg/m2 [facility] Systolic blood 2022-07-27 08:40:45 121 mm[Hg] Univer sity of pressure [facility] Diastolic blood 2022-07-27 08:40:45 71 mm[Hg] Unive rsity of pressure [facility] Heart rate 2022-07-27 08:40:45 70 /min [facility] Respiratory rate 2022-07-27 08:40:45 18 /min Univ ersity of [facility] Oxygen saturation in 2022-07-27 08:40:45 100 /min University of Arterial blood by [facility] negrita Pulse oximetry Branch Body temperature 2022-07-27 06:15:00 36.61 Madelin Univ ersity of [facility] Body weight 2022-07-27 06:15:00 72.576 kg [facility] BMI 2022-07-27 06:15:00 30.23 kg/m2 [facility] Systolic blood 2022-04-02 23:00:00 116 mm[Hg] Univer sity of pressure [facility] Diastolic blood 2022-04-02 23:00:00 77 mm[Hg] Unive rsity of pressure [facility] Heart rate 2022-04-02 23:00:00 89 /min [facility] Respiratory rate 2022-04-02 23:00:00 16 /min Univ ersity of [facility] Oxygen saturation in 2022-04-02 23:00:00 98 /min University of Arterial blood by [facility] Pulse oximetry Branch Body temperature 2022-04-02 21:10:00 37.56 Madelin Univ ersity of [facility] Body weight 2022-04-02 20:43:00 72.576 kg [facility] BMI 2022-04-02 20:43:00 30.23 kg/m2 [facility] Systolic blood 2022-03-15 21:01:00 122 mm[Hg] Univer sity of pressure [facility] Diastolic blood 2022-03-15 21:01:00 64 mm[Hg] Unive rsity of pressure [facility] Heart rate 2022-03-15 21:01:00 96 /min [facility] Body temperature 2022-03-15 21:01:00 38.06 Madelin Univ ers[facility] of [facility] Respiratory rate 2022-03-15 21:01:00 17 /min Univ ersity of [facility] Oxygen saturation in 2022-03-15 21:01:00 98 /min [facility] of Arterial blood by [facility] Pulse oximetry Branch Body height 2022-03-15 16:36:00 154.9 cm [facility] Body weight 2022-03-15 16:36:00 73.483 kg [facility] BMI 2022-03-15 16:36:00 30.61 kg/m2 [facility] Systolic blood 2022-02-24 22:05:46 140 mm[Hg] Univer sity of pressure [facility] Diastolic blood 2022-02-24 22:05:46 78 mm[Hg] Unive rsity of pressure [facility] Heart rate 2022-02-24 22:05:46 72 /min [facility] Body temperature 2022-02-24 22:05:46 37.06 Madelin Univ [facility] of [facility] Respiratory rate 2022-02-24 22:05:46 18 /min Univ ersity of [facility] Oxygen saturation in 2022-02-24 22:05:46 99 /min [facility] of Arterial blood by [facility] Pulse oximetry Branch Body weight 2022-02-24 19:41:00 73.483 kg [facility] BMI 2022-02-24 19:41:00 29.63 kg/m2 [facility] Systolic blood 2022-02-22 19:40:00 137 mm[Hg] Univer sity of pressure [facility] Diastolic blood 2022-02-22 19:40:00 88 mm[Hg] Unive rsity of pressure [facility] Heart rate 2022-02-22 19:40:00 92 /min [facility] Oxygen saturation in 2022-02-22 19:40:00 97 /min [facility] of Arterial blood by [facility] Pulse oximetry Branch Respiratory rate 2022-02-22 19:36:00 20 /min Univ ersity of [facility] Body height 2022-02-22 19:36:00 157.5 cm [facility] Body weight 2022-02-22 19:36:00 74.934 kg [facility] BMI 2022-02-22 19:36:00 30.22 kg/m2 [facility] Systolic blood 2022-02-05 20:32:58 112 mm[Hg] Univer sity of pressure [facility] Diastolic blood 2022-02-05 20:32:58 66 mm[Hg] Unive rsity of pressure [facility] Heart rate 2022-02-05 20:32:58 54 /min [facility] Respiratory rate 2022-02-05 20:32:58 18 /min Univ ersity of [facility] Oxygen saturation in 2022-02-05 20:32:58 99 /min University of Arterial blood by [employer] Pulse oximetry Branch Body temperature 2022-02-05 18:50:00 36.94 Madelin Univ ersity of [facility] Body height 2022-02-05 18:50:00 157.5 cm [facility] Body weight 2022-02-05 18:50:00 78.019 kg [facility] BMI 2022-02-05 18:50:00 31.46 kg/m2 [facility] Systolic blood 2021-09-30 17:59:00 135 mm[Hg] Univer sity of pressure [facility] Diastolic blood 2021-09-30 17:59:00 83 mm[Hg] Unive rsity of pressure [facility] Heart rate 2021-09-30 17:59:00 89 /min [facility] Body temperature 2021-09-30 17:59:00 36.78 Madelin Univ ersity [facility] Respiratory rate 2021-09-30 17:59:00 18 /min Univ ersity of [facility] Body height 2021-09-30 17:59:00 160 cm [facility] Body weight 2021-09-30 17:59:00 78.019 kg [facility] BMI 2021-09-30 17:59:00 30.47 kg/m2 [facility] Oxygen saturation in 2021-09-30 17:59:00 99 /min University of Arterial blood by [employer] Pulse oxim[facility] Branch Systolic blood 2021-01-08 08:08:00 116 mm[Hg] Univer sity of pressure [facility] Diastolic blood 2021-01-08 08:08:00 79 mm[Hg] Unive rsity of pressure [facility] Heart rate 2021-01-08 08:08:00 67 /min [facility] Respiratory rate 2021-01-08 08:08:00 18 /min Univ ersity of [facility] Oxygen saturation in 2021-01-08 08:08:00 100 /min [facility] of Arterial blood by [facility] Pulse oximetry Branch Body temperature 2021-01-08 03:45:00 37.28 Madelin Univ [facility] Body height 2021-01-08 03:45:00 157.5 cm [facility] Body weight 2021-01-08 03:45:00 79.379 kg [facility] BMI 2021-01-08 03:45:00 32.01 kg/m2 [facility] Systolic blood 2020-08-24 21:00:00 129 mm[Hg] Univer sity of pressure [facility] Diastolic blood 2020-08-24 21:00:00 86 mm[Hg] Unive rsity of pressure [facility] Heart rate 2020-08-24 21:00:00 64 /min [facility] Body temperature 2020-08-24 21:00:00 36.56 Madelin Univ [facility] Respiratory rate 2020-08-24 21:00:00 17 /min Univ [facility] Oxygen saturation in 2020-08-24 21:00:00 99 /min [facility] Arterial blood by [facility] Pulse oximetry Branch Body weight 2020-08-24 16:56:00 77.111 kg [facility] Systolic blood 2019-10-21 19:52:00 139 mm[Hg] Univer sity of pressure [facility] Diastolic blood 2019-10-21 19:52:00 86 mm[Hg] Unive rsity of pressure [facility] Heart rate 2019-10-21 19:52:00 89 /min [facility] Body temperature 2019-10-21 19:52:00 36.17 Madelin Univ [facility] Respiratory rate 2019-10-21 19:52:00 16 /min Univ ersity of [facility] Body height 2019-10-21 19:52:00 157.5 cm Universi ty of [facility] Body weight 2019-10-21 19:52:00 80.4 kg Universi ty of [facility] BMI 2019-10-21 19:52:00 32.42 kg/m2 [facility]i ty of [facility] Systolic blood 2019-10-21 19:52:00 139 mm[Hg] Univer sity of pressure [facility] Diastolic blood 2019-10-21 19:52:00 86 mm[Hg] Unive rsity of [facility] Heart rate 2019-10-21 19:52:00 89 /min Universi ty of [facility] Body temperature 2019-10-21 19:52:00 36.17 Madelin [facility] Res[facility] rate 2019-10-21 19:52:00 16 /min [facility] Body height 2019-10-21 19:52:00 157.5 cm Universi ty of [facility] Body weight 2019-10-21 19:52:00 80.4 kg Universi ty of [facility] BMI 2019-10-21 19:52:00 32.42 kg/m2 Universi ty [facility] Procedures Procedure Date / Time Performing Clinician Source Performed POCT URINALYSIS 2022-10-25 00:00:00 Elio Castillo [facility] POCT URINALYSIS 2022-10-04 15:31:00 Elio Castillo [facility] FREE T4 2022-10-04 14:29:00 Myrna Maciel [facility] THYROID STIMULATING 2022-10-04 14:29:00 Myrna Maciel [facility] HORMONE [facility] FREE T3 2022-10-04 14:29:00 Myrna Maciel [facility] POCT URINALYSIS 2022-10-04 13:43:00 Elio Castillo [facility] MISCELLANEOUS SENDOUT 2022-10-04 05:01:00 Doctor Unassigned, Uni [facility] TEST [facility] [place] [facility] POCT URINALYSIS 2022-09-13 00:00:00 Elio Castillo [facility] POCT URINALYSIS 2022-09-05 20:18:00 Elio Castillo [facility] POCT URINALYSIS 2022-08-30 00:00:00 Elio Castillo [facility] URINE CULTURE 2022-08-08 21:03:00 Elio Castillo [facility] GC & CHLAMYDIA AMPLIFIED 2022-08-08 21:03:00 Elio Castillo [facility] PAP SMEAR-LIQUID BASED-CP 2022-08-08 21:03:00 Elio Castillo [facility] LAB ONLY PAP SMEAR-LIQUID 2022-08-08 21:03:00 Elio Castillo [facility] FREE T4 2022-08-08 21:00:00 Elio Castillo [facility] THYROID STIMULATING 2022-08-08 21:00:00 Elio Castillo [facility] CBC WITH DIFF 2022-08-08 21:00:00 Elio Castillo [facility] RUBELLA SCREEN IGG 2022-08-08 21:00:00 Elio Castillo [facility] VZV ANTIBODY SCREEN 2022-08-08 21:00:00 Elio Castillo [facility] HEPATITIS B SURFACE 2022-08-08 21:00:00 Elio Castillo [facility] HB ABO GROUPING 2022-08-08 21:00:00 Elio Castillo [facility] FREE T3 2022-08-08 21:00:00 Elio Castillo [facility] HIV 1/2 AG-AB WITH REFLEX 2022-08-08 21:00:00 Elio Castillo [facility] SYPHILIS IGG/IGM 2022-08-08 21:00:00 Elio Castillo [facility] POCT TEST 2022-08-08 20:03:00 Elio Castillo [facility] POCT URINALYSIS W/O 2022-08-08 20:03:00 Elio Castillo [facility] SPECIFIC GRAVITY [facility] REPORT OF 2022-08-08 05:01:00 Doctor Unassigned, [facility] [place] [facility] HB ABO GROUPING 2022-07-27 09:45:00 Ronal Goodman [facility] LIPASE 2022-07-27 07:35:00 Ronal Goodman [facility] MAGNESIUM 2022-07-27 07:35:00 Ronal Goodman [facility] TEST, SERUM 2022-07-27 07:35:00 Ronal Goodman [facility] FREE T4 2022-07-27 07:35:00 Ronal Goodman [facility] THYROID STIMULATING 2022-07-27 07:35:00 Ronal Goodman [facility] HORMONE [facility] COMP. METABOLIC PANEL 2022-07-27 07:35:00 Ronal Goodman [facility] ([id number]) [facility] CBC WITH DIFF 2022-07-27 07:35:00 Ronal Goodman [facility] PROTHROMBIN TIME / INR 2022-07-27 07:35:00 [facility] 2022-07-27 07:35:00 Ronal Goodman [facility] sity [facility] THRMPLAS STU [facility] FIBRINOGEN 2022-07-27 07:35:00 Ronal Goodman [facility] POCT TEST 2022-07-27 07:34:00 Ronal Goodman [facility] URINALYSIS 2022-07-27 07:30:00 Ronal Goodman [facility] URINE DRUG (IMMUNOASSAY) 2022-07-27 07:30:00 Ronal Goodman [facility] DRUG [facility] SCREEN W/O REFLEX CONSENT/REFUSAL FOR 2022-07-27 05:37:04 Doctor Kaleigh [facility] DIAGNOSIS AND TREATMENT [place] [facility] MEDICATION CORRESPONDENCE 2022-04-26 06:01:00 Doctor Kaleigh [facility] AUTHORIZATION FOR RELEASE 2022-04-17 06:01:00 Doctor Kaleigh, [facility] MEDICATION CORRESPONDENCE 2022-04-08 06:01:00 Doctor Kaleigh [facility] XR CHEST 2 VW 2022-04-02 23:43:46 Janee [facility] POCT TEST 2022-04-02 23:08:00 [facility] URINALYSIS 2022-04-02 21:54:00 Janee [facility] EXTRA TUBE URINE CULTURE 2022-04-02 21:54:00 [facility] 2022-04-02 21:50:00 Janee [facility] TROPONIN I 2022-04-02 21:50:00 Janee [facility] THYROID STIMULATING 2022-04-02 21:50:00 [facility] HORMONE [facility] HEPATIC FUNCTION PANEL 2022-04-02 21:50:00 [facility] ([id number] (ALB,T.PRO,BILI Medical Branch T,BU/BC,ALT,AST,ALK PHOS) BASIC METABOLIC PANEL 2022-04-02 21:50:00 [facility] (NA, K, CL, CO2, GLUCOSE, Medica l Branch BUN, CREATININE, CA) CBC WITH DIFF 2022-04-02 21:50:00 Janee [facility] GALV ONLY - INFLUENZA A B 2022-04-02 21:50:00 [facility] [place] N-TERMINAL PRO-BNP 2022-04-02 21:50:00 Janee JuddTrevon [facility] FREE T3 2022-04-02 21:50:00 Janee [facility] CONSENT/REFUSAL FOR 2022-04-02 20:43:46 Doctor Kaleigh [facility] DIAGNOSIS AND TREATMENT [place] [facility] MEDICATION CORRESPONDENCE 2022-03-26 06:01:00 Doctor Kaleigh, [facility] [place] [facility] XR SPINE THORACIC 2 VW 2022-03-15 19:21:00 Deann Urena [facility] XR CHEST 1 VW 2022-03-15 19:20:00 Deann Urena [facility] THYROID STIMULATING 2022-03-15 18:54:00 Deann Urena [facility] HORMONE [facility] COMP. METABOLIC PANEL 2022-03-15 18:54:00 Deann Urena [facility] ([id number]) [facility] CBC WITH DIFF 2022-03-15 18:54:00 Deann Urena [facility] D-DIMER 2022-03-15 18:54:00 Deann Urena [facility] RAPID INFLUENZA A/B 2022-03-15 18:54:00 Deann Urena [facility] COVID-19 (ID NOW RAPID 2022-03-15 18:54:00 Deann Urena [facility] TESTING) [facility] POCT TEST 2022-03-15 17:51:00 Deann Urena [facility] CONSENT/REFUSAL FOR 2022-03-15 16:30:58 Doctor Kaleigh [facility] 2022-02-24 22:07:44 [facility] TROPONIN I 2022-02-24 20:09:00 [facility] BASIC METABOLIC PANEL 2022-02-24 20:09:00 Karl Joy [facility] (NA, K, CL, CO2, GLUCOSE, Medica l Branch BUN, CREATININE, CA) CBC WITH DIFF 2022-02-24 20:09:00 [facility] XR CHEST 1 VW 2022-02-24 19:46:46 Karl Joy [facility] CONSENT/REFUSAL FOR 2022-02-24 19:19:46 Doctor Rosinavladislav [facility] DIAGNOSIS AND TREATMENT [place] [facility] CONSENT/REFUSAL FOR 2022-02-22 19:23:18 Doctor Kaleigh [facility] DIAGNOSIS AND TREATMENT [place] [facility] THYROID STIMULATING 2022-02-05 19:30:00 Floyd Krzysztof [facility] HORMONE Medical Branch COMP. METABOLIC PANEL 2022-02-05 19:30:00 Floyd [facility] ([id number]) Medical Branch SEDIMENTATION RATE 2022-02-05 19:30:00 Floyd [facility] [place] CBC WITH DIFF 2022-02-05 19:30:00 Floyd [facility] CONSENT/REFUSAL FOR 2022-02-05 18:47:08 Doctor Kaleigh [facility] DIAGNOSIS AND TREATMENT [place] [facility] POCT TEST 2021-09-30 18:06:00 Benita Bernal [facility] URINALYSIS 2021-09-30 18:05:00 Benita Bernal [facility] NOTICE OF PRIVACY 2021-09-30 17:52:40 Doctor Farris [facility] PRACTICES [place] [facility] CONSENT/REFUSAL FOR 2021-09-30 17:52:26 Doctor Farris [facility] DIAGNOSIS AND TREATMENT [place] [facility] COVID-19 (ID NOW RAPID 2021-01-08 06:36:00 Kristian Simeon [facility] TESTING) Medical Branch RAPID STREP SCREEN FOR 2021-01-08 03:48:00 Kristian Simeon [facility] GROUP A Medical Branch CONSENT/REFUSAL FOR 2021-01-08 03:32:01 Doctor Farris [facility] DIAGNOSIS AND TREATMENT [place] [facility] TROPONIN I 2020-08-24 21:36:00 Marquez [facility] XR CHEST 1 VW 2020-08-24 18:52:03 Marquez [facility] COVID-19 (ID NOW RAPID 2020-08-24 18:36:00 [facility] Medical Branch THYROID STIMULATING 2020-08-24 18:34:00 Marquez Yeager [facility] HORMONE Medical Branch CBC WITH DIFF 2020-08-24 18:34:00 Marquez [facility] ADC / [facility] - DRUG SCREEN 2020-08-24 18:34:00 Marquez Yeager [facility] TRIAGE [facility] LIPASE 2020-08-24 18:33:00 Marquez [facility] TROPONIN I 2020-08-24 18:33:00 Toy [facility] HEPATIC FUNCTION PANEL 2020-08-24 18:33:00 Marquez Yeager [facility] ([id number]) (ALB,T.PRO,BILI Medical Branch T,BU/BC,ALT,AST,ALK PHOS) BASIC METABOLIC PANEL 2020-08-24 18:33:00 Marquez [facility] [facility] (NA, K, CL, CO2, GLUCOSE, Medica l Branch BUN, CREATININE, CA) PROTHROMBIN TIME / INR 2020-08-24 18:33:00 [facility] ACTIVATED PARTIAL 2020-08-24 18:33:00 Marquez Yeager [facility] THRMPLAS STU [facility] POCT TEST 2020-08-24 18:26:00 Marquez Yeager [facility] NOTICE OF PRIVACY 2020-08-24 16:41:43 Doctor Kaleigh, [facility]REFUSAL FOR 2020-08-24 16:41:28 Doctor Kaleigh [facility] DIAGNOSIS AND TREATMENT [facility] EXTERNAL PROVIDER RECORDS 2019-11-05 05:01:00 Doctor Kaleigh, [facility] Name [facility] POCT TEST 2019-10-21 20:20:00 Vickie Harrell [facility] DISCLOSURE AND CONSENT, 2019-10-21 05:01:00 Doctor Unassigned, U [facility] MEDICAL AND SURGICAL [place] [facility] Bra counts include 234 beds at the [facility] PROCEDURES Encounters Start End Encounter Admission Attending Care Care Encounter Source Date/Time Date/Time Type Type Clinicians Facility Department ID 2021-03-[address] [facility] [id number] Univers 17:10:54 ity [facility] 2021-03-[address] [facility] [id number] Univers 11:18:26 ity [facility] 2022-11-29 2022-11-29 Outpatient R [facility] [id number] Univers 10:15:00 10:15:00 ity [facility] 2022-11-22 2022-11-22 Outpatient R [facility] [id number] Univers 09:30:00 09:30:00 ity [facility] 2022-11-08 2022-11-08 [facility] 1.2.840.114 [id number] Univers 00:00:00 00:00:00 Elio C PROGRAM ELIGIBILITY SPECIALIST 350.1.13.10 ity of [facility] 4.2.7.2.686 [place] as MATERNAL [id number] [facility] & CHILD [address] [place] [address] 2022-11-07 2022-11-07 Abstract [facility] 1.2.840.114 [id number] Univers 00:00:00 00:00:00 Elio C PROGRAM ELIGIBILITY SPECIALIST 350.1.13.10 ity of [facility] 4.2.7.2.686 [place] as MATERNAL [id number] [facility] & CHILD [address] [place] [address] 2022-11-07 2022-11-07 Telephone [facility] 1.2.840.114 10 [id number] Univers 00:00:00 00:00:00 Elio C PROGRAM ELIGIBILITY SPECIALIST 350.1.13.10 ity of REGIONAL 4.2.7.2.686 [place] MATERNAL [id number] [facility] & CHILD [address] [place] [address] 2022-10-30 2022-10-30 Heel Splitter 1Vitor-Caridad Room RUST 1.2. 840.114 [id number] Univers 14:15:00 15:13:25 Visit Mariela Ayon PROGRAM ELIGIBILITY SPECIALIST 350.1. 13.10 ity of REGIONAL 4.2.7.2.686 [place] as MATERNAL [id number] [facility] ical & CHILD [address] [facility] 2022-10-30 2022-10-30 Outpatient Estefania JAYSHREE [facility] [id number] Univers 14:15:00 14:15:00 EVA it y of S [place] [facility] 2022-10-29 2022-10-29 Ambulatory MHIE MNA [id number] Memoria 15:30:00 15:30:00 Pre-Reg Neurology 01 l Rajinder Edgard 2022-10-29 2022-10-29 Outpatient MHIE MHIE [id number] Memoria 10:30:00 10:30:00 01 l Davon 2022-10-29 2022-10-29 Outpatient MHIE MHIE [id number] Memoria 10:30:00 10:30:00 01 marivel Mays 2022-10-29 2022-10-29 Outpatient PAM Cob[id number] 10:30:00 10:30:00 Sabino 01 Brandon 2022-10-25 2022-10-25 Routine Anna, RUST 1.2.249.569 [id number] Univers 09:45:00 10:13:35 Elio Ulloa PROGRAM ELIGIBILITY SPECIALIST 350.1.13.10 ity of Visit REGIONAL 4.2.7.2.686 [place] MATERNAL [id number] [facility] ical & CHILD [address] [place] [address] 2022-10-25 2022-10-25 Outpatient R AKINBRISEIDA, [facility] [id number] Univers 09:45:00 10:13:35 ELIO ity o f [facility] 2022-10-22 2022-10-22 Telephone Raj RUST 1.2.840.114 1 [id number] Univers 00:00:00 00:00:00 Lora SPECIALTY 350.1.13.10 [place] [id number] [address] 2022-10-18 2022-10-18 Outpatient R AKINSILORE, [facility] [id number] Univers 07:45:00 07:45:00 ELIO ity o f [facility] 2022-10-10 2022-10-10 Telephone Raj RUST 1.2.840.114 1 [id number] Univers 00:00:00 00:00:00 Lora SPECIALTY 350.1.13.10 it[place] of [place] [id number] [facility] [address] 2022-10-04 2022-10-04 Outpatient R ROOSEVELT [facility] [id number] Univers 09:00:00 09:27:37 MYRNA ity [facility] 2022-10-04 2022-10-04 Routine Risk, Zba-Lwwom-Zt/High RUST 1. 2.840.114 [id number] Univers 09:00:00 09:27:37 Myrna Maciel PROGRAM ELIGIBILITY SPECIALIST 350.1.13.10 ity of Visit [facility] 4.2.7.2.686 [place] as MATERNAL [id number] Med ical & CHILD [address] [place] [address] 2022-10-04 2022-10-04 Orders Doctor LILIA 1.2.840.114 [id number] Univers 00:00:00 00:00:00 Only Unassigned, RUY 350.1.13.10 ity of [place] [facility] 4.2.7.2.686 [place] as [id number] [facility] [address] 2022-10-03 2022-10-03 Outpatient R ANNA [facility] [id number] Univers 10:00:00 10:00:00 ELIO garcia o f [facility] 2022-09-14 2022-09-14 Outpatient R DAVID DO [facility] [id number] Univers 09:45:00 10:26:03 ity of [facility] 2022-09-14 2022-09-14 Telemedici Lora Anthony RUST 1.2.8 40.114 [id number] Univers 09:45:00 10:26:03 ne Visit David Do PROGRAM ELIGIBILITY SPECIALIST 350.1.13.10 ity of [facility] 4.2.7.2.686 [place] MATERNAL [id number] [facility] ical & CHILD [address] [place] [address] 2022-09-13 2022-09-13 Routine Risk, Spj-Bmlbf-Tw/High RUST 1. 2.840.114 [id number] Univers 10:30:00 11:21:26 Myrna Maciel PROGRAM ELIGIBILITY SPECIALIST 350.1.13.10 ity of Visit REGIONAL 4.2.7.2.686 [place] MATERNAL [id number] [facility] ical & CHILD [address] [place] [address] 2022-09-13 2022-09-13 Outpatient R ROOSEVELT [facility] [id number] Univers 10:30:00 11:21:26 MYRNA garcia [facility] 2022-09-07 2022-09-07 Abstract Anna RUST 1.2.840.114 [id number] Univers 00:00:00 00:00:00 Elio Ulloa PROGRAM ELIGIBILITY SPECIALIST 350.1.13.10 ity of REGIONAL 4.2.7.2.686 [place] MATERNAL [id number] [facility] & CHILD [address] [place] [address] 2022-09-06 2022-09-06 Ambulatory MHIE MNA [id number] Memoria 14:30:00 14:30:00 Pre-Reg Neurology 00 l Rajinder Pichardoann 2022-09-06 2022-09-06 Ambulatory MHIE MNA [id number] Memoria 14:30:00 14:30:00 Pre-Reg Neurology 00 l Rajinder Pichardoann 2022-09-06 2022-09-06 Heel Splitter [facility] 1.2 .840.114 [id number] Univers 13:00:00 13:45:00 Visit Elio Castillo PROGRAM ELIGIBILITY SPECIALIST 350.1.13. 10 ity of Mariela Ayon [facility] 4.2.7.2 .686 [place] MATERNAL [id number] [facility] [address] [facility] 2022-09-06 2022-09-06 Outpatient P JAYSHREE [facility] [id number] Univers 13:00:00 13:44:46 EVA lorenz y of MARIELA Cisse [facility] 2022-09-06 2022-09-06 Heel Splitter Lab, Ang-Rmchp RUST 1.2.840. 114 [id number] Univers 12:45:00 13:08:00 Visit Elio Castillo PROGRAM ELIGIBILITY SPECIALIST 350.1.13. 10 ity of REGIONAL 4.2.7.2.686 [place] as MATERNAL [id number] [facility] & CHILD [address] [place] [address] 2022-09-06 2022-09-06 Outpatient NAOMI OSMAR [id number] Jesus Manueloria 09:30:00 09:30:00 00 marivel Mays 2022-09-06 2022-09-06 Outpatient [id number] 09:30:00 09:30:00 Sabinonubia Taylor 2022-09-06 2022-09-06 Telephone Anna RUST 1.2.840.114 10 [id number] [facility] 00:00:00 00:00:00 Elio Ulloa PROGRAM ELIGIBILITY SPECIALIST 350.1.13.10 ity of REGIONAL 4.2.7.2.686 [place] MATERNAL [id number] [facility] & CHILD [address] [place] [address] 2022-09-05 2022-09-05 Outpatient R ANNA [facility] [id number] Univers 15:15:00 15:55:59 ELIO ity o f [facility] 2022-09-05 2022-09-05 Routine Anna RUST 1.2.110.841 [id number] Univers 15:15:00 15:55:59 Elio C PROGRAM ELIGIBILITY SPECIALIST 350.1.13.10 ity of Visit REGIONAL 4.2.7.2.686 [place] MATERNAL [id number] [facility] & CHILD [address] [place] [address] 2022-08-30 2022-08-30 Outpatient Urbano MACIEL [facility] [id number] Univers 11:00:00 11:23:29 MYRNA garcia [facility] 2022-08-30 2022-08-30 Routine Risk, Oqj-Xucwr-Ja/High RUST 1. 2.840.114 [id number] Univers 11:00:00 11:23:29 Myrna Maciel PROGRAM ELIGIBILITY SPECIALIST 350.1.13.10 ity of Visit [place]AL 4.2.7.2.686 [place] MATERNAL [id number] [facility] & CHILD [address] [place] [address] 2022-08-09 2022-08-09 Patient Filipe RUST 1.2.840.114 10 [id number] Univers 00:00:00 00:00:00 Secure Vickie Nichole PROGRAM ELIGIBILITY SPECIALIST 350.1.13.10 ity of [place] 4.2.7.2.686 [place] MATERNAL [id number] [facility] & CHILD [address] [place] [address] 2022-08-08 2022-08-08 Initial [facility] 1.2.387.875 [id number] Univers 14:45:00 16:19:42 Elio Ulloa PROGRAM ELIGIBILITY SPECIALIST 350.1.13.10 ity of Visit REGIONAL 4.2.7.2.686 [place] MATERNAL [id number] [facility] & CHILD [address] [place] [address] 2022-08-08 2022-08-08 Outpatient R [facility] [id number] Univers 14:15:00 15:09:22 ELIO garcia o f [facility] 2022-08-08 2022-08-08 Orders Doctor LILIA 1.2.840.114 [id number] Univers 00:00:00 00:00:00 Only Unassigned, RUY 350.1.13.10 ity of [place] [facility] 4.2.7.2.686 [place] as [id number] [facility] [address] 2022-07-27 2022-07-27 Emergency X IBIKUNLE, [facility] ERT [id number] Univers 00:16:00 04:25:00 FOLUSHO ity of [facility] 2022-07-27 2022-07-27 Emergency Ibikunle, TRAUMA 1.2.840.114 10 [id number] Univers 00:16:00 04:25:00 Ronal F [place] 350.1.13.10 [place] [id number] [facility] [address] 2022-07-18 2022-07-18 Outpatient SFA [facility] [id number] Quan 09:56:20 09:56:20 0301 F Ronald 2022-04-26 2022-04-26 Orders Doctor LILIA 1.2.840.114 [id number] Univers 00:00:00 00:00:00 Only Unassigned, RUY 350.1.13.10 ity of [place] [facility] 4.2.7.2.686 [place] as [id number] [facility] [address] 2022-04-17 2022-04-17 Orders Doctor RODRIGUES 1.2.840.114 [id number] Univers 00:00:00 00:00:00 Only Unassigned, RUY 350.1.13.10 ity of [place] [facility] 4.2.7.2.686 [place] as [id number] [facility] [address] 2022-04-08 2022-04-08 Orders Doctor LILIA 1.2.840.114 [id number] Univers 00:00:00 00:00:00 Only Unassigned, RUY 350.1.13.10 ity of [place] [facility] 4.2.7.2.686 [place] as [id number] [facility] [address] 2022-04-04 2022-04-04 Outpatient R GEORGES [facility] [id number] Univers 15:37:29 23:59:00 EMILY lorenzy o f [facility] 2022-04-02 2022-04-02 Emergency X JANEE, JUDDARTEMIO RUST ERT 1 [id number] Univers 14:52:00 18:13:00 JANEESHANKAR MccordEARTEMIO ity of [facility] 2022-04-02 2022-04-02 Emergency Janee, TRAUMA 1.2.403.733 [id number] Univers 14:52:00 18:13:00 [facility] 350.1.13.10 it[place] [id number] [facility] [address] 2022-03-26 2022-03-26 Orders Doctor RODRIGUES 1.2.840.114 [id number] Univers 00:00:00 00:00:00 Only Unassigned, RUY 350.1.13.10 ity of [place] [facility] 4.2.7.2.686 [place] as [id number] [facility] 00[address] [place] 2022-03-19 2022-03-19 Outpatient R GEORGES, [facility] [id number] Univers 16:00:00 16:00:00 EMILY mccord [facility] 2022-03-15 2022-03-15 Emergency [facility] ERT [id number] Univers 11:37:00 16:49:00 DEANN garcia [facility] 2022-03-15 2022-03-[address] [facility] 1.2.808.327 [id number] Univers 11:37:00 16:49:00 Deann RAY 350.1.13.10 ity [place] [id number] [place] [address] [place] 2022-03-05 2022-03-05 Telephone [facility] 1.2.308.021 [id number] Univers 00:00:00 00:00:00 Emily RAY 350.1.13.10 ity of [place] [facility] [id number] [place] [id number] [facility] 2022-03-01 2022-03-01 Outpatient R GEORGES, [facility] [id number] Univers 16:00:00 23:59:00 EMILY mccord [facility] 2022-02-24 2022-02-24 Emergency X [facility] ERT [id number] Univers 14:29:00 17:24:00 KARL garcia [facility] 2022-02-24 2022-02-24 [facility] 1.2.327.837 [id number] Univers 14:29:00 17:24:00 Karl RAY 350.1.13.10 i ty [place] [id number] [place] [address] [place] 2022-02-22 2022-02-22 Outpatient R GEORGES, [facility] [id number] Univers 14:40:00 15:04:54 EMILY garcia sravan [facility] 2022-02-22 2022-02-22 Office [facility] 1.2.840.114 [id number] Univers 14:40:00 15:04:54 Visit Emily RAY 350.1.13.10 ity of [place] [address] [id number] [facility] 059 [facility] 2022-02-22 2022-02-22 Orders Doctor LILIA 1.2.840.114 [id number] Univers 00:00:00 00:00:00 Only Unassigned, RUY 350.1.13.10 ity of [place] [facility] 4.2.7.2.686 [place] as [id number] [address] 2022-02-05 2022-02-05 Emergency X [facility] ERT [id number] Univers 13:52:00 16:06:00 KRZYSZTOF jose [facility] 2022-02-05 2022-02-05 Emergency [facility] 1.2.118.607 [id number] Univers 13:52:00 16:06:00 Krzysztof RAY 350.1.13.10 i ty of [place] [id number] [address] 2021-09-30 2021-09-30 Emergency [facility]ov[facility] ERT [id number] Univers 13:09:00 14:18:00 BENITA itroscoe of [facility] 2021-09-30 2021-09-30 Emergency [facility] 1.2.840.114 [id number] Univers 13:09:00 14:18:00 Benita RAY 350.1.13.10 [facility] [place].2.7.2.[place] [id number] [address] 2021-09-30 2021-09-30 Orders Doctor LILIA 1.2.840.114 [id number] Univers 00:00:00 00:00:00 Only Unassigned, RUY 350.1.13.10 ity of [place] [facility]ITAL 4.2.7.2.686 [place] as [id number] [address] 2021-01-07 2021-01-08 Emergency [facility] 1.2.564.362 [id number] Univers 22:50:00 03:10:00 Kristian Ray 350.1.13.10 ity of [place] 4.2.7.2.686 [facility] [id number] [place] 403004 [place] 2020-08-24 2020-08-24 Emergency Yeager, RUST 1.2.225.194 [id number] Univers 12:18:00 17:41:00 Marquez Ray 350.1.13.10 i ty of [place] 4.2.7.2.686 [facility] [id number] [address] 2020-08-24 2020-08-24 Orders Doctor LILIA 1.2.840.114 [id number] Univers 00:00:00 00:00:00 Only Unassigned, RUY 350.1.13.10 ity of [place] [facility] 4.2.7.2.686 [place] as [id number] [address] 2019-12-22 2019-12-22 Telephone [facility] 1.2.283.914 [id number] Univers 00:00:00 00:00:00 Roshunda R PROGRAM ELIGIBILITY SPECIALIST 350.1.13.10 ity of [facility] 4.2.7.2.686 [place] as MATERNAL [id number] Med ical & CHILD [address] [place] [address] 2019-12-22 2019-12-22 Telephone [facility] 1.2.617.614 [id number] 00:00:00 00:00:00 Roshunda R PROGRAM ELIGIBILITY SPECIALIST 350.1.13.10 REGIONAL 4.2.7.2.686 MATERNAL [id number] & CHILD [address] [place] [address] 2019-11-30 2019-11-30 Telephone [facility] 1.2.102.821 [id number] Univers 00:00:00 00:00:00 Roshunda R PROGRAM ELIGIBILITY SPECIALIST 350.1.13.10 ity of [facility] 4.2.7.2.686 [place] MATERNAL [id number] Med ical & CHILD [address] [place] [address] 2019-11-30 2019-11-30 Telephone [facility] 1.2.169.195 [id number] 00:00:00 00:00:00 Roswyattnda R PROGRAM ELIGIBILITY SPECIALIST 350.1.13.10 REGIONAL 4.2.7.2.686 MATERNAL [id number] & CHILD [address] [place] [address] 2019-11-05 2019-11-05 Orders Doctor LILIA 1.2.840.114 [id number] Univers 00:00:00 00:00:00 Only Unassigned, RUY 350.1.13.10 ity of [place] [facility] 4.2.7.2.686 [place] as [id number] [address] 2019-11-05 2019-11-05 Orders Doctor LILIA 1.2.840.114 [id number] 00:00:00 00:00:00 Only Unassigned, RUY 350.1.13.10 [place] [facility] 4.2.7.2.[id number] [facility] 2019-10-21 2019-10-21 Office [facility] 1.2.840.114 [id number] 14:50:09 15:05:09 Visit Sheritayolandaa R PROGRAM ELIGIBILITY SPECIALIST 350.1.13.10 [facility] 4.2.7.2.686 MATERNAL [id number] & CHILD [address] [place] [address] 2019-10-21 2019-10-21 Office [facility] 1.2.840.114 [id number] [facility] 14:50:09 15:05:09 Visit Sheritanda R PROGRAM ELIGIBILITY SPECIALIST 350.1.13.10 ity of [facility] 4.2.7.2.686 [place] MATERNAL [id number] Med ical & CHILD [address] [place] [address] 2019-10-21 2019-10-21 Outpatient R [facility] [id number] Univers 14:00:00 14:00:00 ROSHUNDA ity o f [facility] 2019-10-21 2019-10-21 Orders Doctor LILIA 1.2.840.114 [id number] 00:00:00 00:00:00 Only Unassigned, RUY 350.1.13.10 [place] [facility] 4.2.7.2.686 [id number] 009 2019-10-21 2019-10-21 Orders Doctor LILIA 1.2.840.114 [id number] 00:00:00 00:00:00 Only Unassigned, RUY 350.1.13.10 ity of [place] [facility] 4.2.7.2.686 [place] as [id number] [address] Results Test Description Test Time Test Comments Results Result Comments Source POCT URINALYSIS W SPECIFIC GRAVITY 2022-10-25 14:26:00 Test Item Value Reference Range Interpretation Comme nts POCT U SP GRAV (test code = 3255) . 1.005-1.025 POCT PH U (test code = 3254) 8 mg/dl 5-8 POCT U LEUK EST (test code = 3263) 1+ Negative - Negative POCT U NIT (test [...] POCT U BLD (test code = 3257) 50 Negative - Negative POCT U COLOR (test code = 3266) . POCT U APPEAR (test code = 3267) . [facility] [id number] 06:21:20 Test Item Value Reference Range Interpretation Comments TSH (test code = 5.83 See_Comment H [Automated message] [id number]) The system [employer] generated this result transmitted ref erence range: 0.45 - 4 .70 mIU/L. The refe rence range was not u sed to interpret this result as normal/abnor mal. Lab Interpretation (test Abnormal code = 62745-2) [facility] [id number] 06:15:41 Test Item Value Reference Range Interpretation Comments FREE T3 (test code = 5933362619) 3.20 pg/mL 2.77-5.27 Lab Interpretation (test code = Normal 41750-3) [facility] [id number] 06:07:41 Test Item Value Reference Range Interpretation Comments FREE T4 (test code = 0.86 See_Comment [Autom ated message] [id number]) The system [employer] generated this result transmitted ref erence range: 0.78 - 2 .20 ng/dL:. The ref erence range was not u sed to interpret this result as normal/abnor mal. Lab Interpretation (test Normal code = 32078-3) [facility] URINALYSIS W SPECIFIC [id number] 15:31:00 Test Item Value Reference Range Interpretation [...] POCT U APPEAR (test code = 3267) [facility] URINALYSIS W SPECIFIC [id number] 13:43:00 Test Item Value Reference Range Interpretation [...] POCT U APPEAR (test code = 3267) [facility] URINALYSIS W SPECIFIC [id number] 15:39:00 Test Item Value Reference Range Interpretation [...] U APPEAR (test code = 3267) . [facility] URINALYSIS W SPECIFIC [id number] 15:39:00 Test Item Value Reference Range Interpretation [...] U APPEAR (test code = 3267) . [facility] URINALYSIS W SPECIFIC [id number] 20:18:00 Test Item Value Reference Range Interpretation [...] U APPEAR (test code = 3267) . [facility] URINALYSIS W SPECIFIC [id number] 20:18:00 Test Item Value Reference Range Interpretation [...] U APPEAR (test code = 3267) . [facility] URINALYSIS W SPECIFIC [id number] 20:18:00 Test Item Value Reference Range Interpretation [...] U APPEAR (test code = 3267) . [facility] URINALYSIS W SPECIFIC [id number] 16:01:00 Test Item Value Reference Range Interpretation [...] U APPEAR (test code = 3267) . [facility] URINALYSIS W SPECIFIC [id number] 16:01:00 Test Item Value Reference Range Interpretation [...] U APPEAR (test code = 3267) . [facility] SPECIFIC [id number] 16:01:00 Test Item Value Reference Range Interpretation [...] U APPEAR (test code = 3267) . [facility] SCREEN (FATUMA) [id number] 18:38:27 Test Item Value Reference Range Interpretation Comments Rubella screen IgG Positive Negative (test code = 6873898012) DOUGIE (test code = DOUGIE) Positive - Indicates the patient was exposed to Rubella through infection or vaccination.Negative - Indicates the patient could be susceptible to Rubella infection.Equivocal - A second specimen should be sent. [facility] Center[facility] ANTIBODY [id number] 18:38:27 Test Item Value Reference Range Interpretation Comments VZV IgG antibody Positive Negative (test code = 51746-4) DOUGIE (test code = DOUGIE) Positive - Indicates the patient was exposed to VZV through infection or vaccination.Negative - Indicates the patient could be susceptible to VZV infection.Equivocal - A second specimen should be sent for testing. [facility] Center[facility] SCREEN (FATUMA) [id number] 18:38:27 Test Item Value Reference Range Interpretation Comments Rubella screen IgG Positive Negative (test code = 7849887562) DOUGIE (test code = DOUGIE) Positive - Indicates the patient was exposed to Rubella through infection or vaccination.Negative - Indicates the patient could be susceptible to Rubella infection.Equivocal - A second specimen [facility] sent. [id number] 18:38:27 Test Item Value Reference Range Interpretation Comments VZV IgG antibody Positive Negative (test code = 81979-4) DOUGIE (test code = DOUGIE) Positive - Indicates the patient was exposed to VZV through infection or vaccination.Negative - Indicates the patient could be susceptible to VZV infection.Equivocal - A second specimen should be sent for testing. [facility] ONLY - SYPHILIS [id number] 17:21:15 Test Item Value Reference Range Interpretation Comments Syphilis IgG/IgM (test Non-reactive Non-reactive code = 53306-4) DOUGIE (test code = DOUGIE) Non-reactive - No serologic evidence of T. pallidum infection. Cannot exclude incubating or early syphilis. Submit a second specimen in 2-4 weeks if syphilis is clinically suspected. Equivocal - Further testing to follow. Reactive - Further testing to follow. Lab Interpretation (test Normal code = 95074-9) [facility] ONLY - SYPHILIS [id number] 17:21:15 Test Item Value Reference Range Interpretation Comments Syphilis IgG/IgM (test Non-reactive Non-reactive code = 23059-2) DOUGIE (test code = DOUGIE) Non-reactive - No serologic evidence of T. pallidum infection. Cannot exclude incubating or early syphilis. Submit a second specimen in 2-4 weeks if syphilis is clinically suspected. Equivocal - Further testing to follow. Reactive - Further testing to follow. Lab Interpretation (test Normal code = 11759-5) [facility] 1/2 AG-AB WITH [id number] 12:06:53 Test Item Value Reference Range Interpretation Comments HIV 0.09 Negative Semi-quantitative (test code = 85095-7) DOUGIE (test code = Non-reactive for HIV-1 DOUGIE) antigen and HIV-1/HIV-2 antibodies. ?No laboratory evidence of HIV infection. ?Repeat in 2-4 weeks if acute HIV infection is suspected. [facility] 1/2 AG-AB WITH [id number] 12:06:53 Test Item Value Reference Range Interpretation Comments HIV 0.09 Negative Semi-quantitative (test code = 17888-9) DOUGIE (test code = Non-reactive for HIV-1 DOUGIE) antigen and HIV-1/HIV-2 antibodies. ?No laboratory evidence of HIV infection. ?Repeat in 2-4 weeks if acute HIV infection is suspected. [facility] 10:55:39 Test Item Value Reference Range Interpretation Comments FREE T3 (test code = 6092070303) 2.98 pg/mL 2.77-5.27 Lab Interpretation (test code = Normal 31016-8) [facility] 10:55:39 Test Item Value Reference Range Interpretation Comments FREE T3 (test code = 0481202717) 2.98 pg/mL 2.77-5.27 Lab Interpretation (test code = Normal 57873-9) [facility] B SURFACE [id number] 08:46:56 Test Item Value Reference Range Interpretation Comments HBsAg Semi-Quantitative (test code = 0.05 Negative 5195-3) [facility] [id number] 08:46:56 Test Item Value Reference Range Interpretation Comments TSH (test code = 7.18 See_Comment H [Automated message] [id number]) The system [employer] generated this result transmitted ref erence range: 0.45 - 4 .70 mIU/L. The refe rence range was not u sed to interpret this result as normal/abnor mal. Lab Interpretation (test Abnormal code = 15724-2) [facility] B SURFACE [id number] 08:46:56 Test Item Value Reference Range Interpretation Comments HBsAg Semi-Quantitative (test code = 0.05 Negative 5195-3) [facility] [id number] 08:46:56 Test Item Value Reference Range Interpretation Comments TSH (test code = 7.18 See_Comment H [Automated message] 0836705856) The system [employer] generated this result transmitted ref erence range: 0.45 - 4 .70 mIU/L. The refe rence range was not u sed to interpret this result as normal/abnor mal. Lab Interpretation (test Abnormal code = 21442-2) [facility] [id number] 08:32:49 Test Item Value Reference Range Interpretation Comments FREE T4 (test code = 0.87 See_Comment [Autom ated message] [id number]) The system [employer] generated this result transmitted ref erence range: 0.78 - 2 .20 ng/dL:. The ref erence range was not u sed to interpret this result as normal/abnor mal. Lab Interpretation (test Normal code = 62014-8) [facility] [id number] 08:32:49 Test Item Value Reference Range Interpretation Comments FREE T4 (test code = 0.87 See_Comment [Autom ated message] [id number]) The system [employer] generated this result transmitted ref erence range: 0.78 - 2 .20 ng/dL:. The ref erence range was not u sed to interpret this result as normal/abnor mal. Lab Interpretation (test Normal code = 80091-1) [facility] WITH [id number] 06:18:09 Test Item Value Reference Range Interpretation Comments WBC (test code = 9.61 See_Comment [Automated 6190-2) message] The sy stem which generated this result transmitted reference range : 4.30 - 11.10 10*3/?L. The reference range was not used to interpret this result as normal/abnormal . RBC (test code = 3.90 See_Comment L [Automated 929-8) message] The sy stem which generated this [...] RDW-SD (test code = 47.8 fL 39.0-49.9 42210-7) RDW-CV (test code = 14.8 % 12.0-15.5 788-0) PLT (test code = 266 See_Comment [Automated 777-3) message] The sy stem which generated this result transmitted reference range : 166 - 358 10*3/ ?L. The reference r madisyn was not used to interpret this result as normal/abnormal . MPV (test code = 11.8 fL 9.5-12.9 49740-3) NRBC/100 WBC (test 0.0 See_Comment [Automat ed code = 4967750921) message] The system which generated this result transmitted reference range : 0.0 - 10.0 /100 WBCs. The refer ence range was not u sed to interpret th is result as normal/abnormal . NRBC x10^3 (test code See_Comment [Auto mated = 1888361488) message] The s ystem which generated this result transmitted reference range : 10*3/?L. The reference range was not used to interpret this result as normal/abnormal . GRAN MAT (NEUT) % 67.0 % (test code = 770-8) IMM GRAN % (test code 0.30 % = 3197114354) LYMPH % (test code = 23.9 % 736-9) MONO % (test code = 7.5 % 5905-5) EOS % (test code = 0.8 % 713-8) BASO % (test code = 0.5 % 706-2) GRAN MAT x10^3(ANC) 6.43 10*3/uL 1.88-7.09 (test code = 1397219152) IMM GRAN x10^3 (test 0.03 10*3/uL 0.00-0.06 code = 2375138494) LYMPH x10^3 (test code 2.30 10*3/uL 1.32-3.29 = 731-0) MONO x10^3 (test code 0.72 10*3/uL 0.33-0.92 = 742-7) EOS x10^3 (test code = 0.08 10*3/uL 0.03-0.39 711-2) BASO x10^3 (test code 0.05 10*3/uL 0.01-0.07 = 704-7) Lab Interpretation Abnormal (test code = 44446-5) [facility] WITH [id number] 06:18:09 Test Item Value Reference Range Interpretation [...] RDW-SD (test code = 47.8 fL 39.0-49.9 92292-9) RDW-CV (test code = 14.8 % 12.0-15.5 788-0) PLT (test code = 266 See_Comment [Automated 777-3) message] The sy stem which generated this result transmitted reference range : 166 - 358 10*3/ ?L. The reference r madisyn was not used to interpret this result as normal/abnormal . MPV (test code = 11.8 fL 9.5-12.9 37790-6) NRBC/100 WBC (test 0.0 See_Comment [Automat ed code = 1932382537) message] The system which generated this result transmitted reference range : 0.0 - 10.0 /100 WBCs. The refer ence range was not u sed to interpret th is result as normal/abnormal . NRBC x10^3 (test code See_Comment [Auto mated = 8501027770) message] The s ystem which generated this result transmitted reference range : 10*3/?L. The reference range was not used to interpret this result as normal/abnormal . GRAN MAT (NEUT) % 67.0 % (test code = 770-8) IMM GRAN % (test code 0.30 % = 5913985641) LYMPH % (test code = 23.9 % 736-9) MONO % (test code = 7.5 % 5905-5) EOS % (test code = 0.8 % 713-8) BASO % (test code = 0.5 % 706-2) GRAN MAT x10^3(ANC) 6.43 10*3/uL 1.88-7.09 (test code = 7055345066) IMM GRAN x10^3 (test 0.03 10*3/uL 0.00-0.06 code = 2416154355) LYMPH x10^3 (test code 2.30 10*3/uL 1.32-3.29 = 731-0) MONO x10^3 (test code 0.72 10*3/uL 0.33-0.92 = 742-7) EOS x10^3 (test code = 0.08 10*3/uL 0.03-0.39 711-2) BASO x10^3 (test code 0.05 10*3/uL 0.01-0.07 = 704-7) Lab Interpretation Abnormal (test code = 84977-2) [facility] WORKUP, BLOOD [id number] 21:03:00 Test Item Value Reference Range Interpretation Comments ABO & RH (test code = 20) A POSITIVE IAT (test code = 1185) Negative [facility] WORKUP, BLOOD [id number] 21:03:00 Test Item Value Reference Range Interpretation Comments ABO & RH (test code = 20) A POSITIVE IAT (test code = 1185) Negative [facility] [id number] 20:03:00 Test Item Value Reference Range Interpretation Comments POCT PREG (test code = 1605) Positive On board controls acceptable with C Yes Line (test code = 3574) POCT PREG LOT # (test code = 3575) POCT PREG TEST DATE (test code = 3576) [facility] URINALYSIS W/O SPECIFIC [id number] 20:03:00 Test Item Value Reference Range Interpretation [...] code = 3257) Trace Negative - Negative [facility] [id number] 20:03:00 Test Item Value Reference Range Interpretation Comments POCT PREG (test code = 1605) Positive On board controls acceptable with C Yes Line (test code = 3574) POCT PREG LOT # (test code = 3575) POCT PREG TEST DATE (test code = 357) [facility] URINALYSIS W/O SPECIFIC [id number] 20:03:00 Test Item Value Reference Range Interpretation [...] code = 3257) Trace Negative - Negative [facility] [id number] 20:03:00 Test Item Value Reference Range Interpretation Comments POCT PREG (test code = 1605) Positive On board controls acceptable with C Yes Line (test code = 3574) POCT PREG LOT # (test code = 3575) POCT PREG TEST DATE (test code = 357) [facility] URINALYSIS W/O SPECIFIC [id number] 20:03:00 Test Item Value Reference Range Interpretation [...] code = 3257) Trace Negative - Negative [facility] - ONCE [id number] 09:49:00 Test Item Value Reference Range Interpretation Comments ABO & RH (test code = 20) A POSITIVE IAT (test code = 1185) Negative [facility] TEST, [id number] 08:41:48 Test Item Value Reference Range Interpretation Comments PREG SERUM (test code Positive = 9882170859) DOUGIE (test code = DOUGIE) Positive greater than or equal to 10 IU/L hCG. [facility] [id number] 08:32:59 Test Item Value Reference Range Interpretation Comments TSH (test code = 23.30 See_Comment H [Automated message] 2820969352) The system [employer] generated this result transmitted ref erence range: 0.45 - 4 .70 mIU/L. The refe rence range was not u sed to interpret this result as normal/abnor mal. Lab Interpretation (test Abnormal code = 11686-7) [facility] [id number] 08:19:00 Test Item Value Reference Range Interpretation Comments FREE T4 (test code = 0.62 See_Comment L [Autom ated message] 0979626427) The system [employer] generated this result transmitted ref erence range: 0.78 - 2 .20 ng/dL:. The ref erence range was not u sed to interpret this result as normal/abnor mal. Lab Interpretation (test Abnormal code = 82711-0) [facility]OLIC PANEL (92152)2022-07-27 08:02:20 Test Item Value Reference Range Interpretation Comments NA (test code = 137 mmol/L 135-145 4534353471) K (test code = 4.3 mmol/L 3.5-5.0 9837574106) CL (test code = 105 mmol/L 98-108 8180262894) CO2 TOTAL (test code 24 mmol/L 23-31 = 9133720160) AGAP (test code = 8 2-16 9063916887) BUN (test code = 8 mg/dL 7-23 8729804294) GLUCOSE (test code = 92 mg/dL 70-110 5567463452) CREATININE (test code 0.65 mg/dL 0.50-1.04 = 0097790743) TOTAL BILI (test code 0.6 mg/dL 0.1-1.1 = 4377630787) CALCIUM (test code = 9.6 mg/dL 8.6-10.6 4903765742) T PROTEIN (test code 7.3 g/dL 6.3-8.2 = 2686747486) ALBUMIN (test code = 4.5 g/dL 3.5-5.0 8578708094) ALK PHOS (test code = 45 U/L 34-122 9322543538) ALTv (test code = 13 U/L 5-35 2-6) AST(SGOT) (test code 21 U/L 13-40 = 3292753640) eGFR (test code = 115.1 mL/min/1.73m2 5690309898) DOUGIE (test code = DOUGIE) Association of [...] or urine or abnormalities in imaging tests). [facility]20[facility]-10 08:02:20 Test Item Value Reference Range Interpretation Comments LIPASE (test code = 9348801375) 83 U/L 0-220 Lab Interpretation (test code = Normal 74421-5) [facility] CenterMAGN[facility]IUM2023-03-10 08:02:20 Test Item Value Reference Range Interpretation Comments MAGNESIUM (test code = 5214295155) 2.0 mg/dL 1.7-2.4 Lab Interpretation (test code = Normal 70281-2) [facility] CenterACTIVATED PARTIAL THRMPLAS [id number] 07:54:36 Test Item Value Reference Range Interpretation Comments APTT Patient (test code = 31 See_Comment [ Automated message] 3173-2) The system [employer] generated this result transmitted ref erence range: 26 - 36 Seconds. The re ference range was not u sed to interpret this result as normal/abnor mal. Lab Interpretation (test Normal code = 95055-5) [facility] CenterPROTHROMBIN TIME / [id number] 07:54:36 Test Item Value Reference Range Interpretation Comments PROTIME PATIENT (test 11.8 See_Comment [Auto mated message] code = 5964-2) The system [employer] generated this result transmitted ref erence range: 10.1 - 1 2.6 Seconds. The re ference range was not u sed to interpret this result as normal/abnor mal. INR (test code = 6301-6) 1.1 Nor mal INR <1.1; Warfarin Therap eutic range 2.0 to 3. 0 or 2.5 to 3.5, dep ending upon the indica tions. Lab Interpretation (test Normal code = 37475-1) [facility] Center[facility]IBRINOGEN2023-03-10 07:54:36 Test Item Value Reference Range Interpretation Comments Fibrinogen (test code = 8298070227) 285 mg/dL 167-453 Lab Interpretation (test code = Normal 08521-5) [facility] CenterCBC WITH [id number] 07:50:39 Test Item Value Reference Range Interpretation Comments WBC (test code = 10.66 See_Comment [Automated message] 6690-2) The system [employer] generated this result transmitted ref erence range: 4.30 - 1 1.10 10*3/?L. The re ference range was not u sed to interpret this result as normal/abnor mal. RBC (test code = 4.18 See_Comment [Automated message] 789-8) The system [employer] generated this result transmitted ref erence range: [...] RDW-SD (test code 46.8 fL 39.0-49.9 = 25478-6) RDW-CV (test code 14.6 % 12.0-15.5 = 788-0) PLT (test code = 286 See_Comment [Automated message] 937-3) The system [employer] generated this result transmitted ref erence range: 166 - 35 8 10*3/?L. The re ference range was not u sed to interpret this result as normal/abnor mal. MPV (test code = 10.5 fL 9.5-12.9 42028-0) NRBC/100 WBC (test 0.0 See_Comment [Automat ed message] code = 5747966602) The Disconnect which generated this result transmitted ref erence range: 0.0 - 10 .0 /100 WBCs. The refer ence range was not u sed to interpret this result as normal/abnor mal. NRBC x10^3 (test See_Comment [Automated message] code = 3686001587) The syste m which generated this result transmitted ref erence range: 10*3/?L. The reference range was not used to interpr et this result as normal/abnormal . GRAN MAT (NEUT) % 60.2 % (test code = 770-8) IMM GRAN % (test 0.40 % code = 0587828808) LYMPH % (test code 29.2 % = 736-9) MONO % (test code 8.4 % = 5905-5) EOS % (test code = 1.5 % 713-8) BASO % (test code 0.3 % = 706-2) GRAN MAT 6.42 10*3/uL 1.88-7.09 x10^3(ANC) (test code = 3210194059) IMM GRAN x10^3 0.04 10*3/uL 0.00-0.06 (test code = 9729066760) LYMPH x10^3 (test 3.11 10*3/uL 1.32-3.29 code = 731-0) MONO x10^3 (test 0.90 10*3/uL 0.33-0.92 code = 742-7) EOS x10^3 (test 0.16 10*3/uL 0.03-0.39 code = 711-2) BASO x10^3 (test 0.03 10*3/uL 0.01-0.07 code = 704-7) [facility] CenterPOAK [id number] 07:34:00 Test Item Value Reference Range Interpretation Comments POCT PREG (test code = 1605) POSITIVE On board controls acceptable with PRESENT C Line (test code = 3574) POCT PREG LOT # (test code = 3575) [id number] POCT PREG TEST DATE (test 10/18/2023 code = 3576) Lab Interpretation (test code = Normal 09475-2) [facility], THIRD [id number] 09:14:27 Test Item Value Reference Range Interpretation Comments TSH, THIRD 8.960 UIU/ML 0.400-4.100 H [facility] has im portant GENERATION (test pathology s taff code = 2821) changes effecti ve 07/18/2022. New pathology staff will provide uninter rupted, excellent patie nt care and clinical consultation. S ee URL: [email or web address]. UNLES S OTHERWISE INDIC ATED, ALL TESTING PER FORMED AT [facility], [facility]. [address] [place] [address] [facility] [place]IO DIRECTOR: ROHITH MCCAIN M.D. CLIA NUMBER [id number] CAP ACCREDITATION N O. [id number] POCT [id number] 23:08:00 Test Item Value Reference Range Interpretation Comments POCT PREG (test code = 1605) negative On board controls acceptable with present C Line (test code = 3574) POCT PREG LOT # (test code = 3575) [id number] POCT PREG TEST DATE (test 2023-08-18 code = 3576) Lab Interpretation (test code = Normal 71294-1) [facility] CenterTHY[facility] STIMULATING [id number] 19:59:48 Test Item Value Reference Range Interpretation Comments TSH (test code = See_Comment [Automated message] 0061198050) The system [employer] generated this result transmitted ref erence range: 0.45 - 4 .70 mIU/L. The refe rence range was not u sed to interpret this result as normal/abnor mal. Lab Interpretation (test Normal code = 72705-6) [facility] CenterCOM. METABOLIC PANEL (03498)2022-03-15 19:29:21 Test Item Value Reference Range Interpretation Comments NA (test code = 137 mmol/L 135-145 9290920386) K (test code = 3.5 mmol/L 3.5-5.0 9204514359) CL (test code = 102 mmol/L 98-108 0203740698) CO2 TOTAL (test code = 21 mmol/L 23-31 L 9575463469) AGAP (test code = 2-16 0718505815) BUN (test code = 8 mg/dL 7-23 9332147760) GLUCOSE (test code = 95 mg/dL 70-110 8669968839) CREATININE (test code = 0.73 mg/dL 0.50-1.04 7429755621) TOTAL BILI (test code = 0.4 mg/dL 0.1-1.1 1104875660) CALCIUM (test code = 8.9 mg/dL 8.6-10.6 1253838352) T PROTEIN (test code = 7.4 g/dL 6.3-8.2 8389437483) ALBUMIN (test code = 4.6 g/dL 3.5-5.0 4693488191) ALK PHOS (test code = 62 U/L 34-122 5822550157) ALTv (test code = 13 U/L 5-35 2-6) AST(SGOT) (test code = 22 U/L 13-40 6640441123) eGFR (test code = mL/min/1.73m2 4218189038) DOUGIE (test code = DOUGIE) Association of [...] tests). Lab Interpretation Abnormal (test code = 67406-4) [facility] CenterD-[id number] 19:24:21 Test Item Value Reference Interpretation Comments Range D-DIMER (test code = See_Comment H [Autom ated 7999301220) message] The system which generated this result [...] diagnosis. Lab Interpretation Abnormal (test code = 41642-2) [facility] WITH [id number] 19:10:18 Test Item Value Reference Range Interpretation Comments WBC (test code = See_Comment L [Automated 0223-2) message] The sy stem which generated this result transmitted reference range : 4.30 - 11.10 10*3/?L. The reference range was not used to interpret this result as normal/abnormal . RBC (test code = See_Comment [Automated 869-8) message] The sy stem which generated this [...] RDW-SD (test code = 44.6 fL 39.0-49.9 30926-1) RDW-CV (test code = 14.4 % 12.0-15.5 788-0) PLT (test code = See_Comment [Automated 747-3) message] The sy stem which generated this result transmitted reference range : 166 - 358 10*3/ ?L. The reference r madisyn was not used to interpret this result as normal/abnormal . MPV (test code = 11.3 fL 9.5-12.9 36267-4) NRBC/100 WBC (test See_Comment [Automat ed code = 8333873254) message] The system which generated this result transmitted reference range : 0.0 - 10.0 /100 WBCs. The refer ence range was not u sed to interpret th is result as normal/abnormal . NRBC x10^3 (test code See_Comment [Auto mated = 2371887647) message] The s ystem which generated this result transmitted reference range : 10*3/?L. The reference range was not used to interpret this result as normal/abnormal . GRAN MAT (NEUT) % 61.5 % (test code = 770-8) IMM GRAN % (test code 0.50 % = 7551289140) LYMPH % (test code = 18.4 % 736-9) MONO % (test code = 19.4 % 5905-5) EOS % (test code = 0.0 % 713-8) BASO % (test code = 0.2 % 706-2) GRAN MAT x10^3(ANC) 2.48 10*3/uL 1.88-7.09 (test code = 0658002784) IMM GRAN x10^3 (test 0.00-0.06 code = 7188165996) LYMPH x10^3 (test code 0.74 10*3/uL 1.32-3.29 L = 731-0) MONO x10^3 (test code 0.78 10*3/uL 0.33-0.92 = 742-7) EOS x10^3 (test code = 0.03-0.39 L 711-2) BASO x10^3 (test code 0.01-0.07 = 704-7) Lab Interpretation Abnormal (test code = 59276-8) [facility] [id number] 17:51:00 Test Item Value Reference Range Interpretation Comments POCT PREG (test code = 1605) negative On board controls acceptable with present C Line (test code = 3574) POCT PREG LOT # (test code = 3575) [id number] POCT PREG TEST DATE (test code = 3576) Lab Interpretation (test code = Normal 37714-3) [facility] CenterSOPHIEN [id number] 21:24:03 Test Item Value Reference Interpretation Comments Range TROPONIN I (test 0.002 ng/mL See_Comment [Automated code = 3712298662) message] The system which generated this result [...] biotin. Lab Interpretation Normal (test code = 10820-7) [facility] (NA, K, CL, CO2, GLUCOSE, BUN, CREATININE, CA)2022-02-24 21:14:05 Test Item Value Reference Range Interpretation Comments NA (test code = 142 mmol/L 135-145 1789124439) K (test code = 4.0 mmol/L 3.5-5 7998146283) CL (test code = 102 mmol/L 98-108 2720117201) CO2 TOTAL (test code = 24 mmol/L 23-31 2299376256) AGAP (test code = 2-16 8998685087) BUN (test code = 5 mg/dL 7-23 L 0111403925) GLUCOSE (test code = 89 mg/dL 70-110 5318593181) CREATININE (test code = 0.64 mg/dL 0.5-1.04 8989153276) CALCIUM (test code = 10.0 mg/dL 8.6-10.6 1709159682) eGFR (test code = mL/min/1.73m2 0778354878) DOUGIE (test code = DOUGIE) Association of [...] tests). Lab Interpretation Abnormal (test code = 93052-3) [facility] WITH [id number] 20:55:45 Test Item Value Reference Range Interpretation Comments WBC (test code = See_Comment [Automated 4220-2) message] The sy stem which generated this result transmitted reference range : 4.30 - 11.10 10*3/?L. The reference range was not used to interpret this result as normal/abnormal . RBC (test code = See_Comment [Automated 785-1) message] The sy stem which generated this [...] RDW-SD (test code = 44.6 fL 39-49.9 90390-4) RDW-CV (test code = 14.1 % 12-15.5 788-0) PLT (test code = See_Comment [Automated 777-3) message] The sy stem which generated this result transmitted reference range : 166 - 358 10*3/ ?L. The reference r madisyn was not used to interpret this result as normal/abnormal . MPV (test code = 11.2 fL 9.5-12.9 59938-7) NRBC/100 WBC (test See_Comment [Automat ed code = 4550772447) message] The system which generated this result transmitted reference range : 0.0 - 10.0 /100 WBCs. The refer ence range was not u sed to interpret th is result as normal/abnormal . NRBC x10^3 (test code See_Comment [Auto mated = 5228823876) message] The s ystem which generated this result transmitted reference range : 10*3/?L. The reference range was not used to interpret this result as normal/abnormal . GRAN MAT (NEUT) % 66.6 % (test code = 770-8) IMM GRAN % (test code 0.50 % = 6430220062) LYMPH % (test code = 20.8 % 736-9) MONO % (test code = 9.7 % 5905-5) EOS % (test code = 1.9 % 713-8) BASO % (test code = 0.5 % 706-2) GRAN MAT x10^3(ANC) 7.00 10*3/uL 1.88-7.09 (test code = 9074863782) IMM GRAN x10^3 (test 0.05 10*3/uL 0-0.06 code = 9355043038) LYMPH x10^3 (test code 2.18 10*3/uL 1.32-3.29 = 731-0) MONO x10^3 (test code 1.02 10*3/uL 0.33-0.92 H = 742-7) EOS x10^3 (test code = 0.20 10*3/uL 0.03-0.39 711-2) BASO x10^3 (test code 0.05 10*3/uL 0.01-0.07 = 704-7) Lab Interpretation Abnormal (test code = 45237-5) [facility] CenterSEDIMENTATION [id number] 20:34:21 Test Item Value Reference Range Interpretation Comments ESR (test code = 39402-4) See_Comment [ Automated message] The system [employer] generated this result transmitted ref erence range: 0 - 20 m m/HR. The reference r madisyn was not used to interpret this result as normal/abnor mal. Lab Interpretation (test Normal code = 93991-7) [facility] CenterTHYROID STIMULATING [id number] 20:26:23 Test Item Value Reference Range Interpretation Comments TSH (test code = See_Comment [Automated message] 5707917674) The system [employer] generated this result transmitted ref erence range: 0.45 - 4 .70 mIU/L. The refe rence range was not u sed to interpret this result as normal/abnor mal. Lab Interpretation (test Normal code = 15128-0) [facility] CenterCOMP. METABOLIC PANEL (44428)2022-02-05 19:56:22 Test Item Value Reference Range Interpretation Comments NA (test code = 140 mmol/L 135-145 9498821059) K (test code = 4.4 mmol/L 3.5-5 8211082032) CL (test code = 107 mmol/L 98-108 4256253640) CO2 TOTAL (test code 25 mmol/L 23-31 = 2322733127) AGAP (test code = 2-16 3295880528) BUN (test code = 13 mg/dL 7-23 4312912187) GLUCOSE (test code = 80 mg/dL 70-110 6710629508) CREATININE (test code 0.74 mg/dL 0.5-1.04 = 1018522355) TOTAL BILI (test code 0.2 mg/dL 0.1-1.1 = [id number]) CALCIUM (test code = 9.9 mg/dL 8.6-10.6 4979126159) T PROTEIN (test code 7.1 g/dL 6.3-8.2 = 3574961229) ALBUMIN (test code = 4.6 g/dL 3.5-5 4827742953) ALK PHOS (test code = 58 U/L 34-122 7418631175) ALTv (test code = 14 U/L 5-35 1742-6) AST(SGOT) (test code 17 U/L 13-40 = 5564556462) eGFR (test code = mL/min/1.73m2 8928049447) DOUGIE (test code = DOUGIE) Association of [...] or urine or abnormalities in imaging tests). [facility] WITH [id number] 19:48:21 Test Item Value Reference Range Interpretation Comments WBC (test code = See_Comment [Automated 2901-2) message] The sy stem which generated this [...] RDW-SD (test code = 44.7 fL 39-49.9 64503-4) RDW-CV (test code = 14.3 % 12-15.5 788-0) PLT (test code = See_Comment [Automated 777-3) message] The sy stem which generated this result transmitted reference range : 166 - 358 10*3/ ?L. The reference r madisyn was not used to interpret this result as normal/abnormal . MPV (test code = 10.8 fL 9.5-12.9 43032-2) NRBC/100 WBC (test See_Comment [Automat ed code = 0654217304) message] The system which generated this result transmitted reference range : 0.0 - 10.0 /100 WBCs. The refer ence range was not u sed to interpret th is result as normal/abnormal . NRBC x10^3 (test code See_Comment [Auto mated = 4821462438) message] The s ystem which generated this result transmitted reference range : 10*3/?L. The reference range was not used to interpret this result as normal/abnormal . GRAN MAT (NEUT) % 60.6 % (test code = 770-8) IMM GRAN % (test code 0.60 % = 7110542365) LYMPH % (test code = 27.7 % 736-9) MONO % (test code = 9.3 % 5905-5) EOS % (test code = 1.4 % 713-8) BASO % (test code = 0.4 % 706-2) GRAN MAT x10^3(ANC) 6.71 10*3/uL 1.88-7.09 (test code = 3248558620) IMM GRAN x10^3 (test 0.07 10*3/uL 0-0.06 H code = 8191087471) LYMPH x10^3 (test code 3.07 10*3/uL 1.32-3.29 = 731-0) MONO x10^3 (test code 1.03 10*3/uL 0.33-0.92 H = 742-7) EOS x10^3 (test code = 0.15 10*3/uL 0.03-0.39 711-2) BASO x10^3 (test code 0.04 10*3/uL 0.01-0.07 = 704-7) Lab Interpretation Abnormal (test code = 06799-4) [id number]06[facility]00 Test Item Value Reference Range Interpretation Comments POCT PREG (test code = 1605) Negative On board controls acceptable with Present C Line (test code = 3574) POCT PREG LOT # (test code = 3575) [id number] POCT PREG TEST DATE (test 02/16/2023 code = 3576) Lab Interpretation (test code = Normal 05578-0) [facility] (ID NOW RAPID TESTING)2021-01-08 07:00:17 Test Item Value Reference Range Interpretation Comments SARS-CoV-2 Rapid ID NOW Not Detected Not Detected (test code = 56281-9) DOUGIE (test code = DOUGIE) ID NOW COVID-19 Assay is an isothermal nucleic acid amplification test intended for the qualitative detection of nucleic acid from SARS-CoV-2 viral RNA in nasopharyngeal ([employer]) specimens. It is used under Emergency Use [...] indicated. Lab Interpretation Normal (test code = 52170-0) [facility] CenterR[facility]RE[facility] SCREEN FOR GROUP [id number] 04:21:38 Test Item Value Reference Range Interpretation Comments Streptococcus pyogenes (group A) Negative Negative antigen (test code = 93098-8) Lab Interpretation (test code = Normal 91900-4) [facility]TR[facility] [id number] 22:15:09 Test Item Value Reference Range Interpretation Comments TROPONIN I (test 0.008 ng/mL See_Comment [Automated code = 7220120847) message] The system which generated this result [...] ? Lab Interpretation Normal (test code = 81363-4) [facility] CenterTHY[facility]ID STIMULATING [id number] 20:00:11 Test Item Value Reference Range Interpretation Comments TSH (test code = See_Comment H Biotin has been 1759651198) reported to cau se a negative bias, interpret resul ts relative to pat ient's use of biotin. [Automated mess age] The system [employer] generated this result transmitted ref erence range: 0.45 - 4 .70 mIU/L. The refe rence range was not u sed to interpret this result as normal/abnor mal. Lab Interpretation (test Abnormal code = 22330-9) [facility] CenterTroponin [id number] 19:42:06 Test Item Value Reference Range Interpretation Comments TROPONIN I (test 0.001 ng/mL See_Comment [Automated code = 0528713499) message] The system which generated this result [...] ? Lab Interpretation Normal (test code = 73478-0) [facility] CenterB[facility] Metabolic Panel (NA, K, CL, CO2, GLUCOSE, BUN, CREATININE, CA)2020-08-24 19:31:00 Test Item Value Reference Range Interpretation Comments NA (test code = 140 mmol/L 135-145 0412003597) K (test code = 3.9 mmol/L 3.5-5.0 0636334920) CL (test code = 104 mmol/L 98-108 2689990476) CO2 TOTAL (test code 27 mmol/L 23-31 = 5571017893) AGAP (test code = 2-16 6692219375) BUN (test code = 10 mg/dL 7-23 3133782530) GLUCOSE (test code = 88 mg/dL 70-110 1415652709) CREATININE (test code 0.70 mg/dL 0.50-1.04 = 3409020140) CALCIUM (test code = 9.6 mg/dL 8.6-10.6 6595002608) eGFR (test code = mL/min/1.73m2 3603908968) DOUGIE (test code = DOUGIE) Association of [...] or urine or abnormalities in imaging tests). [facility] (ALB, T.PRO, BILI T, BU/BC, ALT, AST, ALK PHOS)2020-08-24 19:30:43 Test Item Value Reference Range Interpretation Comments TOTAL BILI (test code = 1042676579) 0.5 mg/dL 0.1-1.1 BILI UNCON (test code = 2013167716) 0.5 mg/dL 0.1-1.1 BILI CONJ (test code = 4550466542) 0.0 mg/dL 0.0-0.3 T PROTEIN (test code = 4981682117) 7.5 g/dL 6.3-8.2 ALBUMIN (test code = 9925576464) 4.6 g/dL 3.5-5.0 ALK PHOS (test code = 2814517850) 63 U/L 34-122 ALTv (test code = 1742-6) 14 U/L 5-35 AST(SGOT) (test code = 8419851440) 24 U/L 13-40 Lab Interpretation (test code = Normal 10693-6) [facility] CenterLipase [id number] 19:30:38 Test Item Value Reference Range Interpretation Comments LIPASE (test code = 4940463121) 87 U/L 0-220 Lab Interpretation (test code = Normal 13081-3) [facility] CenterADC / [facility] - DRUG SCREEN [id number] 19:26:51 Test Item Value Reference Range Interpretation Comments BENZO U (test code = Negative Negative 3632838467) TIFFANI U (test code = Negative Negative 1132720904) AMPHET (test code = Negative Negative 6150646737) THC (test code = Presumptive Negative A Confirmatio n of 4281885313) Positive Presumptive Positive THC result requires physician order . METHADONE (test code Negative Negative = 2159800427) Meth U (test code = Negative Negative 3085157243) OPIATES (test code = Negative Negative 9844237217) Cocaine Metabolite Negative Negative (test code = 4416751461) PROPOXY (test code = Negative Negative 8830174084) Tric U (test code = Negative Negative 4131828625) PCP (test code = Negative Negative 8539584902) OXYCOD (test code = Negative Negative 1349982236) DOUGIE (test code = Urine Drug Cutoff [...] testing). Lab Interpretation Abnormal (test code = 36465-7) [facility] (ID NOW RAPID TESTING)2020-08-24 19:16:35 Test Item Value Reference Range Interpretation Comments SARS-CoV-2 Rapid ID NOW Not Detected Not Detected (test code = 47909-0) DOUGIE (test code = DOUGIE) ID NOW COVID-19 Assay is an isothermal nucleic acid amplification test intended for the qualitative detection of nucleic acid from SARS-CoV-2 viral RNA in nasopharyngeal ([employer]) specimens. It is used under Emergency Use [...] indicated. Lab Interpretation Normal (test code = 91463-7) [facility] CenteraPTT2021-04-07 19:09:56 Test Item Value Reference Range Interpretation Comments APTT Patient (test See_Comment [Automat ed code = 3173-2) message] The system which generated this result transmitted reference range : 23 - 38 Seconds . The reference range was not used to interpr et this result as normal/abnormal . DOUGIE (test code = DOUGIE) The RUST patient population mean normal value for aPTT is 30 seconds. Lab Interpretation Normal (test code = 16038-4) [facility] CenterProthrombin Time (PT) / [id number] 19:07:55 Test Item Value Reference Range Interpretation Comments PROTIME PATIENT (test See_Comment [Auto mated message] code = 5964-2) The system [employer] generated this result transmitted ref erence range: 12.0 - 1 4.7 Seconds. The re ference range was not u sed to interpret this result as normal/abnor mal. INR (test code = 6301-6) Nor mal INR <1.1; Warfarin Therap eutic range 2.0 to 3. 0 or 2.5 to 3.5, dep ending upon the indica tions. Lab Interpretation (test Normal code = 36282-5) [facility] CenterCBC with [id number] 18:58:52 Test Item Value Reference Range Interpretation Comments WBC (test code = See_Comment [Automated message] 6690-2) The system [employer] h generated this result transmitted ref erence range: 4.30 - 1 1.10 10*3/?L. The re ference range was not u sed to interpret this result as normal/abnor mal. RBC (test code = See_Comment [Automated message] 789-8) The system [employer] h generated this result transmitted ref erence [...] RDW-SD (test code 44.4 fL 39.0-49.9 = 27395-2) RDW-CV (test code 13.8 % 12.0-15.5 = 788-0) PLT (test code = See_Comment [Automated message] 777-3) The system whic h generated this result transmitted ref erence range: 166 - 35 8 10*3/?L. The re ference range was not u sed to interpret this result as normal/abnor mal. MPV (test code = 11.2 fL 9.5-12.9 53613-7) NRBC/100 WBC (test See_Comment [Automat ed message] code = 6474352418) The syste m which generated this result transmitted ref erence range: 0.0 - 10 .0 /100 WBCs. The refer ence range was not u sed to interpret this result as normal/abnor mal. NRBC x10^3 (test <0.01 See_Comment [Automated message] code = 7617350585) The syste m which generated this result transmitted ref erence range: 10*3/?L. The reference range was not used to interpr et this result as normal/abnormal . GRAN MAT (NEUT) % 59.9 % (test code = 770-8) IMM GRAN % (test 0.40 % code = 0154798452) LYMPH % (test code 28.2 % = 736-9) MONO % (test code 10.0 % = 5905-5) EOS % (test code = 1.1 % 713-8) BASO % (test code 0.4 % = 706-2) GRAN MAT 4.26 10*3/uL 1.88-7.09 x10^3(ANC) (test code = 7359024601) IMM GRAN x10^3 0.03 10*3/uL 0.00-0.06 (test code = 8559385922) LYMPH x10^3 (test 2.01 10*3/uL 1.32-3.29 code = 731-0) MONO x10^3 (test 0.71 10*3/uL 0.33-0.92 code = 742-7) EOS x10^3 (test 0.08 10*3/uL 0.03-0.39 code = 711-2) BASO x10^3 (test 0.03 10*3/uL 0.01-0.07 code = 704-7) [facility] CenterChes 1 [id number] 18:54:33HISTORY: Chest pain. TECHNIQUE: 2 Portable AP [...] limits. CONCLUSIONS: No signs of acute cardiopulmonary disease.[facility] [id number] 18:26:00 Test Item Value Reference Range Interpretation Comments POCT PREG (test code = 1605) Neg On board controls acceptable with Present C Line (test code = 3574) POCT PREG LOT # (test code = 3575) [id number] POCT PREG TEST DATE (test 2022-01-17 code = 3576) Lab Interpretation (test code = Normal 74331-9) [facility] [id number] 20:20:00 Test Item Value Reference Range Interpretation Comments POCT PREG (test code = 1605) Negative On board controls acceptable with C Yes Line (test code = 3574) POCT PREG LOT # (test code = 3575) POCT PREG TEST DATE (test code = 3576) [facility] [id number] 20:20:00 Test Item Value Reference Range Interpretation Comments POCT PREG (test code = 1605) Negative On board controls acceptable with C Yes Line (test code = 3574) POCT PREG LOT # (test code = 3575) POCT PREG TEST DATE (test code = 3576) [facility]
[2022-11-08] MEDS ORDERED: NA CHLORIDE 0.9% 1,000 ML ONE (18:14)
[2022-11-08 18:24] LABS: Absolute Lymphocytes (CBC) 2.1 K/uL (0.7-4.9); Hematocrit 33.2 % (36.0-45.0); Lymphocytes % 16.4 % (15.3-44.8); MCV 90.1 fL (80-100); MPV 8.4 fL (7.6-11.3); RBC Red Blood Cell Count 3.69 M/uL (3.86-4.86)
[2022-11-08 18:32] LABS: Specific Gravity 1.023 (1.005-1.030); Urine Bacteria None Seen /HPF (<20); Urine Bilirubin NEGATIVE (Negative); Urine Blood Negative (Negative); Urine Clarity Turbid (Clear); Urine Color Light-Yellow (Yellow); Urine Crystals Unidentified Few /HPF (None Seen); Urine Glucose NEGATIVE (Negative); Urine Mucus 1+ /HPF (None Seen); Urine Protein NEGATIVE (Negative); Urine RBC <5 /HPF (None Seen); Urine Urobilinogen Normal (Normal); Urine pH 5.5 (5.0-7.0)
[2022-11-08 19:27] LABS: ALT/SGPT 43 U/L (13-56); AST/SGOT 25 U/L (15-37); Alkaline Phosphatase 57 U/L (45-117); BUN Blood Urea Nitrogen 6 mg/dL (7-18); Bicarbonate 25 mEq/L (21-32); Bilirubin Total 0.2 mg/dL (0.2-1.0); Glomerular Filtration Rate 135 ml/min (=/>90); Glucose Level 80 mg/dL (74-106); Potassium 3.7 mEq/L (3.5-5.1); Protein, Total 7.2 g/dL (6.4-8.2); Sodium Level 135 mEq/L (136-145)
[2022-11-08 19:28] LABS: Troponin High Sensitivity < 3.0 pg/mL (<58.9)
--- NOTE | 2022-11-08 20:01 | ER ---
Nurse's Notes [facility] Name: Akanksha Barragan Age: 22 yrs Sex: Female : 2000 Arrival Date: 11/08/2022 Time: 16:26 Bed 16 Private MD: Diagnosis: Syncope Near Presentation: 11/08 16:39 Chief complaint: Patient states: near syncopal episode today. Patient states that she cm10 has been having these near syncopal episode "for years" and has gotten worse since she has gotten . Pt reports having pain to the back of her eyes. Coronavirus screen: Vaccine status: Patient reports being unvaccinated. Client denies travel out of the [place] in the last 14 days. At this time, the client does not indicate any symptoms associated with coronavirus-19. Ebola Screen: No symptoms or risks identified at this time. Initial Sepsis Screen: Does the patient meet any 2 criteria? No. Patient's initial sepsis screen is negative. Does the patient have a suspected source of infection? No. Patient's initial sepsis screen is negative. Risk Assessment: Do you want to hurt yourself or someone else? Patient reports no desire to harm self or others. Onset of symptoms was November 08, 2022. 16:39 Method Of Arrival: Ambulatory cm10 16:39 Acuity: NATHAN 3 cm10 Triage Assessment: 16:42 General: Appears in no apparent distress. Behavior is calm, cooperative. Neuro: No cm10 deficits noted. Level of Consciousness is awake, alert, obeys commands, Oriented to person, place, time, situation, Reports pain to the back of her eyes.. ECON[employer]IC [employer]: 16:42 1 cm10 Historical: - Allergies: 16:41 Bactrim; cm10 16:41 Iodine; cm10 16:41 Latex, Natural Rubber; cm10 16:41 Phenergan; cm10 16:41 SHELL FISH; cm10 - PMHx: 16:41 Hypothyroidism; inverted T waves; Migraines; seasonal allergies; cm10 - Immunization history:: Adult Immunizations unknown. - Social history:: Smoking status: Patient denies any tobacco usage or history of. - Family history:: not pertinent. Screenin:00 [facility] ED Fall Risk Assessment (Adult) History of falling in the last 3 months, ko1 including since admission No falls in past 3 months (0 pts) Confusion or Disorientation No (0 pts) Intoxicated or Sedated No (0 pts) Impaired Gait No (0 pts) Mobility Assist Device Used No (0 pt) Altered Elimination No (0 pt) Score/Fall Risk Level 0 - 2 = Low Risk Oriented to surroundings, Maintained a safe environment, Educated pt \\T\\ family on fall prevention, incl call for assistance when getting out of bed, Assessed \\T\\ reinforced patient's understanding of fall precautions, Provided non-skid footwear, Hourly rounding (assess needs \\T\\ fall precautionary measures) done, Used ambulatory aids as needed (educated on \\T\\ assisted with), Used gait belt as appropriate. Abuse screen: Denies threats or abuse. Denies injuries from another. Nutritional screening: No deficits noted. Tuberculosis screening: No symptoms or risk factors identified. Assessment: 18:00 General: Appears in no apparent distress. comfortable, Behavior is calm, cooperative, ko1 appropriate for age. Pain: Denies pain. Neuro:. Neuro: No deficits noted. Neuro: Colin Agitation-Sedation Scale (RASS): 0 - Alert and Calm. Neuro: Level of Consciousness is awake, alert, obeys commands, Oriented to person, place, time, situation, Appropriate for age Reports dizziness, Denies dizziness. Cardiovascular: Rhythm is regular. Respiratory: No deficits noted. GI: No deficits noted. : No deficits noted. EENT: No deficits noted. Derm: No deficits noted. Musculoskeletal: No deficits noted. 19:20 General: Appears in no apparent distress. comfortable, well developed, Behavior is pf1 calm, cooperative, appropriate for age, quiet. 19:20 Pain: Denies pain. Neuro: Level of Consciousness is awake, alert, obeys commands, pf1 Oriented to person, place, time, situation, Appropriate for age Reports dizziness, near syncope. Denies dizziness, at this time. Cardiovascular: Capillary refill < 3 seconds Patient's skin is warm and dry. Respiratory: No deficits noted. Airway is patent Trachea midline Respiratory effort is even, unlabored, Respiratory pattern is regular, symmetrical. GI: Abdomen is round distended. : No deficits noted. No signs and/or symptoms were reported regarding the genitourinary system. EENT: No deficits noted. No signs and/or symptoms were reported regarding the EENT system. Derm: No deficits noted. No signs and/or symptoms reported regarding the dermatologic system. Musculoskeletal: No deficits noted. No signs and/or symptoms reported regarding the musculoskeletal system. Vital Signs: 16:39 BP 129 / 85; Pulse 94; Resp 16; Temp 98.9; Pulse Ox 100% on R/A; Weight 79.38 kg (R); cm10 Height 5 ft. 2 in. (R); Pain 9/10; 18:15 BP 105 / 62; Pulse 77; Resp 16; Pulse Ox 99% ; ko1 18:30 BP 112 / 67; Pulse 78; Resp 16; Pulse Ox 100% ; ko1 18:45 BP 109 / 68; Pulse 80; Resp 16; Pulse Ox 100% ; ko1 19:30 BP 109 / 71; Pulse 78; Resp 16; Temp 98.1(O); Pulse Ox 100% on R/A; Pain 0/10; pf1 16:39 Body Mass Index 32.01 (79.38 kg, 157.48 cm) cm10 16:39 Pain Scale: Adult cm10 19:30 Pain Scale: Adult pf1 ED Course: 16:29 Patient arrived in ED. rg4 16:41 Triage completed. cm10 16:42 Arm band placed on Patient placed in waiting room. cm10 17:10 Jelani Springer MD is Attending Physician. rt 17:53 Ameena Morelos, LUIS ALBERTO is Primary Nurse. ko1 18:00 Patient has correct armband on for positive identification. Bed in low position. Call ko1 light in reach. Side rails up X 1. Client placed on continuous cardiac and pulse oximetry monitoring. NIBP monitoring applied. playground monitor on. Door closed. Noise minimized. Warm blanket given. 18:04 UAM Sent. ko1 18:05 Urine collected: clean catch specimen, clear. zm 18:15 Inserted saline lock: 20 gauge in right antecubital area, using aseptic technique. ko1 Blood collected. 18:16 EKG done, by ED staff. aw1 18:18 Magnesium Sent. ko1 18:18 TSH Sent. ko1 18:18 Troponin High Sensitivity Sent. ko1 18:18 CMP Sent. ko1 18:18 CBC with Diff Sent. ko1 20:14 No provider procedures requiring assistance completed. IV discontinued, intact, pf1 bleeding controlled, No redness/swelling at site. Pressure dressing applied. Administered Medications: 18:18 Drug: NS 0.9% IV 1000 ml Route: IV; Rate: 1 bolus; Site: right antecubital; ko1 19:20 Follow up: Response: No adverse reaction; Marked relief of symptoms; IV Status: pf1 Completed infusion; IV Intake: 1000ml Medication: 20:15 VIS not applicable for this client. pf1 Intake: 19:20 IV: 1000ml; Total: 1000ml. pf1 Outcome: 20:00 Discharge ordered by . rt 20:14 Discharged to home ambulatory, with family. pf1 20:14 Condition: improved 20:14 Discharge instructions given to patient, Instructed on discharge instructions, follow up and referral plans. Demonstrated understanding of instructions, follow-up care. 20:15 Patient left the ED. pf1 Signatures: Catherine Zapata rg4 Ana Christine Kathy, RN RN ko1 Jelani Springer MD MD rt Deann Lawrence RN RN pf1 Tegan Christine RN RN cm10 Kae Edwards [facility]
--- NOTE | 2022-11-08 20:01 | EDPHYS ---
Physician Documentation [facility] Name: Akanksha Barragan Age: 22 yrs Sex: Female : 2000 Arrival Date: 11/08/2022 Time: 16:26 Bed 16 Private MD: ED Physician Jelani Springer HPI: 11/08 21:33 This 22 yrs old Female presents to ER via Ambulatory with complaints of Syncope, 19 rt Weeks . 21:33 Patient presents to the ED with a lightheadedness episode. She has had multiple rt episodes, however, she states that since being , she has had more frequent episodes of being lightheaded. She denies any chest pain, shortness of breath. Patient states that occurs when she stands up. Denies other acute complaints at this time. Symptoms are moderate severity, no other aggravating or bitting factors.. 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 - Social history:: Smoking status: Patient denies any tobacco usage or history of. - Family history:: not pertinent. ROS: 21:33 Constitutional: Negative for fever, chills, and weight loss, Cardiovascular: Negative rt for chest pain, palpitations, and edema, Respiratory: Negative for shortness of breath, cough, wheezing, and pleuritic chest pain, Abdomen/GI: Negative for abdominal pain, nausea, vomiting, diarrhea, and constipation, MS/Extremity: Negative for injury and deformity, Skin: Negative for injury, rash, and discoloration, Psych: Negative for depression, anxiety, suicide ideation, homicidal ideation, and hallucinations. 21:33 Neuro: Positive for near syncope, Negative for altered mental status. Exam: 21:33 Constitutional: This is a well developed, well nourished patient who is awake, alert, rt and in no acute distress. Head/Face: Normocephalic, atraumatic. Chest/axilla: Normal chest wall appearance and motion. Nontender with no deformity. No lesions are appreciated. Cardiovascular: Regular rate and rhythm with a normal S1 and S2. No gallops, murmurs, or rubs. Normal PMI, no JVD. No pulse deficits. Respiratory: Lungs have equal breath sounds bilaterally, clear to auscultation and percussion. No rales, rhonchi or wheezes noted. No increased work of breathing, no retractions or nasal flaring. Abdomen/GI: Soft, non-tender, with normal bowel sounds. No distension or tympany. No guarding or rebound. No evidence of tenderness throughout. Skin: Warm, dry with normal turgor. Normal color with no rashes, no lesions, and no evidence of cellulitis. MS/ Extremity: Pulses equal, no cyanosis. Neurovascular intact. Full, normal range of motion. Neuro: Awake and alert, GCS 15, oriented to person, place, time, and situation. Cranial nerves II-XII grossly intact. Motor strength 5/5 in all extremities. Sensory grossly intact. Cerebellar exam normal. Normal gait. Psych: Awake, alert, with orientation to person, place and time. Behavior, mood, and affect are within normal limits. 21:33 ECG was reviewed by the Attending Physician. Vital Signs: 16:39 BP 129 / 85; Pulse 94; Resp 16; Temp 98.9; Pulse Ox 100% on R/A; Weight 79.38 kg (R); cm10 Height 5 ft. 2 in. (R); Pain 9/10; 18:15 BP 105 / 62; Pulse 77; Resp 16; Pulse Ox 99% ; ko1 18:30 BP 112 / 67; Pulse 78; Resp 16; Pulse Ox 100% ; ko1 18:45 BP 109 / 68; Pulse 80; Resp 16; Pulse Ox 100% ; ko1 19:30 BP 109 / 71; Pulse 78; Resp 16; Temp 98.1(O); Pulse Ox 100% on R/A; Pain 0/10; pf1 16:39 Body Mass Index 32.01 (79.38 kg, 157.48 cm) cm10 16:39 Pain Scale: Adult cm10 19:30 Pain Scale: Adult pf1 MDM: 17:43 Patient medically screened. rt 21:33 Differential Diagnosis: Dysrhythmia, anemia, electrolyte disturbance. Data reviewed: rt vital signs, nurses notes, lab test result(s), EKG. Test considered but Not performed: CT: Low suspicion for PE, CVA, CT scan not indicated. Care significantly affected by the following chronic conditions: Frequent episodes of near syncope. Counseling: I had a detailed discussion with the patient and/or guardian regarding: the historical points, exam findings, and any diagnostic results supporting the discharge/admit diagnosis, lab results, the need for outpatient follow up, to return to the emergency department if symptoms worsen or persist or if there are any questions or concerns that arise at home. 11/08 17:56 Order name: UAM; Complete Time: 19:51 rt 11/08 17:56 Order name: CBC with Diff; Complete Time: 19:51 rt 11/08 17:56 Order name: CMP; Complete Time: 19:51 rt 11/08 17:56 Order name: Troponin High Sensitivity; Complete Time: 19:51 rt 11/08 17:56 Order name: TSH; Complete Time: 19:51 rt 11/08 17:56 Order name: Magnesium; Complete Time: 19:51 rt 11/08 19:30 Order name: T4 Free; Complete Time: 19:51 EDMS 11/08 17:56 Order name: EKG; Complete Time: 17:57 rt 11/08 17:56 Order name: EKG - Nurse/Tech; Complete Time: 18:04 rt EC:33 Rate is 84 beats/min. Rhythm is regular, Normal Sinus Rhythm with No ectopy, rt Nonspecific T wave changes. QRS [place] is Normal. UT interval is normal. QRS interval is normal. No Q waves. No ST changes noted. Interpreted by me. Administered Medications: 18:18 Drug: NS 0.9% IV 1000 ml Route: IV; Rate: 1 bolus; Site: right antecubital; ko1 19:20 Follow up: Response: No adverse reaction; Marked relief of symptoms; IV Status: pf1 Completed infusion; IV Intake: 1000ml Disposition Summary: 11/08/22 20:00 Discharge Ordered Location: Home rt Problem: new rt Symptoms: have improved rt Condition: Stable rt Diagnosis - Syncope Near rt Followup: rt - With: Private Physician - When: 2 - 3 days - Reason: Discharge Instructions: - Discharge Summary Sheet rt - Near-Syncope rt Forms: - Medication Reconciliation Form rt - Thank You Letter rt - Antibiotic Education rt - Prescription Opioid Use rt Signatures: Dispatcher [employer] EDMS Jethro, Ameena, RN RN ko1 Jelani Springer MD MD rt Tegan Christine RN RN cm10 Deann Lawrence RN pf1
[2022-11-08 20:37] VITALS: O2SAT 100
[2022-11-08 20:40] VITALS: BP 109/71; TEMP 98.1
--- NOTE | 2022-11-09 16:30 | EKG ---
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
== END 2022-11-08 20:15 | disposition home or self-care (01) ==
LOC: ER 16:26
DX: O26.899 Other specified pregnancy related conditions, unspecified trimester (principal); R55 Syncope and collapse; Z3A.19 19 weeks gestation of pregnancy; Z88.1 Allergy status to other antibiotic agents; Z88.8 Allergy status to other drugs, medicaments and biological substances; Z91.013 Allergy to seafood; Z91.040 Latex allergy status; Z91.048 Other nonmedicinal substance allergy status
CPT/HCPCS: 93005; 85025; 81001; 36415; 83735; 84443; 84484; 84439; 80053; 96360; 99285; J7030

== ENCOUNTER 2024-07-31 11:28 | Emergency (ER) | payer OTHER ==
--- NOTE | 2024-07-31 12:34 | RAD REPORT ---
EXAMINATION: XR LEFT WRIST CLINICAL INDICATION: PAIN TECHNIQUE: Multiple projections of the left wrist were obtained. COMPARISON: No prior exam. FINDINGS: No bone or joint abnormality seen.
--- NOTE | 2024-07-31 12:48 | EDPHYS ---
Physician Documentation [facility] Name: Akanksha Barragan Age: 23 yrs Sex: Female : 2000 Arrival Date: 07/31/2024 Time: 11:28 Bed 11 Private MD: ED Physician Per Hernandez HPI: 07/31 12:23 This 23 yrs old Female presents to ER via Ambulatory with complaints of Wrist pain. rn 12:23 The patient or guardian reports pain. The complaints affect the left wrist diffusely. rn Onset: The symptoms/episode began/occurred this morning. Modifying factors: The symptoms are alleviated by nothing, the symptoms are aggravated by movement. The patient has not experienced similar symptoms in the past. Patient reports 6 months , has been having wrist pain, worse this morning. No fall or injury. No redness. No warmth. No fever or chills. Patient reports pain at the base of the left thumb and pain when moving thumb and wrist.. Historical: - Allergies: 11:50 Bactrim; hb 11:50 Latex; hb 11:50 Iodine; hb 11:50 Phenergan; hb 11:50 SHELL FISH; hb - PMHx: 11:50 Hypothyroidism; Migraines; seasonal allergies; inverted T waves; hb - Immunization history:: Adult Immunizations up to date. - Infectious Disease History:: Denies. - Social history:: Smoking status: Patient denies any tobacco usage or history of. - Family history:: not pertinent. - Hospitalizations: : No recent hospitalization is reported. ROS: 12:23 Constitutional: Negative for fever, chills, and weight loss, MS/Extremity: Positive for rn left wrist pain, negative for injury Skin: Negative for injury, rash, and discoloration, Neuro: Negative for headache, weakness, numbness, tingling, and seizure, Exam: 12:23 Constitutional: This is a well developed, well nourished patient who is awake, alert, rn and in no acute distress. MS/ Extremity: Pulses equal, no cyanosis. Neurovascular intact. Painful range of motion when moving left thumb and at base of thumb with radiation into the wrist. No redness or warmth. No overlying skin changes. No swelling noted. Vital Signs: 11:49 BP 118 / 70; Pulse 97; Resp 16; Temp 97.9; Pulse Ox 100% ; Weight 86.18 kg; Height 5 hb ft. 3 in. ; Pain 10/10; 11:49 Body Mass Index 33.66 (86.18 kg, 160.02 cm) hb 11:49 Pain Scale: Adult hb MDM: 11:32 Medical Screening Exam initiated rn 12:45 Differential diagnosis: Carpal tunnel syndrome, de Quervain's tenosynovitis. Data rn reviewed: vital signs, nurses notes, radiologic studies, plain films, and as a result, I will discharge patient. Independent interpretation of the following test(s) in the Emergency Department X-Ray: My interpretation is X-ray left wrist negative for fracture or dislocation per my interpretation. Counseling: I had a detailed discussion with the patient and/or guardian regarding the historical points, exam findings, and any diagnostic results supporting the discharge/admit diagnosis, radiology results, the need for outpatient follow up, to return to the emergency department if symptoms worsen or persist or if there are any questions or concerns that arise at home. Special discussion: I discussed with the patient/guardian in detail that at this point there is no indication for admission to the hospital. It is understood, however, that if the symptoms persist or worsen the patient needs to return immediately for re-evaluation. ED course: Given lack of trauma and normal x-ray findings, most likely related de Quervain's synovitis versus carpal tunnel syndrome. Will place in thumb spica splint, recommend ice and rest and PCP follow-up.. 07/31 11:42 Order name: XRAY Wrist LEFT 3 view; Complete Time: 12:39 jj7 07/31 12:45 Order name: Splint - Thumb Spica: velcro thumb spica splint; Complete Time: 13:08 rn Administered Medications: No medications were administered Disposition Summary: 07/31/24 12:47 Discharge Ordered Notes: Location: Home rn Problem: new rn Symptoms: have improved rn Condition: Stable rn Diagnosis - Carpal tunnel syndrome, left upper limb rn - de Quervain's Tenosynovitis rn Followup: rn - With: Private Physician - When: As needed - Reason: Recheck today's complaints, Re-evaluation by your physician Discharge Instructions: - Discharge Summary Sheet rn - Wrist Splint or Brace, Adult rn - De Quervain's Tenosynovitis rn - Carpal Tunnel Syndrome, [id number] rn Forms: - Medication Reconciliation Form rn - Antibiotic internal specialist - Prescription Opioid Use rn - Patient Portal Instructions rn - Leadership Thank You Letter rn Signatures: Dispatcher [employer] Per Dowling MD MD rn Baxter, Heather, RN RN
--- NOTE | 2024-07-31 12:48 | ER ---
Nurse's Notes [facility] Name: Akanksha Barragan Age: 23 yrs Sex: Female : 2000 Arrival Date: 07/31/2024 Time: 11:28 Bed 11 Private MD: Diagnosis: Carpal tunnel syndrome, left upper limb;de Quervain's Tenosynovitis Presentation: 07/31 11:49 Chief complaint: Left hand and wrist pain and swelling upon waking today. Coronavirus hb screen: At this time, the client does not indicate any symptoms associated with coronavirus-19. Ebola Screen: No symptoms or risks identified at this time. Initial Sepsis Screen: Does the patient meet any 2 criteria? No. Patient's initial sepsis screen is negative. Does the patient have a suspected source of infection? No. Patient's initial sepsis screen is negative. Risk Assessment: Do you want to hurt yourself or someone else? Patient reports no desire to harm self or others. Onset of symptoms was July 31, 2024. 11:49 Method Of Arrival: Ambulatory hb 11:49 Acuity: NATHAN 4 hb Historical: - Allergies: 11:50 Bactrim; hb 11:50 Latex; hb 11:50 Iodine; hb 11:50 Phenergan; hb 11:50 SHELL FISH; hb - PMHx: 11:50 Hypothyroidism; Migraines; seasonal allergies; inverted T waves; hb - Immunization history:: Adult Immunizations up to date. - Infectious Disease History:: Denies. - Social history:: Smoking status: Patient denies any tobacco usage or history of. - Family history:: not pertinent. - Hospitalizations: : No recent hospitalization is reported. Vital Signs: 11:49 BP 118 / 70; Pulse 97; Resp 16; Temp 97.9; Pulse Ox 100% ; Weight 86.18 kg; Height 5 hb ft. 3 in. ; Pain 10/10; 11:49 Body Mass Index 33.66 (86.18 kg, 160.02 cm) hb 11:49 Pain Scale: Adult hb ED Course: 11:30 Patient arrived in ED. mr 11:32 Per Hernandez MD is Attending Physician. rn 11:50 Triage completed. hb 11:50 Arm band placed on. hb 12:14 XRAY Wrist LEFT 3 view In Process Unspecified. EDMS Administered Medications: No medications were administered Outcome: 12:47 Discharge ordered by . yulia 13:08 Patient left the ED. hb Signatures: Dispatcher [employer] EDMS Jil Coe, Per Cali MD MD rn Baxter, Heather, RN RN hb
[2024-07-31 13:15] VITALS: BP 118/70; TEMP 97.9; O2SAT 100
== END 2024-07-31 13:08 | disposition home or self-care (01) ==
LOC: ER 11:28
DX: G56.02 Carpal tunnel syndrome, left upper limb (principal); M65.4 Radial styloid tenosynovitis [de Quervain]
CPT/HCPCS: 99281